=== PATIENT | male | born 1975 | race Caucasian/White ===

== ENCOUNTER 2018-04-17 07:35 | Emergency (ER) | payer BC, SELFPAY ==
[2018-04-17 07:36] VITALS: BP 134/92; PULSE 87; RESP 18; TEMP 36.8; O2SAT 99; BMI 21.6
--- NOTE | 2018-04-17 07:58 | ED.RN ---
DR PURI MADE AWARE OF TONGUE EDEMA, CP AND SOB FOR A COUPLE OF DAYS PER PATIENT. RECEIVING EKG AT THIS TIME
--- NOTE | 2018-04-17 08:15 | EKG12_ITS ---
Test Reason : CHEST PAIN Blood Pressure : / mmHG Vent. Rate : 075 BPM Atrial Rate : 075 BPM P-R Int : 128 ms QRS Dur : 098 ms QT Int : 386 ms P-R-T Axes : 073 -76 054 degrees QTc Int : 431 ms Normal sinus rhythm with sinus arrhythmia Left anterior fascicular block Anterolateral infarct , age undetermined Abnormal ECG Confirmed by CHENTE DOYLE, LATASHA ([id number]), sound editor GURU RAMÍREZ ([id number]) on 04/21/2018 10:18:50 AM Referred By: BEATRIZ Confirmed By:LATASHA ELDRIDGE MD
--- NOTE | 2018-04-17 08:17 | CT_ITS ---
STUDY: CT SOFT TISSUE NECK WITH CONTRAST REASON FOR EXAM: Male, 43 years old. Swelling of the lower lip and mandibular area. No known injury. RADIATION DOSAGE (If Supplied By Facility): CTDIvol = ( 20 ) mGy, DLP = ( 694.44 ) mGycm TECHNIQUE: The patient was scanned in a multi-detector CT scanner. High resolution transaxial imaging was performed following intravenous administration of 100CC ml of Isovue 300 contrast material. Sagittal and coronal images were reconstructed. Individualized dose optimization techniques were used for this CT. COMPARISON: None. FINDINGS: There is diffuse skin thickening and subcutaneous edema involving the soft tissues anterior to the mandible. There is evidence of increased vascularity within the subcutaneous tissues. This may be secondary to either an inflammatory process or congenital vascular malformation. Normal bilateral parotid glands. Normal bilateral nuclear radiation engineer spaces. Normal bilateral parapharyngeal spaces. Normal bilateral carotid spaces. Normal bilateral sublingual and submandibular glands and spaces. Normal visualized nasopharynx. Normal retropharyngeal space. Normal perivertebral space. Normal visualized bilateral faucial tonsils. The visualized tongue, tongue base and oropharynx are normal. The visualized cervical lymph nodes (levels I-) are within normal size limits, and maintain normal morphology. There is no demonstrated solid or cystic mass lesion. There is no abnormal contrast enhancement. Normal epiglottis, bilateral vallecula and hypopharynx. The pre-epiglottic and paraglottic adipose spaces are normal. Normal visualized bilateral piriform sinuses, aryepiglottic folds, vocal cords, and arytenoid-cricoid articulations. Normal subglottic trachea. Normal bilateral lobes of the thyroid gland. Normal visualized pulmonary apices. Mucosal thickening of the left maxillary sinus. Normal visualized cervical spine. CT/Soft Tissue Neck WITH Contrast IMPRESSION: Diffuse skin thickening and soft tissue edema with increased vascularity within the soft tissues anterior to the mandible as described. This may represent either inflammatory process or vascular malformation. Electronically Signed: Adair Giang MD at 9:29 EST Tel [phone], Service support ,
--- NOTE | 2018-04-17 08:18 | ED.VISSUMM ---
- ER Visit Summary Date of Service: 04/17/18 Chief Complaint: Facial swelling History of Present Illness: The patient is a 43 M who presents for facial swelling. Patient states he woke up around 5 AM with swelling to his lips. Yesterday he did not feel well with general malaise and fatigue, and had subjective fever and chills through the night. He woke up with the swelling, and his significant other states the lips have gotten more swollen since he woke up. Patient is also complaining of chest tightness since yesterday. He has a sore throat. He has a chronic cough due to being a smoker but no rhinorrhea, congestion or change in his cough. No recent illness. He is not on any medications. He denies any [id number]-[id number] medication use or any exposure to allergens. Patient denies any history of prior swelling. He denies any shortness of breath, sensation of his throat or tongue swelling. Denies rash. Physical Examination: Vital signs: afebrile, hemodynamically stable, no hypoxia on room air General: well nourished, well developed, sitting in bed in no distress Skin: warm, dry, no rash, no pallor HEENT: normocephalic and atraumatic; PERRL, EOMI, mild symmetric superior periorbital edema, moist mucous membranes, edentulous, swelling to the upper and lower lips, examination of the mental and submental region limited secondary to thick. But patient has tenderness to palpation of the chin and submental region. No sublingual edema or swelling. No posterior oropharyngeal erythema, swelling or exudate, uvula is midline, no tongue swelling. Neck has tender lymphadenopathy in the anterior cervical chains bilaterally. Neck is supple with full active range of motion, no meningismus Cardiovascular: regular rate and rhythm without murmurs, no peripheral edema, 2+ pulses all distal extremities Respiratory: No increased work of breathing, lungs are clear to auscultation bilaterally, no rales, rhonchi or wheezing Abdominal: Abdomen is soft, nontender with normoactive bowel sounds, no guarding or rebound, no masses MSK: Moves all extremities, no deformities, normal strength Neuro: Awake and alert, oriented ?4. No facial droop, sensation and motor function intact and symmetric Test Results: Abnormal Lab Results 12/10/18 12/10/18 12/10/18 08:10 08:10 08:10 WBC 10.6 RBC 4.87 Hgb 16.5 Hct 47.9 MCV 98.4 H MCH 33.9 H MCHC 34.4 RDW 12.9 RDW Differential 46.7 H Plt Count 124 L MPV 14.3 H Immature Gran % (Auto) 0.100 Neut % (Auto) 75.8 H Lymph % (Auto) 16.2 L [place] % (Auto) 7.0 Eos % (Auto) 0.8 Baso % (Auto) 0.1 Absolute Neuts (auto) 8.0 H Absolute Lymphs (auto) 1.71 Total Counted Not Reportable PT 12.9 INR 1.0 APTT 30.9 Sodium 139 Potassium 4.0 Chloride 105 Carbon Dioxide 29.0 Anion Gap 5 BUN 11 Creatinine 0.82 Estim Creat Clear Calc 97.88 Est GFR (MDRD) Af Amer 132 Est GFR (MDRD) Non-Af 109 BUN/Creatinine Ratio 13.3 Glucose 107 H Lactic Acid Calcium 8.8 Total Bilirubin 1.10 H AST 16 ALT 14 L Alkaline Phosphatase 118 H Troponin I < 0.015 Total Protein 7.0 Albumin 3.8 Globulin 3.2 Albumin/Globulin Ratio 1.2 Urine Color Urine Clarity Urine pH Ur Specific [place] Urine Protein Urine Glucose (UA) Urine Ketones Urine Occult Blood Urine Nitrite Urine Bilirubin Urine Urobilinogen Ur Leukocyte Esterase Urine RBC Urine WBC Ur Squamous Epith Cells Urine Bacteria Urine Mucus 04/17/18 04/17/18 08:35 08:35 WBC RBC Hgb Hct MCV MCH MCHC RDW RDW Differential Plt Count MPV Immature Gran % (Auto) Neut % (Auto) Lymph % (Auto) [place] % (Auto) Eos % (Auto) Baso % (Auto) Absolute Neuts (auto) Absolute Lymphs (auto) Total Counted PT INR APTT Sodium Potassium Chloride Carbon Dioxide Anion Gap BUN Creatinine Estim Creat Clear Calc Est GFR (MDRD) Af Amer Est GFR (MDRD) Non-Af BUN/Creatinine Ratio Glucose Lactic Acid 0.7 Calcium Total Bilirubin AST ALT Alkaline Phosphatase Troponin I Total Protein Albumin Globulin Albumin/Globulin Ratio Urine Color Yellow Urine Clarity Sl. Cloudy Urine pH 8.0 Ur Specific [place] 1.015 Urine Protein Negative Urine Glucose (UA) Normal Urine Ketones Negative Urine Occult Blood Negative Urine Nitrite Negative Urine Bilirubin Negative Urine Urobilinogen 4 H Ur Leukocyte Esterase 25 H Urine RBC 0 SEEN Urine WBC 0-5 SEEN Ur Squamous Epith Cells 0-5 SEEN Urine Bacteria 1+ Urine Mucus RARE Clinical Impression(s) from Imaging Studies Soft Tissue Neck CT 04/17/18 08:17 IMPRESSION: Diffuse skin thickening and soft tissue edema with increased vascularity within the soft tissues anterior to the mandible as described. This may represent either inflammatory process or vascular malformation. Electronically Signed: Adair Giang MD at 9:29 EST Tel [phone], Service support , Chest X-Ray 04/17/18 09:11 IMPRESSION: Normal x-ray examination of the chest. Electronically Signed: Adair Giang MD at 9:36 EST Tel [phone], Service support , Medications Given Clindamycin Phosphate 600 mg/ (Dextrose) 54 mls @ 100 mls/hr IV X1 ONE Stop: 04/17/18 10:07 Discontinued Medications Diphenhydramine HCl (Benadryl) 50 mg PO X1 ONE Stop: 04/17/18 08:17 Last Admin: 04/17/18 08:22 Dose: 50 mg Sodium Chloride () 1,000 mls @ 999 mls/hr IV .Q1H1M ONE Stop: 04/17/18 09:17 Last Admin: 04/17/18 08:23 Dose: 999 mls/hr Prednisone () 60 mg PO X1 ONE Stop: 04/17/18 08:18 Last Admin: 04/17/18 08:22 Dose: 60 mg Emergency Department Course and Treatment: Patient presents with concern for facial swelling with associated malaise and subjective fever. Further history provided by the partner is that patient had an ingrown hair in his laureano yesterday that she wanted to pop but he was too tender for her to even touch it. Differential includes cellulitis, deep space infection, idiopathic angioedema, allergic reaction, and with patient's complaint of chest tightness, cardiac workup was included. EKG showed sinus rhythm with no ischemic changes. Troponin negative. CBC showed no leukocytosis. BMP unremarkable. Lactate within normal limits. Chest x-ray showed no acute process. CT soft tissue neck was performed and it showed subcutaneous edema anterior to the mandible but no signs of deep space infection. Patient was given prednisone and Benadryl upon initial presentation for treatment of the edema in case it was allergic in nature. Patient was observed and had no progression of the edema but had no change in how he felt. Because of the concern for possible infectious etiology, he was started on clindamycin, which was chosen due to a severe penicillin allergy. On reevaluation, patient remained hemodynamically stable and the swelling of his lower face modestly improved. Patient stated he subjectively felt like the swelling had improved, and his family also noted that his face looked less swollen. Patient feels well enough to go home, and given the improvement in his edema with no signs of airway compromise, sepsis or anaphylaxis, outpatient management is reasonable. Patient has no findings on his lab work or vital signs that is concerning for infectious etiology, however given the malaise, fatigue, objective fever, and facial tenderness with multiple pustules in the laureano, this is concerning for possible facial cellulitis. However patient also has the concern for possible allergic versus idiopathic angioedema. Thus he was prescribed both clindamycin and prednisone with Benadryl. Strict return precautions given. Patient discharged home with symptoms improving. Treatment Plan: [] Disposition: [] Impression: idiopathic facial edema; facial cellulitis This note was generated with [employer] dictation software. It may contain incorrect words, spelling, and punctuation that were not noted in review of the chart prior to signing ED Disposition - Plan for ED Patient: Chief Complaint: Chest Pain Prescriptions: DiphenhydrAMINE [Benadryl] 50 mg PO TID PRN PRN #30 cap PRN Reason: allergic reaction predniSONE tablet 60 mg PO DAILY #15 tab Clindamycin [Cleocin] 450 mg PO TID 7 Days #63 cap Referrals: Care Physician,No Primary [Primary Care Provider] -
[2018-04-17] MEDS: predniSONE 20 MG Tablet 60 MG PO (08:22)
[2018-04-17] MEDS: DiphenhydrAMINE 25 MG Capsule 50 MG PO (08:22)
--- NOTE | 2018-04-17 08:22 | ED.DCSUM_ITS ---
- ER Visit Summary Date of Service: 04/17/18 Chief Complaint: Facial swelling History of Present Illness: The patient is a 43 M who presents for facial swelling. Patient states he woke up around 5 AM with swelling to his lips. Yesterday he did not feel well with general malaise and fatigue, and had subjec tive fever and chills through the night. He woke up with the swelling, and his significant other states the lips have gotten more swollen since he woke up. Patient is also complaining of chest tightness since yesterday. He has a sore throat. He has a chronic cough due to being a smoker but no rhinorrhea, congestion or change in his cough. No recent illness. He is not on any medications. He denies any ezyf-prx-vatqege medication use or any exposure to allergens. Patient denies any history of prior swelling. He denies any shortness of breath, sensation of his throat or tongue swelling. Denies rash. Physical Examination: Vital signs: afebrile, hemodynamically stable, no hypoxia on room air General: well nourished, well developed, sitting in bed in no distress Skin: warm, dry, no rash, no pallor HEENT: normocephalic and atraumatic; PERRL, EOMI, mild symmetric superior periorbital edema, moist mucous membranes, edentulous, swelling to the upper and lower lips, examination of the mental and submental region limited secondary to thick. But patient has tenderness to palpation of the chin and submental region. No sublingual edema or swelling. No posterior oropharyngeal erythema, swelling or exudate, uvula is midline, no tongue swelling. Neck has tender lymphadenopathy in the anterior cervical chains bilaterally. Neck is supple with full active range of motion, no meningismus Cardiovascular: regular rate and rhythm without murmurs, no peripheral edema, 2+ pulses all distal extremities Respiratory: No increased work of breathing, lungs are clear to auscultation bilaterally, no rales, rhonchi or wheezing Abdominal: Abdomen is soft, nontender with normoactive bowel sounds, no guarding or rebound, no masses MSK: Moves all extremities, no deformities, normal strength Neuro: Awake and alert, oriented ?4. No facial droop, sensation and motor function intact and symmetric Test Results: Abnormal Lab Results 04/17/18 04/17/18 04/17/18 08:10 08:10 08:10 WBC 10.6 RBC 4.87 Hgb 16.5 Hct 47.9 MCV 98.4 H MCH 33.9 H MCHC 34.4 RDW 12.9 RDW Differential 46.7 H Plt Count 124 L MPV 14.3 H Immature Gran % (Auto) 0.100 Neut % (Auto) 75.8 H Lymph % (Auto) 16.2 L [place] % (Auto) 7.0 Eos % (Auto) 0.8 Baso % (Auto) 0.1 Absolute Neuts (auto) 8.0 H Absolute Lymphs (auto) 1.71 Total Counted Not Reportable PT 12.9 INR 1.0 APTT 30.9 Sodium 139 Potassium 4.0 Chloride 105 Carbon Dioxide 29.0 Anion Gap 5 BUN 11 Creatinine 0.82 Estim Creat Clear Calc 97.88 Est GFR (MDRD) Af Amer 132 Est GFR (MDRD) Non-Af 109 BUN/Creatinine Ratio 13.3 Glucose 107 H Lactic Acid Calcium 8.8 Total Bilirubin 1.10 H AST 16 ALT 14 L Alkaline Phosphatase 118 H Troponin I < 0.015 Total Protein 7.0 Albumin 3.8 Globulin 3.2 Albumin/Globulin Ratio 1.2 Urine Color Urine Clarity Urine pH Ur Specific [place] Urine Protein Urine Glucose (UA) Urine Ketones Urine Occult Blood Urine Nitrite Urine Bilirubin Urine Urobilinogen Ur Leukocyte Esterase Urine RBC Urine WBC Ur Squamous Epith Cells Urine Bacteria Urine Mucus 04/17/18 04/17/18 08:35 08:35 WBC RBC Hgb Hct MCV MCH MCHC RDW RDW Differential Plt Count MPV Immature Gran % (Auto) Neut % (Auto) Lymph % (Auto) [place] % (Auto) Eos % (Auto) Baso % (Auto) Absolute Neuts (auto) Absolute Lymphs (auto) Total Counted PT INR APTT Sodium Potassium Chloride Carbon Dioxide Anion Gap BUN Creatinine Estim Creat Clear Calc Est GFR (MDRD) Af Amer Est GFR (MDRD) Non-Af BUN/Creatinine Ratio Glucose Lactic Acid 0.7 Calcium Total Bilirubin AST ALT Alkaline Phosphatase Troponin I Total Protein Albumin Globulin Albumin/Globulin Ratio Urine Color Yellow Urine Clarity Sl. Cloudy Urine pH 8.0 Ur Specific [place] 1.015 Urine Protein Negative Urine Glucose (UA) Normal Urine Ketones Negative Urine Occult Blood Negative Urine Nitrite Negative Urine Bilirubin Negative Urine Urobilinogen 4 H Ur Leukocyte Esterase 25 H Urine RBC 0 SEEN Urine WBC 0-5 SEEN Ur Squamous Epith Cells 0-5 SEEN Urine Bacteria 1+ Urine Mucus RARE Clinical Impression(s) from Imaging Studies Soft Tissue Neck CT 04/17/18 08:17 IMPRESSION: Diffuse skin thickening and soft tissue edema with increased vascularity within the soft tissues anterior to the mandible as described. This may represent either inflammatory process or vascular malformation. Electronically Signed: Adair Giang MD at 9:29 EST Tel [phone], Service support , Chest X-Ray 04/17/18 09:11 IMPRESSION: Normal x-ray examination of the chest. Electronically Signed: Adair Giang MD at 9:36 EST Tel [phone], Service support , Medications Given Clindamycin Phosphate 600 mg/ (Dextrose) 54 mls @ 100 mls/hr IV X1 ONE Stop: 04/17/18 10:07 Discontinued Medications Diphenhydramine HCl (Benadryl) 50 mg PO X1 ONE Stop: 04/17/18 08:17 Last Admin: 04/17/18 08:22 Dose: 50 mg Sodium Chloride () 1,000 mls @ 999 mls/hr IV .Q1H1M ONE Stop: 04/17/18 09:17 Last Admin: 04/17/18 08:23 Dose: 999 mls/hr Prednisone () 60 mg PO X1 ONE Stop: 04/17/18 08:18 Last Admin: 04/17/18 08:22 Dose: 60 mg Emergency Department Course and Treatment: Patient presents with concern for facial swelling with associated malaise and subjective fever. Further history provided by the partner is that patient had an ingrown hair in his laureano yesterday that she wanted to pop but he was too tender for her to even touch it. Differential includes cellulitis, deep space infection, idiopathic angioedema, allergic reaction, and with patient's complaint of chest tightness, cardiac workup was included. EKG showed sinus rhythm with no ischemic changes. Troponin negative. CBC showed no leukocytosis. BMP unremarkable. Lactate within normal limits. Chest x-ray showed no acute process. CT soft tissue neck was performed and it showed subcutaneous edema anterior to the mandible but no signs of deep space infection. Patient was given prednisone and Benadryl upon initial presentation for treatment of the edema in case it was allergic in nature. Patient was observed and had no progression of the edema but had no change in how he felt. Because of the concern for possible infectious etiology, he was started on clindamycin, which was chosen due to a severe penicillin allergy. On reevaluation, patient remained hemodynamically stable and the swelling of his lower face modestly improved. Patient stated he subjectively felt like the swelling had improved, and his family also noted that his face looked less swollen. Patient feels well enough to go home, and given the improvement in his edema with no signs of airway compromise, sepsis or anaphylaxis, outpatient management is reasonable. Patient has no findings on his lab work or vital signs that is concerning for infectious etiology, however given the malaise, fatigue, objective fever, and facial tenderness with multiple pustules in the laureano, this is concerning for possible facial cellulitis. However patient also has the concern for possible allergic versus idiopathic angioedema. Thus he was prescribed both clindamycin and prednisone with Benadryl. Strict return precautions given. Patient discharged home with symptoms improving. Treatment Plan: [] Disposition: [] Impression: idiopathic facial edema; facial cellulitis This note was generated with [employer] dictation software. It may contain incorrect words, spelling, and punctuation that were not noted in review of the chart prior to signing ED Disposition - Plan for ED Patient: Chief Complaint: Chest Pain Prescriptions: DiphenhydrAMINE [Benadryl] 50 mg PO TID PRN PRN #30 cap PRN Reason: allergic reaction predniSONE tablet 60 mg PO DAILY #15 tab Clindamycin [Cleocin] 450 mg PO TID 7 Days #63 cap Referrals: Care Physician,No Primary [Primary Care Provider] -
[2018-04-17] MEDS: 0.9% Normal Saline 1,000 ML 999 ML IV (08:23)
[2018-04-17 08:40] VITALS: BP 153/99; PULSE 66; RESP 17; TEMP 36.8; O2SAT 99
[2018-04-17 08:41] LABS: Absolute Lymphocyte Count 1.71 X10^3/ul (0.83-4.51); Basophil# 0.01 X10^3/uL; Basophil% 0.1 % (0-1); Eosinophil# 0.08 X10^3/uL; Eosinophils% 0.8 % (0-5); Hematocrit 47.9 % (40-54); Hemoglobin 16.5 g/dl (13.0-16.5); Lymphocyte # 1.71 X10^3/ul (4.0); Lymphocyte % 16.2 % (19-41); Mean Corp Hgb Conc 34.4 g/gl (32-36); Mean Corpuscular Hgb 33.9 pg (27.0-32.0); Mean Corpuscular Volume 98.4 fL (80-94); Mean Platelet Vol. 14.3 fl (6.2-12.0); Monocyte# 0.74 X10^3/uL; Neutrophil # 8.01 X10^3/uL (2.7-7.7); Neutrophil % 75.8 % (47-70); Platelet Count 124 K/mm3 (150-450); RBC Distribution Width CV 12.9 % (11.6-14.6); RBC Distribution Width SD 46.7 fl (35.1-43.9); Red Blood Count 4.87 M/mm3 (4.6-6.2); White Blood Count 10.6 K/mm3 (4.4-11.0)
[2018-04-17 08:42] LABS: POSITIVE COUNT NO; POSITIVE DIFFERENTIAL NO; POSITIVE MORPHOLOGY NO
[2018-04-17 08:42] LABS: Red Blood Cells-Urine 0 SEEN /hpf (0-5)
[2018-04-17 08:44] LABS: Prothrombin Time (Protime)PT. 12.9 SECONDS (11.7-14.9)
[2018-04-17 08:45] LABS: Partial Thromboplast Time 30.9 Seconds (24.1-36.2)
[2018-04-17 08:49] LABS: Color, Urine Yellow (Yellow); Glucose, Dipstick Normal (Normal); Ketone-Dipstick Negative (Negative); Leukocyte Esterase-Dipstick 25 /ul (Negative); Nitrite-Dipstick Negative (Negative); Occult Blood-Urine Negative /ul (Negative); Protein-Dipstick Negative (Negative); Specific Gravity, Urine 1.015 (1.002-1.030); Urine Bilirubin Dipstick Negative (Negative); Urine Clarity Sl. Cloudy (Clear); Urine Urobilinogen 4 mg/dl (Normal)
[2018-04-17 08:50] LABS: ALB/GLOB Ratio 1.2 RATIO (0.9-2.4); AST(SGOT) 16 U/L (15-37); Alanine Aminotransfer ALT/SGPT 14 U/L (16-61); Albumin, Serum 3.8 g/dL (3.2-5.0); Alkaline Phosphatase 118 U/L (45-117); Anion Gap 5 (5-15); BUN 11 mg/dL (7-18); BUN/Creat Ratio 13.3 RATIO (10-20); Calcium,Total 8.8 mg/dL (8.5-10.1); Chloride 105 mmol/L (98-107); Creatinine, Serum 0.82 mg/dL (0.70-1.30); EST Glomerular Filtration Rate 109 mL/min (>60); Est Glom Filt Rate - Afr Amer 132 mL/min (>60); Estimated Creatinine Clearance 97.88 ml/min; Globulin 3.2 g/dL (2.2-4.2); Glucose 107 mg/dL (74-106); Sodium Level 139 mmol/L (136-145)
[2018-04-17 08:53] LABS: Bacteria 1+ /hpf (None Seen); Squamous Epithelial Cells - UA 0-5 SEEN /hpf (0-5); White Blood Cells 0-5 SEEN /hpf (0-5)
[2018-04-17 08:54] LABS: Mucous, Urine RARE /hpf (<or=2+)
[2018-04-17 09:11] LABS: Lactic Acid 0.7 mmol/L (0.4-2.0)
--- NOTE | 2018-04-17 09:11 | RAD_ITS ---
STUDY: X-RAY CHEST REASON FOR EXAM: Male, 43 years old. Cough. Allergic reaction. TECHNIQUE: PA and lateral views of the chest. COMPARISON: None. FINDINGS: EKG electrodes are seen. The lungs are clear and expanded. There is no demonstrated pleural abnormality. Normal size heart. Normal mediastinum and nico. Normal visualized pulmonary arteries. Normal visualized aortic arch and descending thoracic aorta. Normal visualized thoracic spine. Normal visualized ribs, clavicles, and shoulders. There is no demonstrated abnormality of the visualized soft tissue structures of the upper abdomen. RAD/Chest PA and Lateral IMPRESSION: Normal x-ray examination of the chest. Electronically Signed: Adair Giang MD at 9:36 EST Tel [phone], Service support ,
[2018-04-17 09:38] VITALS: BP 121/93; PULSE 66; RESP 14; O2SAT 99
[2018-04-17 10:08] VITALS: BP 138/95; PULSE 72; RESP 19; O2SAT 98
--- NOTE | 2018-04-17 10:37 | ED.DEP ---
ED Disposition - Plan for ED Patient: Disposition: Home or Assisted Living Chief Complaint: Chest Pain Instructions: ED Cellulitis Facial, ED Angioedema Prescriptions: DiphenhydrAMINE [Benadryl] 50 mg PO TID PRN PRN #30 cap PRN Reason: allergic reaction predniSONE tablet 60 mg PO DAILY #15 tab Clindamycin [Cleocin] 450 mg PO TID 7 Days #63 cap Referrals: Care Physician,No Primary [Primary Care Provider] - Xavier Juares DO [STAFF PHYSICIAN] - 3-5 Days if not improving Additional Instructions: Take your medications as prescribed, especially the prednisone for 5 days in the antibiotic for 7 days. Do not miss any doses of the antibiotic. If at any point you are swelling worsens, you have difficulty breathing, you feel like your throat is swelling, you have dizziness or lightheadedness, high fever, or any new concerning symptoms, return immediately for another evaluation.
[2018-04-17 11:02] VITALS: BP 128/88; PULSE 72; RESP 13; O2SAT 98
== END 2018-04-17 11:04 | disposition home or self-care (01) ==
PROVIDERS: Emergency Provider Emergency Medicine
DX: L03.211 Cellulitis of face (principal); T78.3XXA Angioneurotic edema, initial encounter; R07.89 Other chest pain; J02.9 Acute pharyngitis, unspecified; R05 Cough; Z88.0 Allergy status to penicillin
CPT/HCPCS: 70491; 71046; 80053; 81001; 83605; 84484; 85025; 85610; 85730; 87040; 87086; 87088; 93005; 96361; 96365; 99285; J7030; Q9967; A4216

== ENCOUNTER 2018-04-17 12:02 | Emergency (ER) | payer BC, SELFPAY ==
[2018-04-17 07:36] VITALS: BMI 21.6
[2018-04-17 12:03] VITALS: BP 151/94; PULSE 84; RESP 18; TEMP 37.1; O2SAT 99; BMI 21.6
--- NOTE | 2018-04-17 12:42 | ED.VISSUMM ---
- ER Visit Summary Date of Service: 04/17/18 Chief Complaint: Facial swelling and lesions History of Present Illness: The patient is a 43 M who presents for a second time today for facial swelling and painful facial lesions. Patient was evaluated earlier this morning after waking up with swelling to the lips and chin. Patient had fatigue and malaise yesterday, subjective fever and chills overnight. There was concern by his girlfriend for an ingrown hair that was too tender to squeeze in his laureano. Patient had no fever, tachycardia or any lab derangements on his prior workup this morning. He has noted improvement in the swelling of his lips, but now has a new painful lesion on the lower mid lip that was not there at his earlier evaluation. Patient denies any shortness of breath, chest pain, sensation of tongue or throat swelling, vision changes, nausea or vomiting, or any other complaints at this time other than the new lip lesion. Physical Examination: Vital signs: afebrile, hemodynamically stable, no hypoxia on room air General: well nourished, well developed, in no distress Skin: warm, dry, pustules noted scattered on the face, thick laureano with occasional pustules, no pallor HEENT: normocephalic and atraumatic; PERRL, EOMI, periorbital edema, moist mucous membranes, edentulous, no oropharyngeal lesions, no tongue swelling, no posterior oropharyngeal swelling, no sublingual edema, diffuse edema to the lower lip with an erythematous tender papule on the vermilion border with a skin lesion in the hair follicles just inferior to this. Thick laureano with diffuse tenderness to palpation. No submandibular thickness or induration. Tenderness to the anterior cervical lymphatic chains, neck supple without meningismus Cardiovascular: regular rate and rhythm without murmurs, no peripheral edema, 2+ pulses all distal extremities Respiratory: No increased work of breathing, lungs are clear to auscultation bilaterally, no rales, rhonchi or wheezing Abdominal: Abdomen is soft, nontender with normoactive bowel sounds, no guarding or rebound, no masses MSK: Moves all extremities, no deformities, normal strength Neuro: Awake and alert, oriented ?4. No facial droop, sensation and motor function intact and symmetric Test Results: [] Emergency Department Course and Treatment: This is patient's second visit within a few hours for the same complaint. Patient swelling has actually improved, with resolution of the periorbital edema and upper lip swelling since exam this morning. He does have the new lesion on the lower lip which may either be extension of an infected hair follicle at the vermilion border versus a hives. Is still unclear if patient is having an allergic angioedema versus facial cellulitis. He did receive prednisone and clindamycin prior to discharge. Upon discussing disposition again of outpatient versus admission for observation, patient and girlfriend are very unsure about patient's condition, and it is very likely he will return if he is discharged. He would benefit from observation for angioedema to make sure his symptoms do not worsen. Treatment Plan: [] Disposition: [] Impression: facial edema; facial cellulitis, failed outpatient management This note was generated with [employer] dictation software. It may contain incorrect words, spelling, and punctuation that were not noted in review of the chart prior to signing ED Disposition - Plan for ED Patient: Chief Complaint: Edema Referrals: Care Physician,No Primary [Primary Care Provider] -
--- NOTE | 2018-04-17 13:36 | PCM.WORK.EX ---
Work/School Excuse Work/School Excuse for:: Patient Please excuse this person from:: Work From: 04/17/18 through: 04/18/18
--- NOTE | 2018-04-17 13:36 | PCM.DC ---
You will use the following diet at home:: No restrictions Your food should be the consistency of: Regular Return to work on:: 04/18/18 Call your doctor if you observe: - - increased facial swelling. shortness of breath. diffuse rash. Allergies/Adverse Reactions: Allergies Penicillins [PCN] Allergy (Verified 04/17/18 12:05) Unknown HAD IT WHEN I WAS A BABY, IT WILL KILL ME. Medications to take at Discharge DiphenhydrAMINE [Benadryl] 50 mg PO TID PRN PRN #30 cap 04/17/18 Epinephrine [Epi Pen] 0.3 mg IM X1 PRN #1 syringe 04/17/18 Famotidine [Pepcid] 20 mg PO BID #10 tablet 04/17/18 predniSONE tablet 60 mg PO DAILY #15 tab 04/17/18 The following prescriptions were given: Epinephrine [Epi Pen] 0.3 mg IM X1 PRN #1 syringe PRN Reason: Angioedema Famotidine [Pepcid] 20 mg PO BID #10 tablet Primary Care Physician: Care Physician,No Primary [Primary Care Provider] - Test Results: Test results from this visit will be discussed in further detail at your follow-up appointment, if applicable. Please Follow Up With: Allergy and Asthma Treatment When: 2-4 weeks. Jazmín: [phone]. Ela: [phone]. Deo:[phone] Proposed Discharge Date: 04/17/18
--- NOTE | 2018-04-17 13:42 | DCINST_ITS ---
You will use the following diet at home:: No restrictions Your food should be the consistency of: Regular Return to work on:: 04/18/18 Call your doctor if you observe: - - increased facial swelling. shortness of breath. diffuse rash. Allergies/Adverse Reactions: Allergies Penicillins [PCN] Allergy (Verified 04/17/18 12:05) Unknown HAD IT WHEN I WAS A BABY, IT WILL KILL ME. Medications to take at Discharge DiphenhydrAMINE [Benadryl] 50 mg PO TID PRN PRN #30 cap 04/17/18 Epinephrine [Epi Pen] 0.3 mg IM X1 PRN #1 syringe 04/17/18 Famotidine [Pepcid] 20 mg PO BID #10 tablet 04/17/18 predniSONE tablet 60 mg PO DAILY #15 tab 04/17/18 The following prescriptions were given: Epinephrine [Epi Pen] 0.3 mg IM X1 PRN #1 syringe PRN Reason: Angioedema Famotidine [Pepcid] 20 mg PO BID #10 tablet Primary Care Physician: Care Physician,No Primary [Primary Care Provider] - Test Results: Test results from this visit will be discussed in further detail at your follow- up appointment, if applicable. Please Follow Up With: Allergy and Asthma Treatment When: 2-4 weeks. Jazmín: [phone]. Ela: [phone]. Deo:[phone] Proposed Discharge Date: 04/17/18
--- NOTE | 2018-04-17 13:43 | PCM.CONS.GEN ---
Problem List (1) Angioedema Status: Acute Qualifiers: Encounter type: initial encounter Qualified Code(s): T78.3XXA - Angioneurotic edema, initial encounter Reason for Consult Date of Consultation: 04/17/18 Reason for Consultation: Facial swelling. History of Present Illness: The patient is a 43 year old M presents this morning with lip swelling. Presented to the emergency room because of lip swelling. Concern was for angioedema and patient received prednisone and Benadryl. Did note improvement and patient was discharged home. While the patient was picking up his prescriptions, noted some whitish lesions on his lower lip and presented back to the emergency room. When he returned back to the emergency room, it was noted that his swelling of his lips had greatly improved. Patient has had no trismus nor any respiratory difficulties during this. Patient denies ever having had angioedema or lip swelling before. Patient does have a history of psoriasis as well as allergic reactions, such as contact dermatitis due to his work goggles, penicillin allergy and was sounds like anaphylaxis. He had not seen an personnel quality assurance auditor in the past but has not followed up with one recently. [] Past Medical History Medical History: Medical History (Last Updated 04/17/18 @ 13:45 by Nabil Moore DO) Psoriasis L40.9 Allergies Penicillins [PCN] Allergy (Verified 04/17/18 12:05) Unknown HAD IT WHEN I WAS A BABY, IT WILL KILL ME. Home Medications: Ambulatory Orders Medication Instructions Recorded DiphenhydrAMINE [Benadryl] 50 mg PO TID PRN PRN #30 cap 04/17/18 Epinephrine [Epi Pen] 0.3 mg IM X1 PRN #1 syringe 04/17/18 Famotidine [Pepcid] 20 mg PO BID #10 tablet 04/17/18 predniSONE tablet 60 mg PO DAILY #15 tab 04/17/18 Psychiatric History: No pertinent psych hx Lives: Spouse/ Significant Other Smoking Status: Heavy Smoker (>10/day) Tobacco Use: Cigarettes Alcohol: None Drugs: None - *Family History Maternal History Items: No pertinent history Review of Systems Constitutional: Denies: Anorexia, Chills, Fever Eyes: Denies: Blurred vision, Double vision HEENT: Denies: Head Aches, Sinus Congestion, Sinus Drainage Cardiovascular: Reports: Chest Pain. Denies: Edema Respiratory: Denies: Cough, Shortness of breath at rest, Sputum production Gastrointestinal: Denies: Abdominal Pain, Nausea, Vomiting Genitourinary: Denies: Dysuria Musculoskeletal: Denies: Joint Pain, Joint Tenderness Skin: Reports: Rash. Denies: Wounds Neurological: Denies: Numbness, Tingling, Focal weakness Psychiatric: Denies: Anxiety, Depression Hematologic/ Lymphatic: Denies: Easy Bruising, Easy Bleeding Comment: A 10 point review of systems were negative except as mentioned in the history of present illness and the other review of systems. Patient Problems: Active and Suspected Problems Angioedema (Acute) - Physical Exam General: Alert, Cooperative, No apparent distress HEENT: Atraumatic, Normocephalic, - - Lower lip swelling. No posterior pharyngeal edema. Oral: Moist Mucosa, No Gingival or Mucosal Lesions/ Ulcerations Neck: No Nodes, Thyroid Normal Size and Texture Lungs: Clear to auscultation, Normal air movement, No rhonchi, No wheeze Cardiovascular: Regular rate, Regular Rhythm, Normal S1, Normal S2, No murmurs Abdomen: Bowel Sounds Present, Soft, Non Tender, Non-Distended, No Hepato-splenomegaly Extremities: No edema, No Calf Tenderness Skin: - - Seborrhea and noted around the bridge of his nose and cheeks. Also along his around lines. Does have some seborrhea within his laureano hair. Psych/Mental Status: Normal Affect, Appropriate Vital Signs Temp Pulse Resp BP Pulse Ox 37.1 C 84 18 151/94 H 99 04/17/18 12:03 04/17/18 12:03 04/17/18 12:03 04/17/18 12:03 04/17/18 12:03 Weight: 58.967 kg Body Mass Index (BMI) 21.6 Assessment/Plan All Active Problems Angioedema (Acute) 1. Angioedema Unclear etiology, patient denies taking any medications. Is concerned that they recently used her senior litigation paralegal recently and patient was putting in some wood floors in her house. Overall, soundly patient does have a chronic allergic disorder is not been completely elucidated at this point time. Immune agreement with [facility] but I would also recommend Pepcid. Also recommend the patient have an EpiPen as needed for severe allergic reaction. I did inform the patient, as he is a stoic individual, if he does ever have to use the EpiPen that he should come to the emergency room irregardless. I have strongly advised patient follow-up with allergy as patient has a chronic allergic disorder and needs further clarification and identification so they can be adequately treated properly. I did give the patient the option to be admitted or go home and continue with the treatment. Patient preferring to go home which I think is reasonable as his angioedema is improved and he has no respiratory issues at this time. Code Visit Office Visits / Consults: [id number] OP Consult L3
--- NOTE | 2018-04-17 13:47 | CON.PCM_ITS ---
Problem List (1) Angioedema Status: Acute Qualifiers: Encounter type: initial encounter Qualified Code(s): T78.3XXA - Angioneurotic edema, initial encounter Reason for Consult Date of Consultation: 04/17/18 Reason for Consultation: Facial swelling. History of Present Illness: The patient is a 43 year old M presents this morning with lip swelling. Presented to the emergency room because of lip swelling. Concern was for angioedema and patient received prednisone and Benadryl. Did note improvement and patient was discharged home. While the patient was picking up his prescriptions, noted some whitish lesions on his lower lip and presented back to the emergency room. When he returned back to the emergency room, it was noted that his swelling of his lips had greatly improved. Patient has had no trismus nor any respiratory difficulties during this. Patient denies ever having had angioedema or lip swelling before. Patient does have a history of psoriasis as well as allergic reactions, such as contact dermatitis due to his work goggles, penicillin allergy and was sounds like anaphylaxis. He had not seen an breaker unit assembler in the past but has not followed up with one recently. [] Past Medical History Medical History: Medical History (Last Updated 04/17/18 @ 13:45 by Nabil Moore DO) Psoriasis L40.9 Allergies Penicillins [PCN] Allergy (Verified 04/17/18 12:05) Unknown HAD IT WHEN I WAS A BABY, IT WILL KILL ME. Home Medications: Ambulatory Orders Medication Instructions Recorded DiphenhydrAMINE [Benadryl] 50 mg PO TID PRN PRN #30 cap 04/17/18 Epinephrine [Epi Pen] 0.3 mg IM X1 PRN #1 syringe 04/17/18 Famotidine [Pepcid] 20 mg PO BID #10 tablet 04/17/18 predniSONE tablet 60 mg PO DAILY #15 tab 04/17/18 Psychiatric History: No pertinent psych hx Lives: Spouse/ Significant Other Smoking Status: Heavy Smoker (>10/day) Tobacco Use: Cigarettes Alcohol: None Drugs: None - *Family History Maternal History Items: No pertinent history Review of Systems Constitutional: Denies: Anorexia, Chills, Fever Eyes: Denies: Blurred vision, Double vision HEENT: Denies: Head Aches, Sinus Congestion, Sinus Drainage Cardiovascular: Reports: Chest Pain. Denies: Edema Respiratory: Denies: Cough, Shortness of breath at rest, Sputum production Gastrointestinal: Denies: Abdominal Pain, Nausea, Vomiting Genitourinary: Denies: Dysuria Musculoskeletal: Denies: Joint Pain, Joint Tenderness Skin: Reports: Rash. Denies: Wounds Neurological: Denies: Numbness, Tingling, Focal weakness Psychiatric: Denies: Anxiety, Depression Hematologic/ Lymphatic: Denies: Easy Bruising, Easy Bleeding Comment: A 10 point review of systems were negative except as mentioned in the history of present illness and the other review of systems. Patient Problems: Active and Suspected Problems Angioedema (Acute) - Physical Exam General: Alert, Cooperative, No apparent distress HEENT: Atraumatic, Normocephalic, - - Lower lip swelling. No posterior pharyngeal edema. Oral: Moist Mucosa, No Gingival or Mucosal Lesions/ Ulcerations Neck: No Nodes, Thyroid Normal Size and Texture Lungs: Clear to auscultation, Normal air movement, No rhonchi, No wheeze Cardiovascular: Regular rate, Regular Rhythm, Normal S1, Normal S2, No murmurs Abdomen: Bowel Sounds Present, Soft, Non Tender, Non-Distended, No Hepato- splenomegaly Extremities: No edema, No Calf Tenderness Skin: - - Seborrhea and noted around the bridge of his nose and cheeks. Also along his around lines. Does have some seborrhea within his laureano hair. Psych/Mental Status: Normal Affect, Appropriate Vital Signs Temp Pulse Resp BP Pulse Ox 37.1 C 84 18 151/94 H 99 04/17/18 12:03 04/17/18 12:03 04/17/18 12:03 04/17/18 12:03 04/17/18 12:03 Weight: 58.967 kg Body Mass Index (BMI) 21.6 Assessment/Plan All Active Problems Angioedema (Acute) 1. Angioedema * Unclear etiology, patient denies taking any medications. Is concerned that they recently used her desizing pad operator recently and patient was putting in some wood floors in her house. * Overall, soundly patient does have a chronic allergic disorder is not been completely elucidated at this point time. Immune agreement with patient being on prednisone as well at [facility] but I would also recommend Pepcid. Also recommend the patient have an EpiPen as needed for severe allergic reaction. I did inform the patient, as he is a stoic individual, if he does ever have to use the EpiPen that he should come to the emergency room irregardless. * I have strongly advised patient follow-up with allergy as patient has a chronic allergic disorder and needs further clarification and identification so they can be adequately treated properly. * I did give the patient the option to be admitted or go home and continue with the treatment. Patient preferring to go home which I think is reasonable as his angioedema is improved and he has no respiratory issues at this time. Code Visit Office Visits / Consults: [id number] OP Consult L3
== END 2018-04-17 14:06 | disposition home or self-care (01) ==
LOC: ED 13:06 → MS3 13:39
PROVIDERS: Emergency Provider Emergency Medicine
DX: L03.211 Cellulitis of face (principal); T78.3XXA Angioneurotic edema, initial encounter; K13.0 Diseases of lips; L40.9 Psoriasis, unspecified; F17.210 Nicotine dependence, cigarettes, uncomplicated; Z88.0 Allergy status to penicillin
CPT/HCPCS: 99282

== ENCOUNTER 2018-04-23 14:15 | Emergency (ER) | payer BC, SELFPAY ==
[2018-04-23 14:16] VITALS: BP 144/91; PULSE 100; RESP 18; TEMP 37; O2SAT 99; BMI 22.1
[2018-04-23] MEDS: predniSONE 20 MG Tablet 60 MG PO (14:50)
--- NOTE | 2018-04-23 14:53 | ED.DCSUM_ITS ---
- ER Visit Summary Date of Service: 04/23/18 Chief Complaint: Lips swelling History of Present Illness: The patient is a 43 M no significant past medical history. For the last week has had intermittent swelling of his lips. Was seen in the ER x2. Patient was started on prednisone, Prilosec and cephalexin. He is also been using Benadryl. And was written for an EpiPen which she is not needed. He has slightly more swelling today. No trouble swallowing. No breathing problems. No fever. No family history of his family history is somewhat limited on his dad's side of family. No prior history of angioedema. He has been on no medications prior to this happening. Physical Examination: Well-appearing middle-age male. Vital signs are stable afebrile. No distress. H EENT exam mild swelling of his upper and lower lips. No trouble breathing or swallowing. No stridor. No drooling. Posterior pharynx normal. Posterior pharynx is not swollen. Floor of his mouth is not swollen nor tender. Neck nontender. No lymphadenopathy. Trachea midline. Lungs clear to auscultation bilaterally. Heart regular rhythm no murmur. Abdomen soft and nontender. Patient is moving all 4 extremities. There is no swelling to his extremities. Skin without rash. Back exam normal. Neurologically he is awake and alert with no focal motor deficits. Test Results: None Emergency Department Course and Treatment: Patient took some of his medications at home. He will be given a dose of prednisone. Ice pack to his lips. He will be observed in the ER. Repeat exam at 1545 patient is doing well. No significant change. Definitely no worse. Treatment Plan: Continue the prednisone 40 mg a day. Also the Benadryl and Prilosec. Return if worse. Follow-up with a primary care physician and allergy testing. Disposition: Discharge Impression: Acute angioedema of the lips of uncertain etiology This note was generated with [employer] dictation software. It may contain incorrect words, spelling, and punctuation that were not noted in review of the chart prior to signing ED Disposition - Plan for ED Patient: Chief Complaint: Allergic Reaction Referrals: Care Physician,No Primary [Primary Care Provider] -
[2018-04-23 15:47] VITALS: BP 116/59; PULSE 87; RESP 16; O2SAT 98
--- NOTE | 2018-04-23 15:50 | ED.DEP ---
ED Disposition - Plan for ED Patient: Disposition: Home or Assisted Living Chief Complaint: Allergic Reaction Instructions: ED Angioedema Prescriptions: predniSONE tablet 40 mg PO DAILY 7 Days tab Referrals: Ender Jovel MD [STAFF PHYSICIAN] - As soon as possible Additional Instructions: Follow-up with a local physician. He may want to follow-up with a local outside installer apprentice for allergy testing and to also be evaluated for possible familial angioedema Prednisone daily until resolved. Ice to his lips. Return to ER if swelling of his lips and tongue is a lot worse.
--- NOTE | 2018-04-23 15:53 | DCINST.ED_ITS ---
ED Disposition - Plan for ED Patient: Disposition: Home or Assisted Living Chief Complaint: Allergic Reaction Instructions: ED Angioedema Prescriptions: predniSONE tablet 40 mg PO DAILY 7 Days tab Referrals: Ender Jovel MD [STAFF PHYSICIAN] - As soon as possible Additional Instructions: Follow-up with a local physician. He may want to follow-up with a local account relationship manager for allergy testing and to also be evaluated for possible familial angioedema Prednisone daily until resolved. Ice to his lips. Return to ER if swelling of his lips and tongue is a lot worse.
--- OUTSIDE RECORDS SUMMARY | 2018-07-26 13:33 | XMS RPT_ITS ---
:1975 Author Organization [facility] Care Team Providers Name Role Phone Primay Care Physicia, No Primary Care Unavailable Humberto Mercado Attending Unavailable Primay Care Physicia, No Primary Care Unavailable Felicia Rubio Attending Unavailable Primay Care Physicia, No Primary Care Unavailable Felicia Rubio Attending Unavailable Jopperi, Nabil Admitting Unavailable Jopperi, Nabil Admitting Unavailable Jopperi, Nabil Attending Unavailable Primay Care Physicia, No Primary Care Unavailable Jopperi, Nabil Consulting Unavailable PROBLEMS PROBLEMS No Problem Records FoundPROCEDURES PROCEDURES No Procedure Records FoundRESULTS RESULTS DISCHARGE INSTRUCTION Observed: 04/23/2018 Status: F Source: [place] 4:03 PM [facility] Medical Records Department [address] [place] [address] Discharge Instruction 04/23/18 1550 MR#: [id number] Acct: [id number] Name: MARIE WAGNER Rep #: [id number] : 1975 43 From: Humberto Mercado MD PCP: Care Physician, No Primary Status: REG ER ED Disposition - Plan for ED Patient: Disposition: Home or Assisted Living Chief Complaint: Allergic Reaction Instructions: ED Angioedema Prescriptions: predniSONE tablet 40 mg PO DAILY 7 Days tab Referrals: Ender Jovel MD [STAFF PHYSICIAN] - As soon as possible Additional Instructions: Follow-up with a local physician. He may want to follow-up with a local haz tech for allergy testing and to also be evaluated for possible familial angioedema Prednisone daily until resolved. Ice to his lips. Return to ER if swelling of his lips and tongue is a lot worse. What to do if you have Problems For any increased pain, shortness of breath, bleeding, nausea or vomiting, chest pain, or any unexpected problems, contact your Primary Care Provider. Call [facility] ([phone]) or report to the closest Emergency Room. Call 911 if necessary. 04/23/18 1603 <Electronically signed by Humberto Mercado MD> Date Humberto Mercado MD Cosigner Signature (If Indicated): Date CC: No Primary Care Physician EMERGENCY DEPARTMENT Observed: 04/23/2018 Status: F Source: DUSTIN SUMMARY 4:03 PM [facility] Medical Records Department [address] [place] [address] Emergency Department Summary 04/23/18 1448 MR#: [id number] Acct: [id number] Name: GIOVANNA WAGNEREvelin TON Rep #: [id number] : 1975 43 From: Humberto Mercado MD PCP: Marlene Physician, No Primary Status: REG ER - ER Visit Summary Date of Service: 04/23/18 Chief Complaint: Lips swelling History of Present Illness: The patient is a 43 M no significant past medical history. For the last week has had intermittent swelling of his lips. Was seen in the ER x2. Patient was started on prednisone, Prilosec and cephalexin. He is also been using Benadryl. And was written for an EpiPen which she is not needed. He has slightly more swelling today. No trouble swallowing. No breathing problems. No fever. No family history of his family history is somewhat limited on his dad's side of family. No prior history of angioedema. He has been on no medications prior to this happening. Physical Examination: Well-appearing middle-age male. Vital signs are stable afebrile. No distress. H EENT exam mild swelling of his upper and lower lips. No trouble breathing or swallowing. No stridor. No drooling. Posterior pharynx normal. Posterior pharynx is not swollen. Floor of his mouth is not swollen nor tender. Neck nontender. No lymphadenopathy. Trachea midline. Lungs clear to auscultation bilaterally. Heart regular rhythm no murmur. Abdomen soft and nontender. Patient is moving all 4 extremities. There is no swelling to his extremities. Skin without rash. Back exam normal. Neurologically he is awake and alert with no focal motor deficits. Test Results: None Emergency Department Course and Treatment: Patient took some of his medications at home. He will be given a dose of prednisone. Ice pack to his lips. He will be observed in the ER. Repeat exam at 1545 patient is doing well. No significant change. Definitely no worse. Treatment Plan: Continue the prednisone 40 mg a day. Also the Benadryl and Prilosec. Return if worse. Follow-up with a primary care physician and allergy testing. Disposition: Discharge Impression: Acute angioedema of the lips of uncertain etiology This note was generated with Bujbu dictation software. It may contain incorrect words, spelling, and punctuation that were not noted in review of the chart prior to signing ED Disposition - Plan for ED Patient: Chief Complaint: Allergic Reaction Referrals: Care Physician,No Primary [Primary Care Provider] - What to do if you have Problems For any increased pain, shortness of breath, bleeding, nausea or vomiting, chest pain, or any unexpected problems, contact your Primary Care Provider. Call [facility] ([phone]) or report to the closest Emergency Room. Call 911 if necessary. 12/16/18 1603 <Electronically signed by Humberto Mercado MD> Date Humberto Mercado MD Cosigner Signature (If Indicated): Date CC: No Primary Care Physician 12 LEAD ELECTROCARDIOGRAM Observed: 04/21/2018 Status: F Source: JAZM[place]N 10:19 AM [facility] Cardiovascular Services [address] [place] [address] 12 Lead EKG 04/17/18 0759 MR#: [id number] Acct: [id number] Name: MARIE WAGNER Rep #: [id number] : 1975 43 From: Benito Eldridge MD Attending Dr: Status: DEP ER Ordering Dr: Felicia Rubio MD Date: 04/17/18 Location: ED Sex: M C Admitted: Test Reason : CHEST PAIN Blood Pressure : / mmHG Vent. Rate : 075 BPM Atrial Rate : 075 BPM P-R Int : 128 ms QRS Dur : 098 ms QT Int : 386 ms P-R-T Axes : 073 -76 054 degrees QTc Int : 431 ms Normal sinus rhythm with sinus arrhythmia Left anterior fascicular block Anterolateral infarct , age undetermined Abnormal ECG Confirmed by BENITO ELDRIDGE MD ([id number]), industrial editor GURU RAMÍREZ ([id number]) on 04/21/2018 10:18:50 AM Referred By: Confirmed By:BENITO ELDRIDGE MD 04/21/18 1018 Date Benito Eldridge MD CC: No Primary Care Physician; Felicia Rubio MD Signed EMERGENCY DEPARTMENT Observed: 04/17/2018 Status: F Source: JAZM[place]N SUMMARY 5:24 PM [facility] Medical Records Department [address] [place] [address] Emergency Department Summary 04/17/18 1242 MR#: [id number] Acct: [id number] Name: MARIE WAGNER Rep #: [id number] : 1975 43 From: Felicia Rubio MD PCP: Care Physician, No Primary Status: REG ER - ER Visit Summary Date of Service: 04/17/18 Chief Complaint: Facial swelling and lesions History of Present Illness: The patient is a 43 M who presents for a second time today for facial swelling and painful facial lesions. Patient was evaluated earlier this morning after waking up with swelling to the lips and chin. Patient had fatigue and malaise yesterday, subjective fever and chills overnight. There was concern by his girlfriend for an ingrown hair that was too tender to squeeze in his laureano. Patient had no fever, tachycardia or any lab derangements on his prior workup this morning. He has noted improvement in the swelling of his lips, but now has a new painful lesion on the lower mid lip that was not there at his earlier evaluation. Patient denies any shortness of breath, chest pain, sensation of tongue or throat swelling, vision changes, nausea or vomiting, or any other complaints at this time other than the new lip lesion. Physical Examination: Vital signs: afebrile, hemodynamically stable, no hypoxia on room air General: well nourished, well developed, in no distress Skin: warm, dry, pustules noted scattered on the face, thick laureano with occasional pustules, no pallor HEENT: normocephalic and atraumatic; PERRL, EOMI, periorbital edema, moist mucous membranes, edentulous, no oropharyngeal lesions, no tongue swelling, no posterior oropharyngeal swelling, no sublingual edema, diffuse edema to the lower lip with an erythematous tender papule on the vermilion border with a skin lesion in the hair follicles just inferior to this. Thick laureano with diffuse tenderness to palpation. No submandibular thickness or induration. Tenderness to the anterior cervical lymphatic chains, neck supple without meningismus Cardiovascular: regular rate and rhythm without murmurs, no peripheral edema, 2+ pulses all distal extremities Respiratory: No increased work of breathing, lungs are clear to auscultation bilaterally, no rales, rhonchi or wheezing Abdominal: Abdomen is soft, nontender with normoactive bowel sounds, no guarding or rebound, no masses MSK: Moves all extremities, no deformities, normal strength Neuro: Awake and alert, oriented 4. No facial droop, sensation and motor function intact and symmetric Test Results: [] Emergency Department Course and Treatment: This is patient's second visit within a few hours for the same complaint. Patient swelling has actually improved, with resolution of the periorbital edema and upper lip swelling since exam this morning. He does have the new lesion on the lower lip which may either be extension of an infected hair follicle at the vermilion border versus a hives. Is still unclear if patient is having an allergic angioedema versus facial cellulitis. He did receive prednisone and clindamycin prior to discharge. Upon discussing disposition again of outpatient versus admission for observation, patient and girlfriend are very unsure about patient's condition, and it is very likely he will return if he is discharged. He would benefit from observation for angioedema to make sure his symptoms do not worsen. Treatment Plan: [] Disposition: [] Impression: facial edema; facial cellulitis, failed outpatient management This note was generated with Bujbu dictation software. It may contain incorrect words, spelling, and punctuation that were not noted in review of the chart prior to signing ED Disposition - Plan for ED Patient: Chief Complaint: Edema Referrals: Care Physician,No Primary [Primary Care Provider] - What to do if you have Problems For any increased pain, shortness of breath, bleeding, nausea or vomiting, chest pain, or any unexpected problems, contact your Primary Care Provider. Call [facility] ([phone]) or report to the closest Emergency Room. Call 911 if necessary. 04/17/18 1724 <Electronically signed by Felicia Rubio MD> Date Felicia Rubio MD Cosigner Signature (If Indicated): Date CC: No Primary Care Physician CONSULTATION Observed: 04/17/2018 Status: F Source: JAZM[place]N 1:50 PM [facility] Medical Records Department [address] [place] [address] Consultation 04/17/18 1343 MR#: [id number] Acct: [id number] Name: MARIE WAGNER Rep #: [id number] : 1975 43 From: Nabil Moore DO PCP: Care Physician, No Primary Status: ADM YUNG Y [facility] (1) Angioedema Status: Acute Qualifiers: Encounter type: initial encounter Qualified Code(s): T78.3XXA - Angioneurotic edema, initial encounter Reason for Consult Date of Consultation: 04/17/18 Reason for Consultation: Facial swelling. History of Present Illness: The patient is a 43 year old M presents this morning with lip swelling. Presented to the emergency room because of lip swelling. Concern was for angioedema and patient received prednisone and Benadryl. Did note improvement and patient was discharged home. While the patient was picking up his prescriptions, noted some whitish lesions on his lower lip and presented back to the emergency room. When he returned back to the emergency room, it was noted that his swelling of his lips had greatly improved. Patient has had no trismus nor any respiratory difficulties during this. Patient denies ever having had angioedema or lip swelling before. Patient does have a history of psoriasis as well as allergic reactions, such as contact dermatitis due to his work goggles, penicillin allergy and was sounds like anaphylaxis. He had not seen an haz tech in the past but has not followed up with one recently. [] Past Medical History Medical History: Medical History (Last Updated 04/17/18 @ 13:45 by Nabil Moore DO) Psoriasis L40.9 Allergies Penicillins [PCN] Allergy (Verified 04/17/18 12:05) Unknown HAD IT WHEN I WAS A BABY, IT WILL KILL ME. Home Medications: Ambulatory Orders Medication Instructions Recorded DiphenhydrAMINE [Benadryl] 50 mg PO TID PRN PRN #30 cap 04/17/18 Psychiatric History: No pertinent psych hx Lives: Spouse/ Significant Other Smoking Status: Heavy Smoker (>10/day) Tobacco Use: Cigarettes Alcohol: None Drugs: None - *Family History Maternal History Items: No pertinent history Review of Systems Constitutional: Denies: Anorexia, Chills, Fever Eyes: Denies: Blurred vision, Double vision HEENT: Denies: Head Aches, Sinus Congestion, Sinus Drainage Cardiovascular: Reports: Chest Pain. Denies: Edema Respiratory: Denies: Cough, Shortness of breath at rest, Sputum production Gastrointestinal: Denies: Abdominal Pain, Nausea, Vomiting Genitourinary: Denies: Dysuria Musculoskeletal: Denies: Joint Pain, Joint Tenderness Skin: Reports: Rash. Denies: Wounds Neurological: Denies: Numbness, Tingling, Focal weakness Psychiatric: Denies: Anxiety, Depression Hematologic/ Lymphatic: Denies: Easy Bruising, Easy Bleeding Comment: A 10 point review of systems were negative except as mentioned in the history of present illness and the other review of systems. Patient Problems: Active and Suspected Problems Angioedema (Acute) - Physical Exam General: Alert, Cooperative, No apparent distress HEENT: Atraumatic, Normocephalic, - - Lower lip swelling. No posterior pharyngeal edema. Oral: Moist Mucosa, No Gingival or Mucosal Lesions/ Ulcerations Neck: No Nodes, Thyroid Normal Size and Texture Lungs: Clear to auscultation, Normal air movement, No rhonchi, No wheeze Cardiovascular: Regular rate, Regular Rhythm, Normal S1, Normal S2, No murmurs Abdomen: Bowel Sounds Present, Soft, Non Tender, Non-Distended, No Hepato-splenomegaly Extremities: No edema, No Calf Tenderness Skin: - - Seborrhea and noted around the bridge of his nose and cheeks. Also along his around lines. Does have some seborrhea within his laureano hair. Psych/Mental Status: Normal Affect, Appropriate Vital Signs Temp Pulse Resp BP Pulse Ox 37.1 C 84 18 151/94 H 99 04/17/18 12:03 04/17/18 12:03 04/17/18 12:03 04/17/18 12:03 04/17/18 12:03 Weight: 58.967 kg Body Mass Index (BMI) 21.6 Assessment/Plan All Active Problems Angioedema (Acute) 1. Angioedema * Unclear etiology, patient denies taking any medications. Is concerned that they recently used her pharmacy tech recently and patient was putting in some wood floors in her house. * Overall, soundly patient does have a chronic allergic disorder is not been completely elucidated at this point time. Immune agreement with patient being on prednisone as well at Benadryl but I would also recommend Pepcid. Also recommend the patient have an EpiPen as needed for severe allergic reaction. I did inform the patient, as he is a stoic individual, if he does ever have to use the EpiPen that he should come to the emergency room irregardless. * I have strongly advised patient follow-up with allergy as patient has a chronic allergic disorder and needs further clarification and identification so they can be adequately treated properly. * I did give the patient the option to be admitted or go home and continue with the treatment. Patient preferring to go home which I think is reasonable as his angioedema is improved and he has no respiratory issues at this time. Code Visit Office Visits / Consults: [id number] OP Consult L3 04/17/18 1350 <Electronically signed by Nabil Moore DO> Date Nabil Moore DO Cosigner Signature (if applicable): Date CC: No Primary Care Physician Signed DISCHARGE INSTRUCTION Observed: 04/17/2018 Status: F Source: [place]UST[place] 1:43 PM [facility] Medical Records Department [address] [place] [address] Instructions for Home/Discharge Instructions 04/17/18 1336 MR#: [id number] Acct: [id number] Name: MARIE WAGNER Rep #: [id number] : 1975 43 From: Nabil Moore DO PCP: Care Physician, No Primary Status: ADM YUNG You will use the following diet at home:: No restrictions Your food should be the consistency of: Regular Return to work on:: 04/18/18 Call your doctor if you observe: - - increased facial swelling. shortness of breath. diffuse rash. Allergies/Adverse Reactions: Allergies Penicillins [PCN] Allergy (Verified 04/17/18 12:05) Unknown HAD IT WHEN I WAS A BABY, IT WILL KILL ME. Medications to take at Discharge DiphenhydrAMINE [Benadryl] 50 mg PO TID PRN PRN #30 cap 04/17/18 Epinephrine [Epi Pen] 0.3 mg IM X1 PRN #1 syringe 04/17/18 Famotidine [Pepcid] 20 mg PO BID #10 tablet 04/17/18 predniSONE tablet 60 mg PO DAILY #15 tab 04/17/18 The following prescriptions were given: Epinephrine [Epi Pen] 0.3 mg IM X1 PRN #1 syringe PRN Reason: Angioedema Famotidine [Pepcid] 20 mg PO BID #10 tablet Primary Care Physician: Care Physician,No Primary [Primary Care Provider] - Test Results: Test results from this visit will be discussed in further detail at your follow-up appointment, if applicable. Please Follow Up With: [facility] When: 2-4 weeks. [place]: [phone]. [place]: [phone]. [place]:[phone] Proposed Discharge Date: 04/17/18 04/17/18 1343 <Electronically signed by Nabil Moore DO> Date Nabil Moore DO CC: No Primary Care Physician DISCHARGE INSTRUCTION Observed: 04/17/2018 Status: F Source: JAZMÍN 11:08 AM [facility] Medical Records Department [address] [place] [address] Discharge Instruction 04/17/18 1037 MR#: [id number] Acct: [id number] Name: MARIE WAGNER Rep #: [id number] : 1975 43 From: Felicia Rubio MD PCP: Care Physician, No Primary Status: DEP ER ED Disposition - Plan for ED Patient: Disposition: Home or Assisted Living Chief Complaint: Chest Pain Instructions: ED Cellulitis Facial, ED Angioedema Prescriptions: DiphenhydrAMINE [Benadryl] 50 mg PO TID PRN PRN #30 cap PRN Reason: allergic reaction predniSONE tablet 60 mg PO DAILY #15 tab Clindamycin [Cleocin] 450 mg PO TID 7 Days #63 cap Referrals: Care Physician,No Primary [Primary Care Provider] - Xavier Juares DO [STAFF PHYSICIAN] - 3-5 Days if not improving Additional Instructions: Take your medications as prescribed, especially the prednisone for 5 days in the antibiotic for 7 days. Do not miss any doses of the antibiotic. If at any point you are swelling worsens, you have difficulty breathing, you feel like your throat is swelling, you have dizziness or lightheadedness, high fever, or any new concerning symptoms, return immediately for another evaluation. What to do if you have Problems For any increased pain, shortness of breath, bleeding, nausea or vomiting, chest pain, or any unexpected problems, contact your Primary Care Provider. Call [facility] ([phone]) or report to the closest Emergency Room. Call 911 if necessary. 04/17/18 1108 <Electronically signed by Felicia Rubio MD> Date Felicia Rubio MD Cosigner Signature (If Indicated): Date CC: No Primary Care Physician EMERGENCY DEPARTMENT Observed: 04/17/2018 Status: F Source: DUSTIN SUMMARY 11:08 AM [facility] Medical Records Department [address] [place] [address] Emergency Department Summary 04/17/1818 MR#: [id number] Acct: [id number] Name: MARIE WAGNER Rep #: [id number] : 1975 43 From: Felicia Rubio MD PCP: Care Physician, No Primary Status: DEP ER - ER Visit Summary Date of Service: 04/17/18 Chief Complaint: Facial swelling History of Present Illness: The patient is a 43 M who presents for facial swelling. Patient states he woke up around 5 AM with swelling to his lips. Yesterday he did not feel well with general malaise and fatigue, and had subjective fever and chills through the night. He woke up with the swelling, and his significant other states the lips have gotten more swollen since he woke up. Patient is also complaining of chest tightness since yesterday. He has a sore throat. He has a chronic cough due to being a smoker but no rhinorrhea, congestion or change in his cough. No recent illness. He is not on any medications. He denies any wvxy-olu-urynjyt medication use or any exposure to allergens. Patient denies any history of prior swelling. He denies any shortness of breath, sensation of his throat or tongue swelling. Denies rash. Physical Examination: Vital signs: afebrile, hemodynamically stable, no hypoxia on room air General: well nourished, well developed, sitting in bed in no distress Skin: warm, dry, no rash, no pallor HEENT: normocephalic and atraumatic; PERRL, EOMI, mild symmetric superior periorbital edema, moist mucous membranes, edentulous, swelling to the upper and lower lips, examination of the mental and submental region limited secondary to thick. But patient has tenderness to palpation of the chin and submental region. No sublingual edema or swelling. No posterior oropharyngeal erythema, swelling or exudate, uvula is midline, no tongue swelling. Neck has tender lymphadenopathy in the anterior cervical chains bilaterally. Neck is supple with full active range of motion, no meningismus Cardiovascular: regular rate and rhythm without murmurs, no peripheral edema, 2+ pulses all distal extremities Respiratory: No increased work of breathing, lungs are clear to auscultation bilaterally, no rales, rhonchi or wheezing Abdominal: Abdomen is soft, nontender with normoactive bowel sounds, no guarding or rebound, no masses MSK: Moves all extremities, no deformities, normal strength Neuro: Awake and alert, oriented 4. No facial droop, sensation and motor function intact and symmetric Test Results: Abnormal Lab Results WBC 10.6 RBC 4.87 Hgb 16.5 Hct 47.9 MCV 98.4 H MCH 33.9 H MCHC 34.4 RDW 12.9 RDW Differential 46.7 H WBC RBC Hgb Hct MCV MCH MCHC RDW RDW Differential Plt Count MPV Immature Gran % (Auto) Neut % (Auto) Lymph % (Auto) Clinical Impression(s) from Imaging Studies Soft Tissue Neck CT 04/17/18 08:17 IMPRESSION: Diffuse skin thickening and soft tissue edema with increased vascularity within the soft tissues anterior to the mandible as described. This may represent either inflammatory process or vascular malformation. Electronically Signed: Adair Giang MD at 9:29 EST Tel [phone], Service support , Chest X-Ray 04/17/18 09:11 IMPRESSION: Normal x-ray examination of the chest. Electronically Signed: Adair Giang MD at 9:36 EST Tel [phone], Service support , Medications Given Clindamycin Phosphate 600 mg/ (Dextrose) 54 mls @ 100 mls/hr IV X1 ONE Stop: 04/17/18 10:07 Discontinued Medications Diphenhydramine HCl (Benadryl) 50 mg PO X1 ONE Stop: 04/17/18 08:17 Last Admin: 04/17/18 08:22 Dose: 50 mg Sodium Chloride () 1,000 mls @ 999 mls/hr IV .Q1H1M ONE Stop: 04/17/18 09:17 Last Admin: 04/17/18 08:23 Dose: 999 mls/hr Prednisone () 60 mg PO X1 ONE Stop: 04/17/18 08:18 Last Admin: 04/17/18 08:22 Dose: 60 mg Emergency Department Course and Treatment: Patient presents with concern for facial swelling with associated malaise and subjective fever. Further history provided by the partner is that patient had an ingrown hair in his laureano yesterday that she wanted to pop but he was too tender for her to even touch it. Differential includes cellulitis, deep space infection, idiopathic angioedema, allergic reaction, and with patient's complaint of chest tightness, cardiac workup was included. EKG showed sinus rhythm with no ischemic changes. Troponin negative. CBC showed no leukocytosis. BMP unremarkable. Lactate within normal limits. Chest x-ray showed no acute process. CT soft tissue neck was performed and it showed subcutaneous edema anterior to the mandible but no signs of deep space infection. Patient was given prednisone and Benadryl upon initial presentation for treatment of the edema in case it was allergic in nature. Patient was observed and had no progression of the edema but had no change in how he felt. Because of the concern for possible infectious etiology, he was started on clindamycin, which was chosen due to a severe penicillin allergy. On reevaluation, patient remained hemodynamically stable and the swelling of his lower face modestly improved. Patient stated he subjectively felt like the swelling had improved, and his family also noted that his face looked less swollen. Patient feels well enough to go home, and given the improvement in his edema with no signs of airway compromise, sepsis or anaphylaxis, outpatient management is reasonable. Patient has no findings on his lab work or vital signs that is concerning for infectious etiology, however given the malaise, fatigue, objective fever, and facial tenderness with multiple pustules in the laureano, this is concerning for possible facial cellulitis. However patient also has the concern for possible allergic versus idiopathic angioedema. Thus he was prescribed both clindamycin and prednisone with Benadryl. Strict return precautions given. Patient discharged home with symptoms improving. Treatment Plan: [] Disposition: [] Impression: idiopathic facial edema; facial cellulitis This note was generated with Bujbu dictation software. It may contain incorrect words, spelling, and punctuation that were not noted in review of the chart prior to signing ED Disposition - Plan for ED Patient: Chief Complaint: Chest Pain Prescriptions: DiphenhydrAMINE [Benadryl] 50 mg PO TID PRN PRN #30 cap PRN Reason: allergic reaction predniSONE tablet 60 mg PO DAILY #15 tab Clindamycin [Cleocin] 450 mg PO TID 7 Days #63 cap Referrals: Care Physician,No Primary [Primary Care Provider] - What to do if you have Problems For any increased pain, shortness of breath, bleeding, nausea or vomiting, chest pain, or any unexpected problems, contact your Primary Care Provider. Call [facility] ([phone]) or report to the closest Emergency Room. Call 911 if necessary. 04/17/18 9059 <Electronically signed by Felicia Rubio MD> Date Felicia Rubio MD Cosigner Signature (If Indicated): Date CC: No Primary Care Physician Observed: 04/17/2018 Status: F Source: JAZMÍN CULTURE, BLOOD (WB) 9:35 AM [facility] REPOSITORY BC No growth in 5 days. Performed By: #### M200.1000 #### [facility] [address] [place], [place], [address] URINALYSIS, COMPLETE Collected: 04/17/2018 Status: F Source: JAZMÍN 8:35 AM [facility] REPOSITORY Order Comment: Order Date: 04/17/18 How was Urine Obtained? 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 Cloudy LAB L400.3200 Normal mg/dl Normal GLUCOSE, UR Normal LAB L400.3300 Negative mg/dL Normal BILIRUBIN URINE Negative LAB L400.3400 Negative mg/dl Normal KETONE UR Negative LAB L400.3465 1.002-1.030 Normal SP.GR. DIPSTX 1.015 LAB L400.3550 5.0 - 8.0 pH UR Normal 8.0 LAB L400.3600 Negative mg/dl PROT Normal DIPSTX Negative LAB L400.3700 Normal mg/dl High 4 UROBILI LAB L400.3750 Negative Normal NITRITE UR Negative LAB L400.3780 Negative /ul Normal OCCULT BLOOD-UR Negative LAB L400.3800 Negative /ul High LEUK 25 ESTERASE LAB L400.4050 0-5 /hpf WBC Normal 0-5 SEEN LAB L400.4100 0-5 /hpf 0 Normal RBC-UA SEEN LAB L400.4150 0-5 /hpf SQUAM Normal EPI 0-5 SEEN LAB L400.4300 None Seen /hpf 1+ Normal BACTERIA LAB L400.4350 <or=2+ /hpf Normal MUCUS, URINE RARE Performed By: #### L400.0001 #### [facility] [address] [place], [place], [address] LACTIC ACID Collected: 04/17/2018 Status: F Source: JAZMÍN 8:35 AM [facility] REPOSITORY Order Comment: Yes/No query for Sepsis Lactate Rule Y TYPE CODE TESTS RESULT OUT OF RANGE REFERENCE UNITS LAB L503.6005 0.4-2.0 mmol/L Normal LACTIC ACID 0.7 Performed By: #### L503.6005 #### [facility] [address] [facility] [place], [address] Observed: 04/17/2018 Status: F Source: JAZMÍN CULTURE, URINE 8:35 AM [facility] REPOSITORY Order Date: 04/17/18 Urine Culture Below infection level. ORGANISM 1: Mixed Gram Positive Organisms Spencer Count <1000 MIX CULTURE Mixed contaminants. Submit a new specimen if indicated. Performed By: #### M100.0650 #### [facility] [address] [facility] [place], [address] Observed: 04/17/2018 Status: F Source: JAZMÍN CULTURE, BLOOD (WB) 8:30 AM [facility] REPOSITORY BC No growth in 5 days. Performed By: #### M200.1000 #### [facility] [address] [facility] [place], [place], [address] SOFT TISSUE NECK WITH Observed: 04/17/2018 Status: F Source: JAZMÍN CONTRAST 8:19 AM [facility] REPOSITORY [facility] Imaging Services [address] [place] [address] Soft Tissue Neck WITH Contrast MR#: [id number] Acct: [id number] Name: GERALD WAGNERIbisJOSE DE JESUSEvelin CAMILO Rep #: [id number] : 1975 M 43 From: Adair Giang MD PCP: Care Physician, No Primary Status: REG ER Study: Soft Tissue Neck WITH Contrast Date of Exam: 04/17/18 Exam# [id number] Ordering Dr: Felicia Rubio MD STUDY: CT SOFT TISSUE NECK WITH CONTRAST REASON FOR EXAM: Male, 43 years old. Swelling of the lower lip and mandibular area. No known injury. RADIATION DOSAGE (If Supplied By Facility): CTDIvol = ( 20 ) mGy, DLP = ( 694.44 ) mGycm TECHNIQUE: The patient was scanned in a multi-detector CT scanner. High resolution transaxial imaging was performed following intravenous administration of 100CC ml of Isovue 300 contrast material. Sagittal and coronal images were reconstructed. Individualized dose optimization techniques were used for this CT. COMPARISON: None. FINDINGS: There is diffuse skin thickening and subcutaneous edema involving the soft tissues anterior to the mandible. There is evidence of increased vascularity within the subcutaneous tissues. This may be secondary to either an inflammatory process or congenital vascular malformation. Normal bilateral parotid glands. Normal bilateral window installation subcontractor spaces. Normal bilateral parapharyngeal spaces. Normal bilateral carotid spaces. Normal bilateral sublingual and submandibular glands and spaces. Normal visualized nasopharynx. Normal retropharyngeal space. Normal perivertebral space. Normal visualized bilateral faucial tonsils. The visualized tongue, tongue base and oropharynx are normal. The visualized cervical lymph nodes (levels I-) are within normal size limits, and maintain normal morphology. There is no demonstrated solid or cystic mass lesion. There is no abnormal contrast enhancement. Normal epiglottis, bilateral vallecula and hypopharynx. The pre-epiglottic and paraglottic adipose spaces are normal. Normal visualized bilateral piriform sinuses, aryepiglottic folds, vocal cords, and arytenoid-cricoid articulations. Normal subglottic trachea. Normal bilateral lobes of the thyroid gland. Normal visualized pulmonary apices. Mucosal thickening of the left maxillary sinus. Normal visualized cervical spine. CT/Soft Tissue Neck WITH Contrast IMPRESSION: Diffuse skin thickening and soft tissue edema with increased vascularity within the soft tissues anterior to the mandible as described. This may represent either inflammatory process or vascular malformation. Electronically Signed: Adair Giang MD at 9:29 EST Tel [phone], Service support , CC: No Primary Care Physician; Felicia Rubio MD Weather Stripper: Signed CHEST PA AND LATERAL Observed: 04/17/2018 Status: F Source: JAZMÍN 8:19 AM [facility] REPOSITORY [facility] Imaging Services [address] [place] [address] Chest PA and Lateral MR#: [id number] Acct: [id number] Name: MARIE WAGNER Rep #: [id number] : 1975 M 43 From: Adair Giang MD PCP: Care Physician, No Primary Status: REG ER Study: Chest PA and Lateral Date of Exam: 04/17/18 Exam# [id number] Ordering Dr: Felicia Rubio MD STUDY: X-RAY CHEST REASON FOR EXAM: Male, 43 years old. Cough. Allergic reaction. TECHNIQUE: PA and lateral views of the chest. COMPARISON: None. FINDINGS: EKG electrodes are seen. The lungs are clear and expanded. There is no demonstrated pleural abnormality. Normal size heart. Normal mediastinum and nico. Normal visualized pulmonary arteries. Normal visualized aortic arch and descending thoracic aorta. Normal visualized thoracic spine. Normal visualized ribs, clavicles, and shoulders. There is no demonstrated abnormality of the visualized soft tissue structures of the upper abdomen. RAD/Chest PA and Lateral IMPRESSION: Normal x-ray examination of the chest. Electronically Signed: Adair Giang MD at 9:36 EST Tel [phone], Service support , CC: No Primary Care Physician; Felicia uRbio MD Weather Stripper: Signed CBC W/DIFF, AUTOMATED Collected: 04/17/2018 Status: F Source: DUSTIN 8:10 AM [facility] REPOSITORY TYPE CODE TESTS RESULT OUT OF RANGE REFERENCE UNITS LAB L100.1000 4.4-11.0 K/mm3 Normal WBC 10.6 LAB L100.1200 4.6-6.2 M/mm3 Normal RBC 4.87 LAB L100.1300 13.0-16.5 g/dl Normal HGB 16.5 LAB L100.1400 40-54 % Normal HCT 47.9 LAB L100.1500 80-94 fL High MCV 98.4 LAB L100.1600 27.0-32.0 pg High MCH 33.9 LAB L100.1700 32-36 g/gl Normal MCHC 34.4 LAB L100.1810 11.6-14.6 % Normal RDW CV 12.9 LAB L100.1820 35.1-43.9 fl High RDW SD 46.7 LAB L100.1900 150-450 K/mm3 Low PLT 124 LAB L100.2000 6.2-12.0 fl High MPV 14.3 LAB L100.2100 47-70 % High NEUT% 75.8 LAB L100.2200 19-41 % Low LY% 16.2 LAB L100.2300 0-10 % Normal MONO% 7.0 LAB L100.2400 0-5 % Normal EO% 0.8 LAB L100.2500 0-1 % Normal BASO% 0.1 LAB L100.2550 0.0-0.9 % Normal IM GRAN % 0.100 Result Comment: IG% - Immature Granulocytes (promyelocytes, myelocytes and metamyelocytes) > 1% indicates that a LEFT SHIFT is Present. LAB L100.2620 2.0-7.7 X10 3/uL High Absolute Neut 8.0 LAB L100.2720 0.83-4.51 X10 3/ul Normal Absolute Lymph 1.71 Performed By: #### L100.0100 #### [facility] [address] [facility] [place], [place], [address] PROTHROMBIN TIME W/INR Collected: 04/17/2018 Status: F Source: DUSTIN 8:10 AM [facility] REPOSITORY TYPE CODE TESTS RESULT OUT OF RANGE REFERENCE UNITS LAB L300.4150 11.7-14.9 SECONDS Normal PROTIME 12.9 LAB L300.4200 Normal INR 1.0 Performed By: #### L300.3900, L300.4310 #### [facility] [address] [place], [address] PARTIAL THROMBOPLAST Collected: 04/17/2018 Status: F Source: DUSTIN TIME 8:10 AM [facility] REPOSITORY TYPE CODE TESTS RESULT OUT OF RANGE REFERENCE UNITS LAB L300.4310 24.1-36.2 Seconds Normal PTT 30.9 Performed By: #### L300.3900, L300.4310 #### [facility] [address] [place], [address] COMPREHENSIVE METABOLIC Collected: 04/17/2018 Status: F Source: DUSTIN PROFIL 8:10 AM [facility] REPOSITORY TYPE CODE TESTS RESULT OUT OF RANGE REFERENCE UNITS LAB L501.0100 74-106 mg/dL High GLU 107 Result Comment: Fasting Glucose result from 100 to 125 mg/dL suggests IMPAIRED HOMEOSTASIS per A.D.A. criteria. Please note revised GLUCOSE reference range effective 2017. LAB L501.1000 7-18 mg/dL Normal BUN 11 LAB L501.1100 0.70-1.30 mg/dL Normal CREAT,SERUM 0.82 Result Comment: The validity of the calculated GFR AND GFRAA in patients over 70 years has not been determined. Clinical correlation is essential. LAB L501.1110 >60 mL/min Normal EST GFR 109 Result Comment: Non- GFR Calc LAB L501.1115 >60 mL/min Normal EST GFR - AA 132 Result Comment: GFR Calc LAB L501.1255 ml/min Normal Estimated CRCL 97.88 LAB L501.1300 10-20 RATIO Normal BUN/CRE 13.3 LAB L501.1500 6.4-8. g/dL Normal 2 T PROT 7.0 LAB L501.1800 3.2-5. g/dL Normal 0 ALB 3.8 LAB L501.1950 2.2-4. g/dL Normal 2 GLOB 3.2 LAB L501.2000 0.9-2. RATIO Normal 4 A/G 1.2 LAB L501.2200 8.5-10 mg/dL Normal .1 CA 8.8 LAB L501.4100 15-37 U/L Normal AST 16 LAB L501.4305 45-117 U/L High ALK P 118 LAB L501.4405 16-61 U/L Low ALT 14 LAB L501.4600 0.20-1 mg/dL High .00 T BILI 1.10 LAB L501.5300 136-14 mmol/L Normal 5 NA 139 LAB L501.5600 3.5-5. mmol/L Normal 1 K 4.0 LAB L501.5900 98-107 mmol/L Normal CL 105 LAB L501.6100 21.0-3 mmol/L Normal 2.0 CO2 29.0 LAB L501.6200 5-15 Normal GAP 5 Performed By: #### L500.4050, L501.4010 #### [facility] [address] [place], [address] TROPONIN-I Collected: 04/17/2018 Status: F Source: DUSTIN 8:10 AM [facility] REPOSITORY TYPE CODE TESTS RESULT OUT OF RANGE REFERENCE UNITS LAB L501.4010 <0.045 ng/mL Normal < 0.015 TROPONIN-I Result Comment: TROPONIN-I EXPECTED VALUES <0.045 Negative 0.045 - 0.590 Consistent with Cardiac Damage > OR = 0.600 Critical Value Not every elevated troponin is indicative of [place]. These values should be used with clinical judgement in examining the patient's clinical picture for diagnosis. To establish a diagnosis of [place] versus myocardial injury, there must be a demonstrated rise and/or fall in the troponin values, in addition to ischemic symptoms, EKG changes, new regional wall motion abnormality, and/or angiographical evidence. PLEASE NOTE: REFERENCE RANGES EDITED 17 Performed By: #### L500.4050, L501.4010 #### [facility] [address] [place], [address] ALLERGIES ALLERGIES DATE TYPE / CODE NAME / CODE REACTION SEVERITY SOURCE 04/23/2018 Drug Penicillins/ Unknown Unknown [facility] Allergy/4160 [id number]([facility] [address](SNOMED XNORM) Repository CT) ENCOUNTERS ENCOUNTERS ADMIT/DISCHARGE ACCOUNT ADMITTING ENCOUNTER LOCATION SOURCE NUMBER CLASS 04/23/2018/ [id number] Emergency [facility] [address] [place] [address] ing:ED Repository 04/17/2018 [id number] N[facility] BMSBuilding:B [place]m[address] 7 MS.WIP [facility] Repository 04/17/2018/ [id number] Nabil Moore Emergency [facility] [address] [place] [address] ing:EDRoom: Repository MS318 04/17/2018/ [id number] Emergency [place] 8 [address] [facility] ing:ED Repository PAYERS PAYERS ENCOUNTER GUARANTOR PAYER SUBSCRIBER SOURCE 04/23/2018 MARIE CAMILO Primary MARIE Noyola [id number] CR Insurance:ANTHEMPolic PIERCEDOB: [address], y Number: [id number] [address]Cgk: [id number] Repository Date:0773-57-34DK [address] () [address] [address]KG: 04/23/2018 Secondary NOT GIVENUNK Jazmín Insurance:SELF PAY [facility] Number: Effective Repository Date:2018-04-23 04/17/2018 NATALIEDELMIS CAMILO Primary MARIE Urbinaoster [id number] CR Insurance:ANTHEMPolic PIERCEDOB: [address], y Number: [id number] [facility] [address]Mvz: [id number] Repository Date:6540-35-26RS [address] () [address], [place] [address]BW: 04/17/2018 Secondary NOT GIVENUNK Jazmín Insurance:SELF PAY [facility] Number: Effective Repository Date:2018-04-17 04/17/2018 MARIE CAMILO Primary MARIE Noyola [id number] CR Insurance:ANTHEMPolic PIERCEDOB: [address], y Number: [id number] [facility] Center [address]Lmd: [id number] Repository Date:6797-06-87WJ [address] () [address], [place] [address]RV: 04/17/2018 Secondary NOT GIVENUNK [place] Insurance:SELF PAY [facility] Number: Effective Repository Date:2018-04-17 04/17/2018 MARIE CAMILO Primary MARIE Urbinaoster [id number] CR Insurance:ANTHEMPolic PIERCEDOB: [facility] [address], y Number: [id number] Ana Health Center [address]Uqk: [id number] Repository Date:6715-28-04AT [address] () [address], [place] [address]PE: 04/17/2018 Secondary NOT GIVENUNK [place] Insurance:SELF PAY [facility] Number: Effective Repository Date:2018-04-17
== END 2018-04-23 16:14 | disposition home or self-care (01) ==
PROVIDERS: Emergency Provider Emergency Medicine
DX: T78.3XXA Angioneurotic edema, initial encounter (principal); Z72.0 Tobacco use
CPT/HCPCS: 99284

== ENCOUNTER 2022-06-26 15:38 | Emergency (ER) | payer BC, SELFPAY ==
[2022-06-26 15:39] VITALS: BP 158/91; PULSE 93; RESP 14; TEMP 36.1; O2SAT 100; BMI 20.5
--- NOTE | 2022-06-26 15:56 | EX.ED.SAOD ---
HPI History of Present Illness Chief Complaint: ETOH Intox Informant: patient and spouse/S.O. Onset/Context/Timing Onset: Today Timing: Continuous Worsened by: Nothing Relieved by: Nothing Associated Symptoms Associated Symptoms: Positive for rash*; Negative for vomiting*, diarrhea*, fever*, seizure, tremor, palpatations, change in mental status, trauma, suicidal ideation or homicidal ideation Narrative Narrative: Patient presents for alcohol detox. Patient states he drinks daily. Patient states he drinks a lot every day. Patient denies any prior history of detox. Patient states his last drink was just prior to arrival. Patient denies any nausea or vomiting. Patient denies any seizures or tremors. Patient denies any palpitations. Patient does admit to some burning in his chest. Patient denies any shortness of breath. Patient denies any fevers or chills. PFSH [facility] Medical History Psoriasis Home Medications diphenhydramine HCl 25 mg capsule 50 mg PO TID PRN PRN allergic reaction #30 caps 04/17/18 [Rx Last Taken 04/23/18] epinephrine 0.3 mg/0.3 mL injection, auto-injector 0.3 mg IM X1 PRN Angioedema ##1 04/17/18 [Rx Last Taken Unknown] famotidine 20 mg tablet 20 mg PO BID ##10 04/17/18 [Rx Last Taken 04/23/18] prednisone 20 mg tablet 60 mg PO DAILY #15 tabs 04/17/18 [Rx Last Taken 04/23/18] Allergy/AdvReac Type Severity Reaction Status Date / Time Penicillins [PCN] Allergy Unknown Verified 06/26/22 15:39 Surgical History Hx of tooth extraction Social History Smoking Status: Current every day smoker tobacco type: cigarettes ROS ROS ED Constitutional Constitutional ED: Denies chills or fever(s) Eyes Eyes: Denies blurry vision or change in vision ENT ENT ED: Denies rhinorrhea or sore throat Cardiovascular Cardiovascular: Reports chest pain; Denies palpitations Respiratory/Chest Respiratory/Chest: Denies cough or dyspnea Gastrointestinal Gastrointestinal: Denies nausea or vomiting Genitourinary Genitourinary ED: Denies dysuria or hematuria Musculoskeletal Musculoskeletal: Reports back pain; Denies neck pain Integumentary Reports rash; Denies abscess Neurologic Neurologic: Denies headache(s) or weakness Allergic/Immunologic Allergic/Immunologic ED: Denies mouth swelling or urticaria EXAM Physical Exam Const Vital Signs: 06/26/22 15:39 06/26/22 16:38 Temperature 97 F L 97.8 F Temperature Source Temporal Temporal Pulse Rate 93 78 Respiratory Rate 14 16 Blood Pressure 158/91 H 134/78 H Blood Pressure Mean 113 96 Pulse Ox 100 99 Oxygen Delivery Method Room Air Room Air Positive well nourished and well developed General Appearance ED: well developed and NAD HEENT Reports moist mucous membranes Neck supple and no JVD Resp normal respiratory effort and clear to auscultation bilaterally Cardio regular rate and regular rhythm GI normal to inspection, nondistended, normoactive bowel sounds and non-tender Palpation: soft Extremity normal to inspection General Extremety ED: Negative for edema or tenderness General Extremity: Negative for edema Neuro oriented x3, CN's II-XII intact bilaterally and no sensory deficits noted Sensorium / Orientation: alert Motor Exam: strength 5/5 throughout Psych mental status grossly normal Skin no rashes or lesions noted MDM MDM MDM Narrative Medical decision making narrative: Differential diagnosis includes alcohol intoxication, alcohol dependence, and alcoholic pancreatitis. CBC will be obtained to assess for anemia and leukocytosis. Comprehensive metabolic profile will be obtained to assess for hepatic function, renal function, and electrolyte abnormalities. Lipase will be obtained to assess for alcoholic pancreatitis. Serum alcohol level will be obtained to assess for alcohol intoxication. Urine tox screen will be obtained to assess for other substance abuse. Lab Data Labs: Laboratory Results - last 24 hr 06/26/22 06/26/22 06/26/22 16:48 16:53 16:53 WBC 6.8 RBC 4.73 Hgb 16.9 H Hct 47.4 MCV 100.2 H MCH 35.7 H MCHC 35.7 RDW Std Deviation 46.6 H RDW Coeff of Bob 12.7 Plt Count 183 MPV 13.2 H Immature Gran % (Auto) 0.300 Neut % (Auto) 37.3 L Lymph % (Auto) 54.6 H Haralson % (Auto) 6.2 Eos % (Auto) 1.2 Baso % (Auto) 0.4 Absolute Neuts (auto) 2.5 Absolute Lymphs (auto) 3.71 Nucleated RBC % 0 Differential Comment SCANNED Sodium 145 Potassium 3.6 Chloride 108 H Carbon Dioxide 32.0 Anion Gap 5 BUN 5 L Creatinine 0.82 Estim Creat Clear Calc 91.71 Est GFR (MDRD) Af Amer 130 Est GFR (MDRD) Non-Af 107 BUN/Creatinine Ratio 6.1 L Glucose 118 H Calcium 9.0 Total Bilirubin 0.60 AST 21 ALT 24 Alkaline Phosphatase 85 Total Protein 7.2 Albumin 4.1 Globulin 3.1 Albumin/Globulin Ratio 1.3 Lipase 82 Urine Opiates Screen NEGATIVE Urine Methadone Screen NEGATIVE Ur Barbiturates Screen NEGATIVE Ur Phencyclidine Scrn NEGATIVE Ur Amphetamines Screen NEGATIVE MDMA (Ecstasy) Screen NEGATIVE U Benzodiazepines Scrn NEGATIVE Urine Cocaine Screen NEGATIVE U Cannabinoids Screen NEGATIVE Ur Drug Screen Comment Ethyl Alcohol 06/26/22 16:53 WBC RBC Hgb Hct MCV MCH MCHC RDW Std Deviation RDW Coeff of Bob Plt Count MPV Immature Gran % (Auto) Neut % (Auto) Lymph % (Auto) Haralson % (Auto) Eos % (Auto) Baso % (Auto) Absolute Neuts (auto) Absolute Lymphs (auto) Nucleated RBC % Differential Comment Sodium Potassium Chloride Carbon Dioxide Anion Gap BUN Creatinine Estim Creat Clear Calc Est GFR (MDRD) Af Amer Est GFR (MDRD) Non-Af BUN/Creatinine Ratio Glucose Calcium Total Bilirubin AST ALT Alkaline Phosphatase Total Protein Albumin Globulin Albumin/Globulin Ratio Lipase Urine Opiates Screen Urine Methadone Screen Ur Barbiturates Screen Ur Phencyclidine Scrn Ur Amphetamines Screen MDMA (Ecstasy) Screen U Benzodiazepines Scrn Urine Cocaine Screen U Cannabinoids Screen Ur Drug Screen Comment Ethyl Alcohol 295.0 Treatment and Re-Evaluation Narrative: IV line was established. Case was discussed with the hospitalist. She will admit the patient to her service for detox. Patient and significant other understand and are agreeable with the plan. All questions were answered. Prior to the patient being admitted to the floor, he changes his mind and no longer wants detox. He will leave AGAINST MEDICAL ADVICE. Patient was advised to return if he decides to want detox again. Patient understands and is agreeable with the plan. All questions were answered. Discharge Plan Triage Chief Complaint: ETOH Intox ED Provider: Nabil Parker Dx/Rx/DC Orders Clinical Impression: Alcohol dependence, Alcohol withdrawal Prescriptions: No Action prednisone 20 MG tablet 60 mg PO DAILY Qty: 15 0RF diphenhydramine HCl 25 MG capsule 50 mg PO TID PRN PRN (Reason: allergic reaction) Qty: 30 0RF famotidine 20 MG tablet 20 mg PO BID Qty: 10 0RF Rx Instructions: Over the counter. twice daily for 5 days epinephrine 0.3 MG syringe 0.3 mg IM X1 PRN (Reason: Angioedema) Qty: 1 1RF Primary Care Provider: Care Physician,No Primary Referrals: Care Physician,No Primary [Primary Care Provider] - Disposition Disposition: Against Medical Advice Discharge Date/Time: 06/26/22 17:41
--- NOTE | 2022-06-26 16:11 | PCM.HP.STD ---
HPI - General HPI Narrative MAREI WAGNER, is a 47 M who presents [facility] Medical History Psoriasis Home Medications diphenhydramine HCl 25 mg capsule 50 mg PO TID PRN PRN allergic reaction #30 caps 04/17/18 [Rx Last Taken 04/23/18] epinephrine 0.3 mg/0.3 mL injection, auto-injector 0.3 mg IM X1 PRN Angioedema ##1 04/17/18 [Rx Last Taken Unknown] famotidine 20 mg tablet 20 mg PO BID ##10 04/17/18 [Rx Last Taken 04/23/18] prednisone 20 mg tablet 60 mg PO DAILY #15 tabs 04/17/18 [Rx Last Taken 04/23/18] Allergy/AdvReac Type Severity Reaction Status Date / Time Penicillins [PCN] Allergy Unknown Verified 06/26/22 15:39 Surgical History Hx of tooth extraction Social History Smoking Status: Current every day smoker tobacco type: cigarettes Vital Signs Vital Signs Vital Signs: 06/26/22 15:39 Temperature 97 F L Temperature Source Temporal Pulse Rate 93 Respiratory Rate 14 Blood Pressure 158/91 H Blood Pressure Mean 113 Pulse Ox 100 Oxygen Delivery Method Room Air Weight Weight: 57.6 kg Body Mass Index (BMI) 20.5
[2022-06-26 16:38] VITALS: BP 134/78; PULSE 78; RESP 16; TEMP 36.6; O2SAT 99
[2022-06-26 17:04] LABS: Absolute Lymphocyte Count 3.71 X10^3/uL (0.83-4.51); Absolute Neutrophil Count 2.5 X10^3/uL (2.0-7.7); Basophil# 0.03 X10^3/uL; Basophil% 0.4 % (0-1); Eosinophil# 0.08 X10^3/uL; Eosinophils% 1.2 % (0-5); Hematocrit 47.4 % (40-54); Hemoglobin 16.9 g/dL (13.0-16.5); Lymphocyte # 3.71 X10^3/ul (0.83-4.51); Lymphocyte % 54.6 % (19-41); Mean Corp Hgb Conc 35.7 g/dL (32-36); Mean Corpuscular Hgb 35.7 pg (27.0-32.0); Mean Corpuscular Volume 100.2 fL (80-94); Mean Platelet Vol. 13.2 fl (6.2-12.0); Monocyte# 0.42 X10^3/uL; Monocyte% 6.2 % (0-10); NRBC Flagged by Analyzer 0 % (0-5); Neutrophil # 2.53 X10^3/uL (2.7-7.7); Neutrophil % 37.3 % (47-70); POSITIVE MORPHOLOGY YES; Platelet Count 183 K/mm3 (150-450); RBC Distribution Width CV 12.7 % (11.6-14.6); RBC Distribution Width SD 46.6 fl (35.1-43.9); Red Blood Count 4.73 M/mm3 (4.6-6.2); White Blood Count 6.8 K/mm3 (4.4-11.0)
[2022-06-26 17:08] LABS: Differential Indicated SCAN CRITERIA MET
[2022-06-26 17:24] LABS: Amphetamine Urine VISTA NEGATIVE (<1000 ng/mL); Barbiturate Urine VISTA NEGATIVE (< 200 ng/mL); Benzodiazepine Urine VISTA NEGATIVE (< 200 ng/mL); Cocaine Urine VISTA NEGATIVE (< 300 ng/mL); Ecstacy Urine VISTA NEGATIVE (< 500 ng/mL); Methadone Urine VISTA NEGATIVE (< 300 ng/mL); PCP Urine VISTA NEGATIVE (< 25 ng/mL); THC Urine VISTA NEGATIVE (< 50 ng/mL); Vista UDS pH Range 7
[2022-06-26 17:24] LABS: ALB/GLOB Ratio 1.3 RATIO (0.9-2.4); AST(SGOT) 21 U/L (15-37); Alanine Aminotransfer ALT/SGPT 24 U/L (16-61); Albumin, Serum 4.1 g/dL (3.2-5.0); Alkaline Phosphatase 85 U/L (45-117); Anion Gap 5 (5-15); BUN 5 mg/dL (7-18); BUN/Creat Ratio 6.1 RATIO (10-20); Chloride 108 mmol/L (98-107); Creatinine, Serum 0.82 mg/dL (0.70-1.30); EST Glomerular Filtration Rate 107 mL/min (>60); Est Glom Filt Rate - Afr Amer 130 mL/min (>60); Estimated Creatinine Clearance 91.71 ml/min; Globulin 3.1 g/dL (2.2-4.2); Glucose 118 mg/dL (74-106); Lipase 82 U/L (73-393); Potassium 3.6 mmol/L (3.5-5.1); Protein, Total 7.2 g/dL (6.4-8.2); Sodium Level 145 mmol/L (136-145)
--- NOTE | 2022-06-26 17:35 | ED.RN ---
pt. walks out in hallway states he is leaving. pt. states i want iv out. and am leaving. pt. leaves with significant other.
[2022-06-26 18:06] LABS: Differential Comment SCANNED
== END 2022-06-26 17:41 | disposition left against medical advice (07) ==
PROVIDERS: Emergency Provider Emergency Medicine; Visit Provider Emergency Medicine
DX: F10.239 Alcohol dependence with withdrawal, unspecified (principal); F17.210 Nicotine dependence, cigarettes, uncomplicated; Z79.899 Other long term (current) drug therapy
CPT/HCPCS: 80053; 80307; 82077; 83690; 85025; 99285

== ENCOUNTER 2022-12-09 14:22 | Inpatient (IN) | payer BC, SELFPAY ==
[2022-12-09 14:23] VITALS: BP 162/111; PULSE 106; RESP 16; TEMP 36.4; O2SAT 99; BMI 21.6
--- NOTE | 2022-12-09 14:35 | EKG12_ITS ---
Test Reason : SUBSTANCE ABUSE Blood Pressure : / mmHG Vent. Rate : 094 BPM Atrial Rate : 094 BPM P-R Int : 122 ms QRS Dur : 084 ms QT Int : 364 ms P-R-T Axes : 065 -81 048 degrees QTc Int : 455 ms Normal sinus rhythm Left anterior fascicular block Cannot rule out Anteroseptal infarct , age undetermined Abnormal ECG Confirmed by LATASHA ELDRIDGE MD ([id number]), newspaper or periodical editor HAILEY HUFFMAN ([id number]) on 12/10/2022 10:00:15 AM Referred By: Confirmed By:LATASHA ELDRIDGE MD
[2022-12-09] MEDS: LORazepam 2 MG/ML Syringe 1 MG IV (14:57)
[2022-12-09 15:21] LABS: Absolute Lymphocyte Count 1.64 X10^3/uL (0.83-4.51); Absolute Neutrophil Count 2.8 X10^3/uL (2.0-7.7); Basophil# 0.03 X10^3/uL; Basophil% 0.6 % (0-1); Eosinophil# 0.01 X10^3/uL; Eosinophils% 0.2 % (0-5); Hematocrit 41.9 % (40-54); Hemoglobin 15.7 g/dL (13.0-16.5); Lymphocyte # 1.64 X10^3/ul (0.83-4.51); Lymphocyte % 34.2 % (19-41); Mean Corp Hgb Conc 37.5 g/dL (32-36); Mean Corpuscular Hgb 36.9 pg (27.0-32.0); Mean Corpuscular Volume 98.6 fL (80-94); Mean Platelet Vol. 14.2 fl (6.2-12.0); Monocyte# 0.29 X10^3/uL; Monocyte% 6.1 % (0-10); NRBC Flagged by Analyzer 0 % (0-5); Neutrophil % 58.5 % (47-70); Platelet Count 134 K/mm3 (150-450); RBC Distribution Width CV 13.1 % (11.6-14.6); RBC Distribution Width SD 47.3 fl (35.1-43.9); Red Blood Count 4.25 M/mm3 (4.6-6.2); White Blood Count 4.8 K/mm3 (4.4-11.0)
--- NOTE | 2022-12-09 15:25 | RAD_ITS ---
STUDY: X-RAY CHEST REASON FOR EXAM: Male, 47 years old. Fatigue TECHNIQUE: Single AP portable view of the chest. COMPARISON: Comparison is made with prior study dated April 17, 2018. FINDINGS: EKG electrodes are seen. The lungs are clear and expanded. Scattered calcified granuloma. There is no demonstrated pleural abnormality. Normal size heart. Normal mediastinum and nico. Normal visualized pulmonary arteries. Normal visualized aortic arch and descending thoracic aorta. Normal visualized thoracic spine. Normal visualized ribs, clavicles, and shoulders. There is no demonstrated abnormality of the visualized soft tissue structures of the upper abdomen. RAD/Chest 1 View (Portable) IMPRESSION: No acute abnormality is seen. Electronically Signed: Adair Giang MD at 15:36 EDT ,
[2022-12-09 15:50] LABS: ALB/GLOB Ratio 1.2 RATIO (0.9-2.4); AST(SGOT) 30 U/L (15-37); Alanine Aminotransfer ALT/SGPT 27 U/L (16-61); Albumin, Serum 3.6 g/dL (3.2-5.0); Alkaline Phosphatase 90 U/L (45-117); Anion Gap 8 (5-15); BUN 10 mg/dL (7-18); BUN/Creat Ratio 12.5 RATIO (10-20); Calcium,Total 8.7 mg/dL (8.5-10.1); Chloride 106 mmol/L (98-107); EST Glomerular Filtration Rate 110 mL/min (>60); Est Glom Filt Rate - Afr Amer 133 mL/min (>60); Estimated Creatinine Clearance 96.23 ml/min; Globulin 2.9 g/dL (2.2-4.2); Glucose 117 mg/dL (74-106); Protein, Total 6.5 g/dL (6.4-8.2); Sodium Level 143 mmol/L (136-145)
--- NOTE | 2022-12-09 16:10 | CM.ED ---
Social Work SW met with patient and patient's friend and introduced self and role as [facility] SW. Patient was agreeable to speak with friend present. SW inquired about patient's current substance use and knowledge of [facility] program. Patient's friend explained the patient was unable to read so they were reviewing the [facility] contract together, however, the patient was feeling tired. Patient reports alcohol use. SW then reviewed [facility] rules including it being a voluntary program, personal belongings being locked up including cell phone, no guests and meeting with detox coordinator for after care/ discharge planning. Patient kept his eyes closed during conversation but said he was agreeable. SW provided emotional support as did patient's friend. Patient reports he wants his friend to be able to have updates from staff, explaining they are like brothers and have been friends since they were teens. Patient's friend's name is Jeremías Winston [phone]. Patient voiced no other questions or needs at this time. Erika Pagan WET COTTON FEEDER, NILO
--- NOTE | 2022-12-09 16:11 | EX.ED.SAOD ---
HPI History of Present Illness Chief Complaint: Substance Abuse Informant: patient Narrative Narrative: Patient is a 47-year-old male with longstanding history of alcohol abuse (drinks whiskey -at least 80 proof daily) presenting for generalized weakness, generalized malaise and for alcohol detox. Patient states he has not been feeling well for the past few days. Friend at the bedside said he seemed a bit more confused. He is also had a tremor. He states his last drink was last night. He states he will go through a bottle of whiskey every few days. He denies any chest pain currently but notes he does get some intermittent chest pain. He has had some swelling of his eyes as well as discharge. He states that when he wakes up and his eyes are matted shut. He notes he does have some seasonal allergies. Denies any difficulty breathing. Denies any weight change. States he does sometimes have some night sweats. No report of any black or blood in his stool. No vomiting or change in his bowel movements. No other complaints or concerns at this time. Patient denies any history of DTs or alcohol withdrawal. He is never been to detox before. [facility] Medical History Psoriasis Home Medications diphenhydramine HCl 25 mg capsule 50 mg (2 x 25 mg) PO TID PRN PRN allergic reaction #30 caps 04/17/18 [Rx Last Taken 04/23/18] epinephrine 0.3 mg/0.3 mL injection, auto-injector 0.3 mg (0.3 mL) IM X1 PRN Angioedema ##1 04/17/18 [Rx Last Taken Unknown] famotidine 20 mg tablet 20 mg PO BID ##10 04/17/18 [Rx Last Taken 04/23/18] prednisone 20 mg tablet 60 mg (3 x 20 mg) PO DAILY #15 tabs 04/17/18 [Rx Last Taken 04/23/18] Allergy/AdvReac Type Severity Reaction Status Date / Time Penicillins [PCN] Allergy Unknown Verified 12/09/22 14:23 Surgical History Hx of tooth extraction Social History Smoking Status: Current every day smoker tobacco type: cigarettes ROS ROS ED Constitutional Constitutional ED: Reports chills and sweats; Denies fever(s) Eyes Eyes: Reports blurry vision Gastrointestinal Gastrointestinal: Denies nausea or vomiting Musculoskeletal Musculoskeletal: Denies arthralgias or myalgias Integumentary Denies rash Neurologic Neurologic: Reports weakness and other Details: tremor Psychiatric Psychiatric: Reports anxiety Hematologic/Lymphatic Hematologic/Lymphatic: Denies easy bleeding or easy bruising EXAM Physical Exam Const Vital Signs: 12/09/22 14:23 Temperature 97.5 F L Temperature Source Temporal Pulse Rate 106 H Respiratory Rate 16 Blood Pressure 162/111 H Blood Pressure Mean 128 Pulse Ox 99 Positive well developed Constitutional Narrative: Chronically ill-appearing General Appearance ED: well developed and NAD; Negative for pallor HEENT Reports dry mucous membranes atraumatic Mouth ED: Yes dry mucous membranes Mouth: dry mucous membranes Eyes PERRL and EOMs intact bilaterally Eyes Narrative: Slight periorbital puffiness/edema present General Eye ED: Negative for scleral icterus Neck supple and no JVD Chest Wall inspection of chest normal and palpation of chest normal Resp normal respiratory effort and clear to auscultation bilaterally Cardio no murmurs Rate: tachycardic GI soft to palpation, non-tender and non-distended Extremity General Extremety ED: Negative for edema General Extremity: Negative for edema Neuro oriented x3 Neuro Narrative: Mildly tremulous, no focal deficits appreciated. Generally weak. Sensorium / Orientation: alert Motor Exam: general weakness Psych mental status grossly normal Mood & Affect: anxious and tearful Skin General Skin Exam: Negative for jaundice or pallor MDM MDM MDM Narrative Medical decision making narrative: Patient is evaluated for generalized weakness, lightheadedness as well as request for inpatient alcohol detox. Patient is hypertensive and tachycardic on arrival and I am concerned that he might be having some withdrawal symptoms at this time. He states he has not had a drink since last night. Is given 1 mg IV Ativan and then oral phenobarbital. He is given IV fluids as he does appear dehydrated. Metabolic work-up is largely normal. No anemia, signs of infection, abnormal chest x-ray or other acute abnormalities. Patient is admitted to medicine service for treatment of alcohol dependency with likely withdrawal symptoms. Lab Data Attestation: I reviewed the patient's lab results. Labs: Laboratory Results - last 24 hr 0812/09/22 12/09/22 04:50 14:50 15:45 WBC 4.8 RBC 4.25 L Hgb 15.7 Hct 41.9 MCV 98.6 H MCH 36.9 H MCHC 37.5 H RDW Std Deviation 47.3 H RDW Coeff of Bob 13.1 Plt Count 134 L MPV 14.2 H Immature Gran % (Auto) 0.400 Neut % (Auto) 58.5 Lymph % (Auto) 34.2 Forrest % (Auto) 6.1 Eos % (Auto) 0.2 Baso % (Auto) 0.6 Absolute Neuts (auto) 2.8 Absolute Lymphs (auto) 1.64 Nucleated RBC % 0 PT 14.4 INR 1.1 Sodium 143 Potassium 3.0 L Chloride 106 Carbon Dioxide 29.0 Anion Gap 8 BUN 10 Creatinine 0.80 Estim Creat Clear Calc 96.23 Est GFR (MDRD) Af Amer 133 Est GFR (MDRD) Non-Af 110 BUN/Creatinine Ratio 12.5 Glucose 117 H Calcium 8.7 Magnesium 2.0 Total Bilirubin 0.70 AST 30 ALT 27 Alkaline Phosphatase 90 Ammonia 20.0 Total Protein 6.5 Albumin 3.6 Globulin 2.9 Albumin/Globulin Ratio 1.2 Ethyl Alcohol 7.0 Radiography Chest X-Ray - ED: 1 View, Read by ED Physician, Read by Radiologist and No Acute Disease Diagnostic Testing: Clinical Impression(s) from Imaging Studies Chest X-Ray 12/09/22 15:25 IMPRESSION: No acute abnormality is seen. Electronically Signed: Adair Giang MD at 15:36 EDT , Management Discussion w/another healthcare provider: Hospitalist Discharge Plan Disposition Disposition: Acute Care Hospital [facility] Discharge Date/Time: 12/09/22 17:32
[2022-12-09] MEDS: Phenobarbital 32.4 MG Tablet 97.2 MG PO (16:41)
--- NOTE | 2022-12-09 16:43 | PCM.HP.STD ---
HPI - General General Date of Admission: 12/09/22 Date of Service: 12/09/22 Chief Complaint: Acute alcohol withdrawal syndrome. HPI Narrative MARIE WAGNER, is a 47 M with history of chronic alcohol use disorder came to ED for acute alcohol withdrawal syndrome. Patient came to ED with his friend. Patient drinks whiskey, exact amount unclear but he states he finish 1 bottle of whiskey in a few days. Patient came to ED for generalized weakness malaise and diffuse tremors as per the patient. He was more confused. His last drink was yesterday night. Patient also admits visual hallucination but denies seizure. Denies any particular complaint including chest pain, shortness of breath, palpitation. He said he had been shocked/seems defibrillated/AEDmore than 10 years as he told his friend few days ago. He said it was in the hospital but right now patient is very drowsy and lethargic cannot give any history. He denies history of chronic opioid use including fentanyl, heroin, Percocet or oxycodone. Denies methamphetamine or crack cocaine. He occasionally uses marijuana. Smokes cigarettes a pack per day. Patient was given IV Ativan and phenobarbital in the ED. The patient was in ED in April 2018 for facial swelling, angioedema. [facility] Medical History Psoriasis Home Medications diphenhydramine HCl 25 mg capsule 50 mg (2 x 25 mg) PO TID PRN PRN allergic reaction #30 caps 04/17/18 [Rx Last Taken 04/23/18] epinephrine 0.3 mg/0.3 mL injection, auto-injector 0.3 mg (0.3 mL) IM X1 PRN Angioedema ##1 04/17/18 [Rx Last Taken Unknown] famotidine 20 mg tablet 20 mg PO BID ##10 04/17/18 [Rx Last Taken 04/23/18] prednisone 20 mg tablet 60 mg (3 x 20 mg) PO DAILY #15 tabs 04/17/18 [Rx Last Taken 04/23/18] Allergy/AdvReac Type Severity Reaction Status Date / Time Penicillins [PCN] Allergy Unknown Verified 12/09/22 14:23 Surgical History Hx of tooth extraction Social History Smoking Status: Current every day smoker tobacco type: cigarettes ROS ROS Narrative 14 system ROS unobtainable as patient is drowsy lethargic, obtunded. Patient had IV Ativan and phenobarbital in ED for acute alcohol withdrawal syndrome Review of Systems ROS Unobtainable: due to encephalopathy Vital Signs Vital Signs Vital Signs: 12/09/22 14:23 Temperature 97.5 F L Temperature Source Temporal Pulse Rate 106 H Respiratory Rate 16 Blood Pressure 162/111 H Blood Pressure Mean 128 Pulse Ox 99 Weight Weight: 130 lb Body Mass Index (BMI) 21.6 Physical Exam Narrative General: Lethargy, wakes up on verbal command. Obtunded. Chronic malnutrition HEENT: Eyes mostly closed. No direct eye contact. Atraumatic, PERRLA, EOMI, Normocephalic Oral: Oral mucosa dry. No Gingival or Mucosal Lesions/ Ulcerations Neck: Supple, No JVD, Negative Carotid Bruits Lungs: Air entry diminished in bilateral lung bases. No crepitation/rhonchi Cardiovascular: Regular rate, Regular Rhythm, Normal S1, Normal S2, No murmurs Abdomen: Bowel Sounds Present, Soft, Non Tender, Non-Distended : No renal angle tenderness. No suprapubic tenderness. Extremities: No edema, Capillary Refill Less than 3 Seconds Skin: Small patchy psoriatic rash on right lower leg. Musculoskeletal: No Tenderness to Palpation of Joints or Extremities, mild-moderate atrophy of muscles of extremities, loss of subcutaneous fat. Neurological: Cranial nerves II-XII grossly intact, DTR 2+/4. No acute focal neurological deficit. Psych/Mental Status: Flat affect lethargy Results Lab / Micro Data 12/09/22 04:50 12/09/22 04:50 Labs: Laboratory Results - last 24 hr 12/09/22 04:50: WBC 4.8, RBC 4.25 L, Hgb 15.7, Hct 41.9, MCV 98.6 H, MCH 36.9 H, MCHC 37.5 H, RDW Std Deviation 47.3 H, RDW Coeff of Bob 13.1, Plt Count 134 L, MPV 14.2 H, Immature Gran % (Auto) 0.400, Neut % (Auto) 58.5, Lymph % (Auto) 34.2, Nuckolls % (Auto) 6.1, Eos % (Auto) 0.2, Baso % (Auto) 0.6, Absolute Neuts (auto) 2.8, Absolute Lymphs (auto) 1.64, Nucleated RBC % 0, Sodium 143, Potassium 3.0 L, Chloride 106, Carbon Dioxide 29.0, Anion Gap 8, BUN 10, Creatinine 0.80, Estim Creat Clear Calc 96.23, Est GFR (MDRD) Af Amer 133, Est GFR (MDRD) Non-Af 110, BUN/Creatinine Ratio 12.5, Glucose 117 H, Calcium 8.7, Total Bilirubin 0.70, AST 30, ALT 27, Alkaline Phosphatase 90, Total Protein 6.5, Albumin 3.6, Globulin 2.9, Albumin/Globulin Ratio 1.2, Ethyl Alcohol 7.0 12/09/22 15:45: Ammonia 20.0 Radiology Impression Chest X-Ray 12/09/22 15:25 IMPRESSION: No acute abnormality is seen. Electronically Signed: Adair Giang MD at 15:36 EDT Reading Location ID and State: [facility] / [place] , Service support , Assessment & Plan Assessment/Plan (1) Alcohol withdrawal syndrome with perceptual disturbance: PLAN: Plan 1. Acute alcohol withdrawal syndrome with history of chronic alcohol use disorder, tolerance and dependence: Patient is being admitted to MedSurg floor. Patient looks dehydrated therefore 1 L Ringer lactate ordered by ER physician and then 125 mill per hour. Patient on phenobarbital based order set along with other adjunctive medications as needed for alcohol withdrawal symptom control. CIWA monitor. senior clinical data manager consulted. Twelve-lead EKG done in ED reviewed. Normal sinus rhythm 94 bpm, LAD, LAFB. Mildly sinus tachycardic in ED probably from dehydration or acute alcohol withdrawal syndrome. 2. Chronic cigarette smoking/nicotine use disorder with dependence: On nicotine patch 3. Acute encephalopathy most likely toxic encephalopathy from acute alcohol withdrawal syndrome and then IV Ativan and phenobarbital: Monitor clinically. Avoid next phenobarbital patient is more awake and responding. 4. Chronic psoriasis: Needs outpatient follow-up with crew director. DVT prophylaxis, low risk. Discontinue if platelet count drops less than 50,000 or hemoglobin less than 8 g% CODE STATUS: Does not have living will/advanced directive. Full code unverified with the patient Charges/Coding Visit Charges Inpatient E&M: 98734 Init Hosp L3
[2022-12-09 16:48] VITALS: BP 139/89; PULSE 90; PULSE 94; RESP 16; RESP 22; TEMP 36.8; O2SAT 100; O2SAT 99
[2022-12-09] MEDS: Lactated Ringers 1,000 ML 999 ML IV (16:58)
--- NOTE | 2022-12-09 17:16 | CM.ED ---
Social Work SW met with patient to provide a list of PCPs in network with patient's insurance, accepting new patients within 20 miles of his home address. Patient was receptive towards list. Plan: RUBEN APPIAH, NILO
[2022-12-09 18:00] VITALS: BP 163/100; PULSE 90; RESP 18; TEMP 37; O2SAT 99; BMI 21.6
[2022-12-09 18:09] LABS: Amphetamine Urine VISTA NEGATIVE (<1000 ng/mL); Barbiturate Urine VISTA NEGATIVE (< 200 ng/mL); Benzodiazepine Urine VISTA NEGATIVE (< 200 ng/mL); Cocaine Urine VISTA NEGATIVE (< 300 ng/mL); Ecstacy Urine VISTA NEGATIVE (< 500 ng/mL); Methadone Urine VISTA NEGATIVE (< 300 ng/mL); PCP Urine VISTA NEGATIVE (< 25 ng/mL); THC Urine VISTA POSITIVE (< 50 ng/mL); Vista UDS pH Range 6
[2022-12-09 18:17] LABS: International Normalized Ratio 1.1; Prothrombin Time (Protime)PT. 14.4 SECONDS (11.7-14.9)
[2022-12-09] MEDS: Lactated Ringers 1,000 ML 125 ML IV (18:46)
[2022-12-09] MEDS: Dicyclomine 10 MG Capsule 20 MG PO (18:47)
[2022-12-09] MEDS: Acetaminophen 500 MG Tablet PO (18:47)
[2022-12-09] MEDS: hydrOXYzine PAM 25 MG Capsule 50 MG PO (18:47)
[2022-12-09] MEDS: Ondansetron 8 MG Tablet PO (18:47)
[2022-12-09] MEDS: Phenobarbital 32.4 MG Tablet 64.8 MG PO ×2 (18:47→22:32)
[2022-12-09 22:31] VITALS: BP 149/98; PULSE 88; RESP 16; TEMP 36.5; O2SAT 97
[2022-12-09] MEDS: traZODone 100 MG Tablet PO (22:32)
[2022-12-10] MEDS: Phenobarbital 32.4 MG Tablet 64.8 MG PO ×6 (02:31→21:47)
[2022-12-10 02:38] VITALS: BP 147/86; PULSE 84; RESP 16; TEMP 36.8; O2SAT 97
[2022-12-10 06:21] VITALS: BP 142/90; PULSE 68; RESP 16; TEMP 36.5; O2SAT 95
[2022-12-10 07:54] VITALS: BP 153/92; PULSE 70; RESP 16; TEMP 36.8; O2SAT 94
[2022-12-10] MEDS: Thiamine Hydrochloride 100 MG Tablet PO (08:00)
[2022-12-10] MEDS: Folic Acid 1 MG Tablet PO (08:01)
--- NOTE | 2022-12-10 11:45 | ADDICTION ---
This advertising copy writer met with PT to conduct ASAM, MSE, AUDIT assessments and to plan for d/c. PT A+Ox4 and participated actively. All assessments completed, and placed in PT's chart. Patient was lethargic and tired and answered questions minimally. Tatyana, addiction therapist, will be in this weekend to talk with him further when he is feeling a little better. PT plans to f/u with individual counselor at [facility] for outpatient treatment services in [employer]. PT did not indicate a need for transportation post d/c from [facility].
--- NOTE | 2022-12-10 14:34 | CHAPLAIN ---
Type of Pastoral Visit __x_ Initial Visit ___ Follow-up Visit ___ On-call Visit ___ General Patient Visit ___ Spiritual Assessment ___ Family Conference ___ Bereavement ___ Rapid Response ___ Code Blue ___ Other (describe below) Pastoral Care Referral From _x__ Patient ___ Family ___ Nurse ___ Physician ___ Sealer Aircraft ___ Garment Sewer Hand ___ Other (describe below) Sacrament/Intervention ___ Active listening ___ Anointing ___ Temple ___ Bereavement ___ Communion ___ Rima exploration ___ ___ Life review ___ Prayer ___ Reconciliation ___ Sacrament of Sick _x__ Supportive presence ___ Wedding ___ Other (describe below) Pastoral Comments patient is sleeping but awakens to his name; introduced self and role to the patient; pt keeps his eyes closed and states that he is pretty tired; offer of support given but pt declines presence at this point in time
[2022-12-10 14:35] VITALS: BP 139/89; PULSE 61; RESP 15; TEMP 36.9; O2SAT 94
--- NOTE | 2022-12-10 16:00 | PN.HOSP_ITS ---
Reason for Visit Reason for Visit: Diagnoses Alcohol use, unspecified with withdrawal with perceptual disturbance (12/09/22) Subjective Subjective Patient resting comfortably in bed, feeling tired Objective Data Objective Data Vital Signs: Vital Signs Temp Pulse Resp BP Pulse Ox O2 Del Method 98.5 F 61 15 139/89 H 94 Room Air 12/10/22 14:35 12/10/22 14:35 12/10/22 14:35 12/10/22 14:35 12/10/22 14:35 12/10/22 14:35 Oxygen Delivery Method Room Air Weight: 58.967 kg Body Mass Index (BMI) 21.6 Intake & Output: Intake and Output for Last 24 Hours 12/08/22 12/09/22 12/10/22 23:59 23:59 23:59 Intake Total 1000 / 1000 1000 / 1000 Balance 1000 / 1000 1000 / 1000 Lab / Micro Data 12/09/22 04:50 12/09/22 04:50 Labs: Laboratory Results - last 24 hr 12/09/22 04:50: Magnesium 2.0 12/09/22 14:50: PT 14.4, INR 1.1 12/09/22 15:45: Ammonia 20.0 12/09/22 17:17: Urine Opiates Screen NEGATIVE, Urine Methadone Screen NEGATIVE, Ur Barbiturates Screen NEGATIVE, Ur Phencyclidine Scrn NEGATIVE, Ur Amphetamines Screen NEGATIVE, MDMA (Ecstasy) Screen NEGATIVE, U Benzodiazepines Scrn NEGATIVE, Urine Cocaine Screen NEGATIVE, U Cannabinoids Screen POSITIVE H, Ur Drug Screen Comment Physical Exam Narrative General: Resting comfortably in bed HEENT: Atraumatic Eyes: extraocular movements grossly intact Neck: Supple Respiratory: normal respiratory effort Cardiovascular: No overt JVD appreciated GI: nondistended Extremities: Moving all extremities Neuro: No overt focal neurological deficits Psych: Attempts to be cooperative Assessment & Plan Assessment/Plan (1) Alcohol withdrawal syndrome with perceptual disturbance: PLAN: Plan 1. Acute alcohol withdrawal syndrome with history of chronic alcohol use disorder, tolerance and dependence: Patient is being admitted to MedSurg floor. Patient looks dehydrated therefore 1 L Ringer lactate ordered by ER physician and then 125 mill per hour. Patient on phenobarbital based order set along with other adjunctive medications as needed for alcohol withdrawal symptom control. CIWA monitor. manager transfusion consulted. Twelve-lead EKG done in ED reviewed. N ormal sinus rhythm 94 bpm, LAD, LAFB. Mildly sinus tachycardic in ED probably from dehydration or acute alcohol withdrawal syndrome. -12/10: Continue phenobarb taper. Patient will follow-up with outpatient treatment 2. Chronic cigarette smoking/nicotine use disorder with dependence: On nicotine patch 3. Acute encephalopathy most likely toxic encephalopathy from acute alcohol withdrawal syndrome and then IV Ativan and phenobarbital: Monitor clinically. Avoid next phenobarbital patient is more awake and responding. -12/10: Patient wakes up, still sleepy, on phenobarb taper 4. Chronic psoriasis: Needs outpatient follow-up with licensed physical therapy assistant. DVT prophylaxis, low risk. Charges/Coding Visit Charges Inpatient E&M: 07980 Subs Hosp L1
[2022-12-10] MEDS: Gabapentin 300 MG Capsule PO (17:40)
[2022-12-10 21:45] VITALS: BP 151/88; PULSE 63; RESP 16; TEMP 37.1; O2SAT 98
[2022-12-10] MEDS: traZODone 100 MG Tablet PO (21:47)
[2022-12-11] MEDS: Phenobarbital 32.4 MG Tablet 64.8 MG PO ×6 (01:56→21:02)
[2022-12-11 02:00] VITALS: BP 130/81; PULSE 61; RESP 16; TEMP 36.6; O2SAT 96
--- NOTE | 2022-12-11 10:08 | PCM.PROGNOTE ---
Subjective Subjective Patient seen and examined. He had no complaints. He was alert but weak. He had no complaints and had an uneventful night. Review of systems is otherwise negative. He is being managed for acute alcohol withdrawal. Objective Data Objective Data Vital Signs: Vital Signs Temp Pulse Resp BP Pulse Ox O2 Del Method 98 F 61 16 130/81 H 96 Room Air 12/11/22 02:00 12/11/22 02:00 12/11/22 02:00 12/11/22 02:00 12/11/22 02:00 12/11/22 02:00 Oxygen Delivery Method Room Air Weight: 130 lb Body Mass Index (BMI) 21.6 Intake & Output: Intake and Output for Last 24 Hours 12/09/22 12/10/22 12/11/22 23:59 23:59 23:59 Intake Total 1000 / 1000 1000 / 1000 Balance 1000 / 1000 1000 / 1000 Lab / Micro Data 12/09/22 04:50 12/09/22 04:50 Physical Exam Const alert and oriented x3 General Appearance: cooperative Orientation / Consciousness: lethargic HEENT normocephalic, moist oral mucous membranes, oropharynx normal and gingiva normal Eyes PERRL and EOMs intact bilaterally Neck supple and no JVD Lymph Lymphatic: no lymphadenopathy noted and no lymphedema noted Resp normal respiratory effort, normal air movement and clear to auscultation bilaterally Cardio regular rate, regular rhythm, S1 normal heart sound, S2 normal heart sound and no murmurs GI normal to inspection, nondistended, normoactive bowel sounds, soft to palpation, non-tender and non-distended Extremity normal capillary refill, no clubbing, cyanosis or edema and no calf tenderness General Extremity: no tenderness to palpation of joints or extremities Skin General Skin Exam: no breakdown Neuro CN's II-XII intact bilaterally, no focal motor deficits, no sensory deficits noted and deep tendon reflexes 2+ bilaterally Psych thought process normal, cooperative and affect normal Mood & Affect: flat affect Assessment & Plan Assessment/Plan (1) Alcohol withdrawal syndrome with perceptual disturbance: PLAN: Plan #Acute alcohol withdrawal on alcohol withdrawal protocol with phenobarbital adjunctive meds for symptomatic relief on thiamine, folic acid and multivite #Encephalopathy likely acute encephalopathy related to chronic alcohol use disorder may also be exacerbated by phenobarbital and prn ativan he is receiving will monitor #Nicotine dependence: on nicotine patch. Counseled to quit #Psoriasis: chronic. TO follow up with dermatology on outpatient basis DVT prophylaxis: low risk, encourage to ambulate. Charges/Coding Visit Charges Inpatient E&M: 80756 Subs Hosp L2
[2022-12-11] MEDS: Folic Acid 1 MG Tablet PO (11:17)
[2022-12-11] MEDS: Thiamine Hydrochloride 100 MG Tablet PO (11:17)
[2022-12-11 11:27] VITALS: BP 144/92; PULSE 83; RESP 18; TEMP 36.8; O2SAT 96
[2022-12-11] MEDS: hydrOXYzine PAM 25 MG Capsule 50 MG PO (15:51)
[2022-12-11] MEDS: Gabapentin 300 MG Capsule PO (15:51)
[2022-12-11 16:00] VITALS: BP 139/89; PULSE 70; RESP 18; TEMP 36.9; O2SAT 99
[2022-12-11 20:47] VITALS: BP 153/97; PULSE 64; RESP 16; TEMP 36.8; O2SAT 100
[2022-12-11 20:52] VITALS: O2SAT 100
[2022-12-12] MEDS: Phenobarbital 32.4 MG Tablet 64.8 MG PO ×2 (03:08→08:21)
[2022-12-12 03:14] VITALS: BP 143/94; PULSE 60; RESP 16; TEMP 36.6; O2SAT 100
[2022-12-12 06:02] LABS: Absolute Lymphocyte Count 1.88 X10^3/uL (0.83-4.51); Absolute Neutrophil Count 2.5 X10^3/uL (2.0-7.7); Basophil# 0.02 X10^3/uL; Basophil% 0.4 % (0-1); Eosinophil# 0.11 X10^3/uL; Eosinophils% 2.3 % (0-5); Hematocrit 36.9 % (40-54); Hemoglobin 12.9 g/dL (13.0-16.5); Lymphocyte # 1.88 X10^3/ul (0.83-4.51); Lymphocyte % 38.6 % (19-41); Mean Corpuscular Hgb 35.8 pg (27.0-32.0); Mean Corpuscular Volume 102.5 fL (80-94); Monocyte# 0.35 X10^3/uL; Monocyte% 7.2 % (0-10); NRBC Flagged by Analyzer 0 % (0-5); Neutrophil % 51.3 % (47-70); POSITIVE COUNT YES; Platelet Count 92 K/mm3 (150-450); RBC Distribution Width CV 12.5 % (11.6-14.6); RBC Distribution Width SD 46.5 fl (35.1-43.9); White Blood Count 4.9 K/mm3 (4.4-11.0)
[2022-12-12 06:03] LABS: Differential Indicated SCAN CRITERIA MET
[2022-12-12 06:19] LABS: Differential Comment SCANNED
[2022-12-12 06:20] LABS: Platelet Estimate SLT DEC (ADEQ)
[2022-12-12 06:34] LABS: Anion Gap 4 (5-15); BUN 9 mg/dL (7-18); BUN/Creat Ratio 14.2 RATIO (10-20); Calcium,Total 8.4 mg/dL (8.5-10.1); Chloride 106 mmol/L (98-107); Creatinine, Serum 0.63 mg/dL (0.70-1.30); EST Glomerular Filtration Rate 145 mL/min (>60); Est Glom Filt Rate - Afr Amer 175 mL/min (>60); Glucose 98 mg/dL (74-106); Potassium 2.8 mmol/L (3.5-5.1); Sodium Level 140 mmol/L (136-145)
[2022-12-12] MEDS: Potassium Chloride Oral Tablet 20 MEQ 40 MEQ PO (08:21)
[2022-12-12] MEDS: Thiamine Hydrochloride 100 MG Tablet PO (08:22)
[2022-12-12] MEDS: Folic Acid 1 MG Tablet PO (08:23)
[2022-12-12 08:30] VITALS: BP 158/96; PULSE 74; RESP 18; TEMP 36.4; O2SAT 99
[2022-12-12] MEDS: Potassium Chloride 10mEq/100mL 10 MEQ/100 ML IV.SOLN. 100 MEQ IV BOLUS ×4 (08:37→12:45)
--- NOTE | 2022-12-12 13:38 | PCM.DC.SUM ---
Providers Date of Admission: 12/09/22 Date of Discharge: 12/12/22 Primary Care Physician: No Primary Care Phys Reason For Visit: ALCOHOL WITHDRAWAL Diagnosis Discharge Diagnosis (1) Alcohol withdrawal syndrome with perceptual disturbance: Status: Acute Code(s): F10.932 - Alcohol use, unspecified with withdrawal with perceptual disturbance Plan #Acute alcohol withdrawal on alcohol withdrawal protocol with phenobarbital adjunctive meds for symptomatic relief on thiamine, folic acid and multivite #Encephalopathy likely acute encephalopathy related to chronic alcohol use disorder may also be exacerbated by phenobarbital and prn ativan he is receiving will monitor #Nicotine dependence: on nicotine patch. Counseled to quit #Psoriasis: chronic. TO follow up with dermatology on outpatient basis DVT prophylaxis: low risk, encourage to ambulate. Medications at Discharge Home Medications diphenhydramine HCl 25 mg capsule 50 mg (2 x 25 mg) PO TID PRN PRN allergic reaction #30 caps 04/17/18 epinephrine 0.3 mg/0.3 mL injection, auto-injector 0.3 mg (0.3 mL) IM X1 PRN Angioedema ##1 04/17/18 famotidine 20 mg tablet 20 mg PO BID ##10 04/17/18 prednisone 20 mg tablet 60 mg (3 x 20 mg) PO DAILY #15 tabs 04/17/18 amlodipine 10 mg tablet 10 mg PO DAILY #30 tabs 12/12/22 potassium chloride 20 mEq tablet,extended release 20 meq PO DAILY #20 tabs 12/12/22 Hospital Course Operations None Summary of Care Provided Minutes Spent on Discharge: 50 Hospital Course: Patient is a 47-year-old male with a past medical history as outlined which includes chronic alcohol use disorder who came into the ED for acute alcohol withdrawal. He drank whiskey and said he had finished a bottle of whiskey over the last few days. He had assisted generalized malaise and weakness. His last drink was the day before admission and he also had some visual hallucination but denies any seizures. Review of systems otherwise negative. He was admitted and managed for acute alcohol withdrawal. He was started on alcohol withdrawal protocol with phenobarbital. He also had hypokalemia and this was replaced. He tolerated the 3-day detox process. On day of discharge potassium was quite low at 2.8 so this was aggressively replaced. His blood pressure was noted to be elevated in the 150s systolic. He said he had been known to have high blood pressure on the outpatient basis but had not followed up with the PCP because he did not have a PCP. He was started on amlodipine 10 mg daily and consult with establish with [facility] where he was referred to establish PCP care. Repeat potassium checked prior to discharge was 3.8. He was given a prescription for p.o. potassium 20 mg daily for 20 days. Patient seen and examined prior to discharge. He had no complaints and had an uneventful night. Review of systems otherwise negative. Labs and vitals reviewed. Home medication reviewed and reconciled. Physical Exam Const alert and oriented x3 General Appearance: cooperative, comfortable and well kempt Orientation / Consciousness: lethargic HEENT normocephalic, head/scalp atraumatic, hearing grossly normal bilaterally, moist oral mucous membranes, oropharynx normal and gingiva normal Mouth: oral and palatal mucosa normal Eyes PERRL, EOMs intact bilaterally and conjunctivae normal Neck supple and no JVD Lymph Lymphatic: no lymphadenopathy noted and no lymphedema noted Resp normal respiratory effort, normal air movement and clear to auscultation bilaterally Cardio regular rate, regular rhythm, S1 normal heart sound, S2 normal heart sound and no murmurs GI normal to inspection, nondistended, normoactive bowel sounds, soft to palpation, non-tender and non-distended Extremity normal to inspection, full ROM, normal capillary refill, no clubbing, cyanosis or edema and no calf tenderness General Extremity: no tenderness to palpation of joints or extremities Skin no rashes or lesions noted and no wounds General Skin Exam: no breakdown Neuro oriented x3, CN's II-XII intact bilaterally, moves all extremities, no focal motor deficits, no sensory deficits noted and deep tendon reflexes 2+ bilaterally Sensorium / Orientation: awake and alert Psych thought process normal, cooperative and affect normal Weight / BMI Weight Weight: 130 lb Body Mass Index (BMI) 21.6 ABG / Lab / Microbiology Data 12/12/22 05:40 12/12/22 14:04 Laboratory: Laboratory Results - last 24 hr 12/12/22 05:40: WBC 4.9, RBC 3.60 L, Hgb 12.9 L, Hct 36.9 L, MCV 102.5 H, MCH 35.8 H, MCHC 35.0 D, RDW Std Deviation 46.5 H, RDW Coeff of Bob 12.5, Plt Count 92 L, MPV TNP, Immature Gran % (Auto) 0.200, Neut % (Auto) 51.3, Lymph % (Auto) 38.6, [place] % (Auto) 7.2, Eos % (Auto) 2.3, Baso % (Auto) 0.4, Absolute Neuts (auto) 2.5, Absolute Lymphs (auto) 1.88, Nucleated RBC % 0, Differential Comment SCANNED, Platelet Estimate SLT DEC, Sodium 140, Potassium 2.8 L, Chloride 106, Carbon Dioxide 30.0, Anion Gap 4 L, BUN 9, Creatinine 0.63 L, Estim Creat Clear Calc 122.20, Est GFR (MDRD) Af Amer 175, Est GFR (MDRD) Non-Af 145, BUN/Creatinine Ratio 14.2, Glucose 98, Calcium 8.4 L, Magnesium 2.0 D/C Instructions Discharge Diet: Low fat / Low cholesterol Discharge Activity: Return to Normal Activity Weight Bearing Status: Weight bearing as tolerated Call your doctor if you observe: Shortness of breath, Dizziness and Swelling in the ankles Meaningful Use Info Meaningful Use Diagnoses (Choose all that apply): None applicable Discharge Plan Admission Admit Date/Time: 12/09/22 16:41 Primary Reason for Your Visit: acute alcohol withdrawal Attending Provider: Marguerite Saucedo Primary Care Provider: Care Physician,No Primary Consulting Providers: Hector Bravo; Yelitza Rodríguez Instructions Forms: Work / School Excuse Patient Instructions: Alcoholism: Getting Help, Alcohol Withdrawal: What to Expect Discharge Orders/Prescriptions Prescriptions: New potassium chloride 20 mEq tablet extended release 20 meq PO DAILY Qty: 20 0RF amlodipine 10 mg tablet 10 mg PO DAILY Qty: 30 1RF Continued prednisone 20 MG tablet 60 mg PO DAILY Qty: 15 0RF diphenhydramine HCl 25 MG capsule 50 mg PO TID PRN PRN (Reason: allergic reaction) Qty: 30 0RF famotidine 20 MG tablet 20 mg PO BID Qty: 10 0RF Rx Instructions: Over the counter. twice daily for 5 days epinephrine 0.3 MG syringe 0.3 mg IM X1 PRN (Reason: Angioedema) Qty: 1 1RF Referrals / Follow Up: Shelby Broussard MD [Med Staff - Active Staff] - Within 2 Weeks (see to establish PCP care) Care Physician,No Primary [Primary Care Provider] - Disposition Disposition (needs filled in before D/C Order can be placed): Home, Self Care Charges/Coding Visit Charges Inpatient E&M: 68972 Disch Hosp >30min
--- NOTE | 2022-12-12 13:43 | DCINST_ITS ---
Discharge Instructions Diet Discharge Diet: Low fat / Low cholesterol Activity Weight Bearing Status: Weight bearing as tolerated Dressing / Incision Call your doctor if you observe: Shortness of breath, Dizziness and Swelling in the ankles Follow Up Care Test Results: Test results from this visit will be discussed in further detail at your follow- up appointment, if applicable. Discharge Plan Admission Admit Date/Time: 12/09/22 16:41 Primary Reason for Your Visit: acute alcohol withdrawal Attending Provider: Marguerite Saucedo Primary Care Provider: Care Physician,No Primary Consulting Providers: Hector Bravo; Yelitza Rodríguez Instructions Patient Instructions: Alcoholism: Getting Help, Alcohol Withdrawal: What to Expect Discharge Orders/Prescriptions Prescriptions: New potassium chloride 20 mEq tablet extended release 20 meq PO DAILY Qty: 20 0RF amlodipine 10 mg tablet 10 mg PO DAILY Qty: 30 1RF Continued prednisone 20 MG tablet 60 mg PO DAILY Qty: 15 0RF diphenhydramine HCl 25 MG capsule 50 mg PO TID PRN PRN (Reason: allergic reaction) Qty: 30 0RF famotidine 20 MG tablet 20 mg PO BID Qty: 10 0RF Rx Instructions: Over the counter. twice daily for 5 days epinephrine 0.3 MG syringe 0.3 mg IM X1 PRN (Reason: Angioedema) Qty: 1 1RF Referrals / Follow Up: Shelby Broussard MD [Med Staff - Active Staff] - Within 2 Weeks (see to establish PCP care) Care Physician,No Primary [Primary Care Provider] - Disposition Disposition (needs filled in before D/C Order can be placed): Home, Self Care
[2022-12-12 14:27] VITALS: BP 151/90; PULSE 68; RESP 17; TEMP 36.8; O2SAT 99
[2022-12-12 14:29] LABS: Potassium 3.8 mmol/L (3.5-5.1)
--- NOTE | 2022-12-12 14:30 | NURSING ---
This RN aware potassium is 3.8. will notify Dr. Saucedo
== END 2022-12-12 15:10 | disposition home or self-care (01) | DRG 896 ==
LOC: ED 15:30 → MS3 17:11
PROVIDERS: Admitting Provider Internal Medicine; Emergency Provider Emergency Medicine; Visit Provider Student in an Organized Health Care Education/Training Program
DX: F10.232 Alcohol dependence with withdrawal with perceptual disturbance (principal); G92.9 Unspecified toxic encephalopathy; E86.0 Dehydration; L40.9 Psoriasis, unspecified; E87.6 Hypokalemia; F17.210 Nicotine dependence, cigarettes, uncomplicated; T51.91XA Toxic effect of unspecified alcohol, accidental (unintentional), initial encounter; Z79.899 Other long term (current) drug therapy
CPT/HCPCS: 36415; 71045; 80048; 80053; 80307; 82077; 82140; 83735; 84132; 85025; 85610; 93005; 99284; 99406; J7030; J7040; J7120; A4216

== ENCOUNTER 2022-12-14 09:15 | Emergency (ER) | payer BC, SELFPAY ==
[2022-12-14 09:15] VITALS: BP 154/98; PULSE 96; RESP 14; TEMP 36; O2SAT 100; BMI 21.7
--- NOTE | 2022-12-14 09:32 | EX.ED.VIS.HA ---
HPI History of Present Illness Chief Complaint: Headache Informant: patient and spouse/S.O. Narrative Narrative: Presents here with significant other nontraumatic frontal headache since yesterday. States has dizziness with lightheaded symptoms. Denies chest pains or shortness of breath. No medications taken. Of note was discharged 2 days for alcohol detox. He was started on blood pressure medicine amlodipine and potassium replacement. He did not start drinking again. Currently not nauseated. No diarrhea. Allergy to penicillin denies history of gastric ulcers or kidney injury. Denies any diagnosis of cirrhosis with his alcohol history. [facility] Medical History (Updated 12/14/22 @ 10:[address] Foreign Low DO) History of alcohol abuse Hypertension Psoriasis Home Medications diphenhydramine HCl 25 mg capsule 50 mg (2 x 25 mg) PO TID PRN PRN allergic reaction #30 caps 04/17/18 [Rx Last Taken 04/23/18] epinephrine 0.3 mg/0.3 mL injection, auto-injector 0.3 mg (0.3 mL) IM X1 PRN Angioedema ##1 04/17/18 [Rx Last Taken Unknown] famotidine 20 mg tablet 20 mg PO BID ##10 04/17/18 [Rx Last Taken 04/23/18] prednisone 20 mg tablet 60 mg (3 x 20 mg) PO DAILY #15 tabs 04/17/18 [Rx Last Taken 04/23/18] amlodipine 10 mg tablet 10 mg PO DAILY #30 tabs 12/12/22 [Rx Last Taken Unknown] potassium chloride 20 mEq tablet,extended release 20 meq PO DAILY #20 tabs 12/12/22 [Rx Last Taken Unknown] Allergy/AdvReac Type Severity Reaction Status Date / Time Penicillins [PCN] Allergy Unknown Verified 12/09/22 14:23 Surgical History Hx of tooth extraction Social History Smoking Status: Current every day smoker tobacco type: cigarettes ROS ROS ED Constitutional Constitutional ED: Denies chills, fever(s) or sweats Eyes Eyes: Denies change in vision ENT ENT ED: Denies dysphagia or sore throat Cardiovascular Cardiovascular: Denies chest pain, leg edema, palpitations or racing heartbeat Respiratory/Chest Respiratory/Chest: Denies cough, dyspnea or dyspnea on exertion Gastrointestinal Gastrointestinal: Reports nausea; Denies abdominal pain, diarrhea or vomiting Genitourinary Genitourinary ED: Denies dysuria, hematuria or urinary frequency Musculoskeletal Musculoskeletal: Denies back pain, extremity pain or neck pain Integumentary Denies rash or wounds Neurologic Neurologic: Reports headache(s); Denies paresthesias or weakness EXAM Physical Exam Const Vital Signs: 12/14/22 09:15 Temperature 96.8 F L Temperature Source Temporal Pulse Rate 96 Respiratory Rate 14 Blood Pressure 154/98 H Blood Pressure Mean 116 Pulse Ox 100 Oxygen Delivery Method Room Air Positive well nourished and well developed General Appearance ED: well developed and NAD HEENT HEENT Narrative: Mild dry mucosal membranes normocephalic and atraumatic Eyes PERRL, EOMs intact bilaterally and conjunctivae normal General Eye ED: Yes normal appearance of both eyes Neck no lymphadenopathy, supple and no meningeal signs General: Negative for tenderness Chest Wall Chest: Negative for tenderness Resp normal respiratory effort and normal air movement Effort and Inspection: symmetric chest movement; Negative for respiratory distress Cardio regular rate, regular rhythm and no murmurs Peripheral Pulses: pulses 2+ throughout GI normal to inspection, nondistended, normoactive bowel sounds and non-tender Palpation: Negative for guarding or rebound tenderness present Back/Spine no CVA tenderness and no thoracic nor lumbar tenderness Extremity normal to inspection General Extremety ED: Negative for edema or tenderness General Extremity: Negative for edema Neuro oriented x3, CN's II-XII intact bilaterally and no sensory deficits noted Sensorium / Orientation: awake and alert Skin no rashes or lesions noted and no wounds MDM MDM MDM Narrative Medical decision making narrative: Interventions / MDM: Differential diagnosis: Nonspecific headache, dehydration Diagnosis considered but do not suspect: No clinical meningitis. Electrolyte abnormalities however labs normal My EKG interpretation: N/A Imaging independently reviewed and interpreted by myself: N/A External documents reviewed: Recent admission and discharge summary 2 days ago. Test considered but not ordered:N/A ED course: Patient no focal deficits no meningismus. Mild frontal headache symptoms. He had mild dry mucosal membranes. IV established fluids were given. Given IV Toradol for his headache symptoms I did check labs due to his recent hypokalemia in the hospital. This was normal at 3.6. Hemoglobin 14.8. Re-evaluation: stable with improving headache symptoms. Discussed with patient family Tylenol or ibuprofen as needed for his headaches. Outpatient follow-up. All questions were answered. Disposition discussed with patient/family/significant other: Patient and family Case discussed with consulting clinician: N/A This note was generated with [email or web address] dictation software. It may contain incorrect words, spelling, and punctuation that were not noted in checking the note before signing. Lab Data Attestation: I reviewed the patient's lab results. Labs: Laboratory Results - last 24 hr 12/14/22 09:27 WBC 6.9 RBC 4.13 L Hgb 14.7 Hct 42.7 MCV 103.4 H MCH 35.6 H MCHC 34.4 RDW Std Deviation 49.7 H RDW Coeff of Bob 12.9 Plt Count 100 L MPV 13.7 H Differential Comment SCANNED Sodium 139 Potassium 3.6 Chloride 105 Carbon Dioxide 32.0 Anion Gap 2 L BUN 5 L Creatinine 0.61 L Estim Creat Clear Calc 126.59 Est GFR (MDRD) Af Amer 183 Est GFR (MDRD) Non-Af 151 BUN/Creatinine Ratio 8.2 L Glucose 114 H Calcium 9.4 Discharge Plan Triage Chief Complaint: Headache ED Provider: Foreign Low Dx/Rx/DC Orders Clinical Impression: Elevated blood pressure reading, Headache Instructions: Understanding Headache Pain Prescriptions: No Action prednisone 20 MG tablet 60 mg PO DAILY Qty: 15 0RF diphenhydramine HCl 25 MG capsule 50 mg PO TID PRN PRN (Reason: allergic reaction) Qty: 30 0RF famotidine 20 MG tablet 20 mg PO BID Qty: 10 0RF Rx Instructions: Over the counter. twice daily for 5 days epinephrine 0.3 MG syringe 0.3 mg IM X1 PRN (Reason: Angioedema) Qty: 1 1RF potassium chloride 20 mEq tablet extended release 20 meq PO DAILY Qty: 20 0RF amlodipine 10 mg tablet 10 mg PO DAILY Qty: 30 1RF Primary Care Provider: Care Physician,No Primary Referrals: Shelby Broussard MD [Med Staff - Active Staff] - 1 Week Care Physician,No Primary [Primary Care Provider] - Activity Restrictions/Additional Instructions: Continue your blood pressure medicines started in the hospital. Continue your potassium replacement. Potassium 3.6 today. Use Tylenol 1 g every 6 hours as needed. Follow-up as an outpatient. Return if worsening symptoms. Disposition Disposition: Home, Self Care
[2022-12-14 09:51] LABS: Anion Gap 2 (5-15); BUN 5 mg/dL (7-18); BUN/Creat Ratio 8.2 RATIO (10-20); Calcium,Total 9.4 mg/dL (8.5-10.1); Chloride 105 mmol/L (98-107); Creatinine, Serum 0.61 mg/dL (0.70-1.30); EST Glomerular Filtration Rate 151 mL/min (>60); Est Glom Filt Rate - Afr Amer 183 mL/min (>60); Estimated Creatinine Clearance 126.59 ml/min; Glucose 114 mg/dL (74-106); Potassium 3.6 mmol/L (3.5-5.1); Sodium Level 139 mmol/L (136-145)
[2022-12-14 09:55] LABS: Hematocrit 42.7 % (40-54); Hemoglobin 14.7 g/dL (13.0-16.5); Mean Corp Hgb Conc 34.4 g/dL (32-36); Mean Corpuscular Hgb 35.6 pg (27.0-32.0); Mean Corpuscular Volume 103.4 fL (80-94); Mean Platelet Vol. 13.7 fl (6.2-12.0); POSITIVE MORPHOLOGY YES; Platelet Count 100 K/mm3 (150-450); RBC Distribution Width CV 12.9 % (11.6-14.6); RBC Distribution Width SD 49.7 fl (35.1-43.9); Red Blood Count 4.13 M/mm3 (4.6-6.2); White Blood Count 6.9 K/mm3 (4.4-11.0)
[2022-12-14] MEDS: Ketorolac 15 MG/ML Vial IV (09:57)
[2022-12-14] MEDS: 0.9% Normal Saline 1,000 ML 999 ML IV (09:57)
[2022-12-14 10:08] LABS: Scan Indicated on CBC? Y/N YES- FLAGS NOTED
[2022-12-14 10:12] LABS: Differential Comment SCANNED
--- NOTE | 2022-12-14 10:58 | ED.RN ---
PATIENT FAMILY AND FRIENDS ASKING MULTIPLE QUESTIONS REGARDING FMLA PAPERWORK AND FINDING A PCP. RN INFORMED FAMILY, ON THE DISCHARGE PAPERWORK, THERE IS A DOCTORS PHONE NUMBER TO ESTABLISH CARE. FAMILY UPSET PT MAY LOSE JOB. RN CONTINUED TO INFORM THEM IT IS BEST TO FOLLOW UP WITH A PCP
== END 2022-12-14 11:00 | disposition home or self-care (01) ==
PROVIDERS: Emergency Provider Emergency Medicine; Visit Provider Emergency Medicine
DX: R03.0 Elevated blood-pressure reading, without diagnosis of hypertension (principal); R51.9 Headache, unspecified; F10.11 Alcohol abuse, in remission; F17.210 Nicotine dependence, cigarettes, uncomplicated; Z79.899 Other long term (current) drug therapy
CPT/HCPCS: 80048; 85027; 96361; 96374; 99283; J7030; A4216

== ENCOUNTER → 2023-01-25 | Outpatient (CLI) | payer BC, SELFPAY ==
[2023-01-25 16:38] LABS: Absolute Lymphocyte Count 2.04 X10^3/uL (0.83-4.51); Basophil# 0.02 X10^3/uL; Basophil% 0.4 % (0-1); Eosinophil# 0.13 X10^3/uL; Eosinophils% 2.3 % (0-5); Hematocrit 40.8 % (40-54); Hemoglobin 14.3 g/dL (13.0-16.5); Lymphocyte # 2.04 X10^3/ul (0.83-4.51); Mean Corpuscular Hgb 35.5 pg (27.0-32.0); Mean Corpuscular Volume 101.2 fL (80-94); Mean Platelet Vol. 14.1 fl (6.2-12.0); Monocyte# 0.51 X10^3/uL; NRBC Flagged by Analyzer 0 % (0-5); Neutrophil # 2.96 X10^3/uL (2.7-7.7); Neutrophil % 52.1 % (47-70); POSITIVE MORPHOLOGY YES; Platelet Count 156 K/mm3 (150-450); RBC Distribution Width CV 13.2 % (11.6-14.6); RBC Distribution Width SD 48.7 fl (35.1-43.9); Red Blood Count 4.03 M/mm3 (4.6-6.2); White Blood Count 5.7 K/mm3 (4.4-11.0)
[2023-01-25 16:41] LABS: Differential Indicated SCAN CRITERIA MET
[2023-01-25 17:08] LABS: ALB/GLOB Ratio 1.1 RATIO (0.9-2.4); AST(SGOT) 17 U/L (15-37); Alanine Aminotransfer ALT/SGPT 26 U/L (16-61); Albumin, Serum 3.3 g/dL (3.2-5.0); Alkaline Phosphatase 98 U/L (45-117); Anion Gap 3 (5-15); BUN 8 mg/dL (7-18); BUN/Creat Ratio 11.3 RATIO (10-20); Chloride 106 mmol/L (98-107); Cholesterol 169 mg/dL (200); Creatinine, Serum 0.71 mg/dL (0.70-1.30); EST Glomerular Filtration Rate 126 mL/min (>60); Est Glom Filt Rate - Afr Amer 153 mL/min (>60); Globulin 3.1 g/dL (2.2-4.2); Glucose 98 mg/dL (74-106); High Density Lipoprotein 61 mg/dL; Potassium 3.6 mmol/L (3.5-5.1); Protein, Total 6.4 g/dL (6.4-8.2); Sodium Level 141 mmol/L (136-145); Triglycerides 168 mg/dL; Very Low Density Lipoprotein 34 mg/dL (5-40)
[2023-01-25 17:09] LABS: Vitamin B12 717 pg/mL (211-911)
[2023-01-25 17:12] LABS: Platelet Estimate ADEQUATE (ADEQ); Red Cell Morphology N CHROM NORMAL (NORM C&C)
[2023-01-25 17:13] LABS: Anisocytosis 1+; Macrocytosis 1+
[2023-02-01 16:10] LABS: Vitamin B1, Thiamine 111.2 nmol/L (66.5-200.0)
== END | disposition home or self-care (01) ==
LOC: BIMLAB 16:14
PROVIDERS: PCP Internal Medicine; Referring Provider Internal Medicine; Visit Provider Internal Medicine
DX: I10 Essential (primary) hypertension (principal); F10.10 Alcohol abuse, uncomplicated; E87.6 Hypokalemia; Z13.6 Encounter for screening for cardiovascular disorders
CPT/HCPCS: 36415; 80053; 80061; 82306; 82607; 84425; 85025

== ENCOUNTER → 2023-02-10 | Outpatient (CLI) | payer BC, SELFPAY ==
[2023-02-10 11:35] LABS: Creatinine, Serum 0.73 mg/dL (0.70-1.30); EST Glomerular Filtration Rate 122 mL/min (>60); Est Glom Filt Rate - Afr Amer 148 mL/min (>60)
== END | disposition home or self-care (01) ==
PROVIDERS: PCP Internal Medicine; Visit Provider Physician Assistant Surgical
DX: R22.31 Localized swelling, mass and lump, right upper limb (principal); N28.9 Disorder of kidney and ureter, unspecified
CPT/HCPCS: 36415; 82565

== ENCOUNTER → 2023-02-18 | Outpatient (CLI) | payer BC, SELFPAY ==
--- NOTE | 2023-02-19 09:49 | PFTCOMP_ITS ---
COMPLETE PULMONARY FUNCTION TEST INTERPRETATION Brief HPI: Patient is a 47-year-old male, currently under the care of Dr. Garza, who presents to [facility] for complete pulmonary function tests secondary to diagnosis of dyspnea. Respiratory therapist reports good effort and reproducible results. Interpretation: Forced expiration spirometry shows a mild large airways obstructive ventilatory defect with an FEV1 of 77% predicted. There is no significant bronchodilator response by strict ATS criteria. Spirograms are of good quality and plateau slowly, indicating slowly emptying areas of the lungs. The respiratory flow volume loop shows decreased expiratory flow rates at all lung volumes consistent with airway obstruction. Lung volumes by body plethysmography show a normal total lung capacity at 5.82 L, 87% predicted. FRC and RV are elevated out of proportion. Lung volume jitendra urements are consistent with air-trapping. Diffusion capacity by carbon monoxide is decreased at 52% predicted. The airway resistance is normal. No previous pulmonary function tests were available for review. Impression: Reversible mild large airways obstructive ventilatory defect, resulting in air trapping, and a disproportionate reduction in diffusion capacity, and a pattern consistent with COPD
== END | disposition home or self-care (01) ==
LOC: PSN 13:00
PROVIDERS: PCP Internal Medicine; Referring Provider Internal Medicine; Visit Provider Internal Medicine
DX: R06.89 Other abnormalities of breathing (principal)
CPT/HCPCS: 94060; 94726; 94729

== ENCOUNTER 2023-02-24 15:00 | Outpatient (RCR) | payer BC, SELFPAY ==
--- NOTE | 2023-02-02 16:06 | HP.PTEVAL ---
Patient's Visit Information Visit Information Visit Information: MARIE WAGNER is a 47 year old M referred to Physical Therapy by Dr. Honey Garza MD with a diagnosis of . Date of Evaluation: 02/02/23 Physical Therapist: Sachin Lopez, PT, ATC Visit Plan Frequency: 2-3x /Week Duration: 4-6 Weeks Plan: B LE strengthening, balance and proprio, core stab ex's, nustep, and HEP Subjective Subjective: Pt reports he has become debilitated over the past couple weeks. Pt notes his weakness had an insidious onset in nature. 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 Pt reports he has been off of work for 8 weeks at this time secondary to high blood pressure. Pt reports he was an avid alcohol drinker and was self admitted to the hospital for detox. Pt reports he was having issues of light headedness and weakness since his detox 2 months ago. Pt denies any recent falls. Pt reports he will lose his balance on occasion secondary to dizziness and fatigue. Pt reports he is having difficulty with getting off of the couch secondary to weakness. Pt reports he has stairs at home that he has to negotiate one step at a time. Pt reports his goal is to return to work when he is approved. Overall body pain is rated at 3/10 while sitting here in the clinic, but increases to 8/10 at worst. Most of his pain is in his legs and neck. Pt has intermittent R LE tingling and numbness. Pt reports sleep difficulty occasionally secondary to pain. Pt. girlfriend reports he is sleeping 10 - 12 + hours a night and has night sweats every single night. Pain legs: Pain Intensity (Out of 10): 3 Pain Intensity Range: 8 Objective Objective: Neuro: B LE sensation is WNL to light touch. B patellar reflex= 2/3 MMT: B LE's are grossly 4-/5 throughout. L knee ext 5/5 Balance/Special Test Scores Functional Gait Assessment Score: 17 % Disability: 43.3400 Lower Extremity Functional Score: 56 Goals Goal 1:: Pt. to show an increase in FGA score of 4 points or more in order to return to prior level of function and return to work. Goal Time Frame: 4-6 Weeks Goal 2:: Pt. to improve B LE MMT one full grade in order to return to prior level of function and return to work. Goal Time Frame: 4-6 Weeks Goal 3:: Pt. to be I in HEP to continue functional exercises in day to day life. Goal Time Frame: 4-6 Weeks Goal 4:: Pt. to ambulate 1000 feet without difficulty to aid with return to work without limitation Goal Time Frame: 4-6 Weeks Rehabilitation Potential Rehabilitation Potential: Good Anticipated Interventions Patient/Client Instruction: Educate patient on: Condition and Plan of Care For the Purpose of:: To improve self management Therapeutic Exercise to Include: Strength training, Endurance training, Postural training, Flexibilty training, Active ROM and Dynamic Lumbar Stabilization For the Purpose of:: To decrease pain, To improve muscle performance and motor function and To improve performance and independence with ADL's Text: Thank you for the opportunity to evaluate your patient. For Medicare and Medicare HMO plans, please review the plan of care and approve it. It will need to be FAXED BACK to us at [phone] for Medicare purposes. For Medicare only, by signing this I certify the plan of care. Please let me know if there are questions or concerns regarding this plan of care. Physician Signature: Date:
--- NOTE | 2023-02-24 15:29 | HP.PTDCSUM ---
Discharge Summary D/C summary: It has been my pleasure to treat MARIE WAGNER referred by Dr. Honey Garza MD, with the diagnosis of Generalized weakness for a total of 8 visit(s). Discharge Date: Please see the following information for a summary of their discharge status. Subjective Subjective: I am ready to be done for now until I have to get work done on my shoulder Pain legs: Pain Intensity (Out of 10): 0 R SH: Pain Intensity (Out of 10): 4 Overall Improvement % Improvement: 65 Objective Objective/Function: Pt. reports a LEFS score of 79/80 - original LEFS score at time of eval. was 56/80. Pt. demonstrates an FGA score of 29/30 which meets his goal of increasing his original score of 17/30 by 4 points or more in order to return to prior level of function and return to work. Pt. demonstrates a MMT of their B LE of grossly 5/5 which meets his goal of increasing his MMT x1 grade from time of initial eval. Pt. is I in his home HEP which meets his goal from time of initial eval. Pt. is able to ambulate 1000 ft. without difficulty which meets his goal at initial eval. Goals Goal 1:: Pt. to show an increase in FGA score of 4 points or more in order to return to prior level of function and return to work. Goal Progress: Goal Met Goal 2:: Pt. to improve B LE MMT one full grade in order to return to prior level of function and return to work. Goal Progress: Goal Met Goal 3:: Pt. to be I in HEP to continue functional exercises in day to day life. Goal Progress: Goal Met Goal 4:: Pt. to ambulate 1000 feet without difficulty to aid with return to work without limitation Goal Progress: Goal Met Plan Plan: D/C pt. to HEP to aid in return to work. D/C Information d/c sentence: If there are questions or concerns regarding this patient's physical therapy, please feel free to call me at [phone]. Thank you for the referral of this patient. Sincerely, Sachin Lopez, PT, ATC Balance/Gait/Functional tests Balance/Special Test Scores Functional Gait Assessment Score: 29 % Disability: 3.3400 Lower Extremity Functional Score: 79 Improvement % Improvement: 65
== END 2023-02-24 19:00 | disposition home or self-care (01) ==
LOC: PT 15:00
PROVIDERS: PCP Internal Medicine; Referring Provider Internal Medicine; Visit Provider Internal Medicine
DX: R53.1 Weakness (principal)
CPT/HCPCS: 97110; 97161; 97164

== ENCOUNTER 2023-03-23 10:36 | Emergency (ER) | payer BC, SELFPAY ==
[2023-03-23 10:37] VITALS: BP 144/91; PULSE 80; RESP 18; TEMP 36.6; O2SAT 100; BMI 18.3
--- NOTE | 2023-03-23 10:58 | EKG12_ITS ---
Test Reason : DIZZINESS Blood Pressure : / mmHG Vent. Rate : 078 BPM Atrial Rate : 078 BPM P-R Int : 126 ms QRS Dur : 096 ms QT Int : 408 ms P-R-T Axes : 070 -85 054 degrees QTc Int : 465 ms Sinus rhythm with Premature atrial complexes with Aberrant conduction Left anterior fascicular block Cannot rule out Anterior infarct , age undetermined Abnormal ECG Confirmed by CHENTE DOYLE, LATASHA ([id number]), writer editor HAILEY HUFFMAN ([id number]) on 03/30/2023 10:50:38 AM Referred By: Confirmed By:LATASHA ELDRIDGE MD
--- NOTE | 2023-03-23 10:59 | EDS_ITS ---
HPI History of Present Illness Chief Complaint: Weakness Narrative Narrative: 48-year-old male who denies significant past medical history presents with his neighbor because of generalized weakness, shakiness, and lightheadedness. They relate history that he supposed to have surgery on his shoulder up in [place]. Yesterday he went to presurgical testing and had an EKG performed. He admits to quitting alcohol few weeks to months ago. He states that he is shaky, and nervous, and feels lightheaded and generally weak. He denies any fevers or chills. Yesterday he vomited once without any blood in his emesis. He denies any diarrhea. No abdominal pain. His neighbor and friend brought him in because she noticed that he was shaky and nervous. [facility] Medical History Angioedema History of alcohol abuse Hypertension Psoriasis Home Medications epinephrine 0.3 mg/0.3 mL injection, auto-injector 0.3 mg (0.3 mL) IM X1 PRN Angioedema #1 syringe 04/17/18 [Rx Last Taken Unknown] amlodipine 10 mg tablet 10 mg PO DAILY #30 tabs 01/25/23 [Rx Last Taken Unknown] compress.stocking,knee,reg,med #2 ea 01/25/23 [Rx Last Taken Unknown] Allergy/AdvReac Type Severity Reaction Status Date / Time Penicillins [PCN] Allergy Unknown Verified 03/09/23 15:30 Family History Aunt Blood loss anemia Aunt Cancer Uncle Cancer Surgical History Hx of tooth extraction Social History adopted: No household members: family current occupational status: employed 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 HEENT: No sore throat. No neck pain. No loss of vision. No rhinorrhea. Cardiovascular: No chest pain. No palpitations. No pedal edema. Respiratory: No cough, no shortness of breath. Abdominal: No abdominal pain. Nausea and vomiting yesterday. None today. No hematemesis. Genitourinary: No dysuria. No hematuria. Musculoskeletal: No myalgias. No arthralgias. Neurologic: No headaches. No dizziness. Of lightheadedness, generalized weakness, and shakiness. Skin: No rash. No change in color. Psychiatric: No depression. Mild anxiety. EXAM Physical Exam Narrative Exam Narrative: Afebrile. Vital signs noted. HEENT: Normocephalic. Atraumatic. PERRL, EOMI. Neck soft and supple. No point tenderness or step off. Cardiovascular: Regular rate and rhythm. No murmurs, rubs, or gallops appreciated. Respiratory: No tachypnea. Lungs clear to auscultation bilaterally. Gastrointestinal: Abdomen soft, nontender, with normoactive bowel sounds. No rebound or guarding. Neurological: Awake. Alert. Nonfocal, nonlateralizing. Skin: No rash. Normal color. No pallor. Musculoskeletal: No pedal edema. Full range of motion extremities. Const Vital Signs: 03/23/23 10:37 03/23/23 12:52 Temperature 97.9 F Temperature Source Temporal Pulse Rate 80 Pulse Rate [Lying] 80 Pulse Rate [Sitting (for 1 minute prior to obtaining)] 87 Pulse Rate [Standing (for 1 minute prior to obtaining)] 104 H Respiratory Rate 18 Blood Pressure 144/91 H Blood Pressure [Lying] 119/75 Blood Pressure [Sitting (for 1 minute prior to obtaining)] 128/89 H Blood Pressure [Standing (for 1 minute prior to obtaining)] 128/89 H Blood Pressure Mean 108 Blood Pressure Mean [Lying] 89 Blood Pressure Mean [Sitting (for 1 minute prior to obtaining)] 102 Blood Pressure Mean [Standing (for 1 minute prior to obtaining)] 102 Pulse Ox 100 Oxygen Delivery Method Room Air MDM MDM MDM Narrative Medical decision making narrative: In the differential diagnosis is dehydration versus anxiety. He denies other symptoms. States he has not been drinking alcohol, but in review of his prior records he was seen 2 weeks ago for alcohol abuse. I will perform generalized work-up on him to check him for dehydration or electrolyte disturbance. EKG will also be obtained. He has no active signs of alcohol withdrawal however. I will obtain a chest x-ray in 1 view to rule out pneumonia and check his urine for drugs of abuse, and for infection with urinalysis. CBC and CMP will also be obtained. He was bolused normal saline 1 L intravenously. He may have intravascular volume depletion as well. EKG was obtained and interpreted by myself independently as normal sinus rhythm at 78 bpm without ectopy or acute ST changes, no STEMI. No significant change from EKG dated December 09, 2022. I reviewed his laboratory work and he has a normal white count of 6.2, hemoglobin normal at 15.8, hematocrit 45.4, platelet count normal at 164. Potassium is slightly low on his CMP at 3.3 which was replaced orally with 40 mill equivalents, glucose appropriately elevated at 128 with normal anion gap of 8, AST low at 13 which I think is nonspecific. Urinalysis negative for infection, I do not feel antibiotics are indicated. His urine for drugs of abuse for was positive for cannabinoids as it had been in the past. He was given Ativan 0.5 mg intravenously but states that he still feels mildly anxious and shaky. His aunt is now at the bedside who states he has been under a lot of stressors such as losing his job, about to lose his house, and recently quit drinking alcohol. I referred him to psychiatry in case he needs to be started on antianxiety meds. I do not feel he requires 72-hour psychiatric admission or evaluation. I feel he can be discharged safely home to follow-up with his primary care provider. Return instructions were reviewed. Disposition is discharged home in stable condition. History & Record Review Discussion w/independent historian: Patient and Friend Lab Data Attestation: I reviewed the patient's lab results. Labs: Laboratory Results - last 24 hr 03/23/23 03/23/23 11:15 12:15 WBC 6.2 RBC 4.92 Hgb 15.8 Hct 45.4 MCV 92.3 MCH 32.1 H MCHC 34.8 RDW Std Deviation 42.1 RDW Coeff of Bob 12.4 Plt Count 164 MPV 14.8 H Immature Gran % (Auto) 0.200 Neut % (Auto) 55.0 Lymph % (Auto) 35.4 Weld % (Auto) 7.1 Eos % (Auto) 1.8 Baso % (Auto) 0.5 Absolute Neuts (auto) 3.4 Absolute Lymphs (auto) 2.19 Nucleated RBC % 0 Differential Comment SCANNED Sodium 140 Potassium 3.3 L Chloride 105 Carbon Dioxide 27.0 Anion Gap 8 BUN 9 Creatinine 0.92 Estim Creat Clear Calc 76.74 Est GFR (MDRD) Af Amer 114 Est GFR (MDRD) Non-Af 94 BUN/Creatinine Ratio 9.8 L Glucose 128 H Calcium 9.0 Total Bilirubin 0.70 AST 13 L ALT 20 Alkaline Phosphatase 87 Total Protein 6.8 Albumin 3.8 Globulin 3.0 Albumin/Globulin Ratio 1.3 Lipase 19 Urine Color Yellow Urine Clarity Sl. Cloudy Urine pH 6.0 Ur Specific Mccausland 1.020 Urine Protein 30 H Urine Glucose (UA) Normal Urine Ketones Negative Urine Occult Blood 10 H Urine Nitrite Negative Urine Bilirubin Negative Urine Urobilinogen 4 H Ur Leukocyte Esterase 100 H Urine RBC 0 SEEN Urine WBC 0-5 SEEN Ur Squamous Epith Cells 0 SEEN Urine Bacteria RARE Urine Mucus 0 SEEN Urine Opiates Screen NEGATIVE Urine Methadone Screen NEGATIVE Ur Barbiturates Screen NEGATIVE Ur Phencyclidine Scrn NEGATIVE Ur Amphetamines Screen NEGATIVE MDMA (Ecstasy) Screen NEGATIVE U Benzodiazepines Scrn NEGATIVE Urine Cocaine Screen NEGATIVE U Cannabinoids Screen POSITIVE H Ur Drug Screen Comment Radiography Diagnostic Testing: Clinical Impression(s) from Imaging Studies Chest X-Ray 03/23/23 11:20 IMPRESSION: Hyperinflation. Electronically Signed: Adair Giang MD at 11:56 EST , Discharge Plan Triage Chief Complaint: Weakness Other Complaint: Dizziness ED Provider: J Luis Marcano Dx/Rx/DC Orders Clinical Impression: Lightheadedness, Anxiety, Shakiness Instructions: ED Anxiety Reaction, ED Dizziness, Uncertain Cause, ED Near- Fainting, Uncertain Cause Prescriptions: No Action amlodipine 10 mg tablet 10 mg PO DAILY Qty: 30 1RF (DME) compress.stocking,knee,reg,med Misc See Rx Instructions .Route Qty: 2 0RF Rx Instructions: As directed epinephrine 0.3 MG syringe 0.3 mg IM X1 PRN (Reason: Angioedema) Qty: 1 1RF Primary Care Provider: Honey Garza Referrals: Honey Garza MD [Primary Care Provider] - 3-5 Days if not improving SeeMark russo DO [Med Staff - Meat Scrubber] - As soon as possible Disposition Disposition: Home, Self Care
--- NOTE | 2023-03-23 11:20 | RAD_ITS ---
STUDY: X-RAY CHEST REASON FOR EXAM: Male, 48 years old. Chest pain and shortness of breath. TECHNIQUE: Single AP portable view of the chest. COMPARISON: Comparison is made with prior study dated December 09, 2022. FINDINGS: Hyperinflation. The lungs are clear. There is no demonstrated pleural abnormality. Normal size heart. Normal mediastinum and nico. Normal visualized pulmonary arteries. Normal visualized aortic arch and descending thoracic aorta. Normal visualized thoracic spine. Normal visualized ribs, clavicles, and shoulders. There is no demonstrated abnormality of the visualized soft tissue structures of the upper abdomen. RAD/Chest 1 View (Portable) IMPRESSION: Hyperinflation. Electronically Signed: Adair Giang MD at 11:56 EST ,
[2023-03-23] MEDS: LORazepam 2 MG/ML Syringe 0.5 MG IV (11:23)
[2023-03-23] MEDS: 0.9% Normal Saline (1000mL) 1,000 ML 999 ML IV (11:23)
[2023-03-23 11:30] LABS: Absolute Lymphocyte Count 2.19 X10^3/uL (0.83-4.51); Absolute Neutrophil Count 3.4 X10^3/uL (2.0-7.7); Basophil# 0.03 X10^3/uL; Basophil% 0.5 % (0-1); Eosinophil# 0.11 X10^3/uL; Eosinophils% 1.8 % (0-5); Hematocrit 45.4 % (40-54); Hemoglobin 15.8 g/dL (13.0-16.5); Lymphocyte # 2.19 X10^3/ul (0.83-4.51); Lymphocyte % 35.4 % (19-41); Mean Corp Hgb Conc 34.8 g/dL (32-36); Mean Corpuscular Hgb 32.1 pg (27.0-32.0); Mean Corpuscular Volume 92.3 fL (80-94); Mean Platelet Vol. 14.8 fl (6.2-12.0); Monocyte# 0.44 X10^3/uL; Monocyte% 7.1 % (0-10); NRBC Flagged by Analyzer 0 % (0-5); POSITIVE MORPHOLOGY YES; Platelet Count 164 K/mm3 (150-450); RBC Distribution Width CV 12.4 % (11.6-14.6); RBC Distribution Width SD 42.1 fl (35.1-43.9); Red Blood Count 4.92 M/mm3 (4.6-6.2); White Blood Count 6.2 K/mm3 (4.4-11.0)
[2023-03-23 11:39] LABS: ALB/GLOB Ratio 1.3 RATIO (0.9-2.4); AST(SGOT) 13 U/L (15-37); Alanine Aminotransfer ALT/SGPT 20 U/L (16-61); Albumin, Serum 3.8 g/dL (3.2-5.0); Alkaline Phosphatase 87 U/L (45-117); Anion Gap 8 (5-15); BUN 9 mg/dL (7-18); BUN/Creat Ratio 9.8 RATIO (10-20); Chloride 105 mmol/L (98-107); Creatinine, Serum 0.92 mg/dL (0.70-1.30); EST Glomerular Filtration Rate 94 mL/min (>60); Est Glom Filt Rate - Afr Amer 114 mL/min (>60); Estimated Creatinine Clearance 76.74 ml/min; Glucose 128 mg/dL (74-106); Lipase 19 U/L (13-75); Potassium 3.3 mmol/L (3.5-5.1); Protein, Total 6.8 g/dL (6.4-8.2); Sodium Level 140 mmol/L (136-145)
[2023-03-23 11:49] LABS: Differential Indicated SCAN CRITERIA MET
[2023-03-23 12:07] LABS: Differential Comment SCANNED
[2023-03-23 12:19] LABS: Mucous, Urine 0 SEEN /hpf (<or=2+); Red Blood Cells-Urine 0 SEEN /hpf (0-5); Squamous Epithelial Cells - UA 0 SEEN /hpf (0-5)
[2023-03-23 12:24] LABS: Color, Urine Yellow (Yellow); Glucose, Dipstick Normal (Normal); Ketone-Dipstick Negative (Negative); Leukocyte Esterase-Dipstick 100 /ul (Negative); Nitrite-Dipstick Negative (Negative); Occult Blood-Urine 10 /ul (Negative); Protein-Dipstick 30 mg/dl (Negative); Urine Bilirubin Dipstick Negative (Negative); Urine Clarity Sl. Cloudy (Clear); Urine Urobilinogen 4 mg/dl (Normal)
[2023-03-23 12:37] LABS: Amphetamine Urine VISTA NEGATIVE (<1000 ng/mL); Barbiturate Urine VISTA NEGATIVE (< 200 ng/mL); Benzodiazepine Urine VISTA NEGATIVE (< 200 ng/mL); Cocaine Urine VISTA NEGATIVE (< 300 ng/mL); Ecstacy Urine VISTA NEGATIVE (< 500 ng/mL); Methadone Urine VISTA NEGATIVE (< 300 ng/mL); PCP Urine VISTA NEGATIVE (< 25 ng/mL); THC Urine VISTA POSITIVE (< 50 ng/mL); Vista UDS pH Range 5
[2023-03-23] MEDS: Potassium Chloride Oral Tablet 20 MEQ 40 MEQ PO (12:48)
[2023-03-23 12:52] VITALS: BP 119/75; BP 128/89; PULSE 104; PULSE 80; PULSE 87
[2023-03-23 13:00] LABS: White Blood Cells 0-5 SEEN /hpf (0-5)
[2023-03-23 13:01] LABS: Bacteria RARE /hpf (None Seen)
== END 2023-03-23 14:04 | disposition home or self-care (01) ==
PROVIDERS: Emergency Provider Emergency Medicine; PCP Internal Medicine; Visit Provider Emergency Medicine
DX: R42 Dizziness and giddiness (principal); F41.9 Anxiety disorder, unspecified; R11.10 Vomiting, unspecified; F17.210 Nicotine dependence, cigarettes, uncomplicated; F10.10 Alcohol abuse, uncomplicated; R53.1 Weakness; I10 Essential (primary) hypertension; Z63.79 Other stressful life events affecting family and household
CPT/HCPCS: 71045; 80053; 80307; 81001; 83690; 85025; 93005; 96361; 96374; 99284; J7030

== ENCOUNTER 2024-03-02 17:58 | Emergency (ER) | payer BC, SELFPAY ==
[2024-03-02 17:59] VITALS: BP 129/89; PULSE 83; RESP 18; TEMP 36.5; O2SAT 99; BMI 19.4
[2024-03-02 18:58] VITALS: PULSE 84; RESP 16; O2SAT 98
[2024-03-02 19:00] VITALS: PULSE 78; RESP 16; O2SAT 95
--- NOTE | 2024-03-02 19:04 | EDS_ITS ---
HPI <Dr. Foreign Low DO - Last Filed: 03/02/24 21:26> HPI - Psych History of Present Illness Chief Complaint: Mental Health Informant: patient and family Narrative Narrative: Patient presents by private vehicle state being dropped off by his aunts due to relapse of alcohol today. He quit drinking this past March nearly a year ago. Today his significant other of 1 year left him. He began to drink. He states she left the house a week ago and today decided to leave. He states he started drinking. He denies any history of alcohol withdrawal symptoms or seizures. He admits to using marijuana since stopping his alcohol this past March. He denies suicidal homicidal ideations on my initial evaluation. Denies any auditory or visual hallucinations. During evaluation, asked to discuss with his aunts, 1 person was Louisa, on the phone initial discussion his relapse and alcohol today from circumstance would not be a reason for requiring detox in the hospital. However she discussed he had thoughts of not wanting to be around. He stated this time that he would not hurt himself however he stated he cannot be sure if he would not hurt others. He would not tell me who this other person would be. He did confirm if he got angry enough, that he would potentially hurt somebody. Patient denies any diagnosed history of depression, bipolar, or schizophrenia. [facility] <Dr. Foreign Low DO - Last Filed: 03/02/24 21:26> [facility] Medical History Hypertension History of alcohol abuse Psoriasis Angioedema Home Medications ?Medication ?Instructions ?Recorded ?Last Taken ?Type epinephrine 0.3 mg/0.3 mL 0.3 mg (0.3 mL) IM X1 PRN 04/17/18 Unknown Rx injection, auto-injector Angioedema #1 syringe amlodipine 10 mg tablet 10 mg PO DAILY #30 tabs 01/25/23 Unknown Rx compress.stocking,knee,reg,med #2 ea 01/25/23 Unknown Rx Allergy/AdvReac Type Severity Reaction Status Date / Time Penicillins (PCN) Allergy Unknown Verified 03/02/24 17:59 Family History Aunt Blood loss anemia Aunt Cancer Uncle Cancer Surgical History Hx of tooth extraction Social History adopted: No household members: family current occupational status: employed 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 Foreign Low DO - Last Filed: 03/02/24 21:26> ROS ED Constitutional Constitutional ED: Denies chills, fever(s) or sweats Eyes Eyes: Denies change in vision ENT ENT ED: Denies dysphagia or sore throat Cardiovascular Cardiovascular: Denies chest pain, leg edema, palpitations or racing heartbeat Respiratory/Chest Respiratory/Chest: Denies cough, dyspnea or dyspnea on exertion Gastrointestinal Gastrointestinal: Denies abdominal pain, diarrhea, nausea or vomiting Genitourinary Genitourinary ED: Denies dysuria, hematuria or urinary frequency Musculoskeletal Musculoskeletal: Denies back pain, extremity pain or neck pain Integumentary Denies rash or wounds Neurologic Neurologic: Denies headache(s), paresthesias or weakness Psychiatric Psychiatric: Reports other Details: Thoughts of hurting others ; Denies suicidal ideation or suicidal thoughts EXAM <Dr. Foreign Low DO - Last Filed: 03/02/24 21:26> Physical Exam Const Vital Signs: 03/02/24 17:59 03/02/24 18:58 03/02/24 19:00 Temperature 97.7 F L Temperature Source Temporal Pulse Rate 83 84 78 Respiratory Rate 18 16 16 Blood Pressure 129/89 H Blood Pressure Mean 102 Pulse Ox 99 98 95 Oxygen Delivery Method Room Air Room Air Room Air 03/02/24 20:00 03/02/24 20:44 Temperature Temperature Source Pulse Rate 70 74 Respiratory Rate 16 16 Blood Pressure 147/85 H Blood Pressure Mean 105 Pulse Ox 97 95 Oxygen Delivery Method Room Air Room Air Positive well nourished and well developed Constitutional Narrative: Clinically not intoxicated, is answering questions, no slurring of speech. General Appearance ED: well developed and NAD HEENT Reports moist mucous membranes normocephalic and atraumatic Eyes EOMs intact bilaterally and conjunctivae normal General Eye ED: Yes normal appearance of both eyes Neck no lymphadenopathy and supple General: Negative for tenderness Chest Wall Chest: Negative for tenderness Resp normal respiratory effort and normal air movement Effort and Inspection: symmetric chest movement; Negative for respiratory distress Cardio regular rate, regular rhythm and no murmurs Peripheral Pulses: pulses 2+ throughout GI normal to inspection, nondistended, normoactive bowel sounds and non-tender Palpation: Negative for guarding or rebound tenderness present Back/Spine no CVA tenderness and no thoracic nor lumbar tenderness Extremity normal to inspection General Extremety ED: Negative for edema or tenderness General Extremity: Negative for edema Neuro oriented x3 and no sensory deficits noted Sensorium / Orientation: awake and alert Psych Psych Narrative: Flat affect denies suicidal ideations however admits to potential hurting others. Skin no rashes or lesions noted and no wounds <Dr. Gary Vieyra, DO - Last Filed: 03/03/24 01:00> Physical Exam Const Vital Signs: 03/02/24 17:59 03/02/24 18:58 03/02/24 19:00 Temperature 97.7 F L Temperature Source Temporal Pulse Rate 83 84 78 Respiratory Rate 18 16 16 Blood Pressure 129/89 H Blood Pressure Mean 102 Pulse Ox 99 98 95 Oxygen Delivery Method Room Air Room Air Room Air 03/02/24 20:00 03/02/24 20:44 Temperature Temperature Source Pulse Rate 70 74 Respiratory Rate 16 16 Blood Pressure 147/85 H Blood Pressure Mean 105 Pulse Ox 97 95 Oxygen Delivery Method Room Air Room Air MDM <Dr. Foreign Low, DO - Last Filed: 03/02/24 21:26> MDM MDM Narrative Medical decision making narrative: Interventions / MDM: Differential diagnosis: Diagnosis considered but do not suspect: N/A My EKG interpretation: N/A Imaging independently reviewed and interpreted by myself: N/A External documents reviewed: N/A Test considered but not ordered:N/A ED course: Patient missed alcohol, further discussion there is concerns for hurting others. Due to safety concerns, medical clearance labs will be obtained. Will plan to have crisis evaluation. 2030: Alcohol 160 toxicology screen positive for THC. Basic labs noted potassium 2.9. Oral replacement was ordered. He is medically cleared. Will wait for crisis evaluation. 2123: Patient with increasing agitation. I spoke with him. [place] slip was filled out for him as he had threats to others. I discussed with him and he understands this. He states he is having increasing inpatients. He is clinically sober. Crisis reported 1 his alcohol level down. I will recheck at this time is been 2 hours. Will discuss with crisis again after redraw. Re-evaluation: stable Disposition discussed with patient/family/significant other: Patient Case discussed with consulting clinician: N/A This note was generated with [employer] dictation software. It may contain incorrect words, spelling, and punctuation that were not noted in checking the note before signing. Lab Data Labs: Laboratory Results - last 24 hr 03/02/24 03/02/24 03/02/24 18:45 19:26 22:30 WBC 9.5 RBC 5.15 Hgb 16.1 Hct 45.1 MCV 87.6 MCH 31.3 MCHC 35.7 RDW Std Deviation 43.4 RDW Coeff of Bob 13.6 Plt Count 150 MPV 13.7 H Immature Gran % (Auto) 0.300 Neut % (Auto) 71.3 H Lymph % (Auto) 23.4 Hickman % (Auto) 3.9 Eos % (Auto) 0.7 Baso % (Auto) 0.4 Absolute Neuts (auto) 6.8 Absolute Lymphs (auto) 2.22 Nucleated RBC % 0 Differential Comment Platelet Estimate ADEQUATE Plt Morphology Comment LARGE RBC Morphology NORM C+C Sodium 142 Potassium 2.9 L Chloride 106 Carbon Dioxide 30.0 Anion Gap 5 BUN 7 Creatinine 0.65 L Estim Creat Clear Calc 115.38 Est GFR (MDRD) Af Amer 168 Est GFR (MDRD) Non-Af 139 BUN/Creatinine Ratio 10.7 Glucose 117 H Calcium 8.6 Urine Opiates Screen NEGATIVE Urine Methadone Screen NEGATIVE Ur Barbiturates Screen NEGATIVE Ur Phencyclidine Scrn NEGATIVE Ur Amphetamines Screen NEGATIVE MDMA (Ecstasy) Screen NEGATIVE U Benzodiazepines Scrn NEGATIVE Urine Cocaine Screen NEGATIVE U Cannabinoids Screen POSITIVE H Ur Drug Screen Comment Ethyl Alcohol 160.0 101.0 <Dr. Gary Vieyra, DO - Last Filed: 03/03/24 01:00> [facility] Lab Data Attestation: I reviewed the patient's lab results. Labs: Laboratory Results - last 24 hr 03/02/24 03/02/24 03/02/24 18:45 19:26 22:30 WBC 9.5 RBC 5.15 Hgb 16.1 Hct 45.1 MCV 87.6 MCH 31.3 MCHC 35.7 RDW Std Deviation 43.4 RDW Coeff of Bob 13.6 Plt Count 150 MPV 13.7 H Immature Gran % (Auto) 0.300 Neut % (Auto) 71.3 H Lymph % (Auto) 23.4 Hickman % (Auto) 3.9 Eos % (Auto) 0.7 Baso % (Auto) 0.4 Absolute Neuts (auto) 6.8 Absolute Lymphs (auto) 2.22 Nucleated RBC % 0 Differential Comment Platelet Estimate ADEQUATE Plt Morphology Comment LARGE RBC Morphology NORM C+C Sodium 142 Potassium 2.9 L Chloride 106 Carbon Dioxide 30.0 Anion Gap 5 BUN 7 Creatinine 0.65 L Estim Creat Clear Calc 115.38 Est GFR (MDRD) Af Amer 168 Est GFR (MDRD) Non-Af 139 BUN/Creatinine Ratio 10.7 Glucose 117 H Calcium 8.6 Urine Opiates Screen NEGATIVE Urine Methadone Screen NEGATIVE Ur Barbiturates Screen NEGATIVE Ur Phencyclidine Scrn NEGATIVE Ur Amphetamines Screen NEGATIVE MDMA (Ecstasy) Screen NEGATIVE U Benzodiazepines Scrn NEGATIVE Urine Cocaine Screen NEGATIVE U Cannabinoids Screen POSITIVE H Ur Drug Screen Comment Ethyl Alcohol 160.0 101.0 Treatment and Re-Evaluation Narrative: The patient was signed out to me while awaiting evaluation by crisis center and for his alcohol level to trend down below 100. Once his value trended below 100 he was evaluated by crisis center. At that time he admitted to being angry based on the recent changes in his life but he is denying homicidal or suicidal ideation. Crisis center feels that he is safe for follow-up as an outpatient as his anger is justified based on his recent life events but as he is adamant he is not homicidal or suicidal there is no need to place him in a inpatient psychiatric unit. Also as he does have a history of alcohol abuse but just went back to drinking today there is low risk for withdrawal and there is no need for medical admission. Therefore the patient be discharged and advised to follow-up with psychiatry as well as rehab as directed Discharge Plan Triage Chief Complaint: Mental Health ED Provider: Foreign Low Dx/Rx/DC Orders Clinical Impression: Alcohol use, Tetrahydrocannabinol (THC) dependence, Threatening to others Instructions: Addiction: Your Treatment Options, ED Depression Prescriptions: No Action amlodipine 10 mg tablet 10 mg PO DAILY Qty: 30 1RF (DME) compress.stocking,knee,reg,med Misc See Rx Instructions .Route Qty: 2 0RF Rx Instructions: As directed epinephrine 0.3 MG syringe 0.3 mg IM X1 PRN (Reason: Angioedema) Qty: 1 1RF Primary Care Provider: Honey Garza Referrals: Honey Garza MD [Primary Care Provider] - Activity Restrictions/Additional Instructions: Please follow-up with psychiatry as well as rehab as directed by crisis center and return to the ER should you have any further concerns Print Language: Hebrew Disposition Disposition: Home, Self Care
[2024-03-02 19:24] LABS: Amphetamine Urine VISTA NEGATIVE (<1000 ng/mL); Barbiturate Urine VISTA NEGATIVE (< 200 ng/mL); Benzodiazepine Urine VISTA NEGATIVE (< 200 ng/mL); Cocaine Urine VISTA NEGATIVE (< 300 ng/mL); Ecstacy Urine VISTA NEGATIVE (< 500 ng/mL); Methadone Urine VISTA NEGATIVE (< 300 ng/mL); PCP Urine VISTA NEGATIVE (< 25 ng/mL); THC Urine VISTA POSITIVE (< 50 ng/mL); Vista UDS pH Range 6
--- OUTSIDE RECORDS SUMMARY | 2024-03-02 19:36 | XMS RPT_ITS | CCD ---
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 Name Role Phone AZIZA FULLER Attending Unavailable AZIZA FULLER Consulting Unavailable AZIZA FULLER Primary Care Unavailable AZIZA FULLER Admitting Unavailable PROVIDER, UNKNOWN Consulting Unavailable [facility], [facility] Physicians Primary Care Provider [facility], [facility] Primary Care Unavailable NIRANJAN KAUFMAN Attending Unavailable [facility], [facility] Primary Care Unavailable NIRANJAN KAUFMAN Attending Unavailable [facility], [facility] Primary Care Unavailable NIRANJAN KAUFMAN Attending Unavailable NIRANJAN KAUFMAN Admitting Unavailable [facility], [facility] Primary Care Unavailable NIRANJAN KAUFMAN Attending Unavailable Allergies Allergy Classification Reported Allergen(s) Allergy Type Date of Onset Reaction(s) Facility (1 source) Penicillin Drug Allergy [facility] Repository (5 sources) Penicillins Propensity to adverse reactions 3 [facility] LemonCrate Medications Current Medications Medication Drug Class(es) Dates Sig (Normalized) Sig (Original) acetaminophen 325 mg / oxyCODONE hydrochloride 5 mg oral tablet (3 sources) Opioid Agonist Start: 04-04-2023 End: 04-11-2023 take 1 tablet by mouth every six hours as needed for pain oxyCODONE-acetami nophen (Percocet) 5-325 MG tablet Indications: Mass of skin of right shoulder Take 1 tablet by mouth every 6 hours as needed for severe pain (7-10) for up to 7 days. 28 tablet 0 04/04/2023 04/11/2023 Active amLODIPine 10 mg oral tablet (5 sources) Dihydropyridine Calcium Channel Yovani amLODIPine (Norvasc) 10 MG tablet Take by mouth daily. 0 Active multivitamin (Theragran) tablet (5 sources) take 1 tablet by mouth once daily multivitamin (Theragran) tablet Take 1 tablet by mouth daily. 0 Active Completed/Discontinued Medications Medication Drug Class(es) Dates Sig (Normalized) Sig (Original) acetaminophen 500 mg oral tablet (2 sources) Start: 04-04-2023 End: 04-04-2023 acetaminophen (Tylenol) tablet 1,000 mg ALPRAZolam 0.25 mg disintegrating oral tablet (2 sources) Benzodiazepine Start: 04-04-2023 End: 04-04-2023 ALPRAZolam (Xanax) disintegrating tablet 0.25 mg calcium chloride 0.0014 meq/ml / potassium chloride 0.004 meq/ml / sodium chloride 0.103 meq/ml / sodium lactate 0.028 meq/ml injectable solution (5 sources) Start: 04-04-2023 End: 04-04-2023 lactated ringers infusion 50 ml clindamycin 12 mg/ml injection (1 source) Lincosamide Antibacterial Start: 04-04-2023 End: 04-04-2023 clindamycin in D5W (Cleocin) IVPB 600 mg 1 ml dexamethasone phosphate 10 mg/ml injection (1 source) Corticosteroid Start: 04-04-2023 End: 04-04-2023 dexAMETHasone (PF) (Decadron) injection dexmedeTOMIDine HCl in NaCl (Precedex) injection (1 source) Start: 04-04-2023 End: 04-04-2023 dexmedeTOMIDine HCl in NaCl (Precedex) injection 1 ml diphenhydrAMINE hydrochloride 50 mg/ml cartridge (2 sources) Histamine-1 Receptor Antagonist Start: 04-04-2023 End: 04-04-2023 diphenhydrAMINE (BENADryl) injection 12.5 mg 10 ml esmolol hydrochloride 10 mg/ml injection (1 source) beta-Adrenergic Yovani Start: 04-04-2023 End: 04-04-2023 esmolol (Brevibloc) injection famotidine 20 mg oral tablet (2 sources) Histamine-2 Receptor Antagonist Start: 04-04-2023 End: 04-04-2023 famotidine (Pepcid) tablet 20 mg 1 ml HYDROmorphone hydrochloride 1 mg/ml cartridge (4 sources) Opioid Agonist Start: 04-04-2023 End: 04-04-2023 HYDROmorphone (Dilaudid) injection 0.5 mg Start: 04-04-2023 End: 04-04-2023 HYDROmorphone (Dilaudid) inj ection 0.25 mg ketamine 10 mg/ml injectable solution (1 source) General Anesthetic Start: 04-04-2023 End: 04-04-2023 ketamine injection labetalol (Normodyne,Trandate) injection 5 mg (2 sources) Start: 04-04-2023 End: 04-04-2023 labetalol (Normodyne,Trandate) injection 5 mg 10 ml lidocaine hydrochloride 20 mg/ml injection (1 source) Antiarrhythmic, Amide Local Anesthetic Start: 04-04-2023 End: 04-04-2023 lidocaine PF (Xylocaine) 2 % injection 1 ml LORazepam 2 mg/ml injection (2 sources) Benzodiazepine Start: 04-04-2023 End: 04-04-2023 LORazepam (Ativan) injection 0.5 mg 1 ml meperidine hydrochloride 25 mg/ml cartridge (2 sources) Opioid Agonist Start: 04-04-2023 End: 04-04-2023 meperidine (Demerol) injection 12.5 mg 2 ml metoclopramide 5 mg/ml prefilled syringe (2 sources) Dopamine-2 Receptor Antagonist Start: 04-04-2023 End: 04-04-2023 metoclopramide (Reglan) injection 5 mg 2 ml midazolam 1 mg/ml injection (1 source) Benzodiazepine Start: 04-04-2023 End: 04-04-2023 midazolam (Versed) injection 2 ml ondansetron 2 mg/ml injection (3 sources) Serotonin-3 Receptor Antagonist Start: 04-04-2023 End: 04-04-2023 ondansetron (Zofran) injection 4 mg Start: 04-04-2023 End: 04-04-2023 ondansetron (Zofran) injecti on oxyCODONE (2 sources) Opioid Agonist Start: 04-04-2023 End: 04-04-2023 oxyCODONE (Roxicodone) immediate release tablet 5 mg Phenylephrine HCl (Pressors) 1 MG/10ML injection (1 source) Start: 04-04-2023 End: 04-04-2023 Phenylephrine HCl (Pressors) 1 MG/10ML injection 20 ml propofol 10 mg/ml injection (1 source) General Anesthetic Start: 04-04-2023 End: 04-04-2023 Propofol (Diprivan) injection rocuronium bromide 10 mg/ml injectable solution (1 source) Nondepolarizing Neuromuscular Yovani Start: 04-04-2023 End: 04-04-2023 rocuronium (ZeMuron) injection 5 ml sodium chloride 9 mg/ml injection (12 sources) Start: 04-04-2023 End: 04-04-2023 sodium chloride 0.9 % infusion Start: 04-04-2023 End: 04-04-2023 sodium chloride 0.9% (NS) fl ush 10 mL 2 ml sugammadex 100 mg/ml injection (1 source) Start: 04-04-2023 End: 04-04-2023 sugammadex (Bridion) injecti on Problems Problem Classification Problem Date Documented Da te Episodic/Chronic Other and unspecified benign neoplasm (1 source) Spindle cell lipoma; 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, unspecified] 04-23-2023 Episodic Other skin disorders (3 sources) Mass of skin of right upper limb; Translations: [Localized swelling, mass and lump, right upper limb] 03-03-2023 Episodic Other skin disorders (3 sources) Disorder of right upper extremity; Translations: [Localized swelling, mass and lump, right upper limb] Onset: 04-04-2023 04-04-2023 Episodic Other skin disorders (1 source) Localized swelling, mass and lump, right upper limb; Translations: [Localized swelling, mass and lump, right upper limb] Onset: 04-04-2023 Episodic Unclassified (2 sources) New Patient; Translations: [New Patient] Onset: 03-01-2023 Results Test Name Value Interpretation Reference Range Facility Office Visiton 04-19-2023 Follow-up visit [id number] Jose Francisco Wagner 1975 M Date Provider Department Center 04/19/2023 [id number] KAUFMAN [facility] OR None Family History Family Status - Relation Status Age at Mother Father Daughter Alive Level of Service:85796 OR POSTOP FOLLOW UP VISIT RELATED TO ORIGINAL PX Reason for Visit and Comments: Post-op [483] - Marginal excision of Right shoulder mass-14 cm and subcutaneous lipomatous lesion Normal [facility] Progress Noteon 04-19-2023 [facility] [address] [place] [address] [address] [place] [address] Dept: [phone] Dept Chief Complaint Patient presents with Post-op Marginal excision of Right shoulder mass-14 cm and subcutaneous lipomatous lesion SUBJECTIVE HPI Dariel returns today for follow up after marginal resection of his right shoulder mass. He has been doing very well since his surgery, denies fevers/chills/drainage from his incision. Denies numbness/tingling in his operative extremity. Would like to know when he is able to return to work. There are no problems to display for this patient. Allergies Allergen Reactions Penicillins No family history on file. Past Medical History: Diagnosis Date Asthma COPD (chronic obstructive pulmonary disease) ([facility]) Depression Hearing loss Hypertension Mass of skin of right shoulder Psoriasis Social History Socioeconomic History Marital status: Single Spouse name: Not on file Number of children: Not on file Years of education: Not on file Highest education level: Not on file Occupational History Not on file Tobacco Use Smoking status: Every Day Packs/day: 1.00 Years: 20.00 Additional pack years: 0.00 Total pack years: 20.00 Types: Cigarettes Smokeless tobacco: Former Types: Snuff Quit date: 2002 Tobacco comments: Snuff since 5th grade Vaping Use Vaping Use: Never used Substance and Sexual Activity Alcohol use: Yes Comment: occasional Drug use: Yes Frequency: 1.0 times per week Types: Marijuana Comment: 03/27/2023 Sexual activity: Not on file Other Topics Concern Not on file Social History Narrative Not on file Social Determinants of Health Financial Resource Strain: Not on file Food Insecurity: Not on file Transportation Needs: Not on file Physical Activity: Not on file Stress: Not on file Social Connections: Not on file Intimate Partner Violence: Not At Risk (04/04/2023) Humiliation, Afraid, Rape, and Kick questionnaire Fear of Current or Ex-Partner: No Emotionally Abused: No Physically Abused: No Sexually Abused: No Housing Stability: Not on file Past Surgical History: Procedure Laterality Date DENTAL SURGERY N/A MASS EXCISION 04/04/2023 RESECTION SHOULDER MASS RIGHT, FROZEN SECTION - Right. Dr Kaufman Current Outpatient Medications Medication Sig Dispense Refill amLODIPine (Norvasc) 10 MG tablet Take by mouth daily. multivitamin (Theragran) tablet Take 1 tablet by mouth daily. No current facility-administered medications for this visit. Review of Systems Musculoskeletal: Right shoulder incision clean and dry sutures removed Full ROM to right shoulder pain controlled All other systems reviewed and are negative. OBJECTIVE Vitals: 04/19/23 1428 BP: (!) 147/91 Pulse: 84 Weight: 129 lb (58.5 kg) Height: 5' 6 (1.676 m) Physical Exam Physical Exam Vitals and nursing note reviewed. Constitutional: Appearance: Normal appearance. Cardiovascular: Rate and Rhythm: Normal rate. Pulmonary: Effort: Pulmonary effort is normal. Skin: General: Skin is warm and dry. Neurological: General: No focal deficit present. Mental Status: He is alert and oriented to person, place, and time. Psychiatric: Mood and Affect: Mood normal. Behavior: Behavior normal. RUE: Well healed incision superior to scapular spine without erythema/drainage SILT median/ulnar/radial n. +motor AIN/PIN/ulnar n. Palp radial pulse Extensive ecchymoses about the shoulder girdle and superior/anterior chest wall No new imaging B. RIGHT SHOULDER MASS, EXCISION - SPINDLE CELL LIPOMA. 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 He is able to return to work on Tuesday at full duty. We discussed that if he feels a new mass or think it is returning, he should call the office to be seen again otherwise he is able to follow up with me on an as needed basis. No follow-ups on file. Voice recognition was used for portions of this note and although it was reviewed prior to signing some incorrect words or phrases could be present. Electronically signedby Niranjan Kaufman MD on 04/23/2023 at 9:35 AM [facility] Airwayon 04-04-2023 KOTA Rocha CRNA 04/04/2023 8:07 AM Airway Date/Time: 04/04/2023 7:56 AM Urgency: scheduled Airway not difficult General Information and Staff Patient location during procedure: Procedural Resident/BATTERY MECHANIC: KOTA Rocha CRNA Performed: BATTERY MECHANIC Performed by: KOTA Rocha CRNA Authorized by: Ijeoma Hurd APRN - BATTERY MECHANIC Indications and Patient Condition Indications for airway management: anesthesia Sedation level: Asleep Patient position: sniffing Mask difficulty assessment: 1 - vent by mask Final Airway Details Final airway type: endotracheal airway Successful airway: ETT Cuffed: yes Successful intubation technique: direct laryngoscopy Facilitating devices/methods: intubating stylet Endotracheal tube insertion site: oral Blade: Octavia Blade size: #3 ETT size (mm): 7.0 Cormack-Lehane Classification: grade IIa - partial view of glottis Placement verified by: chest auscultation and capnometry Measured from: lips ETT to lips (cm): 23 Number of attempts at approach: 1 Number of other approaches attempted: 0 [facility] Nursing Noteon 04-04-2023 Nursing Note Ambulates to restroo m to void large amount. Gait slightly unsteady. Written discharge instructions reviewed with patient and visitors. Questions answered. Provided with ice pack and he refuses to use at this time. Sling in place. Taking po. Denies need for pain medication when offered. Warm blankets provided. Normal [facility] Nursing Note Family brought to bedside. Normal [facility] Nursing Note Pt asking questions and taking sips of coke. Normal [facility] Nursing Note Received pt to sanjeev rebolledo phase 1 moving around in cart with legs bent to chest laying on right side. Arm is in sling. Belongings retrieved from locker. Warm blankets provided. Normal [facility] Op Noteon 04-04-2023 Op Note [facility] OR [address] [facility] [address] Dept: [phone] Loc: [phone] Operative Report Patient Name: Dariel Wagner Date of : 1975 Date of Surgery: 04/04/23 Pre-operative diagnosis: Right shoulder mass Post-operative diagnosis: Same Procedure(s): Marginal excision of Right shoulder mass-14 cm and subcutaneous lipomatous lesion Surgeon: Niranjan Kaufman M.D. Hide Cooking Operator(s): Francis Ledesma, PGY4 Anesthesia: general, local EBL: 10cc IVF: Crystalloid Medications: Clindamycin 900mg was given. Mass: 14cm superficial soft tissue mass-frozen section eventually was returned and felt to be a spindle cell lipoma but will defer to permanent sections Implants: none Clinical History/Indication for Surgery The patient is a 48 y.o. year old male who was presents for removal of right shoulder mass. Typical indications for surgery were reviewed and operative excision and biopsy was recommended. Risks of surgery in general were reviewed including, but not limited to, infection, need for additional procedures, painful or prominent scars, damage to normal structures as well as medical complications such as MA, stroke, PE, DVT, and even . Pt was given opportunity to ask questions and consider his options. He ultimately elected to proceed with surgery. No guarantees were given or implied. Operative Narration The patient was identified in the pre-operative holding area. The surgical site was identified and marked. Informed consent was obtained. The patient was then brought to the operating room and placed supine on the operating table. Anesthesia was administered and care of the head, neck, and airway was maintained by the anesthesia staff throughout the entire procedure. The patient was then placed in the lateral decubitus position. All bony prominences were identified and padded. The operative extremity was then prepped and draped in the usual sterile fashion. A surgical timeout was performed. Antibiotics were confirmed to have been given. A transverse incision was made centered over the mass to subcutaneous tissue along the scapular spine. Sharp dissection was then utilized down thru skin and subcutaneous tissue. Electrocautery used to obtain hemostasis during dissection. The mass was then immediately identified deep to the subcutaneous tissue. We then proceeded with marginal resection of the mass. A combination of sharp and blunt dissection was used to circumferentially free the soft tissue mass. The mass was then shelled out and marginally excised. The mass appeared lipomatous in nature. This was then placed on saline-soaked Telfa gauze. This was then sent for final biopsy and permanent pathology. Once all subcutaneous bleeding vessels were cauterized, hemostasis was achieved and the wound was thenirrigated with normal saline. The wound was then closed in a layered fashion, dressed with Xeroform gauze, sterile gauze and secured with tape. Once the patient was awakened from anesthesia, they were transported to the PACU in stable condition, having tolerated surgery well with no immediate complications. Postoperative Plan -Weight bearing: RUE 10# lifting restriction -Sling to RUE for comfort -Ice and elevate operative extremity -DVT prophylaxis: ambulation -Pain control prescription written -F/u OP w/ Dr. Kaufman in 2-3 weeks, discharge instructions in AVS This operative report was prepared and signed by Francis Ledesma MD at 04/04/23, 7:17 AM Normal [facility] ECG 12-LEADon 03-23-2023 ECG 12-LEAD IMPRESSION: Sinus rhythm Left anterior fascicular block Anterior infarct, old Electronically Signed On 03-23-2023 12:30:07 EST by Andrew Ta Normal [facility] BASIC METABOLIC PANELon 03-09 Anion gap [Moles/Vol] 11 mmol/L Normal 3-13 [facility] Comment on above: Performed By: #### L AB15 #### Golf Coach: CASEY NATARAJAN ([id number]) [facility]) [address] [place] [address] Calcium [Mass/Vol] 9.5 mg/dL Normal 8.4-10.4 [facility] Comment on above: Performed By: #### L AB15 #### Golf Coach: CASEY NATARAJAN ([id number]) [facility]) [address] [place] [address] [place] Chloride [Moles/Vol] 100 mmol/L Normal 98-107 [facility] Comment on above: Performed By: #### L AB15 #### Golf Coach: CASEY NATARAJAN ([id number]) [facility]) [address] [place] [address] [place] CO2 [Moles/Vol] 28 mmol/L Normal 22-30 [facility] Comment on above: Performed By: #### L AB15 #### Golf Coach: CASEY NATARAJAN ([id number]) [facility]) [address] [place] [address] Creatinine [Mass/Vol] 0.78 mg/dL Normal 0.66-1.25 [facility] Comment on above: Performed By: #### L AB15 #### Golf Coach: CASEY NATARAJAN ([id number]) [facility] ([facility]) [address] [place] [address] GLOMERULAR FILTRATION RATE ML/MIN/1.73 SQ M.PREDICTED >90.0 Normal >60.0 [facility] Comment on above: Result Comment: Calc ulation based on the Chronic Kidney Disease Epidemiology Collaboration (CKD-EPI) equation refit without adjustment for race Performed By: #### L AB15 #### Golf Coach: CASEY NATARAJAN ([id number]) [facility] ([facility]) [address] [place] [address] Glucose [Mass/Vol] 92 mg/dL Normal 70-100 [facility] Comment on above: Performed By: #### L AB15 #### Golf Coach: CASEY NATARAJAN ([id number]) [facility] ([facility]) [address] [place] [address] Potassium [Moles/Vol] 3.8 mmol/L Normal 3.5-5.1 [facility] Comment on above: Performed By: #### L AB15 #### Golf Coach: CASEY NATARAJAN ([id number]) [facility] ([facility]) [address] [place] [address] [place] Sodium [Moles/Vol] 139 mmol/L Normal 135-145 [facility] Comment on above: Performed By: #### L AB15 #### Golf Coach: CASEY NATARAJAN ([id number]) [facility]) [address] [place] [address] [place] Urea nitrogen [Mass/Vol] 12 mg/dL Normal 9-20 [facility] Comment on above: Performed By: #### L AB15 #### Golf Coach: CASEY NATARAJAN ([id number]) [facility]) [address] [place] [address] CBC (HEMOGRAM)on 03-22-2023 Erythrocyte distribution width (RBC) [Ratio] 13.3 % Normal 11.5-14.5 [facility] Comment on above: Performed By: #### L AB294 ####Golf Coach: CASEY NATARAJAN ([id number])[facility])[address] [place] [address] ERYTHROCYTE MEAN CORPUSCULAR HEMOGLOBIN CONCENTRATION (G/DL) BY AUTOMATED 33.7 % Normal 32.0-36.0 [facility] Comment on above: Performed By: #### L AB294 ####Golf Coach: CASEY NATARAJAN ([id number])[facility])[address] [place] [address] Hematocrit (Bld) [Volume fraction] 48.4 % Normal 40.0-52.0 [facility] Comment on above: Performed By: #### L AB294 ####Golf Coach: CASEY NATARAJAN ([id number])[facility])[address] [place] [address] Hemoglobin (Bld) [Mass/Vol] 16.3 g/dL Normal 13.0-18.0 [facility] Comment on above: Performed By: #### L AB294 ####Golf Coach: CASEY NATARAJAN ([id number])[facility] ([facility])[address] [place] [address] MCH (RBC) [Entitic mass] 32.5 pg Normal 26.0-34.0 [facility] Comment on above: Performed By: #### L AB294 ####Golf Coach: CASEY NATARAJAN ([id number])[facility])[address] [place] [address] MCV (RBC) [Entitic vol] 96.4 fL Normal 80.0-98.0 [facility] Comment on above: Performed By: #### L AB294 ####Golf Coach: CASEY NATARAJAN ([id number])[facility])[address] [place] [address] Platelet mean volume (Bld) [Entitic vol] 14.2 fL High 7.4-12.4 [facility] Comment on above: Performed By: #### L AB294 ####Golf Coach: CASEY NATARAJAN ([id number])[facility])[address] [place] [address] Platelets (Bld) [#/Vol] 139 10*3/uL Low 140-440 [facility] Comment on above: Performed By: #### L AB294 ####Golf Coach: CASEY GIULIANADARIAN ([id number])[facility])[address] [place] [address] RBC (Bld) [#/Vol] 5.02 10*6/uL Normal 4.40-5.90 [facility] Comment on above: Performed By: #### L AB294 ####Golf Coach: CASEY NATARAJAN ([id number])[facility])[address] [place] [address] WBC (Bld) [#/Vol] 13.2 10*3/uL High 3.6-10.7 [facility] Comment on above: Performed By: #### L AB294 ####Golf Coach: CASEY NATARAJAN ([id number])[address] PREPROCINSon 03-22-2023 PREPROCINS Medication List Accurate as of March 22, 2023 10:02 AM. Always use your most recent med list. amLODIPine 10 MG tablet Commonly known as: Norvasc Medication Adjustments for Surgery: Take morning of surgery multivitamin tablet Notes to patient: Do not take the morning of surgery. Additional Instructions: You may take your prescription pain medication. You may take Tylenol for pain. NO Motrin, ibuprofen or Advil for 24 hours prior to surgery or longer if instructed by your surgeon. NO Aleve or Naprosyn for 5 days prior to surgery or longer if instructed by your surgeon. Follow any instructions given to you by Dr. Kaufman. Shower with an antibacterial soap such as Dial or Safeguard or shower kit provided to you before coming to the hospital. No makeup, lotion, powder, deodorant or body spays. No hair products. Remove all jewelry and leave it at home. Wear loose comfortable clothing to go home in. You may brush your teeth morning of surgery. Do not wear contacts day of surgery. No marijuana (THC), smoking or alcohol for 24 hours prior to surgery. Please arrange for a responsible adult to drive you home after your surgery and that there is a responsible adult with you for 24 hours post discharge. If you have specific questions, please call your surgeon. You will receive a call the day before your surgery to verify your arrival time and date. You will be asked to arrive at least two hours prior to your scheduled surgery time. Please bring your [facility] Surgical folder and medication list with you day of surgery. We encourage you to write down any questions you may have for the surgeon, anesthesiologist, or other members of the surgical team and bring it with you the day of surgery. Please bring photo ID and insurance information. Ela: Enter through Door number 2 Registration department is located here Patient will be escorted to [facility] Ela does not open before 6am [facility] 36on 03-10-2023 36 PAT orders done [facility] 36 PAT: [facility] 03/22/23 @ 9:00 am Case# [id number] Surgery: Kim 04/04/23 @ 7:30 am Procedure: Resection shoulder mass right Dx: Right shoulder mass Anesthesia: General Medical clearance received-scanned into media. Jose Cruz LOPES/BS insurance-checking auth Patient aware of date/time of surgery/PAT [facility] Progress Noteon 03-03-2023 Progress Note CD UPLOADED. IMAGES IN AGFA. Normal [facility] Office Visiton 03-01-2023 Follow-up visit [id number] Jose Francisco Wagner 1975 M Date Provider Department Center 03/01/2023 [id number] KAUFMAN [facility] OR None Family History Family Status - Relation Status Age at Mother Father Daughter Alive Level of Service:75585 OR OFFICE/OUTPATIENT NEW MODERATE MDM 45-59 MINUTES Reason for Visit and Comments: New Patient [542] - Right upper extremity mass/Dr Marybeth Vázquez [facility] Progress Noteon 03-01-2023 Progress Note [facility] [address] [place] [address] [place] [id number] Dept: [phone] Dept Chief Complaint Patient presents with New Patient Right upper extremity mass/Dr Marybeth Vázquez SUBJECTIVE HPI Dariel is a 47-year-old male who presents today at the referral of his physicians community assistant Marybeth Vázquez. His primary concern is a right shoulder mass which she originally noticed approximately 10 years ago. He noted 2 years of growth and since that time the mass has remained stable in size. He endorses occasional pain in the shoulder however this is fairly mild. He denies having any activity restrictions as a result of the mass, night pain, fevers, chills, trauma, or history of cancer. He denies any other areas of concern or additional masses. 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 There are no problems to display for this patient. Allergies Allergen Reactions Penicillins No family history on file. Past Medical History: Diagnosis Date Asthma Depression Hearing loss Hypertension Mass of skin of right shoulder Psoriasis Social History Socioeconomic History Marital status: Single Spouse name: Not on file Number of children: Not on file Years of education: Not on file Highest education level: Not on file Occupational History Not on file Tobacco Use Smoking status: Every Day Packs/day: 1 Types: Cigarettes Smokeless tobacco: Never Substance and Sexual Activity Alcohol use: Yes Comment: occasional Drug use: Yes Types: Marijuana Sexual activity: Not on file Other Topics Concern Not on file Social History Narrative Not on file Social Determinants of Health Financial Resource Strain: Not on file Food Insecurity: Not on file Transportation Needs: Not on file Physical Activity: Not on file Stress: Not on file Social Connections: Not on file Intimate Partner Violence: Not on file Housing Stability: Not on file Past Surgical History: Procedure Laterality Date DENTAL SURGERY N/A Current Outpatient Medications Medication Sig Dispense Refill amLODIPine (Norvasc) 10 MG tablet Take by mouth daily. multivitamin (Theragran) tablet Take 1 tablet by mouth daily. No current facility-administered medications for this visit. Review of Systems Constitutional: Positive for chills and fever. Night sweats Respiratory: Positive for shortness of breath. Musculoskeletal: Mass right shoulder noted approx 10 years ago mass has increased in size Pain off and on to right shoulder full ROM right shoulder OBJECTIVE Vitals: 03/01/23 1401 BP: 110/62 Weight: 58.5 kg (129 lb) Height: 1.676 m (5' 6 ) Physical Exam Physical Exam Vitals and nursing note reviewed. Constitutional: Appearance: Normal appearance. Cardiovascular: Rate and Rhythm: Normal rate. Pulmonary: Effort: Pulmonary effort is normal. Skin: General: Skin is warm and dry. Neurological: General: No focal deficit present. Mental Status: He is alert and oriented to person, place, and time. Psychiatric: Mood and Affect: Mood normal. Behavior: Behavior normal. RUE There is a soft, mobile soft tissue mass located at the posterior superior aspect of the shoulder. There are a couple areas of firmness within the mass itself. It is mobile with respect to the skin. This area is nontender to palpation and motor and sensory is intact as well. 5/5 AIN/PIN/Ulnar Palpable radial pulse XRAY INTERPRETATION Outside radiographic images were individually reviewed and interpreted. X-ray of the right shoulder demonstrates no acute fractures or dislocations. After reviewing the MRI there does appear to be a soft tissue prominence just superior to the acromion and clavicle. 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 The mass is not extend deep to the fascia and is bright on T1 and dark on T2 with a mild amount of heterogeneity. ASSESSMENT 1. Mass of skin of right shoulder 47-year-old male right posterior shoulder soft tissue mass; likely lipomatous in nature PLAN Had a long discussion with Mr. Wagner reviewing his presentation, physical exam, and radiographic findings. He has a fairly sizable soft tissue mass about the right shoulder that appears to be lipomatous in nature. Given the duration of symptoms, areas of firmness on exam, and heterogeneity on MRI I recommended biopsy and wide resection to confirm the diagnosis and also be therapeutic. I discussed with him that radiographically this appears to be a benign lesion however for the reasons given above is my recommendation to have this mass excised. Mr. Wagner understands the plan and is eager to return to work following his surgery. He will call to schedule the surgery at his convenience after obtai (more content not included)... 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 History of present illness: Mr. Wagner comes today with his girlfriend and aunt. He tells me he is not certain why he is here his girlfriend has noted gradual onset over the past 5 months of episodic confusion, lethargy, poor motor function, and hypertension. The patient has apparently been aware of these symptoms for a longer period of time. He has been sent home from work a few times in the past 6 months for inability to perform his job. His girlfriend describes he will have 1-4 days in which he seems normal and then 1-4 days in which all of his symptoms are present. She is not identified factors that will bring on the symptoms. They are improved by sleep. He was seen in the local emergency room department on July 20. He had apparently been drinking heavily and was felt to have alcoholic gastritis. A CT scan of the brain was unremarkable. On follow-up with his primary care physician, coordination was felt to be impaired. An MRI scan of the brain with contrast was ordered. That study is reviewed and I agree it is normal. Laboratory studies have been obtained, but are not available for my review. Mr. Wagner states that his memory, reading, writing, and calculations are normal. He denies childhood seizures. He denies loss of consciousness. Her friend states that she has found him on the kitchen floor in the middle of the night his eyes were open, but he was slow to respond. He expressed the effect that he was a vampire. Denies difficulty with smell, taste, chewing, swallowing, and voice. He denies difficulty with sensory or motor deficits. He denies difficulty with gait. Bowel and bladder control are normal. There has been pain in the elbows and knees. Mr. Wagner states that he will drink a few drinks a few days per week. His family indicate that his alcohol intake is more than that. He denies substance abuse. Family history is significant for an AVM and seizures in his aunt. His maternal grandmother had Alzheimer's disease. ALLERGIES Allergies not on file No current outpatient medications on file. No current facility-administered medications for this visit. No past medical history on file. No past surgical history on file. Social History Socioeconomic History Marital status: Spouse name: Not on file Number of children: Not on file Years of education: Not on file Highest education level: Not on file Social Needs Financial resource strain: Not on file Food insecurity - worry: Not on file Food insecurity - inability: Not on file Transportation needs - medical: Not on file Transportation needs - non-medical: Not on file Occupational History Not on file Tobacco Use Smoking status: Not on file Substance and Sexual Activity Alcohol use: Not on file Drug use: Not on file Sexual activity: Not on file Other Topics Concerns: Not on file Social History Narrative Not on file No family history on file. REVIEW OF SYSTEMS: GENERAL: Normal sleep, appetite and activity. No fevers or irritability. HEENT: Negative for headaches, No problems with hearing or vision, no nose bleeds or other nasal problems NECK: Negative for stiffness, lumps or significant neck swelling RESPIRATORY: Negative for cough, wheezing or respiratory distress CARDIOVASCULAR: Negative for chest pain, syncope, lightheadness or heart racing GI: No nausea, vomiting, or diarrhea : No history of dysuria, frequency or incontinence MUSCULOSKELETAL: As above SKIN: Negative for lesions, rash, and itching NEURO: See HPI PHYSICAL EXAM: BP 144/93 Pulse 84 Resp 18 Ht 165.1 cm (5' 5 ) Wt 59 kg (130 lb) BMI 21.63 kg/m? General Appearance: Well appearing, alert, in no acute distress, well-hydrated, well nourished. Skin: Psoriatic plaques on the extremities and lateral to his nose Head: Normocephalic, no masses, lesions, tenderness or abnormalities Oropharynx: Lips, mucosa, and tongue normal, teeth and gums normal, oropharynx normal Lungs: Lungs clear to auscultation. No wheezing, rhonchi, rales Heart: RRR without murmur, gallop, or rubs. No ectopy Carotid Auscultation: Without bruits Abdomen: No rhinophyma or palmar erythema,. + hepatomegaly. NEUROLOGICAL EXAMINATION: Mental status: Patient is alert, and cooperative. He is not able to add to history. His girlfriend must answer most questions for him. He is mildly slow to answer questions and follow instructions. He is oriented to the day of week month year and place. He does not know the date. Verbal memory is 4/4 immediately and at 5 minutes. He is able to perform calculations. Speech is spontaneous and fluent. Affect is blunted. CN: II: pupil 3 mm react to light, VF intact to confrontation Fundoscopic exam: discs: nl SHAKE CUTTER: present bilat III, IV, : full EOM, normal saccades and pursuit V: normal facial sensation VII: no facial weakness VIII: hearing nl at 512 Hz XI,X: normal elevation of palate, uvula midline XI: normal sternocleidomastoid strength and shoulders shrug Motor: Bulk: normal Tone: nl Pronator drift. - Strength: 5/5 throughout: deltoid, triceps, biceps, wrist flexion - extension, FDI, APB hip flexion, knee flexion - extension, ankle dorsiflexion - plantarflexion, toe flexion - extension Sensory: Pin: normal Vibration: normal Position: normal Coordination: Involuntary movements: fine, rapid tremor of the outstretched hands Finger tap, finger to nose, arm roll:normal Heel to renner: normal Muscle Stretch reflexes Right Left Bicep 3/4 3/4 Tricep 3/4 3/4 BrRad 3/4 3/4 Knee 3/4 3/4 Ankle 3/4 3/4 Bailey: - Pronator catch: - Ankle clonus: - No Babinski's sign Gait: nl Romberg sign: - LABORATORY and IMAGING: [place], [place] 07/17/2018 ED -altered MS - CT brain wo - nl 07/24/2018 outpt - abnl neuro exam - MR brain wwo - paranasal sinus dz - mucosal thickening and cysts ASSESSMENT: Laboratory studies are not available for my review. However, it is my impression that the most likely etiology of the symptoms is alcohol use. His fluctuating course and nonspecific, nonlocalizing symptoms do not suggest a primary neurological disorder. He also has hepatomegaly on examination and had a positive blood alcohol level when he was in the emergency room for symptoms in July. His recent labile hypertension also goes along with alcohol use, as well. That said, there are certain laboratory studies that should be tested: AST/ALT ratio and GGT - to further support the suspicion of alcohol - An ammonia level and a blood alcohol level would be worthwhile should he have acute confusion again TSH and morning serum cortisol levels CRP and CARMELO Plan: 1. I have discussed my impressions and plan with the patient and his girlfriend. 2. I have suggested that he abstain from alcohol intake. 3. Follow up appointment: I would be glad to see Mr. Wagner back at any time if the above studies do not clarify the symptoms To Duggan DO Neurological [facility] To Duggan DO 09/19/2018 10:42 AM Addendum Impression - chemical process involving the brain - could be thyroid or cortisol - could be alcohol Plan - Will send a report to Dr. Fuller with recommendation for which blood tests need to be done - if not done already Suggest no alcohol intake Referring Provider: AZIZA FULLER [[id number]] Allergies As of Date: 09/19/2018 Noted Allergy Reaction PENICILLINS 09/19/2018 10 - Anaphylaxis Date Reviewed: 09/19/2018 Reviewed by: To Duggan - Fully Assessed Reason for Visit: New Patient [172] Primary Visit Diagnosis:Encephalopathy [G93.40] Prescriptions as of 09/19/2018 Sig: FOLIC ACID 1 MG TABLET Take 1 mg by mouth once daily* VITAMIN B-12 ORAL Take by mouth. MULTIVITAMIN CAPSULE Take 1 capsule by mouth once * Problem List As Of Date: 09/19/2018 (None) Other instructions from your clinician: Impression - chemical process involving the brain - could be thyroid or cortisol - could be alcohol Plan - Will send a report to Dr. Fuller with recommendation for which blood tests need to be done - if not done already Suggest no alcohol intake Encounter Status:Closed by TO DUGGAN DO on 09/19/[address] [facility] PROGRESSon 09-17-2018 Protein mass conc HNO ID: [id number] Author: To Duggan Service: ? 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 History of present illness: Mr. Wagner comes today with his girlfriend and aunt. He tells me he is not certain why he is here his girlfriend has noted gradual onset over the past 5 months of episodic confusion, lethargy, poor motor function, and hypertension. The patient has apparently been aware of these symptoms for a longer period of time. He has been sent home from work a few times in the past 6 months for inability to perform his job. His girlfriend describes he will have 1-4 days in which he seems normal and then 1-4 days in which all of his symptoms are present. She is not identified factors that will bring on the symptoms. They are improved by sleep. He was seen in the local emergency room department on July 20. He had apparently been drinking heavily and was felt to have alcoholic gastritis. A CT scan of the brain was unremarkable. On follow-up with his primary care physician, coordination was felt to be impaired. An MRI scan of the brain with contrast was ordered. That study is reviewed and I agree it is normal. Laboratory studies have been obtained, but are not available for my review. Mr. Wagner states that his memory, reading, writing, and calculations are normal. He denies childhood seizures. He denies loss of consciousness. Her friend states that she has found him on the kitchen floor in the middle of the night his eyes were open, but he was slow to respond. He expressed the effect that he was a vampire. Denies difficulty with smell, taste, chewing, swallowing, and voice. He denies difficulty with sensory or motor deficits. He denies difficulty with gait. Bowel and bladder control are normal. There has been pain in the elbows and knees. Mr. Wagner states that he will drink a few drinks a few days per week. His family indicate that his alcohol intake is more than that. He denies substance abuse. Family history is significant for an AVM and seizures in his aunt. His maternal grandmother had Alzheimer's disease. ALLERGIES Allergies not on file No current outpatient medications on file. No current facility-administered medications for this visit. No past medical history on file. No past surgical history on file. Social History Socioeconomic History Marital status: Spouse name: Not on file Number of children: Not on file Years of education: Not on file Highest education level: Not on file Social Needs Financial resource strain: Not on file Food insecurity - worry: Not on file Food insecurity - inability: Not on file Transportation needs - medical: Not on file Transportation needs - non-medical: Not on file Occupational History Not on file Tobacco Use Smoking status: Not on file Substance and Sexual Activity Alcohol use: Not on file Drug use: Not on file Sexual activity: Not on file Other Topics Concerns: Not on file Social History Narrative Not on file No family history on file. REVIEW OF SYSTEMS: GENERAL: Normal sleep, appetite and activity. No fevers or irritability. HEENT: Negative for headaches, No problems with hearing or vision, no nose bleeds or other nasal problems NECK: Negative for stiffness, lumps or significant neck swelling RESPIRATORY: Negative for cough, wheezing or respiratory distress CARDIOVASCULAR: Negative for chest pain, syncope, lightheadness or heart racing GI: No nausea, vomiting, or diarrhea : No history of dysuria, frequency or incontinence MUSCULOSKELETAL: As above SKIN: Negative for lesions, rash, and itching NEURO: See HPI PHYSICAL EXAM: BP 144/93 Pulse 84 Resp 18 Ht 165.1 cm (5' 5 ) Wt 59 kg (130 lb) BMI 21.63 kg/m? General Appearance: Well appearing, alert, in no acute distress, well-hydrated, well nourished. Skin: Psoriatic plaques on the extremities and lateral to his nose Head: Normocephalic, no masses, lesions, tenderness or abnormalities Oropharynx: Lips, mucosa, and tongue normal, teeth and gums normal, oropharynx normal Lungs: Lungs clear to auscultation. No wheezing, rhonchi, rales Heart: RRR without murmur, gallop, or rubs. No ectopy Carotid Auscultation: Without bruits Abdomen: No rhinophyma or palmar erythema,. + hepatomegaly. NEUROLOGICAL EXAMINATION: Mental status: Patient is alert, and cooperative. He is not able to add to history. His girlfriend must answer most questions for him. He is mildly slow to answer questions and follow instructions. He is oriented to the day of week month year and place. He does not know the date. Verbal memory is 4/4 immediately and at 5 minutes. He is able to perform calculations. Speech is spontaneous and fluent. Affect is blunted. CN: II: pupil 3 mm react to light, VF intact to confrontation Fundoscopic exam: discs: nl SHAKE CUTTER: present bilat III, IV, : full EOM, normal saccades and pursuit V: normal facial sensation VII: no facial weakness VIII: hearing nl at 512 Hz XI,X: normal elevation of palate, uvula midline XI: normal sternocleidomastoid strength and shoulders shrug Motor: Bulk: normal Tone: nl Pronator drift. - Strength: 5/5 throughout: deltoid, triceps, biceps, wrist flexion - extension, FDI, APB hip flexion, knee flexion - extension, ankle dorsiflexion - plantarflexion, toe flexion - extension Sensory: Pin: normal Vibration: normal Position: normal Coordination: Involuntary movements: fine, rapid tremor of the outstretched hands Finger tap, finger to nose, arm roll:normal Heel to renner: normal Muscle Stretch reflexes Right Left Bicep 3/4 3/4 Tricep 3/4 3/4 BrRad 3/4 3/4 Knee 3/4 3/4 Ankle 3/4 3/4 Bailey: - Pronator catch: - Ankle clonus: - No Babinski's sign Gait: nl Romberg sign: - LABORATORY and IMAGING: [place], [place] 07/17/2018 ED -altered MS - CT brain wo - nl 07/24/2018 outpt - abnl neuro exam - MR brain wwo - paranasal sinus dz - mucosal thickening and cysts ASSESSMENT: Laboratory studies are not available for my review. However, it is my impression that the most likely etiology of the symptoms is alcohol use. His fluctuating course and nonspecific, nonlocalizing symptoms do not suggest a primary neurological disorder. He also has hepatomegaly on examination and had a positive blood alcohol level when he was in the emergency room for symptoms in July. His recent labile hypertension also goes along with alcohol use, as well. That said, there are certain laboratory studies that should be tested: AST/ALT ratio and GGT - to further support the suspicion of alcohol - An ammonia level and a blood alcohol level would be worthwhile should he have acute confusion again TSH and morning serum cortisol levels CRP and CARMELO Plan: 1. I have discussed my impressions and plan with the patient and his girlfriend. 2. I have suggested that he abstain from alcohol intake. 3. Follow up appointment: I would be glad to see Mr. Wagner back at any time if the above studies do not clarify the symptoms To Duggan, DO Neurological [facility] Normal [facility] Vital Signs Date Time Vital Sign Value Performing Clinician Bakari jones 04-19-2023 14:28-0500 Body height 167.6 cm Niranjan Kaufman MD Work Phone: [facility] [employer] 04-19-2023 14:28-0500 Body mass index (BMI) [Ratio] 20.82 kg/m2 Niranjan Kaufman MD Work Phone: [facility] [employer] 04-19-2023 14:28-0500 Body weight 58.51 kg Niranjan Kaufman MD Work Phone: [facility] [employer] 04-19-2023 14:28-0500 Diastolic blood pressure 91 mm[Hg] Niranjan Kaufman MD Work Phone: [facility] [employer] 04-19-2023 14:28-0500 Heart rate 84 /min Niranjan Kaufman MD Work Phone: [facility] [employer] 04-19-2023 14:28-0500 Systolic blood pressure 147 mm[Hg] Niranjan Kaufman MD Work Phone: [facility] [employer] 04-04-2023 10:00-0500 Diastolic blood pressure 82 mm[Hg] Niranjan Kaufman MD Work Phone: [facility] [employer] 04-04-2023 10:00-0500 Heart rate 60 /min Niranjan Kaufman MD Work Phone: [facility] [employer] 04-04-2023 10:00-0500 Respiratory rate 16 /min Niranjan Kaufman MD Work Phone: [facility] [employer] 04-04-2023 10:00-0500 SaO2% (BldA) [Mass fraction] 96 % Niranjan Kaufman MD Work Phone: [facility] [employer] 04-04-2023 10:00-0500 Systolic blood pressure 116 mm[Hg] Niranjan Kaufman MD Work Phone: [employer] 04-04-2023 09:04-0500 Body temperature 97 [degF] Niranjan Kaufman MD Work Phone: [employer] 04-04-2023 06:27-0500 Body height 167.6 cm Niranjan Kaufman MD Work Phone: [employer] 04-04-2023 06:27-0500 Body mass index (BMI) [Ratio] 20.82 kg/m2 Niranjan Kaufman MD Work Phone: [employer] 04-04-2023 06:27-0500 Body weight 58.51 kg Niranjan Kaufman MD Work Phone: [employer] 03-01-2023 14:01-0400 Body height 167.6 cm Niranjan Kaufman MD Work Phone: [employer] 03-01-2023 14:01-0400 Body mass index (BMI) [Ratio] 20.82 kg/m2 Niranjan Kaufman MD Work Phone: [employer] 03-01-2023 14:01-0400 Body weight 58.51 kg Niranjan Kaufman MD Work Phone: [employer] 03-01-2023 14:01-0400 Diastolic blood pressure 62 mm[Hg] Niranjan Kaufman MD Work Phone: [facility] [facility] 03-01-2023 14:01-0400 Systolic blood pressure 110 mm[Hg] Niranjan Kaufman MD Work Phone: [facility] [facility] Encounters Encounter Date Encounter Type Care Provider Facility Start: 04-19-2023 End: 04-19-2023 ambulatory [facility] Start: 04-19-2023 End: 04-19-2023 Postop follow up visit related to original px Niranjan Kaufman MD Work Phone: [facility] Comment on above: Spindle cell lipoma (Primary Dx) Start: 04-04-2023 End: 04-04-2023 ambulatory [facility] Start: 04-04-2023 End: 04-04-2023 Anesthesia consultation Gino Bermudez MD Work Phone: [facility] Start: 04-04-2023 End: 04-04-2023 Subsequent hospital visit by physician Niranjan Kaufman MD Work Phone: [facility] Comment on above: Mass of skin of righ t shoulder (Primary Dx); Localized swelling, mass and lump, right upper limb Start: 03-22-2023 End: 03-22-[address] [facility] Start: 03-22-2023 End: 03-22-2023 Encounter for other preprocedural examination NIRANJAN KAUFMAN [facility] Start: 03-01-2023 End: 03-01-[address] [facility] Start: 03-01-2023 End: 03-01-2023 Office outpatient new 45 minutes Niranjan Kaufman MD Work Phone: [facility] Comment on above: Mass of skin of righ t shoulder (Primary Dx) Start: 07-24-2018 End: 07-24-2018 ambulatory [facility] Procedures Date Procedure Procedure Detail Performing Clinician Start: 04-04-2023 OR AN ELECTIVE ENDOTRACHEAL AIRWAY Ijeoma Martinez CRNA Work Phone: Plan of Treatment Date Care Activity Detail Author Start: 2036 RSV Immunization age d 60 or older (1 - 1-dose 60+ series) RSV Immunization aged 60 or older (1 - 1-dose 60+ series) [facility] Start: 01-25-2033 DTaP/Tdap/Td Vaccine s (2 - Td or Tdap) DTaP/Tdap/Td Vaccines (2 - Td or Tdap) [facility] Start: 2026 Zoster Vaccines (1 of 2) Zoste r Vaccines (1 of 2) [facility] Start: 04-04-2023 End: 04-04-2023 Exc tumor soft tissue shoulder subfascial 5 cm/> EXCISION TUMOR SOFT TISSUE SHOULDER SUBFASCIAL 5 CM OR GREATER Localized swelling, mass and lump, right upper limb 04/04/2023 7:34 AM EST [facility] Operating Room Start: 01-07-2023 Influenza vaccination Influenza Vacc ine (#1) [facility] Start: 1994 Hepatitis C screening Hepatitis C Sc reening [facility] Start: 1988 Depression Screening Depression Scre ening [facility] Start: 1982 Pneumococcal Vaccine : Pediatrics (0 to 5 Years) and At-Risk Patients (6 to 64 Years) (1 - PCV) Pneumococcal Vaccine: Pediatrics (0 to 5 Years) and At-Risk Patients (6 to 64 Years) (1 - PCV) [facility] Start: 1977 MMR Vaccines (1 of 1 - Standard series) MMR Vaccines (1 of 1 - Standard series) [facility] Start: 1976 COVID-19 Vaccine (#1) COVID-19 Vacci ne (#1) [facility] Start: 1976 Hepatitis B Vaccines (1 of 3 - 3-dose series) Hepatitis B Vaccines (1 of 3 - 3-dose series) [facility] Start: 1976 HIV screening HIV Screening [facility] Start: 1976 Lipid panel Lipid Panel [facility] Start: 1976 Screening for malign ant neoplasm of colon [facility] Tissue exam [facility] Work Phone: Comment on above: Release Upon Andre angel for 1 Occurrences starting 04/04/2023 Payers Date Payer Category Payer [facility] [id number] 2022 Unknown [id number] 1976 Unknown [id number] Social History Date Type Detail Facility Start: 03-01-2023 End: 03-22-2023 Tobacco smoking status NHIS Smokes tobacco daily [facility] History of tobacco use Cigarette Smoker S [facility] Start: 03-01-2023 End: 04-19-2023 Cigarettes smoked current (pack per day) - Reported 1 [facility] Start: 03-01-2023 Tobacco use and exposure Smokeless t obacco non-user [facility] Start: 03-01-2023 End: 04-19-2023 Alcohol intake Current drinker of alcohol (finding) [facility] Start: 03-01-2023 End: 04-19-2023 Tobacco use panel [facility] Start: 02-25-2023 Alcohol Comment occasional [facility] Start: 1975 Sex Assigned At Not on file S [facility] Start: 03-22-2023 Tobacco use and exposure Forme r smokeless tobacco user [facility] End: 05-09-2002 History of tobacco use Snuff User [facility] Within the last year , have you been afraid of your partner or ex-partner? No [facility] Start: 03-22-2023 Tobacco Comment Snuff since 5th grad e [facility] Clinical Notes 03-01-2023 to 04-19-2023 Jane Davenport RN - 04/19/2023 2:15 PM ESTAddendum Note - KOTA Rocha CRNA - 04/04/2023 10:08 AM ESTAddendum Note - KOTA Rocha CRNA - 04/04/2023 10:08 AM ESTProcedure Summary Note Date & Type Note Facility 04-19-2023 History of Presen t illness Narrative [facility] [address] [place] [address] [place] [id number] Dept: [phone] Dept Chief Complaint Patient presents with Post-op Marginal excision of Right shoulder mass-14 cm and subcutaneous lipomatous lesion SUBJECTIVE HPI Dariel returns today for follow up after marginal resection of his right shoulder mass. He has been doing very well since his surgery, denies fevers/chills/drainage from his incision. Denies numbness/tingling in his operative extremity. Would like to know when he is able to return to work. There are no problems to display for this patient. Allergies Allergen Reactions Penicillins No family history on file. Past Medical History: Diagnosis Date Asthma COPD (chronic obstructive pulmonary disease) (HCC) Depression Hearing loss Hypertension Mass of skin of right shoulder Psoriasis Social History Socioeconomic History Marital status: Single Spouse name: Not on file Number of children: Not on file Years of education: Not on file Highest education level: Not on file Occupational History Not on file Tobacco Use Smoking status: Every Day Packs/day: 1.00 Years: 20.00 Additional pack years: 0.00 Total pack years: 20.00 Types: Cigarettes Smokeless tobacco: Former Types: Snuff Quit date: 2002 Tobacco comments: Snuff since 5th grade Vaping Use Vaping Use: Never used Substance and Sexual Activity Alcohol use: Yes Comment: occasional Drug use: Yes Frequency: 1.0 times per week Types: Marijuana Comment: 03/27/2023 Sexual activity: Not on file Other Topics Concern Not on file Social History Narrative Not on file Social Determinants of Health Financial Resource Strain: Not on file Food Insecurity: Not on file Transportation Needs: Not on file Physical Activity: Not on file Stress: Not on file Social Connections: Not on file Intimate Partner Violence: Not At Risk (04/04/2023) Humiliation, Afraid, Rape, and Kick questionnaire Fear of Current or Ex-Partner: No Emotionally Abused: No Physically Abused: No Sexually Abused: No Housing Stability: Not on file Past Surgical History: Procedure Laterality Date DENTAL SURGERY N/A MASS EXCISION 04/04/2023 RESECTION SHOULDER MASS RIGHT, FROZEN SECTION - Right. Dr Kaufman Current Outpatient Medications Medication Sig Dispense Refill amLODIPine (Norvasc) 10 MG tablet Take by mouth daily. multivitamin (Theragran) tablet Take 1 tablet by mouth daily. No current facility-administered medications for this visit. Review of Systems Musculoskeletal: Right shoulder incision clean and dry sutures removed Full ROM to right shoulder pain controlled All other systems reviewed and are negative. OBJECTIVE Vitals: 04/19/23 1428 BP: (!) 147/91 Pulse: 84 Weight: 129 lb (58.5 kg) Height: 5' 6 (1.676 m) Physical Exam Physical Exam Vitals and nursing note reviewed. Constitutional: Appearance: Normal appearance. Cardiovascular: Rate and Rhythm: Normal rate. Pulmonary: Effort: Pulmonary effort is normal. Skin: General: Skin is warm and dry. Neurological: General: No focal deficit present. Mental Status: He is alert and oriented to person, place, and time. Psychiatric: Mood and Affect: Mood normal. Behavior: Behavior normal. RUE: Well healed incision superior to scapular spine without erythema/drainage SILT median/ulnar/radial n. +motor AIN/PIN/ulnar n. Palp radial pulse Extensive ecchymoses about the shoulder girdle and superior/anterior chest wall No new imaging B. RIGHT SHOULDER MASS, EXCISION - SPINDLE CELL LIPOMA. 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 He is able to return to work on Tuesday at full duty. We discussed that if he feels a new mass or think it is returning, he should call the office to be seen again otherwise he is able to follow up with me on an as needed basis. No follow-ups on file. Voice recognition was used for portions of this note and although it was reviewed prior to signing some incorrect words or phrases could be present. Electronically signedby Niranjan Kaufman MD on 04/23/2023 at 9:35 AM documented in this encounter [facility] 04-04-2023 Note Addendum created 1008 by KOTA Rocha CRNA Intraprocedure Meds edited, Orders acknowledged in Narrator [facility] 04-04-2023 Note Patient: Dariel mendez Procedure Summary Date: 04/04/23 Room / Location: [address] Operating Room Anesthesia Start: 733 Anesthesia Stop: 904 Procedure: RESECTION SHOULDER MASS RIGHT, FROZEN SECTION (Right: Shoulder) Diagnosis: Localized swelling, mass and lump, right upper limb (Right shoulder mass) Surgeons: Niranjan Kaufman MD Responsible Provider: Gino Bermudez Jr., MD Anesthesia Type: general ASA Status: 2 Anesthesia Type: general Vitals Value Taken Time BP 128/95 04/04/23929 Temp 36.1 ?C (97 ?F) 04/04/23903 Pulse 64 04/04/23929 Resp 16 04/04/23929 SpO2 99 % 04/04/23929 Anesthesia Post Evaluation Patient location during evaluation: PACU Patient participation: complete - patient participated Level of consciousness: awake and alert Pain management: satisfactory to patient Airway patency: patent Dental Injury: no Cardiovascular status: acceptable, blood pressure returned to baseline and hemodynamically stable Respiratory status: acceptable and spontaneous ventilation Hydration status: euvolemic Nausea/Vomiting: controlled No notable events documented. Patient can be discharged once all PACU criteria has been met. [facility] 04-04-2023 Note Patient: Dariel mendez Procedure Summary Date: 04/04/23 Room / Location: [address] Operating Room Anesthesia Start: 733 Anesthesia Stop: 904 Procedure: RESECTION SHOULDER MASS RIGHT, FROZEN SECTION (Right: Shoulder) Diagnosis: Localized swelling, mass and lump, right upper limb (Right shoulder mass) Surgeons: Niranjan Kaufman MD Responsible Provider: Gino Bermudez Jr., MD Anesthesia Type: general ASA Status: 2 Anesthesia Type: general Vitals Value Taken Time BP 128/95 04/04/23 0930 Temp 36.1 ?C (97 ?F) 04/04/23 0904 Pulse 64 04/04/23 0930 Resp 16 04/04/23 0930 SpO2 99 % 04/04/23929 Anesthesia Post Evaluation Patient location during evaluation: PACU Patient participation: complete - patient participated Level of consciousness: awake and alert Pain score: 0 Pain management: satisfactory to patient Multimodal analgesia pain management approach Airway patency: patent Two or more strategies used to mitigate risk of obstructive sleep apnea Cardiovascular status: acceptable and hemodynamically stable Respiratory status: acceptable Hydration status: acceptable No notable events documented. MIPS #430 PONV Patient received an inhalational anesthetic (4554F) Patient exhibits three or more risk factors for PONV (4556F) Patient received at [facility] 2 prophylactic Rx PONV anti-emtic agents of different classes preop and/or intraop (G9775) MIPS # 424 Perioperative Temperature Management Anesthesia time was 60 minutes or longer (4255F) Anesthesai administered was General (inhalational or TIVA) or Neuraxial block (X0424) At least one body temperature greater than 95.8F/35.5C achieved within the 30 mins immediately prior to or the 15 minutes immediately following anesthesia end time (G9771) MIPS #477 Multimodal Pain Management Not emergent case Patient was administered multimodal pain management (two or more drugs and/or interventions excluding systemic opioids) in the periopeartive period occurring at some time between 6 hours prior to anesthesia start time until discharged from PACU (G2148) MIPS #404 Anesthesiology Smoking Abstinence The patient is not a current smoker (e.g. cigarette, cigar, pipe, e-cigarette/vaping/marijuana) If no stop here (G9644) I completed my handoff to the receiving clinician during which we: 1. Identified the patient 2. Identified the responsible provider 3. Reviewed the pertinent medical history 4. Discussed the surgical course 5. Reviewed intra-op anesthesia management and issues during anesthesia 6. Set expectations for post-procedure period 7. Allowed opportunity for questions and acknowledgement of understanding. [facility] 04-04-2023 Note Formatting of this n ote is different from the original. Addendum created 04/04/231007 by KOTA Rocha CRNA Intraprocedure Meds edited, Orders acknowledged in Narrator [facility] 04-04-2023 Miscellaneous Notes Formattin g of this note is different from the original. Addendum created 04/04/231007 by KOTA Rocha CRNA Intraprocedure Meds edited, Orders acknowledged in Narrator Patient: Dariel Wagner Procedure Summary Date: 04/04/23 Room / Location: [address] Operating Room Anesthesia Start: 733 Anesthesia Stop: 904 Procedure: RESECTION SHOULDER MASS RIGHT, FROZEN SECTION (Right: Shoulder) Diagnosis: Localized swelling, mass and lump, right upper limb (Right shoulder mass) Surgeons: Niranjan Kaufman MD Responsible Provider: Gino Bermudez Jr., MD Anesthesia Type: general ASA Status: 2 Anesthesia Type: general Vitals Value Taken Time BP 128/95 04/04/23929 Temp 36.1 C (97 F) 04/04/23903 Pulse 64 04/04/23929 Resp 16 04/04/23929 SpO2 99 % 04/04/23929 Anesthesia Post Evaluation Patient location during evaluation: PACU Patient participation: complete - patient participated Level of consciousness: awake and alert Pain management: satisfactory to patient Airway patency: patent Dental Injury: no Cardiovascular status: acceptable, blood pressure returned to baseline and hemodynamically stable Respiratory status: acceptable and spontaneous ventilation Hydration status: euvolemic Nausea/Vomiting: controlled No notable events documented. Patient can be discharged once all PACU criteria has been met. documented in this encounter [facility] 04-04-2023 Note Airway Date/Time: 04/04/2023 7:56 AM Urgency: scheduled Airway not difficult General Information and Staff Patient location during procedure: Procedural Resident/BATTERY MECHANIC: KOTA Rocha CRNA Performed: BATTERY MECHANIC Performed by: KOTA Rocha CRNA Authorized by: KOTA Rocha CRNA Indications and Patient Condition Indications for airway management: anesthesia Sedation level: Asleep Patient position: sniffing Mask difficulty assessment: 1 - vent by mask Final Airway Details Final airway type: endotracheal airway Successful airway: ETT Cuffed: yes Successful intubation technique: direct laryngoscopy Facilitating devices/methods: intubating stylet Endotracheal tube insertion site: oral Blade: Octavia Blade size: #3 ETT size (mm): 7.0 Cormack-Lehane Classification: grade IIa - partial view of glottis Placement verified by: chest auscultation and capnometry Measured from: lips ETT to lips (cm): 23 Number of attempts at approach: 1 Number of other approaches attempted: 0 [facility] 04-04-2023 Note Formatting of this n ote is different from the original. Patient: Dariel Wagner Procedure Summary Date: 04/04/23 Room / Location: [address] Operating Room Anesthesia Start: 733 Anesthesia Stop: 904 Procedure: RESECTION SHOULDER MASS RIGHT, FROZEN SECTION (Right: Shoulder) Diagnosis: Localized swelling, mass and lump, right upper limb (Right shoulder mass) Surgeons: Niranjan Kaufman MD Responsible Provider: Gino Bermudez Jr., MD Anesthesia Type: general ASA Status: 2 Anesthesia Type: general Vitals Value Taken Time BP 128/95 04/04/23 0930 Temp 36.1 C (97 F) 04/04/23 0904 Pulse 64 04/04/23 0930 Resp 16 04/04/23 09 SpO2 99 % 04/04/23929 Anesthesia Post Evaluation Patient location during evaluation: PACU Patient participation: complete - patient participated Level of consciousness: awake and alert Pain management: satisfactory to patient Airway patency: patent Dental Injury: no Cardiovascular status: acceptable, blood pressure returned to baseline and hemodynamically stable Respiratory status: acceptable and spontaneous ventilation Hydration status: euvolemic Nausea/Vomiting: controlled No notable events documented. Patient can be discharged once all PACU criteria has been met. [facility] 04-04-2023 Anesthesiology Postoperative evaluation and management note Patient: Dariel Wagner Procedure Summary Date: 04/04/23 Room / Location: [address] Operating Room Anesthesia Start: 733 Anesthesia Stop: 904 Procedure: RESECTION SHOULDER MASS RIGHT, FROZEN SECTION (Right: Shoulder) Diagnosis: Localized swelling, mass and lump, right upper limb (Right shoulder mass) Surgeons: Niranjan Kaufman MD Responsible Provider: Gino Bermudez Jr., MD Anesthesia Type: general ASA Status: 2 Anesthesia Type: general Vitals Value Taken Time BP 128/95 04/04/23 0930 Temp 36.1 C (97 F) 04/04/23 0904 Pulse 64 04/04/23 0930 Resp 16 04/04/23 0930 SpO2 99 % 04/04/23 0930 Anesthesia Post Evaluation Patient location during evaluation: PACU Patient participation: complete - patient participated Level of consciousness: awake and alert Pain score: 0 Pain management: satisfactory to patient Multimodal analgesia pain management approach Airway patency: patent Two or more strategies used to mitigate risk of obstructive sleep apnea Cardiovascular status: acceptable and hemodynamically stable Respiratory status: acceptable Hydration status: acceptable No notable events documented. MIPS #430 PONV Patient received an inhalational anesthetic (4554F) Patient exhibits three or more risk factors for PONV (7056F) Patient received at [facility] 2 prophylactic Rx PONV anti-emtic agents of different classes preop and/or intraop (G9775) MIPS # 424 Perioperative Temperature Management Anesthesia time was 60 minutes or longer (4255F) Anesthesai administered was General (inhalational or TIVA) or Neuraxial block (X0424) At least one body temperature greater than 95.8F/35.5C achieved within the 30 mins immediately prior to or the 15 minutes immediately following anesthesia end time (G9771) MIPS #477 Multimodal Pain Management Not emergent case Patient was administered multimodal pain management (two or more drugs and/or interventions excluding systemic opioids) in the periopeartive period occurring at some time between 6 hours prior to anesthesia start time until discharged from PACU (G2148) MIPS #404 Anesthesiology Smoking Abstinence The patient is not a current smoker (e.g. cigarette, cigar, pipe, e-cigarette/vaping/marijuana) If no stop here (G9644) I completed my handoff to the receiving clinician during which we: 1. Identified the patient 2. Identified the responsible provider 3. Reviewed the pertinent medical history 4. Discussed the surgical course 5. Reviewed intra-op anesthesia management and issues during anesthesia 6. Set expectations for post-procedure period 7. Allowed opportunity for questions and acknowledgement of understanding. [facility] Phone: 04-04-2023 Surgical operatio n note Patient: Dariel Wagner Procedure Summary Date: 04/04/23 Room / Location: [address] Operating Room Anesthesia Start: 733 Anesthesia Stop: 904 Procedure: RESECTION SHOULDER MASS RIGHT, FROZEN SECTION (Right: Shoulder) Diagnosis: Localized swelling, mass and lump, right upper limb (Right shoulder mass) Surgeons: Niranjan Kaufman MD Responsible Provider: Gino Bermudez Jr., MD Anesthesia Type: general ASA Status: 2 Anesthesia Type: general Vitals Value Taken Time BP 128/95 04/04/23 0930 Temp 36.1 C (97 F) 04/04/23 0904 Pulse 64 04/04/23 09 Resp 16 04/04/23 09 SpO2 99 % 04/04/23929 Anesthesia Post Evaluation Patient location during evaluation: PACU Patient participation: complete - patient participated Level of consciousness: awake and alert Pain score: 0 Pain management: satisfactory to patient Multimodal analgesia pain management approach Airway patency: patent Two or more strategies used to mitigate risk of obstructive sleep apnea Cardiovascular status: acceptable and hemodynamically stable Respiratory status: acceptable Hydration status: acceptable No notable events documented. MIPS #430 PONV Patient received an inhalational anesthetic (4554F) Patient exhibits three or more risk factors for PONV (4556F) Patient received at [facility] 2 prophylactic Rx PONV anti-emtic agents of different classes preop and/or intraop (G9775) MIPS # 424 Perioperative Temperature Management Anesthesia time was 60 minutes or longer (4255F) Anesthesai administered was General (inhalational or TIVA) or Neuraxial block (X0424) At least one body temperature greater than 95.8F/35.5C achieved within the 30 mins immediately prior to or the 15 minutes immediately following anesthesia end time (G9771) MIPS #477 Multimodal Pain Management Not emergent case Patient was administered multimodal pain management (two or more drugs and/or interventions excluding systemic opioids) in the periopeartive period occurring at some time between 6 hours prior to anesthesia start time until discharged from PACU (G2148) MIPS #404 Anesthesiology Smoking Abstinence The patient is not a current smoker (e.g. cigarette, cigar, pipe, e-cigarette/vaping/marijuana) If no stop here (G9644) I completed my handoff to the receiving clinician during which we: 1. Identified the patient 2. Identified the responsible provider 3. Reviewed the pertinent medical history 4. Discussed the surgical course 5. Reviewed intra-op anesthesia management and issues during anesthesia 6. Set expectations for post-procedure period 7. Allowed opportunity for questions and acknowledgement of understanding. Associated Order(s): Airway Airway Date/Time: 04/04/2023 7:56 AM Urgency: scheduled Airway not difficult General Information and Staff Patient location during procedure: Procedural Resident/BATTERY MECHANIC: KOTA Rocha CRNA Performed: BATTERY MECHANIC Performed by: KOTA Rocha CRNA Authorized by: KOTA Rocha CRNA Indications and Patient Condition Indications for airway management: anesthesia Sedation level: Asleep Patient position: sniffing Mask difficulty assessment: 1 - vent by mask Final Airway Details Final airway type: endotracheal airway Successful airway: ETT Cuffed: yes Successful intubation technique: direct laryngoscopy Facilitating devices/methods: intubating stylet Endotracheal tube insertion site: oral Blade: Octavia Blade size: #3 ETT size (mm): 7.0 Cormack-Lehane Classification: grade IIa - partial view of glottis Placement verified by: chest auscultation and capnometry Measured from: lips ETT to lips (cm): 23 Number of attempts at approach: 1 Number of other approaches attempted: 0 Patient: Draiel Wagner Procedure Information Date/Time: 04/04/23729 Procedure: RESECTION SHOULDER MASS RIGHT, FROZEN SECTION (Right: Shoulder) - 90 minutes Location: [address] Operating Room Surgeons: Niranjan Kaufman MD Past Medical History: Past Medical History: No date: Asthma No date: COPD (chronic obstructive pulmonary disease) (HCC) No date: Depression No date: Hearing loss No date: Hypertension No date: Mass of skin of right shoulder No date: Psoriasis Past Surgical History: Past Surgical History: No date: DENTAL SURGERY; N/A Social History: TOBACCO: reports that he has been smoking cigarettes. He has a 20.00 pack-year smoking history. He quit smokeless tobacco use about 20 years ago. His smokeless tobacco use included snuff. ETOH: reports current alcohol use. Social History Substance and Sexual Activity Drug Use Yes Frequency: 1.0 times per week Types: Marijuana Family History: No family history on file. Screening: unknown Clinical information reviewed: Tobacco Allergies Meds Med Hx Surg Hx Fam Hx Soc Hx Physical Exam Airway Mallampati: III TM distance: >3 FB Neck ROM: full Mouth Open: normal Cardiovascular Dental (+) edentulous Pulmonary Abdominal Other findings: Denies GERD - on no medications Anesthesia Plan patient is NPO appropriate Any family history or previous problems with anesthesia no ASA 2 general Any family history or previous problems with anesthesia no (Medical clearance in media Dr. Parks 03/10/2023 ) The patient is a current smoker. Patient was previously instructed to abstain from smoking on day of procedure. Patient smoked on day of procedure. Anesthetic plan and risks discussed with patient. ERAS Type Tylenol, Pepcid IFEOMA Screening negative 03/22/2023 EKG Sinus rhythm Left anterior fascicular block Anterior infarct, old Electronically Signed On 03-23-2023 12:30:07 EST by Andrew Ta documented in this encounter [facility] 04-04-2023 Miscellaneous Notes Formattin g of this note might be different from the original. Ambulates to restroom to void large amount. Gait slightly unsteady. Written discharge instructions reviewed with patient and visitors. Questions answered. Provided with ice pack and he refuses to use at this time. Sling in place. Taking po. Denies need for pain medication when offered. Warm blankets provided. Family brought to bedside. Pt asking questions and taking sips of coke. Received pt to recovery phase 1 moving around in cart with legs bent to chest laying on right side. Arm is in sling. Belongings retrieved from locker. Warm blankets provided. documented in this encounter [facility] 04-04-2023 Note Formatting of this n ote might be different from the original. Ambulates to restroom to void large amount. Gait slightly unsteady. Written discharge instructions reviewed with patient and visitors. Questions answered. Provided with ice pack and he refuses to use at this time. Sling in place. Taking po. Denies need for pain medication when offered. Warm blankets provided. [facility] 04-04-2023 Note Formatting of this n ote might be different from the original. Ambulates to restroom to void large amount. Gait slightly unsteady. Written discharge instructions reviewed with patient and visitors. Questions answered. Provided with ice pack and he refuses to use at this time. Sling in place. Taking po. Denies need for pain medication when offered. Warm blankets provided. [facility] 04-04-2023 Note Interval History and Physical I have interviewed and examined the patient and reviewed the recent History and Physical. There have been no changes to the recent H&P documentation. The patient understands the planned operation and its associated risks and benefits and agrees to proceed. The surgical consent form has been signed. BP (!) 137/91 Pulse 90 Temp 36.8 ?C (98.3 ?F) (Temporal) Resp 18 Ht 1.676 m (5' 6 ) Wt 58.5 kg (129 lb) SpO2 99% BMI 20.82 kg/m? Impression: right shoulder mass Plan: Proceed with planned surgical procedure resection, possible biopsy [facility] 04-04-2023 Note Formatting of this n ote might be different from the original. Family brought to bedside. [facility] 04-04-2023 Note Formatting of this n ote might be different from the original. Family brought to bedside. [facility] 04-04-2023 Procedure anesthe mleani Narrative Procedure Name Responsible Anesthesiologist Anesthesia Start Time Anesthesia Stop Time RESECTION SHOULDER MASS RIGHT, FROZEN SECTION (Right: Shoulder) Gino Bermudez Jr., MD 04/04/23 0734 04/04/23 0905 Events Date Time Event Comment 04/04/2023 0712 0734 In Room 0734 An Start 0734 An Start Data 0738 An Induction The patient was reevaluated immediately before moderate or deep sedation use and before anesthesia induction. 0740 An Intubation 0742 Anesthesia Ready 0806 Proc Start 0850 Proc Fin 0857 An Extubation - Spontaneous ventilation - Patient suctioned - Airway removed without difficulty - Spontaneous ventilation maintained 0900 an stop data 0903 Out of Room 0905 An Stop Meds Name Total midazolam (Versed) injection 2 mg/2 mL 2 mg lidocaine PF (Xylocaine-MPF) local injec tion 2 % 100 mg propofol (Diprivan) injection 10 mg/mL 2 00 mg rocuronium (ZeMuron) 50 mg/5 mL injectio n 50 mg dexAMETHasone (Decadron) PF injection 10 mg/mL 8 mg esmolol (Brevibloc) 100 mg dexmedetomidine (Precedex) 40 mcg in sod ium chloride 0.9 % 10 mL injection 8 mcg ondansetron (Zofran) 2 mg/mL injection 4 mg phenylephrine syringe 1 mg/ 10 mL syring e (IV Push for HYPOTENSION) 100 mcg ketamine injection 10 mg/mL (50 mg/5 mL) prefilled syringe 10 mg sugammadex (Bridion) 200 mg/2 mL injecti on 200 mg clindamycin in D5W (Cleocin) IVPB 600 mg 600 mg lactated Ringer's infusion 1,000 mL * Agents Name O2 N2O Sevoflurane * Blood No blood administrations on file. Lines, Drains, and Airways Type Details Placement Removal Wound/Incision 04/04/23; N; Incisio n; Scapula; Right 04/04/23 0000 by Dina Casanova RN Peripheral IV Placement Date: 03/10 11/28; Placement Time: 0631; Catheter Size: 20 G; Orientation: Anterior, Left; Location: Forearm; Site Prep: Alcohol; Local Anesth: None; Technique: Anatomical landmarks; Inserted by: Tatyana DEGROOT; Insertion Attempts: 1; Difficult Venous Access? No; Patient Tolerance: Other (Comment) (very anxious); Removal Date: 04/04/23; Removal Time: 1005; Removal Reason: Patient discharged 04/04/23 0631 by Stacy Cano RN 04/04/23 1005 by Janneth Alexander RN ETT Placement Date: 03/10 11/28; Placement Time: 0756 (created via procedure documentation); Type: ETT - single; Single Lumen Tube Size: 7 mm; Cuffed: Yes; Location: Oral; Placement Verification: Auscultation, Capnometry; Removal Date: 04/04/23; Removal Time: 0857 04/04/23 0756 by Ijeoma Hurd APRN - BATTERY MECHANIC 04/04/23 0857 by Elier Gomez CRNA [id number]* Perioperative Nursing Note - Janneth Alexander RN - 04/04/2023 9:20 AM EST Pt asking questions and taking sips of coke. [address]27-2023 Note* Perioperative Nursing Note - Janneth Alexander RN - 04/04/2023 9:20 AM EST Pt asking questions and taking sips of coke. [address]27-2023 Note* Perioperative Nursing Note - Janneth Alexander RN - 04/04/2023 9:04 AM EST Received pt to recovery phase 1 moving around in cart with legs bent to chest laying on right side.Arm is in sling. Belongings retrieved from locker. Warm blankets provided. [address]27-2023 Note* Perioperative Nursing Note - Janneth Alexander RN - 04/04/2023 9:04 AM EST Received pt to recovery phase 1 moving around in cart with legs bent to chest laying on right side.Arm is in sling. Belongings retrieved from locker. Warm blankets provided. [address]27-2023 Anesthesiology procedure note* Anesthesia Procedure Notes - KOTA Rocha CRNA - 04/04/2023 8:06 AM ESTAssociated Order(s): Airway Airway Date/Time: 04/04/2023 7:56 AM Urgency: scheduled Airway not difficult General Information and Staff Patient location during procedure: Procedural Resident/BATTERY MECHANIC: KOTA Rocha CRNA Performed: BATTERY MECHANIC Performed by: KOTA Rocha CRNA Authorized by: KOTA Rocha CRNA Indications and Patient Condition Indications for airway management: anesthesia Sedation level: Asleep Patient position: sniffing Mask difficulty assessment: 1 - vent by mask Final Airway Details Final airway type: endotracheal airway Successful airway: ETT Cuffed: yes Successful intubation technique: direct laryngoscopy Facilitating devices/methods: intubating stylet Endotracheal tube insertion site: oral Blade: Octavia Blade size: #3 ETT size (mm): 7.0 Cormack-Lehane Classification: grade IIa - partial view of glottis Placement verified by: chest auscultation and capnometry Measured from: lips ETT to lips (cm): 23 Number of attempts at approach: 1 Number of other approaches attempted: 0 [place] Phone: 1(405) 927-140811-27-2023 History and physical note* Niranjan Kaufman MD - 04/04/2023 7:44 AM EST Interval History and Physical I have interviewed and examined the patient and reviewed the recent History and Physical. There have been no changes to the recent H&P documentation. The patient understands the planned operation and its associated risks and benefits and agrees to proceed. The surgical consent form has been signed. BP (!) 137/91 Pulse 90 Temp 36.8 C (98.3 F) (Temporal) Resp 18 Ht 1.676 m (5' 6 ) Wt 58.5kg (129 lb) SpO2 99% BMI 20.82 kg/m Impression: right shoulder mass Plan: Proceed with planned surgical procedure resection, possible biopsy [place] Phone: 1(307) 784-162111-27-2023 History and physical note* Niranjan Kaufman MD - 04/04/2023 7:44 AM EST Interval History and Physical I have interviewed and examined the patient and reviewed the recent History and Physical. There have been no changes to the recent H&P documentation. The patient understands the planned operation and its associated risks and benefits and agrees to proceed. The surgical consent form has been signed. BP (!) 137/91 Pulse 90 Temp 36.8 C (98.3 F) (Temporal) Resp 18 Ht 1.676 m (5' 6 ) Wt 58.5kg (129 lb) SpO2 99% BMI 20.82 kg/m Impression: right shoulder mass Plan: Proceed with planned surgical procedure resection, possible biopsy documented in this [facility]11-27-2023 Hospital Discharge instructions* Discharge Instructions* Francis Ledsema MD - 04/04/2023 7:23 AM EST Images from the original note were not included. General Orthopedic Discharge Instructions The following instructions have been prepared to help you when you leave the hospital. These guidelines are for the post-surgery period. Activity: Ease into normal activity as tolerated. Do not lift anything heavier than a cup of coffee with your right arm Wear your sling for comfort, ok to come out of sling if you are comfortable Ok for range of motion as tolerated of your shoulder after one week, for the first week limit your shoulder range of motion to allow your incision to heal Medications: see medication instructions. Please be sure to read and understand the information provided by your pharmacy. Ask your Pharmacist if any questions. Wound Care and Hygiene: -Wash hands before touching or changing dressings -Do Not touch incision -Leave dressing till post-op day 3 and reapply dressing if wound is leaking. If wound is dry, you may leave dressing off -May shower starting post-op day 3 Call Your Doctor for: -Excessive bleeding/swelling of incision -Fever with temperature above 100 oF Anesthesia Precautions: -Do Not operate any vehicle (automobile, bicycle, motorcycle) or power tools for 24 hours -Do Not drink alcoholic beverages for 24 hours -As precaution to prevent post-operative nausea and vomiting, start your diet with liquids, then progress to light foods. If tolerated, resume normal diet. * Attachments The following attachments cannot be sent through Care Everywhere. * General Anesthesia Discharge Instructions ([place]) documented in this [facility]11-14-2023 NotePatient: Fatemehericka Wagner Procedure Information Date/Time: 04/04/23729 Procedure: RESECTION SHOULDER MASS RIGHT, FROZEN SECTION (Right: Shoulder) - 90 minutes Location: [address] Operating Room Surgeons: Niranjan Kaufman MD Past Medical History: Past Medical History: No date: Asthma No date: COPD (chronic obstructive pulmonary disease) (HCC) No date: Depression No date: Hearing loss No date: Hypertension No date: Mass of skin of right shoulder No date: Psoriasis Past Surgical History: Past Surgical History: No date: DENTAL SURGERY; N/A Social History: TOBACCO: reports that he has been smoking cigarettes. He has a 20.00 pack-year smoking history. He quit smokeless tobacco use about 20 years ago. His smokeless tobacco use included snuff. ETOH: reports current alcohol use. Social History Substance and Sexual Activity Drug Use Yes ? Frequency: 1.0 times per week ? Types: Marijuana Family History: No family history on file. Screening: unknown Clinical information reviewed: Tobacco Allergies Meds Med Hx Surg Hx Fam Hx Soc Hx Physical Exam Airway Mallampati: III TM distance: >3 FB Neck ROM: full Mouth Open: normal Cardiovascular Dental (+) edentulous Pulmonary Abdominal Other findings: Denies GERD - on no medications Anesthesia Plan patient is NPO appropriate Any family history or previous problems with anesthesia no ASA 2 general Any family history or previous problems with anesthesia no (Medical clearance in media Dr. Parks 03/10/2023 ) The patient is a current smoker. Patient was previously instructed to abstain from smoking on day of procedure. Patient smoked on day of procedure. Anesthetic plan and risks discussed with patient. ERAS Type Tylenol, Pepcid IFEOMA Screening negative 03/22/2023 EKG Sinus rhythm Left anterior fascicular block Anterior infarct, old Electronically Signed On 03-23-2023 12:30:07 EST by Andrew Mon [facility]11-14-2023 NoteComprehensive Pre Surgical History and Physical ? Name: Dariel Wagner : 1975 (Age-48 y.o.) Date of Service: Pt seen/examined on 03/22/2023 Procedure Information Date/Time: 04/04/23 0730 Procedure: RESECTION SHOULDER MASS RIGHT, FROZEN SECTION (Right: Shoulder) - 90 minutes Location: [address] Operating Room Surgeons: Niranjan Kaufman MD Chief Complaint: Right shoulder mass ASSESSMENT/PLAN: Patient is considered low/intermediate risk for this intermediate level 1 risk procedure/surgery () with no reducible risk factors. Based on the above evaluation, the benefits of the planned procedure likely exceed the risks. The patient is medically optimized to proceed with the planned procedure without any further cardiopulmonary testing. 1) Right shoulder mass - Managed per surgery 2) HTN Yulivasc Has not taken BP med yet today, instructed pt to take medication as directed 3) COPD/ tobacco abuse Cannot afford prescribed inhalers- instructed pt to call PCP to have different meds ordered or GoodRx usage Smoking 1ppd+ Emblem Drawer In to stop Visit Type: Pre-Admission Testing Visit Labs Ordered: YES - PER PAT PROTOCOL Sleep Referral Ordered: NO - NEGATIVE SCREEN PER SLEEP REFERRAL PROTOCOL Total time spent (which include face to face and non face to face encounters) : 30 minutes Toxic drug monitoring/narrow therapeutic index drug monitoring : # Drug name : multiple # Route administered : oral # Method of monitoring : labs/ ekg PAT Protocol referenced includes: 1. Anesthesia Lab Protocol Orders 2. Perioperative Cardiovascular Risk Assessment 3. Anesthesia Assessment 4. Pain Assessment and Acute Pain Service Consult (if appropriate) 5. Medical Clearance/Consult from Internal Medicine ([facility]) 6. Shower/Wash Order (for designated surgeries) 7. IFEOMA Screen and Sleep Clinic Referral (if appropriate) History Of Present Illness: 48 y.o. male who we are asked to see/evaluate by Dr. Kaufman for pre-operative evaluation prior to above procedure. ? Denies history of MA, CAD, CHF, TIA, CVA Past Medical History: Past Medical History: No date: Asthma No date: COPD (chronic obstructive pulmonary disease) (HCC) No date: Depression No date: Hearing loss No date: Hypertension No date: Mass of skin of right shoulder No date: Psoriasis Past Surgical History: Past Surgical History: No date: DENTAL SURGERY; N/A Medications Prior to Admission: Prior to Admission medications Medication Sig Start Date End Date Taking? Authorizing Provider AndresODIPine (Norvasc) 10 MG tablet Take by mouth daily. Yes Historical Provider, multivitamin (Theragran) tablet Take 1 tablet by mouth daily. Yes Historical Provider, CHRONIC NARCOTIC USE: No Allergies: Penicillins If patient has opioid allergy, is it okay to take Acetaminophen: Yes Social History: TOBACCO: reports that he has been smoking cigarettes. He has a 20.00 pack-year smoking history. He quit smokeless tobacco use about 20 years ago. His smokeless tobacco use included snuff. ETOH: reports current alcohol use. Social History Substance and Sexual Activity Drug Use Yes Frequency: 1.0 times per week Types: Marijuana Family History: No family history on file. REVIEW OF SYSTEMS: Review of Systems Constitutional: Negative for chills and fever. HENT: Negative for congestion and trouble swallowing. Respiratory: Negative for cough and shortness of breath. Cardiovascular: Negative for chest pain and leg swelling. Gastrointestinal: Negative for abdominal pain, nausea and vomiting. Skin: Negative for rash. Neurological: Negative for weakness and headaches. Physical Exam: Physical Exam Constitutional: Appearance: Normal appearance. HENT: Head: Normocephalic and atraumatic. Mouth/Throat: Mouth: Mucous membranes are moist. Pharynx: Oropharynx is clear. Eyes: Pupils: Pupils are equal, round, and reactive to light. Cardiovascular: Rate and Rhythm: Normal rate. Pulmonary: Effort: Pulmonary effort is normal. Breath sounds: Normal breath sounds. Musculoskeletal: General: Normal range of motion. Cervical back: Normal range of motion. Skin: General: Skin is warm and dry. Capillary Refill: Capillary refill takes less than 2 seconds. Neurological: General: No focal deficit present. Mental Status: He is alert and oriented to person, place, and time. Psychiatric: Mood and Affect: Mood normal. Behavior: Behavior normal. Vitals: Vitals Value Taken Time BP 127/101 03/22/23 0938 Temp 37.4 ?C (99.4 ?F) 03/22/23 0938 Pulse 94 03/22/23 0938 Resp 16 03/22/23 0938 SpO2 98 % 03/22/23 09 Labs: Per protocol Ton's Simple Cardiac Risk Index: TON'S SIMPLE CARDIAC RISK SCORE: 0 Interpretation: 0 Points Class I 0.5% 1 Point Class II 1.3% 2 Points Class III (more content not included)...[facility] 03-22-2023 NoteComprehensive Pre Surgical History and Physical ? Name: Dariel Wagner : 1975 (Age-48 y.o.) Date of Service: Pt seen/examined on 03/22/2023 Procedure Information Date/Time: 04/04/23729 Procedure: RESECTION SHOULDER MASS RIGHT, FROZEN SECTION (Right: Shoulder) - 90 minutes Location: [address] Operating Room Surgeons: Niranjan Kaufman MD Chief Complaint: Right shoulder mass ASSESSMENT/PLAN: Patient is considered low/intermediate risk for this intermediate level 1 risk procedure/surgery () with no reducible risk factors. Based on the above evaluation, the benefits of the planned procedure likely exceed the risks. The patient is medically optimized to proceed with the planned procedure without any further cardiopulmonary testing. 1) Right shoulder mass - Managed per surgery 2) HTN Norvasc Has not taken BP med yet today, instructed pt to take medication as directed 3) COPD/ tobacco abuse Cannot afford prescribed inhalers- instructed pt to call PCP to have different meds ordered or GoodRx usage Smoking 1ppd+ Emblem Drawer In to stop Visit Type: Pre-Admission Testing Visit Labs Ordered: YES - PER PAT PROTOCOL Sleep Referral Ordered: NO - NEGATIVE SCREEN PER SLEEP REFERRAL PROTOCOL Total time spent (which include face to face and non face to face encounters) : 30 minutes Toxic drug monitoring/narrow therapeutic index drug monitoring : # Drug name : multiple # Route administered : oral # Method of monitoring : labs/ ekg PAT Protocol referenced includes: 1. Anesthesia Lab Protocol Orders 2. Perioperative Cardiovascular Risk Assessment 3. Anesthesia Assessment 4. Pain Assessment and Acute Pain Service Consult (if appropriate) 5. Medical Clearance/Consult from Internal Medicine ([facility]) 6. Shower/Wash Order (for designated surgeries) 7. IFEOMA Screen and Sleep Clinic Referral (if appropriate) History Of Present Illness: 48 y.o. male who we are asked to see/evaluate by Dr. Kaufman for pre-operative evaluation prior to above procedure. ? Denies history of MA, CAD, CHF, TIA, CVA Past Medical History: Past Medical History: No date: Asthma No date: COPD (chronic obstructive pulmonary disease) (HCC) No date: Depression No date: Hearing loss No date: Hypertension No date: Mass of skin of right shoulder No date: Psoriasis Past Surgical History: Past Surgical History: No date: DENTAL SURGERY; N/A Medications Prior to Admission: Prior to Admission medications Medication Sig Start Date End Date Taking? Authorizing Provider amLODIPine (Norvasc) 10 MG tablet Take by mouth daily. Yes Historical Provider, multivitamin (Theragran) tablet Take 1 tablet by mouth daily. Yes Historical Provider, CHRONIC NARCOTIC USE: No Allergies: Penicillins If patient has opioid allergy, is it okay to take Acetaminophen: Yes Social History: TOBACCO: reports that he has been smoking cigarettes. He has a 20.00 pack-year smoking history. He quit smokeless tobacco use about 20 years ago. His smokeless tobacco use included snuff. ETOH: reports current alcohol use. Social History Substance and Sexual Activity Drug Use Yes Frequency: 1.0 times per week Types: Marijuana Family History: No family history on file. REVIEW OF SYSTEMS: Review of Systems Constitutional: Negative for chills and fever. HENT: Negative for congestion and trouble swallowing. Respiratory: Negative for cough and shortness of breath. Cardiovascular: Negative for chest pain and leg swelling. Gastrointestinal: Negative for abdominal pain, nausea and vomiting. Skin: Negative for rash. Neurological: Negative for weakness and headaches. Physical Exam: Physical Exam Constitutional: Appearance: Normal appearance. HENT: Head: Normocephalic and atraumatic. Mouth/Throat: Mouth: Mucous membranes are moist. Pharynx: Oropharynx is clear. Eyes: Pupils: Pupils are equal, round, and reactive to light. Cardiovascular: Rate and Rhythm: Normal rate. Pulmonary: Effort: Pulmonary effort is normal. Breath sounds: Normal breath sounds. Musculoskeletal: General: Normal range of motion. Cervical back: Normal range of motion. Skin: General: Skin is warm and dry. Capillary Refill: Capillary refill takes less than 2 seconds. Neurological: General: No focal deficit present. Mental Status: He is alert and oriented to person, place, and time. Psychiatric: Mood and Affect: Mood normal. Behavior: Behavior normal. Vitals: Vitals Value Taken Time BP 127/101 03/22/2338 Temp 37.4 ?C (99.4 ?F) 03/22/23937 Pulse 94 03/22/23937 Resp 16 03/22/23937 SpO2 98 % 03/22/23937 Labs: Per protocol Ton's Simple Cardiac Risk Index: TON'S SIMPLE CARDIAC RISK SCORE: 0 Interpretation: 0 Points Class I 0.5% 1 Point Class II 1.3% 2 Points Class III (more content not included)...[facility] 03-22-2023 Anesthesiology Preoperative evaluation and management note* Anesthesia Preprocedure Evaluation - Gino Bermudez Jr., MD - 03/22/2023 10:01 AM EST Patient: Dariel Wagner Procedure Information Date/Time: 04/04/23729 Procedure: RESECTION SHOULDER MASS RIGHT, FROZEN SECTION (Right: Shoulder) - 90 minutes Location: [address] Operating Room Surgeons: Niranjan Kaufman MD Past Medical History: Past Medical History: No date: Asthma No date: COPD (chronic obstructive pulmonary disease) (HCC) No date: Depression No date: Hearing loss No date: Hypertension No date: Mass of skin of right shoulder No date: Psoriasis Past Surgical History: Past Surgical History: No date: DENTAL SURGERY; N/A Social History: TOBACCO: reports that he has been smoking cigarettes. He has a 20.00 pack-year smoking history. He quit smokeless tobacco use about 20 years ago. His smokeless tobacco use included snuff. ETOH: reports current alcohol use. Social History Substance and Sexual Activity Drug Use Yes Frequency: 1.0 times per week Types: Marijuana Family History: No family history on file. Screening: unknown Clinical information reviewed: Tobacco Allergies Meds Med Hx Surg Hx Fam Hx Soc Hx Physical Exam Airway Mallampati: III TM distance: >3 FB Neck ROM: full Mouth Open: normal Cardiovascular Dental (+) edentulous Pulmonary Abdominal Other findings: Denies GERD - on no medications Anesthesia Plan patient is NPO appropriate Any family history or previous problems with anesthesia no ASA 2 general Any family history or previous problems with anesthesia no (Medical clearance in media Dr. Parks 03/10/2023 ) The patient is a current smoker. Patient was previously instructed to abstain from smoking on day of procedure. Patient smoked on day of procedure. Anesthetic plan and risks discussed with patient. ERAS Type Tylenol, Pepcid IFEOMA Screening negative 03/22/2023 EKG Sinus rhythm Left anterior fascicular block Anterior infarct, old Electronically Signed On 03-23-2023 12:30:07 EST by Andrew Ta [facility] [employer] Work Phone: [phone] 367-752510-24-2023 History of Present illness Narrative* Niranjan Kaufman MD - 03/01/2023 1:45 PM EDT [facility] [address] [place] [address] [place] [id number] Dept: [phone] Dept Chief Complaint Patient presents with New Patient Right upper extremity mass/Dr Marybeth Vázquez MARIIA Vieira is a 47-year-old male who presents today at the referral of his physicians community assistant Sha. His primary concern is a right shoulder mass which she originally noticed approximately 10 years ago. He noted 2 years of growth and since that time the mass has remained stable in size. He endorses occasional pain in the shoulder however this is fairly mild. He denies having any activity restrictions as a result of the mass, night pain, fevers, chills, trauma, or history of cancer. He denies any other areas of concern or additional masses. 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 There are no problems to display for this patient. Allergies Allergen Reactions Penicillins No family history on file. Past Medical History: Diagnosis Date Asthma Depression Hearing loss Hypertension Mass of skin of right shoulder Psoriasis Social History Socioeconomic History Marital status: Single Spouse name: Not on file Number of children: Not on file Years of education: Not on file Highest education level: Not on file Occupational History Not on file Tobacco Use Smoking status: Every Day Packs/day: 1 Types: Cigarettes Smokeless tobacco: Never Substance and Sexual Activity Alcohol use: Yes Comment: occasional Drug use: Yes Types: Marijuana Sexual activity: Not on file Other Topics Concern Not on file Social History Narrative Not on file Social Determinants of Health Financial Resource Strain: Not on file Food Insecurity: Not on file Transportation Needs: Not on file Physical Activity: Not on file Stress: Not on file Social Connections: Not on file Intimate Partner Violence: Not on file Housing Stability: Not on file Past Surgical History: Procedure Laterality Date DENTAL SURGERY N/A Current Outpatient Medications Medication Sig Dispense Refill amLODIPine (Norvasc) 10 MG tablet Take by mouth daily. multivitamin (Theragran) tablet Take 1 tablet by mouth daily. No current facility-administered medications for this visit. Review of Systems Constitutional: Positive for chills and fever. Night sweats Respiratory: Positive for shortness of breath. Musculoskeletal: Mass right shoulder noted approx 10 years ago mass has increased in size Pain off and on to right shoulder full ROM right shoulder OBJECTIVE Vitals: 03/01/23 1401 BP: 110/62 Weight: 58.5 kg (129 lb) Height: 1.676 m (5' 6 ) Physical Exam Physical Exam Vitals and nursing note reviewed. Constitutional: Appearance: Normal appearance. Cardiovascular: Rate and Rhythm: Normal rate. Pulmonary: Effort: Pulmonary effort is normal. Skin: General: Skin is warm and dry. Neurological: General: No focal deficit present. Mental Status: He is alert and oriented to person, place, and time. Psychiatric: Mood and Affect: Mood normal. Behavior: Behavior normal. RUE There is a soft, mobile soft tissue mass located at the posterior superior aspect of the shoulder. There are a couple areas of firmness within the mass itself. It is mobile with respect to the skin. This area is nontender to palpation and motor and sensory is intact as well. 5/5 AIN/PIN/Ulnar Palpable radial pulse XRAY INTERPRETATION Outside radiographic images were individually reviewed and interpreted. X-ray of the right shoulderdemonstrates no acute fractures or dislocations. After reviewing the MRI there does appear to be a soft tissue prominence just superior to the acromion and clavicle. 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 The mass is not extend deep to the fascia and is bright on T1 anddark on T2 with a mild amount of heterogeneity. ASSESSMENT 1. Mass of skin of right shoulder 47-year-old male right posterior shoulder soft tissue mass; likely lipomatous in nature PLAN Had a long discussion with Mr. Wagner reviewing his presentation, physical exam, and radiographic findings. He has a fairly sizable soft tissue mass about the right shoulder that appears to be lipomatous in nature. Given the duration of symptoms, areas of firmness on exam, and heterogeneity on MRI I recommended biopsy and wide resection to confirm the diagnosis and also be therapeutic. I discussed with him that radiographically this appears to be a benign lesion however for the reasons given above is my recommendation to have this mass excised. Mr. Wagner understands the plan and is eager to return to work following his surgery. He will call to schedule the surgery at his convenience after obtaining medical clearance. Risks and benefits of the proposed procedure were discussed with the patient at length. Risks included but not limited to infection, DVT/PE, cardiac complications including , risks associated with general anesthesia and damage to normal structures. All of the above were discussed with patient and they ultimately elected to proceed. All questions were answered. I will update his physicians community assistant, Marybeth Vázquez with my recommendations. No follow-ups on file. Voice recognition was used for portions of this note and although it was reviewed prior to signing some incorrect words or phrases could be present. Electronically signedby Niranjan Kaufman MD on 03/04/2023 at 10:02 AM documented [facility]* Diagnosis Mass of skin of right shoulder- Primary documented in this encounter [facility]* Diagnosis Mass of skin of right shoulder- Primary Localized swelling, mass and lump, right upper limb documented in this encounter [facility]* Diagnosis 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Primary documented in this encounter [facility] Summary Purpose Family History No Family History Records FoundNo Family History Records FoundNo Family History Records Found Advance Directives No Advanced Directives Records FoundNo Advanced Directives Records FoundNo Advanced Directives Records Found Additional Source Comments (unrecognized sect ion and content) No Status Records FoundNo Status Records FoundNo Status Records Found INFORMATION SOURCE (unrecogn ized section and content) DATE CREATED AUTHOR 09/30/[address] [facility] DATE CREATED AUTHOR AUTHOR'S ORGANIZ ATION 10/19/2022 Marlo Farley [facility] DATE CREATED AUTHOR AUTHOR'S ORGANIZ ATION 04/25/2023 [facility] Reason for Visit (unrecogniz ed section and content) Reason Comments New Patient Right upper extremit y mass/Dr Marybeth Vázquez Specialty Diagnoses / Procedures Referred By Contac t Referred To Contact Diagnoses Localized swelling, mass and lump, right upper limb Right shoulder mass Procedures OR EXC TUMOR SOFT TISSUE SHOULDER SUBFASCIAL 5 CM/> RESECTION SHOULDER MASS RIGHT, FROZEN SECTION Niranjan Kaufman MD [address] [facility] [address] [place] [address] [facility] [address] [place] [address] Referral ID Status Reason Start Date Expiration Date Visits Re quested Visits Authorized [id number] 1 1 Reason Comments Post-op Marginal excision of Right shoulder mass-14 cm and subcutaneous lipomatous lesion Care Teams (unrecognized sec tion and content) 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 Relationship Specialty Start Date End Date [facility] [address] [place] [address] PCP - General 03/01/23 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 Relationship 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 Start Date End Date [facility] [address] [place] [address] PCP - General 03/01/23 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 Relationship Specialty Start Date End Date [facility] [address] [place] [address] PCP - General 03/01/23 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 Do not administer if patient has taken tylenol <4 hours earlier. Do not give if contraindicated ie. patient has active liver disease or cirrhosis. 0640 (Given - Provid er: Stacy Cano, ZANE) clindamycin in D5W (Cleocin) IVPB 600 mg (COMPLETED) 600 mg, IntraVENous, at 100 mL/hr, Administer over 30 Minutes, Once, On Tue04/04/23 at 0615, For 1 dose, Preprocedure, Administer within 1 hour prior to Incision. premix bag, Suspected Indication (Select all that apply): Surgical Prophylaxis 0738 (Given - Provid er: Ijeoma Hurd APRN - BATTERY MECHANIC)0905 (Anesthesia Volume Adjustment - Provider: Elier Gomez CRNA) famotidine (Pepcid) tablet 20 mg (COMPLETED) 20 mg, Oral, Once, On Tue04/04/23 at 0615, For 1 dose, Preprocedure 0640 (Given - Provid er: Stacy Cano, ZANE) gabapentin (Neurontin) capsule 100 mg 100 mg, Oral, Once, On Tue04/04/23 at 0615, For 1 dose, Preprocedure, For Age >69 or Low GFR. 0615 (Canceled Entry - Provider: Automatic Discharge Provider - Comment: Automatically canceled at discontinue of medication order) sodium chloride 0.9 % bolus 500 mL 500 mL, IntraVENous, at 1,000 mL/hr, Administer over 0.5 Hours, Once, On Tue04/04/23 at 0900, For 1 dose, Recovery (only), Indications: Anti-nausea 0900 (Canceled Entry - Provider: Automatic Discharge Provider - Comment: Automatically canceled at discontinue of medication order) sodium chloride 0.9% (NS) flush 10 mL 10 mL, IntraVENous, Every 12 hours scheduled (2 times per day), First dose on Tue04/04/23 at 0900, Preprocedure 0900 (Canceled Entry - Provider: Automatic Discharge Provider - Comment: Automatically canceled at discontinue of medication order) sodium chloride 0.9% (NS) flush 5-40 mL 5-40 mL, IntraVENous, Every 12 hours, First dose on Tue04/04/23 at 0615, Preprocedure, For Line Patency: Peripheral IV = 5 mL; Midline or Central Line = 10 mL/lumen. If following IV push medication, administer flush at same rate as the IV push. Flush volume is determined by type of infusion therapy being given. For non-viscous solutions use: Peripheral IV = 5 mL Midline or Central Line = 10 mL/lumen For viscous solutions (i.e. blood components, parenteral nutrition, contrast media, or after obtaining blood sample) use: Peripheral IV = 10 mL Midline or Central Line = 20 mL/lumen 0615 (Canceled Entry - Provider: Automatic Discharge Provider - Comment: Automatically canceled at discontinue of medication order) Continuous Medication Order 04/02/2023 04/03/2023 04/04/2023 lactated Ringer's infusion 50 mL/hr, IntraVENous, Continuous, Starting on Tue04/04/23 at 0615, Preprocedure, Upon admission to sameday - please start iv if patient does not have iv access. Use 500ml NS for patients on dialysis. 0639 (New Bag - Prov ider: Stacy Cano RN)0734 (Continued by Anesthesia - Provider: Ijeoma Hurd APRN - KYREE)0740 (Rate/Dose Change - Provider: KOTA Rocha CRNA)0905 (Anesthesia Volume Adjustment - Provider: Elier Gomez CRNA) lactated ringers infusion 125 mL/hr, IntraVENous, Continuous, Starting on Tue04/04/23 at 0900, Recovery (only) 0900 (Canceled Entry - Provider: Automatic Discharge Provider - Comment: Automatically canceled at discontinue of medication order) PRN Medication Order 04/02/2023 04/03/2023 04/04/2023 ALPRAZolam (Xanax) disintegrating tablet 0.25 mg 0.25 mg, Oral, PRN, anxiety, Starting on Tue04/04/23 at 0607, For 1 dose, Preprocedure, Using dry hands, place tablet on top of tongue and allow to disintegrate. Administration with water is not necessary. bupivacaine (Marcaine) 0.5 % injection (CANCELED) As needed, Starting on Tue04/04/23 at 0844, Intraprocedure 0844 (Given - Provid er: Francis Ledesma MD - Comment: opsite) diphenhydrAMINE (BENADryl) injection 12.5 mg 12.5 mg, IntraVENous, Once PRN, itching, Starting on Tue04/04/23 at 0859, For 1 dose, Recovery (only) hydrALAZINE (Apresoline) injection 5 mg(Linked Group 1) 5 mg, IntraVENous, Every 15 min PRN, high blood pressure, for SBP greater than 160 mmHg for 2 consecutive measurements taken from different sites, Starting on Tue04/04/23 at 0859, For 2 doses, Recovery (only), PRN for SBP > 160 for 2 consecutive measurements, and if one of the following conditions is met: 1) If IV labetolol is ineffective. 2) If HR is under 60. 3) If patient has heart block, COPD or asthma. If both labetalol and hydralazine ineffective, notify anesthesia provider. HYDROmorphone (Dilaudid) injection 0.25 mg 0.25 mg, IntraVENous, Every 5 min PRN, moderate pain (4-6), Starting on Tue04/04/23 at 0859, For 4 doses, Recovery (only), Phase I and Phase II- Initial therapy for moderate pain (4-6). Restricted to a 90 minute time frame starting when the patient can verbally state their pain score. If after 2 doses the pain score does not decrease by more than one point, then call the provider. If oral meds are utilized, do not return to initial therapy medications. HYDROmorphone (Dilaudid) injection 0.5 mg 0.5 mg, IntraVENous, Every 5 min PRN, severe pain (7-10), Starting on Tue04/04/23 at 0859, For 4 doses, Recovery (only), Phase I and Phase II- Initial therapy for moderate pain (4-6). Restricted to a 90 minute time frame starting when the patient can verbally state their pain score. If after 2 doses the pain score does not decrease by more than one point, then call the provider. If oral meds are utilized, do not return to initial therapy medications. labetalol (Normodyne,Trandate) injection 5 mg(Linked Group 1) 5 mg, IntraVENous, Every 10 min PRN, high blood pressure, for SBP greater than 160 mmHg for 2 consecutive measurements taken from different sites., Starting on Tue04/04/23 at 0859, For 2 doses, Recovery (only), PRN for SBP >160 for 2 consecutive measurements, if HR is 60 or greater. If beta yovani is contraindicated (HR less than 60, heart block, COPD or asthma) use hydralazine IV order. LORazepam (Ativan) injection 0.5 mg 0.5 mg, IntraVENous, Once PRN, for anxiety or muscle spasm., Starting on Tue04/04/23 at 0859, For 1 dose, Recovery (only), For IV doses dilute dose with 1ml NS. meperidine (Demerol) injection 12.5 mg 12.5 mg, IntraVENous, Every 5 min PRN, shivering, Starting on Tue04/04/23 at 0859, For 4 doses, Recovery (only), May give every 5 minutes to max of 50mg. metoclopramide (Reglan) injection 5 mg 5 mg, IntraVENous, Once PRN, nausea, Starting on Tue04/04/23 at 0859, For 1 dose, Recovery (only), Secondary antiemetic therapy. Notify anesthesia provider before administration. ondansetron (Zofran) injection 4 mg 4 mg, IntraVENous, Once PRN, nausea, Starting on Tue04/04/23 at 0859, For 1 dose, Recovery (only), Initial antiemetic therapy. oxyCODONE (Roxicodone) immediate release tablet 10 mg(Linked Group 2) 10 mg, Oral, PRN, severe pain (7-10), Starting on Tue04/04/23 at 0859, For 1 dose, Recovery (only), PHASE II oxyCODONE (Roxicodone) immediate release tablet 5 mg(Linked Group 2) 5 mg, Oral, PRN, moderate pain (4-6), Starting on Tue04/04/23 at 0859, For 1 dose, Recovery (only), PHASE II sodium chloride 0.9 % infusion 5-250 mL/hr, IntraVENous, PRN, if patient receiving piggyback infusions and maintenance fluids are not ordered OR KVO fluids to protect IV site / prevent frequent line interruptions/ long duration, Starting on Tue04/04/23 at 0607, Preprocedure, For piggyback infusion, administer at same rate as piggyback for a total of 25 mL. Enter 25 mL into dose field and piggyback rate into rate field of order. If piggyback is infusing at a rate less than 100 mL/hr, enter 25 mL into dose field and 100 mL/hr into rate field of order. For KVO fluids, enter rate of 20 mL/hr or less into rate field of order. sodium chloride 0.9 % infusion 5-250 mL/hr, IntraVENous, PRN, if patient receiving piggyback infusions and maintenance fluids are not ordered OR KVO fluids to protect IV site / prevent frequent line interruptions / long duration, Starting on Tue04/04/23 at 0607, Preprocedure, For piggyback infusion, administer at same rate as piggyback for a total of 25 mL. Enter 25 mL into dose field and piggyback rate into rate field of order. If piggyback is infusing at a rate less than 100 mL/hr, enter 25 mL into dose field and 100 mL/hr into rate field of order. For KVO fluids, enter rate of 20 mL/hr or less into rate field of order. sodium chloride 0.9% (NS) flush 10 mL 10 mL, IntraVENous, PRN, line care, Starting on Tue04/04/23 at 0607, Preprocedure, After every IV line use sodium chloride 0.9% (NS) flush 5-40 mL 5-40 mL, IntraVENous, PRN, line care, After every IV line use, Starting on Tue04/04/23 at 0607, Preprocedure, For Line Patency: Peripheral IV = 5 mL; Midline or Central Line = 10 mL/lumen. If following IV push medication, administer flush at same rate as the IV push. Flush volume is determined by type of infusion therapy being given. For non-viscous solutions use: Peripheral IV = 5 mL Midline or Central Line = 10 mL/lumen For viscous solutions (i.e. blood components, parenteral nutrition, contrast media, or after obtaining blood sample) use: Peripheral IV = 10 mL Midline or Central Line = 20 mL/lumen Linked Groups Order Group 1: labetalol (Normodyne,Trandate) injection 5 mgJump to med 5 mg, IntraVENous, Every 10 min PRN, high blood pressure, for SBP greater than 160 mmHg for 2 consecutive measurements taken from different sites., Starting on Tue04/04/23 at 0859, For 2 doses, Recovery (only), PRN for SBP >160 for 2 consecutive measurements, if HR is 60 or greater. If beta yovani is contraindicated (HR less than 60, heart block, COPD or asthma) use hydralazine IV order. Or hydrALAZINE (Apresoline) injection 5 mgJump to med 5 mg, IntraVENous, Every 15 min PRN, high blood pressure, for SBP greater than 160 mmHg for 2 consecutive measurements taken from different sites, Starting on Tue04/04/23 at 0859, For 2 doses, Recovery (only), PRN for SBP > 160 for 2 consecutive measurements, and if one of the following conditions is met: 1) If IV labetolol is ineffective. 2) If HR is under 60. 3) If patient has heart block, COPD or asthma. If both labetalol and hydralazine ineffective, notify anesthesia provider. Group 2: oxyCODONE (Roxicodone) immediate release tablet 5 mgJump to med 5 mg, Oral, PRN, moderate pain (4-6), Starting on Tue04/04/23 at 0859, For 1 dose, Recovery (only), PHASE II Or oxyCODONE (Roxicodone) immediate release tablet 10 mgJump to med 10 mg, Oral, PRN, severe pain (7-10), Starting on Tue04/04/23 at 0859, For 1 dose, Recovery (only), PHASE II FOR RECORDS PERTAINING TO PATIENTS WHO ARE OR HAVE BEEN ENROLLED IN A CHEMICAL DEPENDENCY/SUBSTANCEABUSE PROGRAM, SOME INFORMATION MAY BE OMITTED. This clinical summary was aggregated from multiple sources. Caution should be exercised in using it in the provision of clinical care. This summary normalizes information from multiple sources, and as a consequence, information in this document may materially change the coding, format and clinical context of patient data. In addition, data may be omitted in some cases. CLINICAL DECISIONS SHOULD BE BASED ON THE PRIMARY CLINICAL RECORDS. [email or web address]. provides no warranty or guarantee of the accuracy or completeness of information in this document.
[2024-03-02 19:38] LABS: Absolute Lymphocyte Count 2.22 X10^3/uL (0.83-4.51); Absolute Neutrophil Count 6.8 X10^3/uL (2.0-7.7); Basophil# 0.04 X10^3/uL; Basophil% 0.4 % (0-1); Eosinophil# 0.07 X10^3/uL; Eosinophils% 0.7 % (0-5); Hematocrit 45.1 % (40-54); Hemoglobin 16.1 g/dL (13.0-16.5); Lymphocyte # 2.22 X10^3/ul (0.83-4.51); Lymphocyte % 23.4 % (19-41); Mean Corp Hgb Conc 35.7 g/dL (32-36); Mean Corpuscular Hgb 31.3 pg (27.0-32.0); Mean Corpuscular Volume 87.6 fL (80-94); Mean Platelet Vol. 13.7 fl (6.2-12.0); Monocyte# 0.37 X10^3/uL; Monocyte% 3.9 % (0-10); NRBC Flagged by Analyzer 0 % (0-5); Neutrophil # 6.75 X10^3/uL (2.7-7.7); Neutrophil % 71.3 % (47-70); POSITIVE MORPHOLOGY YES; Platelet Count 150 K/mm3 (150-450); RBC Distribution Width CV 13.6 % (11.6-14.6); RBC Distribution Width SD 43.4 fl (35.1-43.9); Red Blood Count 5.15 M/mm3 (4.6-6.2); White Blood Count 9.5 K/mm3 (4.4-11.0)
[2024-03-02 19:46] LABS: Differential Indicated SCAN CRITERIA MET
[2024-03-02 19:57] LABS: Anion Gap 5 (5-15); BUN 7 mg/dL (7-18); BUN/Creat Ratio 10.7 RATIO (10-20); Calcium,Total 8.6 mg/dL (8.5-10.1); Chloride 106 mmol/L (98-107); Creatinine, Serum 0.65 mg/dL (0.70-1.30); EST Glomerular Filtration Rate 139 mL/min (>60); Est Glom Filt Rate - Afr Amer 168 mL/min (>60); Estimated Creatinine Clearance 115.38 ml/min; Glucose 117 mg/dL (74-106); Potassium 2.9 mmol/L (3.5-5.1); Sodium Level 142 mmol/L (136-145)
[2024-03-02 20:00] VITALS: PULSE 70; RESP 16; O2SAT 97
[2024-03-02 20:23] LABS: Platelet Estimate ADEQUATE (ADEQ); Platelet Morphology LARGE; Red Cell Morphology NORM C+C NORMAL (NORM C&C)
[2024-03-02] MEDS: Potassium Chloride Oral Tablet 20 MEQ 40 MEQ PO (20:39)
[2024-03-02 20:44] VITALS: BP 147/85; PULSE 74; RESP 16; O2SAT 95
== END 2024-03-03 01:08 | disposition home or self-care (01) ==
PROVIDERS: Emergency Provider Emergency Medicine; PCP Internal Medicine; Visit Provider Emergency Medicine
DX: F10.90 Alcohol use, unspecified, uncomplicated (principal); F12.90 Cannabis use, unspecified, uncomplicated; F17.210 Nicotine dependence, cigarettes, uncomplicated
CPT/HCPCS: 80048; 80307; 82077; 85025; 99282

== ENCOUNTER → 2024-03-07 | Outpatient (CLI) | payer BC, SELFPAY ==
[2024-03-07 17:16] LABS: ALB/GLOB Ratio 1.3 RATIO (0.9-2.4); AST(SGOT) 14 U/L (15-37); Alanine Aminotransfer ALT/SGPT 22 U/L (16-61); Albumin, Serum 3.6 g/dL (3.2-5.0); Alkaline Phosphatase 105 U/L (45-117); Anion Gap 4 (5-15); BUN 12 mg/dL (7-18); BUN/Creat Ratio 14.6 RATIO (10-20); Calcium,Total 8.7 mg/dL (8.5-10.1); Chloride 106 mmol/L (98-107); Creatinine, Serum 0.82 mg/dL (0.70-1.30); EST Glomerular Filtration Rate 106 mL/min (>60); Est Glom Filt Rate - Afr Amer 128 mL/min (>60); Globulin 2.8 g/dL (2.2-4.2); Glucose 106 mg/dL (74-106); Potassium 4.1 mmol/L (3.5-5.1); Protein, Total 6.4 g/dL (6.4-8.2); Sodium Level 140 mmol/L (136-145)
[2024-03-07 17:33] LABS: Vitamin D,25 Hydroxy 8.2 ng/mL
--- OUTSIDE RECORDS SUMMARY | 2024-03-07 18:59 | XMS RPT_ITS | CCD ---
Author Organization [facility] InformFormerly [facility] Care Team Providers Care Systems Software Specialist Name Role Phone AZIZA FULLER Attending Unavailable AZIZA FULLER Consulting Unavailable AZIZA FULLER Primary Care Unavailable AZIZA FULLER Admitting Unavailable PROVIDER, UNKNOWN Consulting Unavailable [facility], [facility] Primary Care Provider [employer] [employer] [facility], [facility] Primary Care Unavailable NIRANJAN KAUFMAN Attending Unavailable [facility], [facility] Primary Care Unavailable NIRANJAN KAUFMAN Attending Unavailable [facility], [facility] Primary Care Unavailable NIRANJAN KAUFMAN Attending Unavailable NIRANJAN KAUFMAN Admitting Unavailable [facility], [facility] Primary Care Unavailable NIRANJAN KAUFMAN Attending Unavailable Allergies Allergy Classification Reported Allergen(s) Allergy Type Date of Onset Reaction(s) Facility (1 source) Penicillin Drug Allergy [facility] Repository (5 sources) Penicillins Propensity to adverse reactions 3 [facility] NICE Medications Current Medications Medication Drug Class(es) Dates [...] Range Facility Office Visiton 04-19-2023 Follow-up visit [id number] Jose Francisco Wagner 1975 M Date Provider Department Center 04/19/2023 [id number] KAUFMAN [facility] OR None Family History Family Status - Relation Status Age at Mother Father Daughter Alive Level of Service:11892 NM POSTOP FOLLOW UP VISIT RELATED TO ORIGINAL PX Reason for Visit and Comments: Post-op [483] - Marginal excision of Right shoulder mass-14 cm and subcutaneous lipomatous lesion Normal [facility] Progress Noteon 04-19-2023 [facility] [address] [place] [address] [address] [place] [address] Dept: [phone] Dept Chief Complaint Patient presents with Post-op [...] Date Asthma COPD (chronic obstructive pulmonary disease) ([facility]) Depression Hearing loss Hypertension Mass of [...] Kaufman MD on 04/23/2023 at 9:[address] [facility] Airwayon 04-04-2023 KOTA Rocha CRNA 04/04/2023 8:07 AM Airway Date/Time: 04/04/2023 7:56 AM Urgency: scheduled Airway not difficult General Information and Staff Patient location during procedure: Procedural Resident/PACKING MACHINE PILOT CAN ROUTER: KOTA Rocha CRNA Performed: PACKING MACHINE PILOT CAN ROUTER Performed by: KOTA Rocha CRNA Authorized by: Ijeoma Hurd APRN - PACKING MACHINE PILOT CAN ROUTER Indications and Patient Condition Indications for airway [...] 1 Number of other approaches attempted: 0 [facility] Nursing Noteon 04-04-2023 Nursing Note Ambulates to restroo m to void large amount. Gait slightly unsteady. Written discharge instructions reviewed with patient and visitors. Questions answered. Provided with ice pack and he refuses to use at this time. Sling in place. Taking po. Denies need for pain medication when offered. Warm blankets provided. Normal [facility] Nursing Note Family brought to bedside. Normal [facility] Nursing Note Pt asking questions and taking sips of coke. Normal [facility] Nursing Note Received pt to sanjeev rebolledo phase 1 moving around in cart with legs bent to chest laying on right side. Arm is in sling. Belongings retrieved from locker. Warm blankets provided. Normal [facility] Op Noteon 04-04-2023 Op Note [facility] MAIN OR [address] [facility] [address] Dept: [phone] Loc: [phone] Operative Report Patient Name: Dariel Wagner Date of : 1975 Date of Surgery: 04/04/23 Pre-operative diagnosis: Right shoulder mass Post-operative diagnosis: Same Procedure(s): Marginal excision of Right shoulder mass-14 cm and subcutaneous lipomatous lesion Surgeon: Niranjan Kaufman M.D. Senior Pensions Administrator(s): Francis Ledesma, PGY4 Anesthesia: general, local EBL: [...] as well as medical complications such as GA, stroke, PE, DVT, and even . Pt [...] Ledesma MD at 04/04/23, 7:17 AM Normal [facility] ECG 12-LEADon 03-23-2023 ECG 12-LEAD IMPRESSION: Sinus rhythm Left anterior fascicular block Anterior infarct, old Electronically Signed On 03-23-2023 12:30:07 EST by Andrew Ta Normal [facility] BASIC METABOLIC PANELon 03-09 Anion gap [Moles/Vol] 11 mmol/L Normal 3-13 [facility] Comment on above: Performed By: #### L AB15 #### Java Development Team Lead: CASEY NATARAJAN ([id number]) [facility]) [address] [place] [address] Calcium [Mass/Vol] 9.5 mg/dL Normal 8.4-10.4 [facility] Comment on above: Performed By: #### L AB15 #### Java Development Team Lead: CASEY NATARAJAN ([id number]) [facility]) [address] [place] [address] [place] Chloride [Moles/Vol] 100 mmol/L Normal 98-107 [facility] Comment on above: Performed By: #### L AB15 #### Java Development Team Lead: CASEY NATARAJAN ([id number]) [facility]) [address] [place] [address] [place] CO2 [Moles/Vol] 28 mmol/L Normal 22-30 [facility] Comment on above: Performed By: #### L AB15 #### Java Development Team Lead: CASEY NATARAJAN ([id number]) [facility]) [address] [place] [address] Creatinine [Mass/Vol] 0.78 mg/dL Normal 0.66-1.25 [facility] Comment on above: Performed By: #### L AB15 #### Java Development Team Lead: CASEY NATARAJAN ([id number]) [facility] [address] [place] [address] GLOMERULAR FILTRATION RATE ML/MIN/1.73 SQ M.PREDICTED >90.0 Normal >60.0 [facility] Comment on above: Result Comment: Calc ulation based on the Chronic Kidney Disease Epidemiology Collaboration (CKD-EPI) equation refit without adjustment for race Performed By: #### L AB15 #### Java Development Team Lead: CASEY NATARAJAN ([id number]) [facility] ([facility]) [address] [place] [address] Glucose [Mass/Vol] 92 mg/dL Normal 70-100 [facility] Comment on above: Performed By: #### L AB15 #### Java Development Team Lead: CASEY NATARAJAN ([id number]) [facility] ([facility]) [address] [place] [address] Potassium [Moles/Vol] 3.8 mmol/L Normal 3.5-5.1 [facility] Comment on above: Performed By: #### L AB15 #### Java Development Team Lead: CASEY NATARAJAN ([id number]) [facility] ([facility]) [address] [place] [address] [place] Sodium [Moles/Vol] 139 mmol/L Normal 135-145 [facility] Comment on above: Performed By: #### L AB15 #### Java Development Team Lead: CASEY NATARAJAN ([id number]) [facility]) [address] [place] [address] [place] Urea nitrogen [Mass/Vol] 12 mg/dL Normal 9-20 [facility] Comment on above: Performed By: #### L AB15 #### Java Development Team Lead: CASEY NATARAJAN ([id number]) [facility]) [address] [place] [address] CBC (HEMOGRAM)on 03-22-2023 Erythrocyte distribution width (RBC) [Ratio] 13.3 % Normal 11.5-14.5 [facility] Comment on above: Performed By: #### L AB294 ####Java Development Team Lead: CASEY NATARAJAN ([id number])[facility])[address] [place] [address] ERYTHROCYTE MEAN CORPUSCULAR HEMOGLOBIN CONCENTRATION (G/DL) BY AUTOMATED 33.7 % Normal 32.0-36.0 [facility] Comment on above: Performed By: #### L AB294 ####Java Development Team Lead: CASEY NATARAJAN ([id number])[facility])[address] [place] [address] Hematocrit (Bld) [Volume fraction] 48.4 % Normal 40.0-52.0 [facility] Comment on above: Performed By: #### L AB294 ####Java Development Team Lead: CASEY NATARAJAN ([id number])[facility])[address] [place] [address] Hemoglobin (Bld) [Mass/Vol] 16.3 g/dL Normal 13.0-18.0 [facility] Comment on above: Performed By: #### L AB294 ####Java Development Team Lead: CASEY NATARAJAN ([id number])[facility] ([facility])[address] [place] [address] MCH (RBC) [Entitic mass] 32.5 pg Normal 26.0-34.0 [facility] Comment on above: Performed By: #### L AB294 ####Java Development Team Lead: CASEY NATARAJAN ([id number])[facility])[address] [place] [address] MCV (RBC) [Entitic vol] 96.4 fL Normal 80.0-98.0 [facility] Comment on above: Performed By: #### L AB294 ####Java Development Team Lead: CASEY NATARAJAN ([id number])[facility])[address] [place] [address] Platelet mean volume (Bld) [Entitic vol] 14.2 fL High 7.4-12.4 [facility] Comment on above: Performed By: #### L AB294 ####Java Development Team Lead: CASEY NATARAJAN ([id number])[facility])[address] [place] [address] Platelets (Bld) [#/Vol] 139 10*3/uL Low 140-440 [facility] Comment on above: Performed By: #### L AB294 ####Java Development Team Lead: CASEY GIULIANADARIAN ([id number])[facility])[address] [place] [address] RBC (Bld) [#/Vol] 5.02 10*6/uL Normal 4.40-5.90 [facility] Comment on above: Performed By: #### L AB294 ####Java Development Team Lead: CASEY NATARAJAN ([id number])[facility])[address] [place] [address] WBC (Bld) [#/Vol] 13.2 10*3/uL High 3.6-10.7 [facility] Comment on above: Performed By: #### L AB294 ####Java Development Team Lead: CASEY NATARAJAN ([id number])[address] PREPROCINSon 03-22-2023 PREPROCINS Medication List Accurate [...] your scheduled surgery time. Please bring your [facility] Surgical folder and medication list with you [...] located here Patient will be escorted to [facility] Ela does not open before 6am [facility] 36on 03-10-2023 36 PAT orders done [facility] 36 PAT: [facility] 03/22/23 @ 9:00 am Case# [id number] Surgery: Kim 04/04/23 @ 7:30 am Procedure: Resection shoulder mass right Dx: Right shoulder mass Anesthesia: General Medical clearance received-scanned into media. Jose Cruz LOPES/BS insurance-checking auth Patient aware of date/time of surgery/PAT [facility] Progress Noteon 03-03-2023 Progress Note CD UPLOADED. IMAGES IN AGFA. Normal [facility] Office Visiton 03-01-2023 Follow-up visit [id number] Jose Francisco Wagner 1975 M Date Provider Department Center 03/01/2023 [id number] KAUFMAN [facility] OR None Family History Family Status - Relation Status Age at Mother Father Daughter Alive Level of Service:20738 NM OFFICE/OUTPATIENT NEW MODERATE MDM 45-59 MINUTES Reason for Visit and Comments: New Patient [542] - Right upper extremity mass/Dr Marybeth Vázquez [facility] Progress Noteon 03-01-2023 Progress Note [facility] [address] [place] [address] [place] [address] Dept: [phone] Dept Chief Complaint Patient presents with New Patient Right upper extremity mass/Dr Marybeth Vázquez SUBJECTIVE HPI Dariel is a 47-year-old male who presents today at the referral of his physicians botany laboratory assistant Marybeth Vázquez. His primary concern is [...] masses. 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 There are no problems to display [...] convenience after obtai (more content not included)... 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 History of present illness: [...] intact to confrontation Fundoscopic exam: discs: nl JUMP IRON MACHINE PRESSER: present bilat III, IV, : full EOM, [...] nl Romberg sign: - LABORATORY and IMAGING: [place], [place] 07/17/2018 ED -altered MS - CT [...] clarify the symptoms To Duggan DO Neurological Enloe [facility] To Duggan DO 09/19/2018 10:42 AM Addendum Impression - chemical process involving the brain - could be thyroid or cortisol - could be alcohol Plan - Will send a report to Dr. Fuller with recommendation for which blood tests need to be done - if not done already Suggest no alcohol intake Referring Provider: AZIZA FULLER [[id number]] Allergies As of Date: 09/19/2018 Noted Allergy [...] by TO DUGGAN DO on 09/19/18 Normal [facility] PROGRESSon 09-17-2018 Protein mass conc HNO ID: [id number] Author: To Duggan Service: ? 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 History of present illness: [...] intact to confrontation Fundoscopic exam: discs: nl JUMP IRON MACHINE PRESSER: present bilat III, IV, : full EOM, [...] nl Romberg sign: - LABORATORY and IMAGING: [place], [place] 07/17/2018 ED -altered MS - CT [...] clarify the symptoms To Duggan, DO Neurological Enloe [facility] Normal [facility] Vital Signs Date Time Vital Sign Value Performing Clinician Bakari jones 04-19-2023 14:28-0500 Body height 167.6 cm Niranjan Kaufman MD Work Phone: [facility] 04-19-2023 14:28-0500 Body mass index (BMI) [Ratio] 20.82 kg/m2 Niranjan Kaufman MD Work Phone: [facility] 04-19-2023 14:28-0500 Body weight 58.51 kg Niranjan Kaufman MD Work Phone: [facility] 04-19-2023 14:28-0500 Diastolic blood pressure 91 mm[Hg] Niranjan Kaufman MD Work Phone: [facility] 04-19-2023 14:28-0500 Heart rate 84 /min Niranjan Kaufman MD Work Phone: [facility] 04-19-2023 14:28-0500 Systolic blood pressure 147 mm[Hg] Niranjan Kaufman MD Work Phone: [facility] 04-04-2023 10:00-0500 Diastolic blood pressure 82 mm[Hg] Niranjan Kaufman MD Work Phone: [facility] 04-04-2023 10:00-0500 Heart rate 60 /min Niranjan Kaufman MD Work Phone: [facility] 04-04-2023 10:00-0500 Respiratory rate 16 /min Niranjan Kaufman MD Work Phone: [facility] 04-04-2023 10:00-0500 SaO2% (BldA) [Mass fraction] 96 % Niranjan Kaufman MD Work Phone: [facility] 04-04-2023 10:00-0500 Systolic blood pressure 116 mm[Hg] Niranjan Kaufman MD Work Phone: [facility] 04-04-2023 09:04-0500 Body temperature 97 [degF] Niranjan Kaufman MD Work Phone: [facility] 04-04-2023 06:27-0500 Body height 167.6 cm Niranjan Kaufman MD Work Phone: [facility] 04-04-2023 06:27-0500 Body mass index (BMI) [Ratio] 20.82 kg/m2 Niranjan Kaufman MD Work Phone: [facility] 04-04-2023 06:27-0500 Body weight 58.51 kg Niranjan Kaufman MD Work Phone: [facility] 03-01-2023 14:01-0400 Body height 167.6 cm Niranjan Kaufman MD Work Phone: [facility] 03-01-2023 14:01-0400 Body mass index (BMI) [Ratio] 20.82 kg/m2 Niranjan Kaufman MD Work Phone: [facility] 03-01-2023 14:01-0400 Body weight 58.51 kg Niranjan Kaufman MD Work Phone: [facility] 03-01-2023 14:01-0400 Diastolic blood pressure 62 mm[Hg] Niranjan Kaufman MD Work Phone: [facility] 03-01-2023 14:01-0400 Systolic blood pressure 110 mm[Hg] Niranjan Kaufman MD Work Phone: [facility] Encounters Encounter Date Encounter Type Care Provider Facility Start: 04-19-2023 End: 04-19-2023 ambulatory [facility] Start: 04-19-2023 End: 04-19-2023 Postop follow up visit related to original px Niranjan Kaufman MD Work Phone: [facility] Comment on above: Spindle cell lipoma (Primary Dx) Start: 04-04-2023 End: 04-04-2023 ambulatory [facility] Start: 04-04-2023 End: 04-04-2023 Anesthesia consultation Gino Bermudez MD Work Phone: [facility] MA[facility] OR Start: 04-04-2023 End: 04-04-2023 Subsequent hospital visit by physician Niranjan Kaufman MD Work Phone: [facility] Comment on above: Mass of skin of righ t shoulder (Primary Dx); Localized swelling, mass and lump, right upper limb Start: 03-22-2023 End: 03-22-2023 ambulatory [facility] Start: 03-22-2023 End: 03-22-2023 Encounter for other preprocedural examination NIRANJAN KAUFMAN [facility] Start: 03-01-2023 End: 03-01-2023 ambulatory [facility] Start: 03-01-2023 End: 03-01-2023 Office outpatient new 45 minutes Niranjan Kaufman MD Work Phone: [facility] Comment on above: Mass of skin of righ t shoulder (Primary Dx) Start: 07-24-2018 End: 07-24-2018 ambulatory AZIZA Farley [facility] Procedures Date Procedure Procedure Detail Performing Clinician Start: 04-04-2023 NM AN ELECTIVE ENDOTRACHEAL AIRWAY Ijeoma Martinez CRNA Work Phone: Plan of Treatment Date Care Activity Detail Author Start: 2036 RSV Immunization age d 60 or older (1 - 1-dose 60+ series) RSV Immunization aged 60 or older (1 - 1-dose 60+ series) [facility] Start: 01-25-2033 DTaP/Tdap/Td Vaccine s (2 - Td or Tdap) DTaP/Tdap/Td Vaccines (2 - Td or Tdap) [facility] Start: 2026 Zoster Vaccines (1 of 2) Zoste r Vaccines (1 of 2) [facility] Start: 04-04-2023 End: 04-04-2023 Exc tumor soft tissue shoulder subfascial 5 cm/> EXCISION TUMOR SOFT TISSUE SHOULDER SUBFASCIAL 5 CM OR GREATER Localized swelling, mass and lump, right upper limb 04/04/2023 7:34 AM EST [facility] Operating Room Start: 01-07-2023 Influenza vaccination Influenza Vacc ine (#1) [facility] Start: 1994 Hepatitis C screening Hepatitis C Sc reening [facility] Start: 1988 Depression Screening Depression Scre ening [facility] Start: 1982 Pneumococcal Vaccine : Pediatrics (0 to 5 Years) and At-Risk Patients (6 to 64 Years) (1 - PCV) Pneumococcal Vaccine: Pediatrics (0 to 5 Years) and At-Risk Patients (6 to 64 Years) (1 - PCV) [facility] Start: 1977 MMR Vaccines (1 of 1 - Standard series) MMR Vaccines (1 of 1 - Standard series) [facility] Start: 1976 COVID-19 Vaccine (#1) COVID-19 Vacci ne (#1) [facility] Start: 1976 Hepatitis B Vaccines (1 of 3 - 3-dose series) Hepatitis B Vaccines (1 of 3 - 3-dose series) [facility] Start: 1976 HIV screening HIV Screening [facility] Start: 1976 Lipid panel Lipid Panel [facility] Start: 1975 Screening for malign ant neoplasm of colon [facility] Tissue exam [facility] Sy stem Work Phone: Comment on above: Release Upon Andre angel for 1 Occurrences starting 04/04/2023 Payers Date Payer Category Payer [facility] [id number] 2022 Unknown [id number] 1975 Unknown [id number] Social History Date Type Detail Facility Start: 03-01-2023 End: 03-22-2023 Tobacco smoking status NHIS Smokes tobacco daily [facility] h History of tobacco use Cigarette Smoker [facility] Start: 03-01-2023 End: 04-19-2023 Cigarettes smoked current (pack per day) - Reported [address] [facility] Start: 03-01-2023 Tobacco use and exposure Smokeless t obacco non-user [facility] Start: 03-01-2023 End: 04-19-2023 Alcohol intake Current drinker of alcohol (finding) [facility] Start: 03-01-2023 End: 04-19-2023 Tobacco use panel [facility] Start: 02-25-2023 Alcohol Comment occasional [facility] Start: 1975 Sex Assigned At Not on file [facility] Start: 03-22-2023 Tobacco use and exposure Forme r smokeless tobacco user [facility] End: 05-09-2002 History of tobacco use Snuff User [facility] Within the last year , have you been afraid of your partner or ex-partner? No [facility] Start: 03-22-2023 Tobacco Comment Snuff since 5th grad e [facility] Clinical Notes 03-01-2023 to 04-19-2023 Jane Davenport RN - 04/19/2023 2:15 PM ESTAddendum Note - KOTA Rocha CRNA - 04/04/2023 10:08 AM ESTAddendum Note - KOTA Rocha CRNA - 04/04/2023 10:08 AM ESTProcedure Summary Note Date & Type Note Facility 04-19-2023 History of Presen t illness Narrative [facility] [address] [place] [address] [place] [phone] Dept: [phone] Dept Chief Complaint Patient presents with Post-op [...] at 9:35 AM documented in this encounter [facility] 04-04-2023 Note Addendum created 1008 by KOTA Rocha CRNA Intraprocedure Meds edited, Orders acknowledged in Narrator [facility] 04-04-2023 Note Patient: Dariel mendez Procedure Summary Date: 04/04/23 Room / Location: [address] Operating Room Anesthesia Start: 733 Anesthesia [...] once all PACU criteria has been met. [facility] 04-04-2023 Note Patient: Dariel mendez Procedure Summary Date: 04/04/23 Room / Location: [address] Operating Room Anesthesia Start: 733 Anesthesia [...] opportunity for questions and acknowledgement of understanding. [facility] 04-04-2023 Note Formatting of this n ote is different from the original. Addendum created 04/04/231007 by KOTA Rocha CRNA Intraprocedure Meds edited, Orders acknowledged in Narrator [facility] 04-04-2023 Miscellaneous Notes Formattin g of this note is different from the original. Addendum created 04/04/231007 by KOTA Rocha CRNA Intraprocedure Meds edited, Orders acknowledged in Narrator Patient: Dariel Wagner Procedure Summary Date: 04/04/23 Room / Location: [address] Operating Room Anesthesia Start: 733 Anesthesia [...] has been met. documented in this encounter [facility] 04-04-2023 Note Airway Date/Time: 04/04/2023 7:56 AM Urgency: scheduled Airway not difficult General Information and Staff Patient location during procedure: Procedural Resident/PACKING MACHINE PILOT CAN ROUTER: KOTA Rocha CRNA Performed: PACKING MACHINE PILOT CAN ROUTER Performed by: KOTA Rocha CRNA Authorized by: [...] 1 Number of other approaches attempted: 0 [facility] 04-04-2023 Note Formatting of this n ote is different from the original. Patient: Dariel Wagner Procedure Summary Date: 04/04/23 Room / Location: [address] Operating Room Anesthesia Start: 733 Anesthesia [...] once all PACU criteria has been met. [facility] 04-04-2023 Anesthesiology Postoperative evaluation and management note Patient: Dariel Wagner Procedure Summary Date: 04/04/23 Room / Location: [address] Operating Room Anesthesia Start: 733 Anesthesia [...] three or more risk factors for PONV (7236F) Patient received at [facility] 2 prophylactic Rx [...] opportunity for questions and acknowledgement of understanding. [employer] Phone: 04-04-2023 Surgical operatio n note Patient: Dariel Wagner Procedure Summary Date: 04/04/23 Room / Location: [address] Operating Room Anesthesia Start: 733 Anesthesia [...] factors for PONV (4556F) Patient received at [facility] 2 prophylactic Rx PONV anti-emtic agents [...] and Staff Patient location during procedure: Procedural Resident/PACKING MACHINE PILOT CAN ROUTER: KOTA Rocha CRNA Performed: PACKING MACHINE PILOT CAN ROUTER Performed by: KOTA Rocha CRNA Authorized by: [...] Number of other approaches attempted: 0 Patient: Dariel Wagner Procedure Information Date/Time: 04/04/23729 Procedure: RESECTION SHOULDER MASS RIGHT, FROZEN SECTION (Right: Shoulder) - 90 minutes Location: [address] Operating Room Surgeons: Niranjan Kaufman MD [...] by Andrew Ta documented in this encounter [facility] 04-04-2023 Miscellaneous Notes Formattin g of this [...] Warm blankets provided. documented in this encounter [facility] 04-04-2023 Note Formatting of this n ote might be different from the original. Ambulates to restroom to void large amount. Gait slightly unsteady. Written discharge instructions reviewed with patient and visitors. Questions answered. Provided with ice pack and he refuses to use at this time. Sling in place. Taking po. Denies need for pain medication when offered. Warm blankets provided. [facility] 04-04-2023 Note Formatting of this n ote might be different from the original. Ambulates to restroom to void large amount. Gait slightly unsteady. Written discharge instructions reviewed with patient and visitors. Questions answered. Provided with ice pack and he refuses to use at this time. Sling in place. Taking po. Denies need for pain medication when offered. Warm blankets provided. [facility] 04-04-2023 Note Interval History and Physical I [...] with planned surgical procedure resection, possible biopsy [facility] 04-04-2023 Note Formatting of this n ote might be different from the original. Family brought to bedside. [facility] 04-04-2023 Note Formatting of this n ote might be different from the original. Family brought to bedside. [facility] 04-04-2023 Procedure anesthe melani Narrative Procedure Name Responsible Anesthesiologist Anesthesia Start [...] 04/04/23 0756 by Ijeoma Hurd APRN - PACKING MACHINE PILOT CAN ROUTER 04/04/23 0857 by Elier Gomez CRNA documented [id number] Note* Perioperative Nursing Note - Janneth Alexander RN - 04/04/2023 9:20 AM EST Pt asking questions and taking sips of coke. [address]27-2023 Note* Perioperative Nursing Note - Janneth Alexander RN - 04/04/2023 9:20 AM EST Pt asking questions and taking sips of coke. [address]27-2023 Note* Perioperative Nursing Note - Janneth Alexander RN - 04/04/2023 9:04 AM EST Received pt to recovery phase 1 moving around in cart with legs bent to chest laying on right side.Arm is in sling. Belongings retrieved from locker. Warm blankets provided. [address]27-2023 Note* Perioperative Nursing Note - Janneth Alexander RN - 04/04/2023 9:04 AM EST Received pt to recovery phase 1 moving around in cart with legs bent to chest laying on right side.Arm is in sling. Belongings retrieved from locker. Warm blankets provided. [address]27-2023 Anesthesiology procedure note* Anesthesia Procedure Notes - KOTA Rocha CRNA - 04/04/2023 8:06 AM ESTAssociated Order(s): Airway Airway Date/Time: 04/04/2023 7:56 AM Urgency: scheduled Airway not difficult General Information and Staff Patient location during procedure: Procedural Resident/PACKING MACHINE PILOT CAN ROUTER: KOTA Rocha CRNA Performed: PACKING MACHINE PILOT CAN ROUTER Performed by: KOTA Rocha CRNA Authorized by: [...] 1 Number of other approaches attempted: 0 [employer] Phone: 1(504) 623-563411-27-2023 History and physical note* Niranjan Kaufman MD [...] with planned surgical procedure resection, possible biopsy [employer] Phone: 1(818) 223-221911-27-2023 History and physical note* Niranjan Kaufman MD [...] procedure resection, possible biopsy documented in this [facility]11-27-2023 Hospital Discharge instructions* Discharge Instructions* Francis Ledesma MD - 04/04/2023 7:23 AM EST Images [...] Care Everywhere. * General Anesthesia Discharge Instructions (Zimbabwean) documented in this [facility]11-14-2023 NotePatient: Fatemehericka Wagner Procedure Information Date/Time: 04/04/23729 Procedure: RESECTION SHOULDER MASS RIGHT, FROZEN SECTION (Right: Shoulder) - 90 minutes Location: [address] Operating Room Surgeons: Niranjan Kaufman MD [...] On 03-23-2023 12:30:07 EST by Andrew Mon [facility]11-14-2023 NoteComprehensive Pre Surgical History and Physical ? 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 ? Denies history of GA, CAD, CHF, TIA, CVA Past Medical History: [...] 2 Points Class III (more content not included)...[facility] 03-22-2023 NoteComprehensive Pre Surgical History and Physical ? 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 ? Denies history of GA, CAD, CHF, TIA, CVA Past Medical History: [...] 2 Points Class III (more content not included)...[facility] 03-22-2023 Anesthesiology Preoperative evaluation and management note* Anesthesia Preprocedure Evaluation - Gino Bermudez Jr., MD - 03/22/2023 10:01 AM EST Patient: Dariel Wagner Procedure Information Date/Time: 04/04/23729 Procedure: RESECTION SHOULDER MASS RIGHT, FROZEN SECTION (Right: Shoulder) - 90 minutes Location: [address] Operating Room Surgeons: Niranjan Kaufman MD [...] On 03-23-2023 12:30:07 EST by Andrew Ta [facility] Work Phone: 1(507) 130-761910-24-2023 History of Present illness Narrative* Niranjan Kaufman MD - 03/01/2023 1:45 PM EDT [facility] [address] [place] [address] [place] [id number] Dept: [phone] Dept Chief Complaint Patient presents with New Patient Right upper extremity mass/Dr Marybeth Vázquez MARIIA Vieira is a 47-year-old male who presents today at the referral of his physicians botany laboratory assistant Sha. His primary concern is a [...] masses. 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 There are no problems to display [...] were answered. I will update his physicians botany laboratory assistant, Marybeth Vázuqez with my recommendations. No follow-ups on file. Voice recognition was used for portions of this note and although it was reviewed prior to signing some incorrect words or phrases could be present. Electronically signedby Niranjan Kaufman MD on 03/04/2023 at 10:02 AM [facility]* Diagnosis Mass of skin of right shoulder- Primary documented in this encounter [facility]* Diagnosis Mass of skin of right shoulder- Primary Localized swelling, mass and lump, right upper limb documented in this [facility]* Diagnosis 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Primary documented in this encounter [facility] Summary Purpose Family History No Family History Records FoundNo Family History Records FoundNo Family History Records Found Advance Directives No Advanced Directives Records FoundNo Advanced Directives Records FoundNo Advanced Directives Records Found Additional Source Comments (unrecognized sect ion and content) No Status Records FoundNo Status Records FoundNo Status Records Found INFORMATION SOURCE (unrecogn ized section and content) DATE CREATED AUTHOR 09/30/2018 [facility] DATE CREATED AUTHOR AUTHOR'S ORGANIZ ATION 10/19/2022 [facility] DATE CREATED AUTHOR AUTHOR'S ORGANIZ ATION 04/25/[address] [facility] Reason for Visit (unrecogniz ed section and content) Reason Comments New Patient Right upper extremit y mass/Dr Marybeth Vázquez Specialty Diagnoses / Procedures Referred By Contac t Referred To Contact Diagnoses Localized swelling, mass and lump, right upper limb Right shoulder mass Procedures NM EXC TUMOR SOFT TISSUE SHOULDER SUBFASCIAL 5 CM/> RESECTION SHOULDER MASS RIGHT, FROZEN SECTION Niranjan Kaufman MD [address] [facility] [address] [place] [address] [facility] [address] [place] [address] Referral ID Status Reason Start Date Expiration Date Visits Re quested Visits Authorized [id number] 1 1 Reason Comments Post-op Marginal excision of Right shoulder mass-14 cm and subcutaneous lipomatous lesion Care Teams (unrecognized sec tion and content) Systems Software Specialist Relationship Specialty Start Date End Date [facility] [address] [place] [address] PCP - General 03/01/23 Systems Software Specialist Relationship Specialty Start Date End Date [facility] [address] [place] [address] PCP - General 03/01/23 Systems Software Specialist Relationship Specialty Start Date End Date [facility] [address] [place] [address] PCP - General 03/01/23 Systems Software Specialist Relationship Specialty Start Date End Date [facility] [address] [place] [address] PCP - General 03/01/23 Scheduled Active and [...] - Provid er: Ijeoma Hurd APRN - PACKING MACHINE PILOT CAN ROUTER)0905 (Anesthesia Volume Adjustment - Provider: Elier Gomez [...] - KYREE)0740 (Rate/Dose Change - Provider: KOTA Rohca CRNA)0905 (Anesthesia Volume Adjustment - Provider: Elier [...] BE BASED ON THE PRIMARY CLINICAL RECORDS. [employer] [facility] provides no warranty or guarantee of the accuracy or completeness of information in this document.
== END | disposition home or self-care (01) ==
LOC: BIMLAB 15:17
PROVIDERS: PCP Internal Medicine; Referring Provider Internal Medicine; Visit Provider Internal Medicine
DX: E87.6 Hypokalemia (principal); E55.9 Vitamin D deficiency, unspecified; F32.A Depression, unspecified; F41.9 Anxiety disorder, unspecified
CPT/HCPCS: 36415; 80053; 82306; 84443

== ENCOUNTER → 2024-07-24 | Outpatient (CLI) | payer BC, SELFPAY ==
[2024-07-27 14:08] LABS: Vitamin D 1,25-Dihydroxy 49.6 pg/mL (24.8-81.5)
== END | disposition home or self-care (01) ==
LOC: BIMLAB 11:54
PROVIDERS: PCP Internal Medicine; Referring Provider Internal Medicine; Visit Provider Internal Medicine
DX: E55.9 Vitamin D deficiency, unspecified (principal)
CPT/HCPCS: 36415; 82652

== ENCOUNTER → 2024-12-21 | Outpatient (CLI) | payer BC, SELFPAY ==
--- OUTSIDE RECORDS SUMMARY | 2024-12-21 06:34 | XMS RPT_ITS | CCD ---
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 Eufemia Patiño Emergency Provider Dr. Hector Bravo Attending Provider Dr. Hector Bravo Admit Provider Dr. Hector Bravo Other Provider Dr. Yelitza Wagner Attending Provider Dr. Yelitza Wagner Other Provider Dr. Marguerite Saucedo Attending Provider [phone] Marguerite Saucedo Other Provider Care Physician, No Primary Referring Provider Un available Dr. Honey Garza Attending Provider Dr. Honey Garza Primary Care Provider Dr. Honey Garza Referring Provider Dr. Honey Garza Other Provider Dr. Pierre Garvey Attending Provider [facility] Primary Care Provider Unav ailable Care Physician, No Primary Primary Care Provider Unavailable Dr. Eufemia Patiño Emergency Provider Dr. Hector Bravo Attending Provider Dr. Hector Bravo Admit Provider Dr. Hector Bravo Other Provider Dr. Yelitza Wagner Attending Provider Dr. Yelitza Wagner Other Provider Dr. Marguerite Saucedo Attending Provider Dr. Marguerite Saucedo Other Provider Care Physician, No Primary Referring Provider Un available Dr. Honey Garza Attending Provider [phone] Dr. Honey Garza Primary Care Provider Dr. Honey Garza Referring Provider [phone] Dr. Honey Garza Other Provider [phone] Pierre Garvey Attending Provider [facility] Primary Care Unavailable NIRANJAN KAUFMAN Attending Unavailable [facility] Primary Care Unavailable NIRANJAN KAUFMAN Attending Unavailable [facility] Primary Care Unavailable NIRANJAN KAUFMAN Attending Unavailable NIRANJAN KAUFMAN Admitting Unavailable [facility] Primary Care Unavailable NIRANJAN KAUFMAN Attending Unavailable Greg DOYLE, Dr. Méndez Primary Care Provider [phone] Dr. Honey Garza MD Attending Provider Dr. Honey Garza MD Referring Provider Greg DOYLE, Dr. Méndez Primary Care Provider [phone] Dr. Honey Garza MD Referring Provider Allen Marquis Attending Provider [phone] FRANDY COTA Admitting Unavailable FRANDY COTA Primary Care Unavailable FRANDY COTA Attending Unavailable YUE FULLER Consulting Unavailable YUE FULLER Referring Unavailable PROVIDER, UNKNOWN Consulting Unavailable YUE FULLER Referring Unavailable RICHY FRAUSTO DO Admitting Unavailable DIDRICHY FERRER DO Primary Care Unavailable RICHY FRAUSTO DO Attending Unavailable YUE FULLER Consulting Unavailable PROVIDER, UNKNOWN Consulting Unavailable [place] Attending Unavailable Greg, Honey Referring Unavailable Greg, Honey Primary Care Unavailable [place], Honey Attending Unavailable Greg, Honey Referring Unavailable [place], Honey Primary Care Unavailable Foreign Low Attending Unavailable Greg, Honey Primary Care Unavailable Allen Marquis Attending Unavailable Allen Marquis Referring Unavailable Greg, Honey Primary Care Unavailable Greg, Honey Attending Unavailable Greg, Honey Referring Unavailable Greg, Honey Primary Care Unavailable [place], Honey Attending Unavailable Greg, Honey Referring Unavailable Greg, Honey Primary Care Unavailable Allen Marquis Attending Unavailable [place], Honey Referring Unavailable Greg, Honey Primary Care Unavailable Allergies Allergy Classification Reported Allergen(s) Allergy Type Date of Onset Reaction(s) Facility (10 sources) Penicillins Allergy to substance 3 [facility] Comment on above: HAD IT WHEN I WAS A BABY, IT WILL KILL ME. (5 sources) Penicillins Propensity to adverse reactions 3 [facility] (1 source) Penicillin Drug Allergy [facility] Repository (1 source) Penicillins Drug allergy (disorder) 5 [facility] Repository Medications Current Medications Medication Drug Class(es) Dates Sig (Normalized) Sig (Original) acetaminophen 325 mg / oxyCODONE hydrochloride 5 mg oral tablet (3 sources) Opioid Agonist Start: 04-04-2023 End: 04-11-2023 take 1 tablet by mouth every six hours as needed for pain oxyCODONE-acetamin ophen (Percocet) 5-325 MG tablet Indications: Mass of skin of right shoulder Take 1 tablet by mouth every 6 hours as needed for severe pain (7-10) for up to 7 days. 28 tablet 0 04/04/2023 04/11/2023 Active ARIPiprazole 5 mg oral tablet (3 sources) Atypical Antipsychotic Start: 07-17-2024 End: 09-10-2024 take 1 tablet by mouth at bedtime Aripiprazole (Abilify) 5 mg tablet Active 5 mg PO AT BEDTIME 30 1 September 10, 2024 7:40am aspirin 81 mg oral tablet (1 source) Platelet Aggregation Inhibitor, Nonsteroidal Anti-inflammatory Drug Start: 11-27-2024 take 1 tablet by mouth once daily Aspirin 81 mg tablet Active 81 mg PO daily 100 0 November 27, 2024 12:00am Compress.Stocking,K nee,Reg,Med (4 sources) Start: 01-25-2023 Compress.Stocking, Knee,Reg,Med Active 0 .Route 2 January 24, 2023 11:00pm As directed Start: 01-25-2023 Compress.Stock ing,Knee,Reg,Med Active 0 .Route 2 January 25, 2023 12:00am As directed Compress.Stocking,Knee,Reg,M ed misc (2 sources) Start: 01-25-2023 Compress.Stocking,Knee,Reg,M ed misc Active 0 .Route 2 0 January 25, 2023 12:00am As directed Start: 01-25-2023 Compress.Stock ing,Knee,Reg,Med misc Active 0 .Route 2 January 25, 2023 12:00am As directed [id number] 0.3 ml EPINEPHrine 1 mg/ml auto-injector (10 sources) alpha-Adrenergic Agonist, beta-Adrenergic Agonist, Catecholamine Start: 04-17-2018 inject 0.3 mg by intramuscular injection once as needed Epinephrine 0.3 MG syringe Active 0.3 mg IM ONE TIME as needed for Angioedema 1 April 17, 2018 2:32pm ketoconazole 20 mg/ml topical cream (2 sources) Azole Antifungal Start: 07-17-2024 Ketoconazole 2 % cream Active 1 NMA TOPICAL TWICE A DAY 15 0 July 17, 2024 12:00am lisinopril 10 mg oral tablet (5 sources) Angiotensin Converting Enzyme Inhibitor Start: 07-17-2024 End: 09-19-2024 take 1 tablet by mouth once daily Lisinopril 10 mg tablet Active 10 mg PO daily 30 September 19, 2024 8:33am multivitamin (Theragran) tablet (5 sources) take 1 tablet by mouth once daily multivitamin (Theragran) tablet Take 1 tablet by mouth daily. 0 Active omeprazole 10 mg delayed release oral capsule (1 source) Proton Pump Inhibitor Start: 11-27-2024 take 1 capsule by mouth once daily Omeprazole 10 mg capsule,delayed release(DR/EC) Active 10 mg PO daily November 27, 2024 12:00am pantoprazole 40 mg delayed release oral tablet (1 source) Proton Pump Inhibitor Start: 11-27-2024 take 1 tablet by mouth once daily Pantoprazole 40 mg tablet,delayed release (DR/EC) Active 40 mg PO daily 30 November 27, 2024 12:00am Completed/Discontinued Medications Medication Drug Class(es) Dates Sig (Normalized) Sig (Original) acetaminophen 500 mg oral tablet (2 sources) Start: 04-04-2023 End: 04-04-2023 acetaminophen (Tylenol) tablet 1,000 mg ALPRAZolam 0.25 mg disintegrating oral tablet (2 sources) Benzodiazepine Start: 04-04-2023 End: 04-04-2023 ALPRAZolam (Xanax) disintegrating tablet 0.25 mg amLODIPine 10 mg oral tablet (19 sources) Dihydropyridine Calcium Channel Derek Start: 12-12-2022 End: 03-07-2024 take 1 tablet by mouth once daily Amlodipine 10 mg tablet Discontinued 10 mg PO DAILY 30 January 25, 2023 4:04pm March 07, 2024 2:47pm calcium chloride 0.0014 meq/ml / potassium chloride 0.004 meq/ml / sodium chloride 0.103 meq/ml / sodium lactate 0.028 meq/ml injectable solution (5 sources) Start: 04-04-2023 End: 04-04-2023 lactated ringers infusion cholecalciferol 1.25 mg oral capsule (2 sources) Vitamin D Start: 03-07-2024 End: 07-17-2024 take 1 capsule by mouth every week Cholecalciferol (Vitamin D3) 1,250 mcg (50,000 unit) capsule Discontinued 1250 ug PO EVERY WEEK March 07, 2024 12:00am July 17, 2024 2:58pm 50 ml clindamycin 12 mg/ml injection (11 sources) Lincosamide Antibacterial Start: 04-04-2023 End: 04-04-2023 clindamycin in D5W (Cleocin) IVPB 600 mg Start: 04-17-2018 End: 04-17-2018 take 3 capsules by mouth three times daily Clindamycin Hcl 150 MG capsule Discontinued 450 mg PO THREE TIMES A DAY 63 7 0 April 17, 2018 1:00am April 23, 2018 1:00am April 17, 2018 2:32pm Start: 04-17-2018 End: 04-17-2018 take 450 mg by mouth three times daily Clindamycin Hcl Discontinued 450 MG PO THREE TIMES A DAY 63 7 April 17, 2018 12:00am April 17, 2018 1:32pm 1 ml dexamethasone phosphate 10 mg/ml injection (1 source) Corticosteroid Start: 04-04-2023 End: 04-04-2023 dexAMETHasone (PF) (Decadron) injection dexmedeTOMIDine HCl in NaCl (Precedex) injection (1 source) Start: 04-04-2023 End: 04-04-2023 dexmedeTOMIDine HCl in NaCl (Precedex) injection 1 ml diphenhydrAMINE hydrochloride 50 mg/ml cartridge (12 sources) Histamine-1 Receptor Antagonist Start: 04-04-2023 End: 04-04-2023 diphenhydrAMINE (BENADryl) injection 12.5 mg Start: 04-17-2018 End: 01-25-2023 take 2 capsules by mouth three times daily as needed Diphenhydramine Hcl 25 MG capsule Discontinued 50 mg PO 3 TIMES DAILY NEEDED as needed for allergic reaction April 17, 2018 1:00am January 25, 2023 3:02pm Start: 04-17-2018 End: 01-25-2023 take 50 mg by mouth three times daily as needed Diphenhydramine Hcl Discontinued 50 MG PO 3 TIMES DAILY NEEDED April 17, 2018 12:00am January 25, 2023 2:02pm escitalopram 5 mg oral tablet (2 sources) Serotonin Reuptake Inhibitor Start: 03-07-2024 End: 07-17-2024 take 1 tablet by mouth once daily Escitalopram Oxalate (Lexapro) 5 mg tablet Discontinued 5 mg PO daily 07 06March 07, 2024 12:00am July 17, 2024 3:45pm 10 ml esmolol hydrochloride 10 mg/ml injection (1 source) beta-Adrenergic Derek Start: 04-04-2023 End: 04-04-2023 esmolol (Brevibloc) injection famotidine 20 mg oral tablet (12 sources) Histamine-2 Receptor Antagonist Start: 04-04-2023 End: 04-04-2023 famotidine (Pepcid) tablet 20 mg Start: 04-17-2018 End: 01-25-2023 take 1 tablet by mouth twice daily Famotidine 20 MG tablet Discontinued 20 mg PO TWICE A DAY April 17, 2018 1:00am January 25, 2023 3:02pm Over the counter. twice daily for 5 days Fluticasone Propion-Salmeterol (8 sources) Corticosteroid, beta2-Adrenergic Agonist Start: 03-22-2023 End: 11-15-2023 Fluticasone Propion-Salmeterol (Advair Diskus) 250-50 mcg/dose blister with device Discontinued 1 NMA INHALATION TWICE A DAY 60 1 March 22, 2023 2:13pm March 23, 2023 1:51pm Start: 03-22-2023 End: 03-23-2023 Fluticasone Propion-Salmeter ol (Advair Diskus) 250-50 mcg/dose blister with device Discontinued 1 NMA INHALATION TWICE A DAY 60 March 22, 2023 2:13pm March 23, 2023 1:51pm Start: 03-22-2023 End: 03-23-2023 Fluticasone Propion-Salmeter ol (Advair Diskus) 250-50 mcg/dose blister with device Discontinued 1 INH INHALATION TWICE A DAY 60 March 22, 2023 1:13pm March 23, 2023 12:51pm Start: 02-21-2023 End: 03-22-2023 Fluticasone Propion-Salmeter ol (Advair Diskus) 250-50 mcg/dose blister with device Discontinued 1 NMA INHALATION TWICE A DAY 60 1 February 21, 2023 12:00am March 22, 2023 2:13pm Start: 02-21-2023 End: 03-22-2023 Fluticasone Propion-Salmeter ol (Advair Diskus) 250-50 mcg/dose blister with device Discontinued 1 INH INHALATION TWICE A DAY 60 February 20, 2023 11:00pm March 22, 2023 1:13pm 1 ml HYDROmorphone hydrochloride 1 mg/ml cartridge (4 sources) Opioid Agonist Start: 04-04-2023 End: 04-04-2023 HYDROmorphone (Dilaudid) injection 0.5 mg Start: 04-04-2023 End: 04-04-2023 HYDROmorphone (Dilaudid) inj ection 0.25 mg hydrOXYzine hydrochloride 25 mg oral tablet (2 sources) Antihistamine Start: 03-07-2024 End: 07-17-2024 take 1 tablet by mouth every eight hours as needed for anxiety Hydroxyzine Hcl 25 mg tablet Discontinued 25 mg PO Q8H as needed for anxiety 30 0 March 07, 2024 12:00am July 17, 2024 3:45pm ketamine 10 mg/ml injectable solution (1 source) General Anesthetic Start: 04-04-2023 End: 04-04-2023 ketamine injection labetalol (Normodyne,Trandate) injection 5 mg (2 sources) Start: 04-04-2023 End: 04-04-2023 labetalol (Normodyne,Trandate ) injection 5 mg 10 ml lidocaine hydrochloride [...] 04-04-2023 Phenylephrine HCl (Pressors) 1 MG/10ML injection potassium chloride 20 meq extended release oral tablet (8 sources) Start: 12-12-2022 End: 01-25-2023 take 1 tablet by mouth once daily Potassium Chloride 20 mEq tablet extended release Discontinued 20 meq PO DAILY 20 0 December 12, 2022 12:00am January 25, 2023 3:03pm predniSONE 20 mg oral tablet (20 sources) Start: 04-23-2018 End: 04-30-2018 take 2 tablets by mouth once daily at mealtime Prednisone 20 MG tablet Discontinued 40 mg PO DAILY 7 April 23, 2018 1:00am April 29, 2018 1:00am April 30, 2018 1:13am With Food Start: 04-23-2018 End: 04-30-2018 take 40 mg by mouth once daily at mealtime Prednisone Discontinued 40 MG PO DAILY April 23, 2018 12:00April 30, 2018 12:13am With Food Start: 04-17-2018 End: 01-25-2023 take 3 tablets by mouth once daily Prednisone 20 MG tablet Discontinued 60 mg PO DAILY 15 April 17, 2018 1:00am January 25, 2023 3:03pm Start: 04-17-2018 End: 01-25-2023 take 60 mg by mouth once daily Prednisone Discontinued 60 MG PO DAILY April 17, 2018 12:00am January 25, 2023 2:03pm 20 ml propofol 10 mg/ml injection (1 source) General Anesthetic Start: 04-04-2023 End: 04-04-2023 Propofol (Diprivan) injection rocuronium bromide 10 mg/ml injectable solution (1 source) Nondepolarizing Neuromuscular Derek Start: 04-04-2023 End: 04-04-2023 rocuronium (ZeMuron) injection 5 ml sodium chloride 9 mg/ml injection (12 sources) Start: 04-04-2023 End: 04-04-2023 sodium chloride 0.9 % infusion Start: 04-04-2023 End: 04-04-2023 sodium chloride 0.9% (NS) fl ush 10 mL 2 ml sugammadex 100 mg/ml injection (1 source) Start: 04-04-2023 End: 04-04-2023 sugammadex (Bridion) injecti on Problems Active Problems Problem Classification Problem Date Documented Date Episodic/Chronic Administrative/social admission (5 sources) Persons encountering health services in other specified circumstances; Translations: [Other reasons for seeking consultation] 01-25-2023 Episodic Alcohol-related disorders (20 sources) Alcohol dependence; Translations: [Alcohol dependence, uncomplicated] Onset: 07-17-2024 06-26-2022 Chronic Allergic reactions (1 source) Allergy status to penicillin; Translations: [Allergy status to penicillin] Onset: 11-22-2024 Episodic Anxiety disorders (5 sources) Anxiety; Translations: [Anxiety disorder, unspecified] Onset: 07-17-2024 03-23-2023 Chronic Chronic obstructive pulmonary disease and bronchiectasis (6 sources) Chronic obstructive lung disease; Translations: [Chronic obstructive pulmonary disease, unspecified] 02-24-2023 Chronic Conditions associated with dizziness or vertigo (7 sources) Dizziness and giddiness; Translations: [Dizziness and giddiness] 01-25-2023 Episodic Essential hypertension (9 sources) Essential (primary) hypertension; Translations: [Unspecified essential hypertension] Onset: 11-22-2024 01-25-2023 Chronic Headache; including migraine (7 sources) Headache; Translations: [Headache] 12-14-2022 Episodic Immunizations and screening for infectious disease (4 sources) Encounter for immunization; Translations: [Need for prophylactic vaccination and inoculation against unspecified single disease] 01-25-2023 Episodic Malaise and fatigue (4 sources) Weakness; Translations: [Other malaise and fatigue] 01-25-2023 Episodic Miscellaneous mental health disorders (2 sources) Threatening behavior; Translations: [Other symptoms and signs involving emotional state] 03-11-2024 Episodic Mood disorders (4 sources) Mild depression; Translations: [Depression with somatization] 01-25-2023 Chronic Mood disorders (1 source) Mood disorders Nonspecific chest pain (7 sources) Chest pain; Translations: [Chest pain, unspecified] Onset: 11-22-2024 11-27-2024 Episodic Nutritional deficiencies (2 sources) Vitamin D deficiency; Translations: [Vitamin D deficiency, unspecified] Onset: 08-02-2024 07-17-2024 Chronic Other aftercare (4 sources) Encounter for follow-up examination after completed treatment for conditions other than malignant neoplasm; Translations: [Other follow-up examination] 01-25-2023 Episodic Other and unspecified benign neoplasm (1 source) Spindle cell lipoma; 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, unspecified] 04-23-2023 Episodic Other circulatory disease (7 sources) Elevated blood pressure; Translations: [Elevated blood-pressure reading, without diagnosis of hypertension] 12-14-2022 Episodic Other ear and sense organ disorders (4 sources) Other specified disorders of ear, unspecified ear; Translations: [Other disorders of ear] 01-25-2023 Episodic Other inflammatory condition of skin (4 sources) Psoriasis, unspecified; Translations: [Other psoriasis] 01-25-2023 Chronic Other injuries and conditions due to external causes (10 sources) Angioedema; Translations: [Angioneurotic edema, initial encounter] 04-17-2018 Episodic Other lower respiratory disease (4 sources) Other abnormalities of breathing; Translations: [Abnormal chest sounds] 01-25-2023 Episodic Other nervous system disorders (3 sources) Tremor; Translations: [Tremor, unspecified] 03-23-2023 Episodic Other non-traumatic joint disorders (4 sources) Effusion, unspecified shoulder; Translations: [Effusion of joint, shoulder region] 01-25-2023 Episodic Other non-traumatic joint disorders (1 source) Other specified joint disorders, right shoulder; Translations: [Other symptoms referable to joint, shoulder region] 03-09-2023 Episodic Other screening for suspected conditions (not mental disorders or infectious disease) (8 sources) Encounter for screening for malignant neoplasm of colon; Translations: [Special screening for malignant neoplasms of colon] 01-25-2023 Episodic Other skin disorders (3 sources) Mass [...] lump, right upper limb] Onset: 04-04-2023 Episodic Other skin disorders (1 source) Eruption; Translations: [Rash and other nonspecific skin eruption] 07-17-2024 Episodic Residual codes; unclassified (1 source) Immunization not carried out because of patient refusal; Translations: [Vaccination not carried out because of patient refusal] 03-09-2023 Episodic Residual codes; unclassified (2 sources) Current drinker; Translations: [Other specified health status] 03-11-2024 Episodic Residual codes; unclassified (1 source) Procedure and treatment not carried out because of patient's decision for other reasons; Translations: [Procedure and treatment not carried out because of patient's decision for other reasons] Onset: 11-22-2024 Episodic Substance-related disorders (15 sources) Cigarette smoker ; Translations: [Nicotine dependence, cigarettes, uncomplicated] Onset: 11-22-2024 01-25-2023 Chronic Unclassified (2 sources) New Patient; Translations: [New Patient] Onset: 03-01-2023 Unclassified (1 source) F10.10 - Alcohol abuse, uncomplicated,F41.8 - Other specified anxiety disorders Unclassified (1 source) Alcohol use, unspecified, uncomplicated; Translations: [Alcohol use, unspecified, uncomplicated] Onset: 03-23-2024 Past or Other Problems Problem Classification Problem Date Documented Da te Episodic/Chronic Fluid and electrolyte disorders (5 sources) Hypokalemia; Translations: [Hypopotassemia] Onset: 03-27-2024 01-25-2023 Episodic Results Test Name Value Interpretation Reference Range Facility Internal Medicine Office Vis iton 11-27-2024 Internal Medicine Office Visit [facility] [place] [address] OFFICE VISIT Date of Service: 11/27/24 MR#: [id number] Acct: [id number] Name: MARIE WAGNER Rep #: [id number] : 1975 Provider: DONTAE Smith Age/Sex: 49/M [place] [facility] Status: Signed Intake Vital Signs 07/17/24 14:56 11/27/24 15:11 Height 5 ft 8 in 5 ft 8 in Weight: 133 lb 127 lb 6 oz BMI 20.2 19.3 BP 146/82 H 148/74 H Blood Pressure Location Lt brachial Rt brachial Position Sitting Sitting Respiration 16 16 Pulse 62 62 Pulse Source Monitor Monitor Temp 97.9 F 97.2 F L Temp Source Temporal Temporal Pulse Oximetry (%) 98 93 Oxygen Delivery Method room air room air Intake Visit Reasons: ACUTE-CP/ED FU/STRESS TEST ORDER Chief Complaint: fu Icing Coater Required: No Accompanied by: Self Is patient in pain?: Yes Pain scale (1-10): 4 Allergies Penicillins (PCN) Allergy (Verified 11/27/24 15:07) Unknown Medications ???Medication ???Instructions ???Recorded ???Confirmed ???Type epinephrine 0.3 mg/0.3 mL 0.3 mg (0.3 mL) IM X1 PRN 04/17/18 11/27/24 Rx injection, auto-injector Angioedema #1 syringe compress.stocking,knee,r eg,med #2 ea 01/25/23 11/27/24 Rx ketoconazole 2 % topical cream 1 applic topical BID #15 grams 04/0211/27/24 Rx aripiprazole 5 mg tablet (Abilify) 5 mg PO QHS #30 tabs 09/10/24 Rx lisinopril 10 mg tablet 10 mg PO QDAY #30 tabs 09/19/24 Rx aspirin 81 mg tablet 81 mg PO QDAY #100 tabs 11/27/24 0 11/27/24 Rx omeprazole 10 mg capsule,delayed 10 mg PO QDAY 11/27/24 11/27/24 Hi story release pantoprazole 40 mg tablet,delayed 40 mg PO QDAY #30 tabs 11/27/24 0 11/27/24 Rx release Nurse's Note: pt c/o chest pain and tightness and states the tightness is pretty constant but the pain in chest comes and goes and is about a 4 on average but sometimes worsens and moves towards the left side of breast bone PFSH Medical History Hypertension History of alcohol abuse Psoriasis Angioedema Surgical History H/O shoulder surgery Hx of tooth extraction Family History Aunt Blood loss anemia Aunt Cancer Uncle Cancer Social History adopted: No household members: none current occupational status: employed 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 Patient went has gone to the ER twice for this pain. Pains started Tuesday evening. He states that he noticed this when he got up to go to the bathroom. He states that he had vomited that evening and then the next day he went to work and states that he didn't feel well then having some chest pains then along with feeling some shortness of breath. He ended up going to the ED evening due to the symptoms. In the ED they did EKG as well as labs and told him everything was ok and so he went home. He ended up back in the ED Tuesday afternoon with the same symptoms. They repeated the EKG and labs (including serial troponins) and told him everything was good. They tried to admit the patient to undergo a stress test the next day but patient declined and left AMA. He states that he has not had anymore of the actual pains in the chest but states that it still feels tight. HE denies having any heart burn, reflux, or history of that but then states that he does in fact have some heart burn since all of this started. He is currently a smoking with a 20 pack year history He does have HTN history. HE has been taking OTC prilosec since Tuesday He does drink a lot of caffeine drinking around five 20oz bottles of BonteraAmmon Dominguez. He does not know much about his family history at the same time doesn't think there is really any heart disease. ROS Const Constitutional: No body ache, excessive sweating, fatigue, fever(s), frequent falls, headache(s), snoring, weakness, weight change, sleep problems or change in appetite Eyes Eyes: No blurry vision, change in vision, eye pain or Light sensitivity ENT ENT: No abnormal hearing, ear or mastoid pa (more content not included)... Normal [facility] CBC + DIFFon 11-23-2024 Baso # 0.01 [id number]/UL Normal 0.00 - 0.10 [facility] Comment on above: Performed By: [id number] #### [facility],[address] [place] [id number] Basophils/100 WBC (Bld) 0.1 % Normal 0.0 - 2.0 [facility] Comment on above: Performed By: [id number] #### [facility],[address] [place] [address] CBC + DIFF Normal [facility] Comment on above: Result Comment: CBC- COMPLETE BLOOD COUNT Performed By: #### 2 [id number] #### [facility],[address] [place] [address] EO # 0.19 x10EE3/UL Normal 0.00 - 0.50 [facility] Comment on above: Performed By: #### 2 42359 #### [facility],[address] [place] [address] 44151 Eosinophils/100 WBC (Bld) 2.9 % Normal 0.0 - 7.0 [facility] Comment on above: Performed By: #### 2 54504 #### [facility],[address] [place] [address] Erythrocyte distribution width (RBC) [Ratio] 13.1 % Normal 12.0 - 15.6 [facility] Comment on above: Performed By: #### 2 06271 #### [facility],[address] [place] [address] Hematocrit (Bld) [Volume fraction] 45.5 % Normal 40.0 - 52.0 [facility] Comment on above: Performed By: #### 2 83376 #### [facility],[address] [place] [address] 35182 Hemoglobin (Bld) [Mass/Vol] 16.1 g/dL Normal 13.0 - 17.5 [facility] Comment on above: Performed By: #### 2 94948 #### [facility],[address] [place] [address] 94670 Lymph # 2.19 x10EE3/UL Normal 0.80 - 2.80 [facility] Comment on above: Performed By: #### 2 50988 #### [facility],[address] [place] [address] 28269 Lymphocytes/100 WBC (Bld) 33.2 % Normal 20.0 - 45.0 [facility] Comment on above: Performed By: #### 2 13979 #### [facility],[address] [place] [address] 39080 MANUAL DIFF N/A Normal [facility] Comment on above: Performed By: #### 2 53273 #### [facility],[address] [place] [address] 04672 MCH (RBC) [Entitic mass] 32 pg Normal 27 - 33 [facility] Comment on above: Performed By: #### 2 09246 #### [facility],[address] [place] [address] 78904 MCHC 35 X10 3 Normal 32 - 36 [facility] Comment on above: Performed By: #### 2 69579 #### [facility],[address] [place] [address] 06548 MCV (RBC) [Entitic vol] 91 fL Normal 81 - 98 [facility] Comment on above: Performed By: #### 2 12176 #### [facility],[address] [place] [address] 33551 Seward # 0.46 x10EE3/UL Normal 0.20 - 1.00 [facility] Comment on above: Performed By: #### 2 31348 #### [facility],[address] [place] [address] 23797 MONOS % 7.0 % Normal 0.0 - 10.0 [facility] Comment on above: Performed By: #### 2 86079 #### [facility],[address] [place] [address] 03209 Morphology Abel (Bld) [Interp] N/A Normal [facility] Comment on above: Performed By: #### 2 65904 #### [facility],[address] [place] [address] 59777 Neut # 3.74 x10EE3/UL Normal 1.50 - 7.10 [facility] Comment on above: Performed By: #### 2 95471 #### [facility],[address] [place] [address] 52462 Neutrophils/100 WBC (Bld) 56.7 % Normal 46.0 - 76.0 [facility] Comment on above: Performed By: #### 2 47195 #### [facility],[address] [place] [address] 14408 PLATELET 98 x10EE3/UL Low 150 - 450 [facility] Comment on above: Performed By: #### 2 47741 #### [facility],[address] [place] [address] 76125 Platelet mean volume (Bld) [Entitic vol] 12.1 fL High 6.4 - 10.5 [facility] Comment on above: Result Comment: AUTO MATED DIFFERENTIAL Performed By: #### 2 25175 #### [facility],[address] [place] [address] 13707 RBC 5.00 x 10EE6/UL Normal 4.50 - 6.00 [facility] Comment on above: Performed By: #### 2 98684 #### [facility],[address] [place] [address] 71654 WBC 6.6 x 10EE3/UL Normal 4.5 - 10.8 [facility] Comment on above: Performed By: #### 2 73673 #### [facility],[address] [place] [address] 81853 CMP with eGFRon 11-23-2024 AGE 49 years Normal [facility] Comment on above: Performed By: #### 2 31307 #### [facility],[address] [place] [address] 37985 Albumin [Mass/Vol] 3.7 g/dL Normal 3.4 - 5.0 [facility] Comment on above: Performed By: #### 2 24751 #### [facility],[address] [place] [address] Albumin/Globulin [Mass ratio] 1.2 {ratio} Normal 0.9 - 1.6 [facility] Comment on above: Performed By: #### 2 37634 #### [facility],[address] [place], [place] [id number] ALK PHOS 85 U/L Normal 46 - 116 [facility] Comment on above: Performed By: #### 2 20618 #### [facility],[address] [place], [place] [id number] ALT [Catalytic activity/Vol] 18 U/L Normal 16 - 63 [facility] Comment on above: Performed By: #### 2 59855 #### [facility],[address] [place] [address] 22112 Anion gap [Moles/Vol] 7 mmol/L Low 10 - 20 [facility] Comment on above: Performed By: #### 2 61772 #### [facility],[address] [place] [address] 64703 AST [Catalytic activity/Vol] 13 U/L Low 15 - 37 [facility] Comment on above: Performed By: #### 2 29062 #### [address] [address] B/C RATIO 10 ratio Normal 0 - 30 [facility] Comment on above: Performed By: #### 2 51039 #### [facility],[address] [place] [address] 25806 Bilirubin [Mass/Vol] 1.0 mg/dL Normal 0.2 - 1.0 [facility] Comment on above: Performed By: #### 2 33306 #### [place] [address] Calcium [Mass/Vol] 8.9 mg/dL Normal 8.5 - 10.1 [facility] Comment on above: Performed By: #### 2 97629 #### [facility],[address] [place] [address] Chloride [Moles/Vol] 104 mmol/L Normal 98 - 107 [facility] Comment on above: Performed By: #### 2 71710 #### [facility],[address] [place] [address] CMP with eGFR Normal [facility] Comment on above: Result Comment: COMP REHENSIVE METABOLIC PANEL Performed By: #### 2 95100 #### [place] [address] CO2 [Moles/Vol] 31.2 mmol/L Normal 21.0 - 32.0 [facility] Comment on above: Performed By: #### 2 64715 #### [facility],[address] [place] [address] Creatinine [Mass/Vol] 0.90 mg/dL Normal 0.70 - 1.30 [facility] Comment on above: Performed By: #### 2 57311 #### [facility],[address] [place], [place] [address] GFR/1.73 sq M.predicted among non-blacks MDRD (S/P/Bld) [Vol rate/Area] mL/min/{1.73_m2} Normal 60 - 999 [facility] Comment on above: Performed By: #### 2 69070 #### [facility],[address] [place] [address] Result Comment: ACCO RDING TO THE NATIONAL KIDNEY DISEASE EDUCATION PROGRAM(NKDE), A NORMAL eGFR IS A VALUE GREATER THAN OR EQUAL TO 60 ML/MIN/1.73 SQ METERS. CHRONIC KIDNEY DISEASE: <60mL/MIN/1.73 SQ METERS KIDNEY FAILURE: <15mL/MIN/1.73 SQ METERS THIS TEST SHOULD ONLY BE USED FOR PATIENTS 18 YEARS OF AGE AND OLDER. Globulin (S) [Mass/Vol] 3.1 g/dL Normal 1.5 - 3.8 [facility] Comment on above: Performed By: #### 2 92853 #### [address] [address] Glucose [Mass/Vol] 138 mg/dL High 74 - 106 [facility] Comment on above: Performed By: #### 2 27287 #### [address] [address] Potassium [Moles/Vol] 4.0 mmol/L Normal 3.5 - 5.1 [facility] Comment on above: Performed By: #### 2 62144 #### [address] [address] Protein [Mass/Vol] 6.8 g/dL Normal 6.4 - 8.2 [facility] Comment on above: Performed By: #### 2 18840 #### [address] [address] Sodium [Moles/Vol] 138 mmol/L Normal 136 - 145 [facility] Comment on above: Performed By: #### 2 20421 #### [address] [address] Urea nitrogen [Mass/Vol] 9 mg/dL Normal 7 - 18 [facility] Comment on above: Performed By: #### 2 84076 #### [address] [address] ED MED ADMINISTRATION DETAIL on 11-23-2024 ED MED ADMINISTRATION DETAIL Legal Nurse Consultant Medication Administration Record [address] [address] [id number] 11/23/2024 Patient: MARIE WAGNER Sex: Male : 1975 Age: 49y MEASUREMENTS: Wt: 54.4 kg, Ht/Karl: 68.0 in, BMI: 18.25 ALLERGIES: Penicillins Medication Ordered Medication Administration Date/Time 1 of 1 [facility] ED MED ADMINISTRATION DETAIL Legal Nurse Consultant Medication Administration Record [place] [id number] [place] [address] [id number] 11/22/2024 Patient: MARIE WAGNER Sex: Male : 1975 Age: 49y MEASUREMENTS: Wt: 54.4 kg, Ht/Karl: 67.0 in, BMI: 18.79 ALLERGIES: Penicillins Medication Ordered Medication Administration Date/Time Aspirin PO Chew 20:16 11/22 Aspirin PO Chew 324 mg given. - 20:17 Shanika Given 324 mg (NOW x1) Tomas Eric 20:16 11/22/2024 Shanika Eric R.N. Scanned NitroGLYCERIN 20:17 11/22 NitroGLYCERIN Paste Topical 1 inch given. - 20:18 Given Paste Topical 1 Shanika Eric R.N. 20:17 11/22/2024 inch (NOW x1) Shanika Eric R.N. Scanned 1 of 1 [facility] ED NURSES CLINICAL NOTEon ED NURSES CLINICAL NOTE Nurse Narrative Nurse Clinical Narrative [address] [address] [id number] 11/23/2024 13:39:00 Patient: MARIE WAGNER Sex: Male : 1975 Age: 49y Disposition: Left AMA Left Against Medical Advice Disposition Decision Time: 15:52 11/23/2024 Departure Time: 16:00 11/23/2024 TRIAGE Historian: (patient). Primary physician (jake). Triage time: 13:40 11/23/2024. Acuity: LEVEL 3. Chief Complaint: CHEST PAIN. Alert. No acute distress. Onset. (days). ( seen yesterday for chest pain and signed out AMA. PT advised need stress test presents today stating he needs stress test). SEPSIS SCREEN: NEGATIVE. SIRS criteria negative. SEVERE SEPSIS SCREEN NEGATIVE. No signs of organ dysfunction present. -- 13:44 11/23/24 EDT Courtney Lentz R.N. 13:43 11/23/24. BP: 152/93 MAP: 113. HR: 83. RR: 16. O2 saturation: 99% Temperature: 97.9 F. Pain level now 0/10. -- 13:44 11/23/24 EDT Courtney Lentz R.N. Measurements: 13:44 11/23/24 Wt: 54.4 kg, Ht/Karl: 68.0 in, BMI: 18.25 -- 13:44 11/23/24 EDT Courtney Lentz R.N. Medications: no known home medications -- 13:47 11/23/24 EDT Courtney Lentz R.N. 1 of 3 Nurse Narrative 13:40 11/23/24. [facility] Pharmacy: ([facility]). -- 13:44 11/23/24 EDT Courtney Lentz R.N. Allergies: Penicillins -- 13:41 11/23/24 EDT Courtney Lentz R.N. Problems: Hypertension -- 13:42 11/23/24 AYAHT Courtney Lentz R.N. Surgeries: Shoulder Surgery -- 13:42 11/23/24 YAAHT Courtney Lentz R.N. History 13:40 11/23/24. PAST MEDICAL HX: Immunizations: Tetanus status: up-to-date. Other immunizations: up-to-date. SOCIAL HX: Heavy tobacco smoker- 1 pack per day. Patient is a recovering alcoholic. Drug use: marijuana. The patient has not traveled outside the [place] Infectious disease exposure: No infectious disease exposure. ABUSE ASSESSMENT: Abuse denied. No suspicion of abuse. SELF HARM ASSESSMENT: Self harm assessment was performed. The patient answered no to the question(s) Have you recently felt down, depressed, or hopeless? and Do you have thoughts of harming or killing yourself?. FALL RISK ASSESSMENT: Fall risk assessment completed. No risk factors identified. -- 13:44 11/23/24 HEIDI Lentz R.N. Interventions 13:40 11/23/24. Identification band on patient. To treatment room. Advanced care plan. Patient does not have advanced directive. -- 13:44 11/23/24 EDT Courtney Lentz R.N. 2 of 3 Nurse Narrative PHYSICAL ASSESSMENT 13:51 11/23/24. ( Pt ambulates into department C/O chest pain over the last 2 days. Pt was seen yesterday in ED. Chest is tender with palpation. Mild shortness of breath over the past 2 days.). GENERAL / NEURO / PSYCH: Alert. Oriented X 4. Appears in no acute distress. RESPIRATORY: Respirations not labored. CVS: Normal sinus rhythm noted. Heart sounds within normal limits. Pulses within normal limits. Capillary refill less than 2 seconds. -- 13:51 11/23/24 EDT Jarocho Nguyen R.N. NURSING PROGRESS NOTES 13:41 11/23/24. 12-LEAD EKG: EKG time: (13:41 11/23/2024). 12-Lead EKG was performed by fl and shown to the ED physician. -- 13:44 11/23/24 EDT [facility] 14:10 11/23/24. Site #1 started by provider in the left antecubital space with an 18g angiocath with aseptic technique and good blood return; 1 attempt. Blood drawn: rainbow set tube(s). Saline lock flushed with 5 mL saline. -- 15:19 11/23/24 EDT Jarocho Nguyen R.N. 14:13 11/23/24. Call light placed in reach. Side rails up. Bed placed in lowest position. -- 15:51 11/23/24 EDT Jarocho Nguyen R.N. DISPOSITION / DISCHARGE 15:57 11/23/24. Site #1 removed upon discharge. Bandage applied. -- 16:09 11/23/24 AYAHT Jarocho Nguyen R.N. Departure time: 16:00 11/23/2024. Condition at departure: stable. Learning barriers present. Reviewed warnings. Verbalized understanding. Written instructions provided in Ethiopian. The patient was discharged by the physician. The patient was discharged home and accompanied by spouse. The patient left ambulatory and via private vehicle. Patient driving. -- 16:11 11/23/24 EDT Jarocho Nguyen R.N. (Electronically signed by Jarocho Nguyen R.N. 11/23/24 17:57:32 EDT) Generated by [facility] 3 of 3 Normal [facility] ED NURSES CLINICAL NOTE Nurse Narrative Nurse Clinical Narrative [facility] [address] [place] [address] [id number] 11/22/2024 19:40:00 Patient: MARIE WAGNER Sex: Male : 1975 Age: 49y Disposition: Left AMA Left Against Medical Advice Disposition Decision Time: 23:42 11/22/2024 Departure Time: 23:52 11/22/2024 TRIAGE Arrived by private vehicle. Historian: (patient). Accompanied by family. Primary physician (greg kuhn). Triage time: 19:45 11/22/2024. Acuity: LEVEL 3. Chief Complaint: CHEST PAIN. ( started last sided chest pain that comes and goes). -- 19:51 11/22/24 EDT Lanette Anderson R.N. 19:45 11/22/24. SEPSIS SCREEN: NEGATIVE. SIRS criteria negative. -- 19:52 11/22/24 EDT Sue Singleton R.N. 19:50 11/22/24. BP: 142/94 MAP: 110. HR: 58. RR: 16. O2 saturation: 98% Temperature: 97.7 F. Pain level now 4/10. [place] Coma Scale: 15 - eyes open - spontaneous (4); best verbal response - oriented (5); best motor response - obeys commands (6). -- 19:51 11/22/24 EDT Lanette Anderson R.N. Measurements: 19:48 11/22/24 Wt: 54.4 kg, Ht/Karl: 67.0 in, BMI: 18.79 -- 19:48 11/22/24 EDT aLnette Anderson R.N. Medications: no known home medications -- 19:47 11/22/24 EDT Lanette Anderson R.N. 1 of 3 Nurse Narrative 19:45 11/22/24. Preferred Pharmacy: [email or web address] -- 19:51 11/22/24 EDT Lanette Anderson R.N. Allergies: Penicillins -- 19:46 11/22/24 EDT Lanette Anderson R.N. Problems: Hypertension -- 19:46 11/22/24 EDT Lanette Anderson R.N. Surgeries: Shoulder Surgery -- 19:47 11/22/24 EDT Lanette Anderson R.N. History 19:45 11/22/24. SOCIAL HX: Current every day smoker. No alcohol use or drug use. The patient has not traveled outside the [place] Infectious disease exposure: No infectious disease exposure. ABUSE ASSESSMENT: The patient answered yes to the question(s) Do you feel safe in your home? and no to the question(s) Are you afraid to go home?. Abuse denied. SELF HARM ASSESSMENT: Self harm assessment was performed. The patient answered no to the question(s) Have you recently felt down, depressed, or hopeless? and Do you have thoughts of harming or killing yourself?. FALL RISK ASSESSMENT: Fall risk assessment completed. No risk factors identified. -- 19:51 11/22/24 EDT Lanette Anderson R.N. Interventions 19:45 11/22/24. Advanced care plan discussed with patient. Patient does not have advanced directive. -- 19:51 11/22/24 EDT Lanette Anderson R.N. PHYSICAL ASSESSMENT 2 of 3 Nurse Narrative 20:23 11/22/24. GENERAL / NEURO / PSYCH: Alert. Oriented X 4. Appears in no acute distress. HEENT: Mucous membranes are pink. RESPIRATORY: Respirations not labored. Breath sounds within normal limits. CVS: Normal sinus rhythm noted. Heart sounds within normal limits. Pulses within normal limits. Capillary refill less than 2 seconds. SKIN: Skin is warm and dry. Normal skin turgor. -- 20:23 11/22/24 EDT Lanette Anderson R.N. NURSING PROGRESS NOTES 19:40 11/22/24. 12-LEAD EKG: EKG time: (19:40 11/22/2024). 12-Lead EKG was performed by a nurse and shown to the ED physician. -- 20: 11/22/24 EDT Karma Samayoa 20:16 11/22/24. Aspirin PO Chew 324 mg given. -- 20:17 11/22/24 EDT Shanika Eric R.N. 20:17 11/22/24. NitroGLYCERIN Paste Topical 1 inch given. -- 20:18 11/22/24 EDT Shanika Eric R.N. 21:35 11/22/24. Pain level now 10. -- 21:35 11/22/24 EDT Lanette Anderson R.N. DISPOSITION / DISCHARGE 23:52 11/22/24. Condition at departure: stable. No learning barriers present. Discharge instructions provided and reviewed with the patient. The patient left the Emergency Department against medical advice. The patient appears to be alert and oriented x4. The patient stated is leaving due to personal reasons. Notified the ED physician of patient departure. Prior to leaving, the patient was advised to stay for completion of treatment and return if needed. The patient was informed of the risks of leaving and verbalized understanding of these risks. Patient signed form prior to leaving. The patient left the Emergency Department ambulatory and via private vehicle. -- 23:52 11/22/24 EDT Lanette Anderson R.N. Departure time: 23:52 11/22/2024. -- 23:52 11/22/24 EDT Lanette Anderson R.N. (Electronically signed by Lanette Anderson R.N. 11/23/24 00:05:59 EDT) Generated by [facility] 3 of 3 [facility] ED ORDER SHEET (CPOE ONLY)on 11-23-2024 ED ORDER SHEET (CPOE ONLY) Order Sheet Order Sheet [address] [place] [address] [id number] 11/23/2024 Patient: MARIE WAGNER Sex: Male : 1975 Age: 49y MEASUREMENTS: Wt: 54.4 kg, Ht/Karl: 68.0 in, BMI: 18.25 ALLERGIES: Penicillins MEDICATION/IV/DRIP/FLUID ORDERS Order Description Priority Entered Acknowledged Completed LAB ORDERS Order Description Priority Entered Acknowledged Collected Completed CBC w Diff Stat Stat 13:46 11/23/2024 14:11 11/23/2024 14:11 11/23/2024 Jarocho Locke Cameron Yoder, D.O. R.N. R.N. CMP Stat Stat 13:46 11/23/2024 14:11 11/23/2024 14:11 11/23/2024 Jarocho Locke Cameron Yoder, D.O. R.N. R.N. EKG - ED Stat Stat 13:46 11/23/2024 14:11 11/23/2024 14:11 11/23/2024 Jarocho Locke Cameron Yoder, D.O. R.N. R.N. Troponin-I Protocol Stat 13:46 11/23/2024 14:11 11/23/2024 14:11 11/23/2024 (STAT 1hr) (Sched: q1h Jarocho Locke Cameron Yoder, 1 of 2 Order Sheet X2); Stat 1 of 2 D.Landry. April.N. R.N. Troponin-I Protocol Stat 13:46 11/23/2024 15:12 11/23/2024 (STAT 1hr) (Sched: q1h Jarocho Locke, X2); Stat 2 of 2 D.O. R.N. DIAGNOSTIC STUDY ORDERS Order Description Priority Entered Acknowledged Completed STAFF ORDERS Order Description Priority Entered Acknowledged Collected Completed IV Saline Lock 13:46 11/23/2024 14:11 11/23/2024 14:11 11/23/2024 Jarocho Locke Cameron Yoder, D.O. R.N. R.N. [Electronically signed by Frandy Cota D.O. (11/23/2024 17:34 EDT)] 2 of 2 Normal [facility] ED ORDER SHEET (CPOE ONLY) Order Sheet Order Sheet [address] [place] [address] [id number] 11/22/2024 Patient: MARIE WAGNER Sex: Male : 1975 Age: 49y MEASUREMENTS: Wt: 54.4 kg, Ht/Karl: 67.0 in, BMI: 18.79 ALLERGIES: Penicillins MEDICATION/IV/DRIP/FLUID ORDERS Order Description Priority Entered Acknowledged Completed Aspirin PO [id number] mg (NOW 19:59 11/22/2024 20:14 20:17 x1) Richy Frausto D.O. 11/22/2024 11/22/2024 Jeaneth Bean R.N. R.N. NitroGLYCERIN Paste Topical1 19:59 11/22/2024 20:14 20:18 inch (NOW x1) Richy Frausto D.O. 11/22/2024 11/22/2024 Jeaneth Bean R.N. R.N. LAB ORDERS Order Description Priority Entered Acknowledged Collected Completed CBC w Diff Stat Stat 19:59 11/22/2024 20:09 11/22/2024 20:09 11/22/2024 Eligio Mayes Alisha Whytsell, R.N. R.N. BNP Stat Stat 19:59 11/22/2024 20:09 11/22/2024 20:09 11/22/2024 1 of 3 Order Sheet Eligio Mayes Alisha Whytsell, R.N. R.N. CMP Stat Stat 19:59 11/22/2024 20:09 11/22/2024 20:09 11/22/2024 Eligio Mayes Alisha Whytsell, R.N. R.N. D-Dimer Stat Stat 19:59 11/22/2024 20:09 11/22/2024 20:09 11/22/2024 Eligio Mayes Alisha Whytsell, R.N. R.N. EKG - ED Stat Stat 19:59 11/22/2024 20:08 11/22/2024 Eligio Mayes Troponin-I Protocol Stat 19:59 11/22/2024 20:09 11/22/2024 20:09 11/22/2024 (STAT 1hr) (Sched: q1h Eligio Mayes Alisha Whytsell, X2); Stat 1 of 2 R.N. R.N. Troponin-I Protocol Stat 19:59 11/22/2024 20:59 11/22/2024 22:51 11/22/2024 (STAT 1hr) (Sched: q1h Eligio Mayes, X2); Stat 2 of 2 Deusenberry, R.N. R.N. Lipase Stat Stat 19:59 11/22/2024 20:09 11/22/2024 20:09 11/22/2024 Eligio Mayes Alisha Whytsell, R.N. R.N. CRP Stat Stat 19:59 11/22/2024 20:09 11/22/2024 20:09 11/22/2024 Eligio Mayes Alisha Whytsell R.N. R.N. Patient is a sign out 23:40 11/22/2024 23:41 11/22/2024 23:41 11/22/2024 against medical advice Eligio Mayes Alisha Whytsell R.N. R.NAmmon DIAGNOSTIC STUDY ORDERS Order Description Priority Entered Acknowledged Completed 2 of 3 Order Sheet Chest 1V Stat Stat 19:59 11/22/2024 20:09 20:09 Richy Frausto D.O. 11/22/2024 11/22/2024 Lanette Brady R.N. R.N. Reason for Study: Chest Pain STAFF ORDERS Order Description Priority Entered Acknowledged Collected Completed Obtain Old EKG 19:59 11/22/2024 20:09 11/22/2024 20:10 11/22/2024 Eligio Mayes Alisha Whytsell R.N. R.N. Oxygen titrate to 92% 19:59 11/22/2024 20:09 11/22/2024 20:09 11/22/2024 Eligio Mayes Alisha Whytsell, R.N. RDaiana Erp Engineer 19:59 11/22/2024 20:09 11/22/2024 20:22 11/22/2024 Eligio Mayes Christie R.N. Deusenberry, R.N. Vital signs every 15 19:59 11/22/2024 20:09 11/22/2024 20:10 11/22/2024 minutes Eligio Mayes Alisha Whytsell, R.N. RAmmonNAmmon Repeat EKG in 45 Min 19:59 11/22/2024 20:09 11/22/2024 20:22 11/22/2024 Eligio Mayes Christie R.N. Deusenberry RDaiana [Electronically signed by Richy Frausto D.O. (11/23/2024 03:36 EDT)] 3 of 3 Normal [facility] ED PHYSICIAN CLINICAL REPORT on 11-23-2024 ED PHYSICIAN CLINICAL REPORT Narrative Physician Clinical Narrative [address] [address] [id number] 11/23/2024 13:39:00 Patient: MARIE WAGNER Sex: Male : 1975 Age: 49y Disposition: Left AMA Left Against Medical Advice Disposition Decision Time: 15:52 11/23/2024 Departure Time: 16:00 11/23/2024 Measurements Wt: 54.4 kg, Ht/Karl: 68.0 in, BMI: 18.25 Initial Vital Sign Measured Time BP MAP HR RR O2Sat ETCO2 Temp Pain GCS RTS 13:43 11/23/2024 152/93 113 83 16 99% 97.9 F 0 Time Seen: 13:35 11/23/2024. Arrived- By private vehicle. Historian- patient. HISTORY OF PRESENT ILLNESS Chief Complaint: CHEST PAIN. It is described as pain and it is described as located in the left chest area. This started today patient was eating a chicken. And kind of got caught in his esophagus time was of choking and they had rinsed it down with some mountain dew this was 2 days ago then he was having chest discomfort off and on which lasts for about a minute or 2 he was here yesterday signed out against medical advice and then today he had another episode of chest pain after he drank a mountain Dews lasts for a couple of minutes in his left chest area and resolved he has no pain at this time. His risk factors he does have a history of hypertension which he is not taking medication. He does smoke he denies diabetes or cholesterol his family history is unknown. And he is here with his them been almost a week now. and is now gone. No nausea, vomiting, difficulty breathing or diaphoresis. REVIEW OF SYSTEMS 1 of 9 Narrative GI: No abdominal pain. THROAT: No sore throat. NEUROLOGICAL: No fainting episodes. CONSTITUTIONAL: No fever. PAST HISTORY See nurses notes. Hypertension Surgeries: Shoulder Surgery Medications: no known home medications Allergies: Penicillins SOCIAL HISTORY Current every day smoker. No alcohol use. ADDITIONAL NOTES The nursing notes have been reviewed. PHYSICAL EXAM Appearance: Alert. Oriented X3. Eyes: Pupils equal, round and reactive to light. Eyes normal inspection. ENT: Ears normal. Nose normal. Neck: Normal inspection. CVS: Normal heart rate and rhythm. Heart sounds normal. Respiratory: No respiratory distress. Breath sounds normal. Abdomen: Soft and nontender. Skin: Skin warm. Normal skin color. Normal skin turgor. Extremities: Extremities exhibit normal ROM. Neuro: Oriented X 3. No motor deficit. 2 of 9 Narrative LABS, X-RAYS, AND EKG 12-LEAD EKG: EKG time: 13:41 11/23/2024. No acute process. Normal sinus rhythm. Rate: 76. Normal P waves. Normal BOSSMAN. Q waves in lead aVF, V1 and V2. Left axis deviation. Normal ST and T waves. EKG unchanged when compared with prior EKG. (1 days). The study has been interpreted contemporaneously by me. Interpretation time: 13:43 11/23/2024. Laboratory Tests: CBC + DIFF Final THERESE: 11/23/2024 13:57:00 EDT MsgRcvd: 11/23/2024 14:23 EDT Lab Test Result Reference Status Received Comments 11/23/2024 14:23 CBC-COMPLETE CBC + DIFF Final EDT BLOOD COUNT 11/23/2024 14:23 WBC 6.6 x 10/UL 4.5 - 10.8 Final EDT 11/23/2024 14:23 RBC 5.00 x 10/UL 4.50 - 6.00 Final EDT 11/23/2024 14:23 HEMOGLOBIN 16.1 g/dl 13.0 - 17.5 Final EDT 11/23/2024 14:23 HEMATOCRIT 45.5 % 40.0 - 52.0 Final EDT 11/23/2024 14:23 MCV 91 fl 81 - 98 Final EDT 11/23/2024 14:23 MCH 32 pg 27 - 33 Final EDT 11/23/2024 14:23 MCHC 35 X10 3 32 - 36 Final EDT 3 of 9 Narrative Lab Test Result Reference Status Received Comments 11/23/2024 14:23 RDW/CV 13.1 % 12.0 - 15.6 Final EDT 98 x10/UL 11/23/2024 14:23 PLATELET 150 - 450 Final Below low normal EDT 12.1 fl 11/23/2024 14:23 AUTOMATED MPV 6.4 - 10.5 Final Above high normal EDT DIFFERENTIAL 11/23/2024 14:23 NEUT % 56.7 % 46.0 - 76.0 Final EDT 11/23/2024 14:23 LYMPH % 33.2 % 20.0 - 45.0 Final EDT 11/23/2024 14:23 MONOS % 7.0 % 0.0 - 10.0 Final EDT 11/23/2024 14:23 EO % 2.9 % 0.0 - 7.0 Final EDT 11/23/2024 14:23 BASO % 0.1 % 0.0 - 2.0 Final EDT 11/23/2024 14:23 Lymph # 2.19 x10/UL 0.80 - 2.80 Final EDT 11/23/2024 14:23 Neut # 3.74 x10/UL 1.50 - 7.10 Final EDT 11/23/2024 14:23 Seward # 0.46 x10/UL 0.20 - 1.00 Final EDT 11/23/2024 14:23 EO # 0.19 x10/UL 0.00 - 0.50 Final EDT 11/23/2024 14:23 Baso # 0.01 x10/UL 0.00 - 0.10 Final EDT 4 of 9 Narrative Lab Test Result Reference Status Received Comments 11/23/2024 14:23 MANUAL DIFF N/A New Order EDT 11/23/2024 14:23 MORPHOLOGY N/A New Order EDT CMP with eGFR Final THERESE: 11/23/2024 13:57:00 EDT MsgRcvd: 11/23/2024 14:43 EDT Lab Test Result Reference Status Received Comments COMPREHENSIVE 11/23/2024 CMP with eGFR Final METABOLIC (more content not included)... Normal [facility] ED PHYSICIAN CLINICAL REPORT Narrative Physician Clinical Narrative [facility] [address] [place] [address] [id number] 11/22/2024 19:40:00 Patient: MARIE WAGNER Sex: Male : 1975 Age: 49y Disposition: Left AMA Left Against Medical Advice Disposition Decision Time: 23:42 11/22/2024 Departure Time: 23:52 11/22/2024 Measurements Wt: 54.4 kg, Ht/Karl: 67.0 in, BMI: 18.79 Initial Vital Sign Measured Time BP MAP HR RR O2Sat ETCO2 Temp Pain GCS RTS 19:50 11/22/2024 142/94 110 58 16 98% 97.7 F 4 15 Time Seen: 19:44 11/22/2024. Arrived- By private vehicle. Historian- patient. Independent historian- family. HISTORY OF PRESENT ILLNESS Chief Complaint: CHEST PAIN. It is described as tightness and it is described as located in the left chest area and radiating to the neck. This started yesterday and is still present (intermittent). The patient has had difficulty breathing, nausea and vomiting. No diaphoresis. Similar symptoms previously. None. REVIEW OF SYSTEMS ENDO/HEME/LYMPH: No enlarged lymph nodes. SKIN: No skin rash. : No difficulty with urination. EYES: No blurred vision. THROAT: No sore throat. NEUROLOGICAL: No fainting episodes or headache. CVS: No pedal edema or calf pain. RESPIRATORY: The patient has had a cough. CONSTITUTIONAL: No fever or chills. MUSCULOSKELETAL: No joint pain. GI: No abdominal pain or black stools. 1 of 10 Narrative PAST HISTORY Hypertension Surgeries: Shoulder Surgery Medications: no known home medications Allergies: Penicillins SOCIAL HISTORY Heavy tobacco smoker- 1 pack per day. No alcohol use or drug use. ADDITIONAL NOTES The nursing notes have been reviewed. PHYSICAL EXAM Appearance: Alert. Oriented X3. No acute distress. Eyes: Pupils equal, round and reactive to light. ENT: Nose normal. Pharynx normal. Neck: Normal inspection. Neck supple. CVS: Normal heart rate and rhythm. Heart sounds normal. Pulses normal. Respiratory: No respiratory distress. Breath sounds normal. Chest nontender. Abdomen: Soft and nontender. Bowel sounds normal. No mass. Skin: Skin warm and dry. No rash. Extremities: Extremities exhibit normal ROM. No lower extremity edema. Neuro: Oriented X 3. No motor deficit. No sensory deficit. LABS, X-RAYS, AND EKG 2 of 10 Narrative 12-LEAD EKG: EKG time: 19:46 11/22/2024. Bradycardia (ventricular rate 56). Sinus bradycardia. Q waves in lead V1, V2, V3 and V4. LVH. Normal ST and T waves. The study has been interpreted contemporaneously by me. The EKG appears to be a good tracing. Interpretation time: 19:47 11/22/2024. Chest X-ray: No acute disease. Views: PA. Technique: good. The X-rays were independently viewed by me. Interpretation time: 22:42 11/22/2024. Laboratory Tests: C-REACTIVE PROTEIN Final THERESE: 11/22/2024 19:58:00 EDT MsgRcvd: 11/22/2024 20:29 EDT Lab Test Result Reference Status Received Comments 11/22/2024 20:29 CRP 0.09 mg/dl 0.00 - 0.90 Final EDT CBC + DIFF Final THERESE: 11/22/2024 19:58:00 EDT MsgRcvd: 11/22/2024 20:06 EDT Lab Test Result Reference Status Received Comments 11/22/2024 20:06 CBC-COMPLETE CBC + DIFF Final EDT BLOOD COUNT 11/22/2024 20:06 WBC 6.3 x 10/UL 4.5 - 10.8 Final EDT 11/22/2024 20:06 RBC 4.88 x 10/UL 4.50 - 6.00 Final EDT 11/22/2024 20:06 HEMOGLOBIN 15.5 g/dl 13.0 - 17.5 Final EDT 11/22/2024 20:06 HEMATOCRIT 44.4 % 40.0 - 52.0 Final EDT 11/22/2024 20:06 MCV 91 fl 81 - 98 Final EDT 3 of 10 Narrative Lab Test Result Reference Status Received Comments 11/22/2024 20:06 MCH 32 pg 27 - 33 Final EDT 11/22/2024 20:06 MCHC 35 X10 3 32 - 36 Final EDT 11/22/2024 20:06 RDW/CV 13.6 % 12.0 - 15.6 Final EDT 102 x10/UL 11/22/2024 20:06 PLATELET 150 - 450 Final Below low normal EDT 11.3 fl 11/22/2024 20:06 AUTOMATED MPV 6.4 - 10.5 Final Above high normal EDT DIFFERENTIAL 41.3 % 11/22/2024 20:06 NEUT % 46.0 - 76.0 Final Below low normal EDT 11/22/2024 20:06 LYMPH % 44.9 % 20.0 - 45.0 Final EDT 11/22/2024 20:06 MONOS % 7.2 % 0.0 - 10.0 Final EDT 11/22/2024 20:06 EO % 6.4 % 0.0 - 7.0 Final EDT 11/22/2024 20:06 BASO % 0.2 % 0.0 - 2.0 Final EDT 2.82 x10/UL 11/22/2024 20:06 Lymph # 0.80 - 2.80 Final Above high normal EDT 11/22/2024 20:06 Neut # 2.60 x10/UL 1.50 - 7.10 Final EDT 11/22/2024 20:06 Seward # 0.45 x10/UL 0.20 - 1.00 Final EDT 4 of 10 Narrative Lab Test Result Reference Status Received Comments 11/22/2024 20:06 EO # 0.40 x10/UL 0.00 - 0.50 Final EDT 11/22/2024 20:06 Baso # 0.01 x10/UL 0.00 - 0.10 Final EDT 11/22/2024 20:06 MANUAL DIFF N/A New Order EDT 11/22/2024 20:06 MORPHOLOGY N/A New Order EDT CMP with eGFR Final THERESE: 11/22/2024 19:58:00 EDT MsgRcvd: (more content not included)... [facility] ED SUPER BILLon 11-23-2024 ED [facility] BILL [address] [address] [phone] 11/23/2024 Patient: MARIE WAGNER Sex: Male : 1975 Age: 49y Item Professional Category Description Facility Code Code Quantity Fee Total Nurse/E/M EMERGENCY 617362 1 $0.00 $0.00 DEPARTMENT VISIT MODERATE SEVERITY (00347-36) Grand Total $0.00 Providers Frandy Cota D.O. Chief Complaint CHEST PAIN. Principal Diagnosis Chest pain. ICD-10 Codes 1 of 2 Superbill R07.9: Chest pain, unspecified 2 of 2 [facility] ED [address] [address] [phone] 11/22/2024 Patient: MARIE WAGNER Sex: Male : 1975 Age: 49y Item Professional Category Description Facility Code Code Quantity Fee Total Nurse/E/M EMERGENCY 123178 1 $0.00 $0.00 DEPARTMENT VISIT MODERATE SEVERITY (00235-13) Grand Total $0.00 Providers Richy Frausto D.O. Chief Complaint CHEST PAIN. Principal Diagnosis Chest pain characterized as discomfort. ICD-10 Codes 1 of 2 Superbill R07.89: Other chest pain 2 of 2 [facility] ED VISIT SUMMARYon ED VISIT SUMMARY Visit Overview Visit Overview [address] [address] [phone] 11/23/2024 Patient: MARIE WAGNER Sex: Male : 1975 Age: 49y 11/23/2024 05:57 PM EDT ED Arrival:13:39 11/23/2024 EDT Status: Recent Travel:no Language:eng Adv Directive:No Isolation Status: Ethnicity:N Fall Risk:no risk Infectious Disease Exposure:no Measurements:5'8 / 172.7 Self-Harm Status:no risk Sepsis Screen:negative cm 120.0 lb / 54.4 kg Chief Complaint:CHEST PAIN, (days), (joseph), and (seen yesterday for chest pain and signed out AMA. PT advised need stress test presents today stating he needs stress test) ALLERGIES Penicillins HOME MEDICATIONS None 1 of 3 Visit Overview PAST MEDICAL HISTORY / PROBLEMS Hypertension Immunizations: Tetanus status: up-to-date Immunizations: Tetanus status: up-to-date Other immunizations: up-to-date See nurses notes PAST SURGICAL HISTORY Shoulder Surgery SOCIAL HISTORY Smoking status: Yes Alcohol use: No Drug use: Yes ED COURSE MEDICATIONS GIVEN IN EMERGENCY DEPARTMENT IV SITE INFORMATION INTAKE OUTPUT REASSESMENT (most recent) 13:51 11/23/24. ( Pt ambulates into department C/O chest pain over the last 2 days. Pt was seen yesterday in ED. Chest is tender with palpation. Mild shortness of breath over the past 2 days.). GENERAL / NEURO / PSYCH: Alert. Oriented X 4. Appears in no acute distress. RESPIRATORY: Respirations not labored. CVS: Normal sinus rhythm noted. Heart sounds within normal limits. Pulses within normal limits. Capillary refill less than 2 seconds. VITAL SIGNS First Vitals Last Vitals Temp 13:43 11/23/24 97.9 F Temp 15:52 11/23/24 BP 13:11/23/24 152/93 BP 15:52 11/23/24 2 of 3 Visit Overview First Vitals Last Vitals HR 13:43 11/23/24 83 HR 15:52 11/23/24 61 RR 13:11/23/24 16 RR 15:52 11/23/24 O2 Sat 13:11/23/24 99% O2 Sat 15:52 11/23/24 98% Pain 13:43 11/23/24 0 Pain 15:52 11/23/24 ETCO2 13:11/23/24 ETCO2 15:52 11/23/24 GCS 13:43 11/23/24 GCS 15:52 11/23/24 RTS 13:43 11/23/24 RTS 15:52 11/23/24 PROCEDURES NURSING INTERVENTIONS LABS / STUDIES LABS / STUDIES ORDERED CBC w Diff CMP EKG - ED Troponin-I Protocol (STAT 1hr) Troponin-I Protocol (STAT 1hr) CLINICAL IMPRESSION CHEST PAIN 3 of 3 Normal [facility] ED VISIT SUMMARY Visit Overview Visit Overview [facility] [address] [place] [address] [id number] 11/22/2024 Patient: MARIE WAGNER Sex: Male : 1975 Age: 49y 11/23/2024 03:36 AM EDT ED Arrival:19:40 11/22/2024 EDT Status: Recent Travel:no Language:eng Adv Directive:No Isolation Status: Ethnicity:N Fall Risk:no risk Infectious Disease Exposure:no Measurements:5'7 / 170.2 Self-Harm Status:risk Sepsis Screen:negative cm 120.0 lb / 54.4 kg Chief Complaint:CHEST PAIN, (greg hattie), and (started last sided chest pain that comes and goes) ALLERGIES Penicillins HOME MEDICATIONS None PAST MEDICAL HISTORY / PROBLEMS Hypertension 1 of 3 Visit Overview PAST SURGICAL HISTORY Shoulder Surgery SOCIAL HISTORY Smoking status: Yes Alcohol use: No Drug use: No ED COURSE MEDICATIONS GIVEN IN EMERGENCY DEPARTMENT 20:16 11/22/24 Aspirin PO Chew 324 mg 20:17 11/22/24 NitroGLYCERIN Paste Topical 1 inch IV SITE INFORMATION INTAKE OUTPUT REASSESMENT (most recent) 20:23 11/22/24. GENERAL / NEURO / PSYCH: Alert. Oriented X 4. Appears in no acute distress. HEENT: Mucous membranes are pink. RESPIRATORY: Respirations not labored. Breath sounds within normal limits. CVS: Normal sinus rhythm noted. Heart sounds within normal limits. Pulses within normal limits. Capillary refill less than 2 seconds. SKIN: Skin is warm and dry. Normal skin turgor. VITAL SIGNS First Vitals Last Vitals Temp 19:50 11/22/24 97.7 F Temp 23:42 11/22/24 BP 19:50 11/22/24 142/94 BP 23:42 11/22/24 126/83 HR 19:50 11/22/24 58 HR 23:42 11/22/24 46 RR 19:50 11/22/24 16 RR 23:42 11/22/24 O2 Sat 19:50 11/22/24 98% O2 Sat 23:42 11/22/24 Pain 19:50 11/22/24 4 Pain 23:42 11/22/24 ETCO2 19:50 11/22/24 ETCO2 23:42 11/22/24 GCS 19:50 11/22/24 15 GCS 23:42 11/22/24 2 of 3 Visit Overview First Vitals Last Vitals RTS 19:50 11/22/24 RTS 23:42 11/22/24 PROCEDURES NURSING INTERVENTIONS LABS / STUDIES LABS / STUDIES ORDERED BNP CBC w Diff Chest 1V CMP CRP D-Dimer EKG - ED Lipase Patient is a sign out against medical advice Troponin-I Protocol (STAT 1hr) Troponin-I Protocol (STAT 1hr) CLINICAL IMPRESSION CHEST PAIN CHARACTERIZED DISCOMFORT 3 of 3 Normal [facility] ED VITALS FLOW SHEETon 11-23 ED VITALS FLOW SHEET Vitals Vital Sign Flow Sheet [address] [address] [id number] 11/23/2024 Patient: MARIE WAGNER Sex: Male : 1975 Age: 49y Measurements Wt: 54.4 kg, Ht/Karl: 68.0 in, BMI: 18.25 Measured Time BP MAP HR RR O2Sat ETCO2 Temp Pain GCS RTS 15:52 11/23/2024 61 98% 15:48 11/23/2024 158/87 110 68 15:47 11/23/2024 66 99% 15:42 11/23/2024 59 98% 15:37 11/23/2024 64 98% 15:33 11/23/2024 152/127 132 63 15:32 11/23/2024 70 98% 15:27 11/23/2024 61 98% 15:22 11/23/2024 67 97% 15:18 11/23/2024 141/82 96 65 15:17 11/23/2024 68 97% 15:12 11/23/2024 77 97% 15:07 11/23/2024 60 98% 15:03 11/23/2024 129/80 96 59 15:02 11/23/2024 58 97% 1 of 2 Vitals Measured Time BP MAP HR RR O2Sat ETCO2 Temp Pain GCS RTS 14:57 11/23/2024 59 97% 14:52 11/23/2024 58 97% 14:48 11/23/2024 142/87 110 60 14:47 11/23/2024 62 97% 14:37 11/23/2024 64 98% 14:32 11/23/2024 62 98% 14:28 11/23/2024 139/82 106 62 14:27 11/23/2024 62 98% 14:22 11/23/2024 60 98% 14:17 11/23/2024 62 98% 14:13 11/23/2024 147/89 114 62 14:12 11/23/2024 63 99% 14:07 11/23/2024 64 99% 14:02 11/23/2024 69 98% 13:58 11/23/2024 144/87 110 72 13:57 11/23/2024 69 98% 13:52 11/23/2024 85 99% 13:47 11/23/2024 88 97% 13:43 11/23/2024 152/93 113 83 16 99% 97.9 F 0 2 of 2 Normal [facility] ED VITALS FLOW SHEET Vitals Vital Sign Flow Sheet [address] [address] [id number] 11/22/2024 Patient: MARIE WAGNER Sex: Male : 1975 Age: 49y Measurements Wt: 54.4 kg, Ht/Karl: 67.0 in, BMI: 18.79 Measured Time BP MAP HR RR O2Sat ETCO2 Temp Pain GCS RTS 23:42 11/22/2024 126/83 98 46 23:32 11/22/2024 51 99% 23:27 11/22/2024 49 99% 23:27 11/22/2024 124/77 98 50 23:22 11/22/2024 48 98% 23:17 11/22/2024 47 99% 23:12 11/22/2024 125/76 91 47 23:12 11/22/2024 47 98% 23:07 11/22/2024 48 98% 23:02 11/22/2024 51 99% 22:57 11/22/2024 116/76 86 48 22:57 11/22/2024 50 98% 22:52 11/22/2024 50 98% 22:47 11/22/2024 48 99% 22:42 11/22/2024 55 99% 1 of 3 Vitals Measured Time BP MAP HR RR O2Sat ETCO2 Temp Pain GCS RTS 22:37 11/22/2024 48 98% 22:32 11/22/2024 50 99% 22:27 11/22/2024 51 99% 22:27 11/22/2024 127/76 86 52 22:22 11/22/2024 49 98% 22:17 11/22/2024 51 98% 22:12 11/22/2024 50 98% 22:12 11/22/2024 113/71 85 50 22:07 11/22/2024 48 99% 22:02 11/22/2024 45 98% 21:57 11/22/2024 50 98% 21:57 11/22/2024 130/86 96 43 21:52 11/22/2024 44 99% 21:47 11/22/2024 47 98% 21:43 11/22/2024 121/79 90 49 21:42 11/22/2024 61 98% 21:37 11/22/2024 47 98% 21:35 11/22/2024 3 21:32 11/22/2024 46 98% 21:27 11/22/2024 47 98% 21:27 11/22/2024 131/90 100 45 21:22 11/22/2024 45 98% 21:17 11/22/2024 47 98% 21:12 11/22/2024 46 98% 21:12 11/22/2024 137/86 104 44 2 of 3 Vitals Measured Time BP MAP HR RR O2Sat ETCO2 Temp Pain GCS RTS 21:07 11/22/2024 46 98% 21:02 11/22/2024 51 97% 20:57 11/22/2024 55 98% 20:57 11/22/2024 133/89 99 51 20:52 11/22/2024 50 100% 20:47 11/22/2024 48 99% 20:42 11/22/2024 51 98% 20:42 11/22/2024 137/88 99 48 20:37 11/22/2024 54 98% 20:32 11/22/2024 50 98% 20:28 11/22/2024 137/87 104 55 20:27 11/22/2024 57 98% 19:50 11/22/2024 142/94 110 58 16 98% 97.7 F 4 15 3 of 3 Normal [facility] TROPONINon 11-23-2024 HS TROPONIN <4.0 Normal 0.0 - 76.2 [facility] Comment on above: Performed By: #### 2 [id number] #### [facility],[address] [place] [address] HS TROPONIN <4.0 Normal 0.0 - 76.2 [facility] Comment on above: Performed By: #### 2 12531 #### [facility],[address] [place] [address] C-REACTIVE PROTEINon 025 CRP 0.09 mg/dl Normal 0.00 - 0.90 [facility] Comment on above: Performed By: #### 2 [id number] #### [facility],[address] [place] [address] CBC + DIFFon 11-22-2024 Baso # 0.01 x10EE3/UL Normal 0.00 - 0.10 [facility] Comment on above: Performed By: #### 2 82961 #### [facility],[address] [place] [address] Basophils/100 WBC (Bld) 0.2 % Normal 0.0 - 2.0 [facility] Comment on above: Performed By: #### 2 [id number] #### [facility],[address] [place] [address] CBC + DIFF Normal [facility] Comment on above: Result Comment: CBC- COMPLETE BLOOD COUNT Performed By: #### 2 [id number] #### [facility],[address] [place] [address] EO # 0.40 x10EE3/UL Normal 0.00 - 0.50 [facility] Comment on above: Performed By: #### 2 62418 #### [facility],[address] [place], [place] [id number] Eosinophils/100 WBC (Bld) 6.4 % Normal 0.0 - 7.0 [facility] Comment on above: Performed By: #### 2 44930 #### [facility],[address] [place] [address] Erythrocyte distribution width (RBC) [Ratio] 13.6 % Normal 12.0 - 15.6 [facility] Comment on above: Performed By: #### 2 31101 #### [facility],[address] [place], [place] [id number] Hematocrit (Bld) [Volume fraction] 44.4 % Normal 40.0 - 52.0 [facility] Comment on above: Performed By: #### 2 55621 #### [facility],[address] [place] [address] Hemoglobin (Bld) [Mass/Vol] 15.5 g/dL Normal 13.0 - 17.5 [facility] Comment on above: Performed By: #### 2 34851 #### [facility],[address] [place] [address] Lymph # 2.82 x10EE3/UL High 0.80 - 2.80 [facility] Comment on above: Performed By: #### 2 38095 #### [facility],[address] [place] [address] Lymphocytes/100 WBC (Bld) 44.9 % Normal 20.0 - 45.0 [facility] Comment on above: Performed By: #### 2 82283 #### [facility],[address] [place] [address] MANUAL DIFF N/A Normal [facility] Comment on above: Performed By: #### 2 71975 #### [facility],[address] [place] [address] MCH (RBC) [Entitic mass] 32 pg Normal 27 - 33 [facility] Comment on above: Performed By: #### 2 40417 #### [facility],[address] [place] [address] MCHC 35 X10 3 Normal 32 - 36 [facility] Comment on above: Performed By: #### 2 77171 #### [facility],[address] [place] [address] MCV (RBC) [Entitic vol] 91 fL Normal 81 - 98 [facility] Comment on above: Performed By: #### 2 20436 #### [facility],[address] [place] [address] Seward # 0.45 x10EE3/UL Normal 0.20 - 1.00 [facility] Comment on above: Performed By: #### 2 74401 #### [facility],[address] [place] [address] MONOS % 7.2 % Normal 0.0 - 10.0 [facility] Comment on above: Performed By: #### 2 93143 #### [facility],[address] [place] [address] Morphology Abel (Bld) [Interp] N/A Normal [facility] Comment on above: Performed By: #### 2 76424 #### [facility],[address] [place] [address] Neut # 2.60 x10EE3/UL Normal 1.50 - 7.10 [facility] Comment on above: Performed By: #### 2 47118 #### [facility],[address] [place] [address] Neutrophils/100 WBC (Bld) 41.3 % Low 46.0 - 76.0 [facility] Comment on above: Performed By: #### 2 11534 #### [facility],[address] [place] [address] PLATELET 102 x10EE3/UL Low 150 - 450 [facility] Comment on above: Performed By: #### 2 81444 #### [facility],[address] [place] [address] Platelet mean volume (Bld) [Entitic vol] 11.3 fL High 6.4 - 10.5 [facility] Comment on above: Result Comment: AUTO MATED DIFFERENTIAL Performed By: #### 2 10728 #### [facility],[address] [place] [address] RBC 4.88 x 10EE6/UL Normal 4.50 - 6.00 [facility] Comment on above: Performed By: #### 2 03762 #### [facility],[address] [place] [address] WBC 6.3 x 10EE3/UL Normal 4.5 - 10.8 [facility] Comment on above: Performed By: #### 2 87108 #### [facility],[address] [place] [address] CHEST 1 VIEWon 11-22-2024 CHEST 1 VIEW [place] [address] Patient: GIOVANNA WAGNER Phone#: : 1975 Age: 49 Gender: M Pt. Type: ER Account: [id number] Location: [facility] Ordering: RICHY FRAUSTO Exam Date: 11/22/2024/20:05 Family Phys: YUE FULLER Charge Code: [id number] Physician: [place] Order #: [id number] Dose#: PROCEDURE: X-RAY CHEST 1 VIEW COMPARISON: [facility], XR, CHEST 2 VIEWS, 07/17/2018, 10:37. INDICATIONS: Chest pain. FINDINGS: LUNGS: Normal. No significant pulmonary parenchymal abnormalities. VASCULATURE: Normal. Unremarkable pulmonary vasculature. CARDIAC: Normal. No cardiac silhouette abnormality or cardiomegaly. MEDIASTINUM: Normal. No visible mass or adenopathy. PLEURA: Normal. No effusion or pleural thickening. BONES: Normal. No fracture or visible bony lesion. OTHER: Negative. CONCLUSION: No acute disease. No significant change has occurred. Dictated by: Vanessa Head MD on 11/23/2024 at 10:30 Approved by: Vanessa Head MD on 11/23/2024 at 10:31 Normal [facility] CMP with eGFRon 11-22-2024 AGE 49 years Normal [facility] Comment on above: Performed By: #### 2 18759 #### [facility],[address] [place] [address] 63681 Albumin [Mass/Vol] 3.5 g/dL Normal 3.4 - 5.0 [facility] Comment on above: Performed By: #### 2 84227 #### [facility],[address] [place] [address] 69210 Albumin/Globulin [Mass ratio] 1.3 {ratio} Normal 0.9 - 1.6 [facility] Comment on above: Performed By: #### 2 31863 #### [facility],[address] [place] [address] 95199 ALK PHOS 84 U/L Normal 46 - 116 [facility] Comment on above: Performed By: #### 2 50450 #### [facility],[address] [place] [address] 92013 ALT [Catalytic activity/Vol] 16 U/L Normal 16 - 63 [facility] Comment on above: Performed By: #### 2 31924 #### [facility],[address] [place] [address] 79112 Anion gap [Moles/Vol] 10 mmol/L Normal 10 - 20 [facility] Comment on above: Performed By: #### 2 60713 #### [facility],[address] [place] [address] 57221 AST [Catalytic activity/Vol] 12 U/L Low 15 - 37 [facility] Comment on above: Performed By: #### 2 56722 #### [facility],[address] [place] [address] 70605 B/C RATIO 11 ratio Normal 0 - 30 [facility] Comment on above: Performed By: #### 2 50179 #### [facility],[address] [place] [address] 36727 Bilirubin [Mass/Vol] 0.7 mg/dL Normal 0.2 - 1.0 [facility] Comment on above: Performed By: #### 2 24955 #### [facility],[address] [place] [address] 14643 Calcium [Mass/Vol] 8.7 mg/dL Normal 8.5 - 10.1 [facility] Comment on above: Performed By: #### 2 09088 #### [facility],[address] [place] [address] 07666 Chloride [Moles/Vol] 105 mmol/L Normal 98 - 107 [facility] Comment on above: Performed By: #### 2 01232 #### [facility],[address] [place] [address] 87290 CMP with eGFR Normal [facility] Comment on above: Result Comment: COMP REHENSIVE METABOLIC PANEL Performed By: #### 2 50715 #### [facility],[address] [place] [address] 06365 CO2 [Moles/Vol] 27.2 mmol/L Normal 21.0 - 32.0 [facility] Comment on above: Performed By: #### 2 15056 #### [facility],[address] [place] [address] 34205 Creatinine [Mass/Vol] 0.82 mg/dL Normal 0.70 - 1.30 [facility] Comment on above: Performed By: #### 2 31466 #### [facility],[address] [place] [address] 80486 GFR/1.73 sq M.predicted among non-blacks MDRD (S/P/Bld) [Vol rate/Area] mL/min/{1.73_m2} Normal 60 - 999 [facility] Comment on above: Performed By: #### 2 49970 #### [facility],[address] [place] [address] 62021 Result Comment: ACCO RDING TO THE NATIONAL KIDNEY DISEASE EDUCATION PROGRAM(NKDE), A NORMAL eGFR IS A VALUE GREATER THAN OR EQUAL TO 60 ML/MIN/1.73 SQ METERS. CHRONIC KIDNEY DISEASE: <60mL/MIN/1.73 SQ METERS KIDNEY FAILURE: <15mL/MIN/1.73 SQ METERS THIS TEST SHOULD ONLY BE USED FOR PATIENTS 18 YEARS OF AGE AND OLDER. Globulin (S) [Mass/Vol] 2.8 g/dL Normal 1.5 - 3.8 [facility] Comment on above: Performed By: #### 2 64363 #### [facility],[address] [place] [address] 92963 Glucose [Mass/Vol] 103 mg/dL Normal 74 - 106 [facility] Comment on above: Performed By: #### 2 76533 #### [facility],[address] [place] [address] 00333 Potassium [Moles/Vol] 3.8 mmol/L Normal 3.5 - 5.1 [facility] Comment on above: Performed By: #### 2 52617 #### [facility],[address] [place] [address] 39422 Protein [Mass/Vol] 6.3 g/dL Low 6.4 - 8.2 [facility] Comment on above: Performed By: #### 2 45302 #### [facility],[address] [place] [address] 96243 Sodium [Moles/Vol] 138 mmol/L Normal 136 - 145 [facility] Comment on above: Performed By: #### 2 69063 #### [address] [address] Urea nitrogen [Mass/Vol] 9 mg/dL Normal 7 - 18 [facility] Comment on above: Performed By: #### 2 33808 #### [facility],[address] [place], [place] [id number] D-DIMER, QUANTITATIVEon - D-DIMER QUANT <200 Normal 0 - 230 [facility] Comment on above: Performed By: #### 2 77865 #### [place] [id number] D-DIMER, QUANTITATIVE Normal [facility] Comment on above: Result Comment: BUFFY T D-DIMER Performed By: #### 2 16843 #### [place] [id number] LIPASEon 11-22-2024 Lipase [Catalytic activity/Vol] 23.0 U/L Normal 15.0 - 78.0 [facility] Comment on above: Result Comment: *PLE ASE NOTE THAT RANGES FOR LIPASE HAVE CHANGED OF 05/06/23 DUE TO AN ASSAY UPDATE BY THE RESOURCE CONSERVATION SPECIALIST.THE NEW ASSAY RANGE IS 6-250 U/L, WITH A REFERENCE RANGE OF 16-77 U/L. Performed By: #### 2 36046 #### [place] [id number] NT-proBNPon 11-22-2024 Natriuretic peptide B (Bld) [Mass/Vol] 60 pg/mL Normal 0 - 125 [facility] Comment on above: Performed By: #### 2 57299 #### [address] [address] TROPONINon 11-22-2024 HS TROPONIN <4.0 Normal 0.0 - 76.2 [facility] Comment on above: Performed By: #### 2 86380 #### [facility],[address] [place] [address] 85820 HS TROPONIN <4.0 Normal 0.0 - 76.2 [facility] Comment on above: Performed By: #### 2 73734 #### [facility],[address] [place] [address] 91180 Vitamin D 1,25-Dihydroxyon 0 07-27-2024 VIT D 1,25 DIHY 49.6 pg/mL Normal 24.8-81.5 [facility] Comment on above: Result Comment: Perf ormed at: BN - [facility] [address] [id number] Assistive Technology Trainer: Ruth Gonsales MD, Phone: [phone] Performed By: #### L 5321.0960 ####[facility] [address] [place], [address] 1,25-dihydroxyvitamin D3 [Ma ss/Vol]Ordered By: Honey Garza on 07-24-2024 Vitamin D 1,25-Dihydroxy 49.6 pg/mL 24.8-81.5 [facility] Comment on above: Performed at: [facility] - [facility] [address] [id number] Director: Ruth Gonsales MD, Phone: [phone] [email or web address] Internal [facility] Office Visit [facility] [address] [place] [address] [address] [place], [place] [address] OFFICE VISIT Date of Service: 07/17/24 MR#: [id number] Acct: [id number] Name: MARIE WAGNER Garrick Rep #: [id number] : 1975 Provider: Dr. Honey morin MD Age/Sex: 49/M Location[facility] Status: Signed Intake Vital Signs 03/07/24 14:21 07/17/24 14:56 Height 5 ft 8 in 5 ft 8 in Weight: 133 lb BMI 20.2 BP 146/82 H Blood Pressure Location Lt brachial Position Sitting Respiration 16 Pulse 62 Pulse Source Monitor Temp 97.9 F Temp Source Temporal Pulse Oximetry (%) 98 Oxygen Delivery Method room air Intake Visit Reasons: chk up/med discussion Chief Complaint: check up and meds Icing Coater Required: No Accompanied by: Self Is patient in pain?: No Allergies Penicillins (PCN) Allergy (Verified 07/17/24 14:54) Unknown Medications ???Medication ???Instructions ???Recorded ???Confirmed ???Type epinephrine 0.3 mg/0.3 mL 0.3 mg (0.3 mL) IM X1 PRN 04/17/18 07/17/24 Rx injection, auto-injector Angioedema #1 syringe compress.stocking,knee,r eg,med #2 ea 01/25/23 07/17/24 Rx aripiprazole 5 mg tablet (Abilify) 5 mg PO QHS #30 tabs 07/17/24 Rx ketoconazole 2 % topical cream 1 applic topical BID #15 grams 04/0207/17/24 Rx lisinopril 10 mg tablet 10 mg PO QDAY #30 tabs 07/17/24 Rx Have you fallen in the past year?: No PFSH Medical History Hypertension History of alcohol abuse Psoriasis Angioedema Surgical History H/O shoulder surgery Hx of tooth extraction Family History Aunt Blood loss anemia Aunt Cancer Uncle Cancer Social History adopted: No household members: none current occupational status: employed 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 [employer] current occupational exposures/hazards: No Smoking Status: Current every day smoker tobacco type: cigarettes Tobacco: How many years used: 20 Electronic Cigarette Use: not used quit status: not considering quitting alcohol intake: current Previous attempts at quittin details: has been sober for 2 weeks as of 01/25, 1/4-1/2 gallon of whiskey substance use type: marijuana caffeine: Yes (1-2) Type: carbonated beverages seatbelt use: always do you feel safe at home: Yes HPI HPI Chief Complaint: check up and meds Details: MARIE WAGNER, is a 49 M who presents to the office today for a follow up. He is due for some routine blood work. He previously declined colon cancer screening. He previously declined a flu shot. He does smoke and doesn't want to quit at this time. He does need refills. He reports he is not really eating healthy. He is still not very active stating he doesn't have much energy. He hasn't checked his blood pressure at home recently. He has missed the last two doses. He has otherwise been taking it as prescribed. He does not really monitor his salt intake, however, his significant other states he doesn't eat a lot of salty foods. The patient completed a PFT in 2022 which showed COPD. An inhaler was ordered for him, but he never got it. He reports that insurance didn't cover it for him. He reports his breathing waxes and wanes in severity depending on his activity, but states overall, it hasn't been too bad. He hasn't had any major flare ups recently. At his last office visit, he had concerns about his mental health and a relapse in alcohol use. At the time, he was in the process of establishing with both a counselor and psychiatry. He was started on lexapro and PRN atarax in the meantime. He states he did see the counselor at [facility]. He states he was told he doesn't need to be seen again after March. He reports that he entered a treatment program for his alcoholism last month up in [place], [place]. He reports they wanted him to go to [place] for further treatment, but he left [place]. He left last Tuesday. Since being home, he has been feeling weak and still has some shakes intermittently. He reports he hasn't had anything to drink, however, his significant other reports she will occasionally give him a capful of LTD liquor to help with his shaking. He last had that on Tuesday of this past week. He is no longer taking the lexapro and states he has just maintained himself on the abilify that they started in the treatment program. He thinks his mental health is doing better. He denies any thoughts of harming himself. He denies any problems with the medication. The patient has concerns about a rash. He reports he has a few different spots on his arm, leg and trunk. He reports it has been there for at least a month. He reports it is itching. He repor (more content not included)... Normal [facility] Comprehensive Metabolic Prof saige 03-07-2024 Albumin [Mass/Vol] 3.6 g/dL Normal 3.2-5.0 [facility] Comment on above: Performed By: #### L 506.1000, L501.9520, L500.4050 #### [facility] [address] [place], [address] Albumin/Globulin [Mass ratio] 1.3 {ratio} Normal 0.9-2.4 [facility] Comment on above: Performed By: #### L 506.1000, L501.9520, L500.4050 #### [facility] [address] [place], [address] ALK P 105 U/L Normal 45-117 [facility] Comment on above: Performed By: #### L 506.1000, L501.9520, L500.4050 #### [facility] [address] [place], [address] ALT [Catalytic activity/Vol] 22 U/L Normal 16-61 [facility] Comment on above: Performed By: #### L 506.1000, L501.9520, L500.4050 #### [facility] [address] [place], [address] AST [Catalytic activity/Vol] 14 U/L Low 15-37 [facility] Comment on above: Performed By: #### L 506.1000, L501.9520, L500.4050 #### [facility] [address] [place], [address] Bilirubin [Mass/Vol] 0.90 mg/dL Normal 0.20-1.00 [facility] Comment on above: Result Comment: For patients on eltrombopag therapy, use of Dimension [place] TBIL is not recommended. Performed By: #### L 506.1000, L501.9520, L500.4050 #### [facility] [address] [place], [address] BUN/CRE 14.6 RATIO Normal 10-20 [facility] Comment on above: Performed By: #### L 506.1000, L501.9520, L500.4050 #### [facility] [address] [place], [address] CA,Total 8.7 mg/dL Normal 8.5-10.1 [facility] Comment on above: Performed By: #### L 506.1000, L501.9520, L500.4050 #### [facility] [address] [place], [address] Chloride [Moles/Vol] 106 mmol/L Normal 98-107 [facility] Comment on above: Performed By: #### L 506.1000, L501.9520, L500.4050 #### [facility] [address] [place], [address] CO2 [Moles/Vol] 30.0 mmol/L Normal 21.0-32.0 [facility] Comment on above: Performed By: #### L 506.1000, L501.9520, L500.4050 #### [facility] [address] [place], [address] Creatinine [Mass/Vol] 0.82 mg/dL Normal 0.70-1.30 [facility] Comment on above: Result Comment: The validity of the calculated GFR GFRAA in patients over 70 years has not been determined. Clinical correlation is essential. Performed By: #### L 506.1000, L501.9520, L500.4050 #### [facility] [address] [place], [address] EST GFR - AA 128 mL/min Normal >60 [facility] Comment on above: Result Comment: Afri can Andorran GFR Calc Performed By: #### L 506.1000, L501.9520, L500.4050 #### [facility] [address] [place], [address] GAP 4 Low 5-15 [facility] Comment on above: Performed By: #### L 506.1000, L501.9520, L500.4050 #### [facility] [address] [place], [address] GFR/1.73 sq M.predicted among non-blacks MDRD (S/P/Bld) [Vol rate/Area] 106 mL/min/{1.73_m2} Normal >60 [facility] Comment on above: Result Comment: Non- GFR Calc Performed By: #### L 506.1000, L501.9520, L500.4050 #### [facility] [address] [place], [address] Globulin (S) [Mass/Vol] 2.8 g/dL Normal 2.2-4.2 [facility] Comment on above: Performed By: #### L 506.1000, L501.9520, L500.4050 #### [facility] [address] [place], [address] Glucose [Mass/Vol] 106 mg/dL Normal 74-106 [facility] Comment on above: Result Comment: Fast ing Glucose result from 100 to 125 mg/dL suggests IMPAIRED HOMEOSTASIS per A.D.A. criteria. Performed By: #### L 506.1000, L501.9520, L500.4050 #### [facility] [address] [place], [address] Potassium [Moles/Vol] 4.1 mmol/L Normal 3.5-5.1 [facility] Comment on above: Performed By: #### L 506.1000, L501.9520, L500.4050 #### [facility] [address] [place], [address] Sodium [Moles/Vol] 140 mmol/L Normal 136-145 [facility] Comment on above: Performed By: #### L 506.1000, L501.9520, L500.4050 #### [facility] [address] [place], [address] T PROT 6.4 g/dL Normal 6.4-8.2 [facility] Comment on above: Performed By: #### L 506.1000, L501.9520, L500.4050 #### [facility] [address] [place], [address] Urea nitrogen [Mass/Vol] 12 mg/dL Normal 7-18 [facility] Comment on above: Performed By: #### L 506.1000, L501.9520, L500.4050 #### [facility] [address] [place], [address] Thyroid Stim Hormone (TSH)on 03-07-2024 TSH 1.240 uIU/mL Normal 0.358-3.740 [facility] Comment on above: Performed By: #### L 506.1000, L501.9520, L500.4050 #### [facility] [address] [place], [address] Vitamin D,25 Hydroxyon 03-07 Vitamin D 25-OH 8.2 ng/mL Normal [facility] Comment on above: Result Comment: Holly min D 25(OH) Status Range Deficiency <20 ng/mL (50nmol/L) Insufficiency 20 - 30 ng/mL (50 - 75 nmol/L) Sufficiency 30 - 100 ng/mL (75 - 250 nmol/L) Toxicity >100 ng/mL (>250 nmol/L) Performed By: #### L 506.1000, L501.9520, L500.4050 ####[facility] [address] [place], [address] Internal Medicine Office Vis iton 03-06-2024 Internal Medicine Office Visit [facility] [address] [place], [place] [address] OFFICE VISIT Date of Service: 03/07/24 MR#: [id number] Acct: [id number] Name: MARIE WAGNER Rep #: [id number] : 1975 Provider: Dr. Honey morin MD Age/Sex: 48/M Location[place] [facility] Status: Signed Intake Vital Signs 03/02/24 17:59 03/05/24 08:59 03/07/24 14:21 Height 5 ft 8 in 5 ft 8 in 5 ft 8 in Weight: 125 lb BMI 19.0 BP 124/84 H Blood Pressure Location Lt brachial Position Sitting Respiration 16 Pulse 70 Pulse Source Monitor Temp 99.1 F Temp Source Temporal Pulse Oximetry (%) 98 Oxygen Delivery Method room air Intake Visit Reasons: [facility] FOLLOW UP / DEPRESSION Icing Coater Required: No Is patient in pain?: No Allergies Penicillins (PCN) Allergy (Verified 03/07/24 14:04) Unknown Medications ???Medication ???Instructions ???Recorded ???Confirmed ???Type epinephrine 0.3 mg/0.3 mL 0.3 mg (0.3 mL) IM X1 PRN 04/17/18 03/07/24 Rx injection, auto-injector Angioedema #1 syringe compress.stocking,knee,r eg,med #2 ea 01/25/23 03/07/24 Rx cholecalciferol (vitamin D3) 1,250 1,250 mcg PO QWEEK #8 caps 03/07/24 Rx mcg (50,000 unit) capsule escitalopram oxalate 5 mg tablet 5 mg PO QDAY #30 tabs 03/07/24 03/07/24 Rx (Lexapro) hydroxyzine HCl 25 mg tablet 25 mg PO Q8H PRN anxiety #30 tabs 03/07/24 03/07/24 Rx Nurse's Note: Is here for a hospital f/u. States he has not had a relapse since being in the hospital. States that his mood is all over sometimes breaks down and cries, and wonders what he did to deserve this. States he is seeing Lynne on 03/15/24 for counseling. States that he no longer feels like himself. Feels like his daughters birthday holds a huge deal of stress for him. States he has no thoughts of hurting himself or others when this happens or today. He wants to be left alone but feels like he is scared to be alone as his whole world crashed down on him. States she left on Tuesday and took all of the money so he is very overwhelmed. Is having some issues paying bills and supporting himself as she always did it. States the kids are mad and feel like it's his fault that the mom left. Needs a refill on amlodipine. Is open and wants to discuss medications to help w/ mood. He feels lost. States he is having difficulty falling asleep and staying asleep. States that his appetite waxes and wanes. Is requesting FMLA. States he only has a week left of PTO and doesn't feel he can work w/ the way his mood is. Is uncertain of first day he did not go to work. [facility] Medical History Hypertension History of alcohol abuse Psoriasis Angioedema Surgical History (Updated 03/07/24 @ 14:[address] Honey Garza MD) H/O shoulder surgery Hx of tooth extraction Family History Aunt Blood loss anemia Aunt Cancer Uncle Cancer Social History (Updated 03/07/24 @ 14:[address] 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 He hasn't been seen in over a year. He is due for some routine blood work. He never did his colon cancer screening as previously ordered and wants to hold off for now. He doesn't want his flu shot. He does smoke and doesn't want to quit at this time. He doesn't take any prescription medications at this time. He reports he is not really eating healthy. He reports his activity level is intermittent. He reports he last checked his blood pressure at home a couple of weeks ago. He believes it was well controlled. He has not been on any medications since he was seen last year. He does try to monitor his salt intake. The patient completed a PFT last year which showed COPD. An inhaler was ordered for him, but he never got it. He reports that insurance didn't cover it for him. He reports his breathing waxes and wanes in severity depending on his activity. He does have a rescue inhaler, but only uses it sparingly. He has only needed it a couple of times. He hasn't had any major flare ups recently. Since he was last seen, he underwent surgery for his right shoulder. He report (more content not included)... Normal [facility] Alcohol, Blood (Medical)-Ser umon 03-02-2024 SERUM ETOH 101.0 mg/dL Normal [facility] Comment on above: Result Comment: The serum:whole blood ethanol ratio is approximately 1.14 and varies slightly with hematocrit. Medical Alcohol reference interval and critical value in non-tolerant individuals; 50 - 100 Impairment 100 Intoxication 100 - 250 Severe Poisoning 250 - 400 Deep/possible fatal coma Performed By: #### L 501.9100 ####[facility] [address] [place], [address] SERUM ETOH 160.0 mg/dL Normal [facility] Comment on above: Result Comment: The serum:whole blood ethanol ratio is approximately 1.14 and varies slightly with hematocrit. Medical Alcohol reference interval and critical value in non-tolerant individuals; 50 - 100 Impairment 100 Intoxication 100 - 250 Severe Poisoning 250 - 400 Deep/possible fatal coma Performed By: #### L 505.5000, L501.9100, L100.0100, L500.2500 #### [facility] [address] [place], [address] Basic Metabolic Profile (BMP )on 03-02-2024 BUN/CRE 10.7 RATIO Normal 10-20 [facility] Comment on above: Performed By: #### L 505.5000, L501.9100, L100.0100, L500.2500 #### [facility] [address] [place], [address] CA,Total 8.6 mg/dL Normal 8.5-10.1 [facility] Comment on above: Performed By: #### L 505.5000, L501.9100, L100.0100, L500.2500 #### [facility] [address] [place], [address] Chloride [Moles/Vol] 106 mmol/L Normal 98-107 [facility] Comment on above: Performed By: #### L 505.5000, L501.9100, L100.0100, L500.2500 #### [facility] [address] [place], [address] CO2 [Moles/Vol] 30.0 mmol/L Normal 21.0-32.0 [facility] Comment on above: Performed By: #### L 505.5000, L501.9100, L100.0100, L500.2500 #### [facility] [address] [place], [address] Creatinine [Mass/Vol] 0.65 mg/dL Low 0.70-1.30 [facility] Comment on above: Result Comment: The validity of the calculated GFR GFRAA in patients over 70 years has not been determined. Clinical correlation is essential. Performed By: #### L 505.5000, L501.9100, L100.0100, L500.2500 #### [facility] [address] [place], [address] ECRCL 115.38 ml/min Normal [facility] Comment on above: Performed By: #### L 505.5000, L501.9100, L100.0100, L500.2500 #### [facility] [address] [place], [address] EST GFR - AA 168 mL/min Normal >60 [facility] Comment on above: Result Comment: Afri can Andorran GFR Calc Performed By: #### L 505.5000, L501.9100, L100.0100, L500.2500 #### [facility] [address] [place], [address] GAP 5 Normal 5-15 [facility] Comment on above: Performed By: #### L 505.5000, L501.9100, L100.0100, L500.2500 #### [facility] [address] [place], [address] GFR/1.73 sq M.predicted among non-blacks MDRD (S/P/Bld) [Vol rate/Area] 139 mL/min/{1.73_m2} Normal >60 [facility] Comment on above: Result Comment: Non- GFR Calc Performed By: #### L 505.5000, L501.9100, L100.0100, L500.2500 #### [facility] [address] [place], [address] Glucose [Mass/Vol] 117 mg/dL High 74-106 [facility] Comment on above: Result Comment: Fast ing Glucose result from 100 to 125 mg/dL suggests IMPAIRED HOMEOSTASIS per A.D.A. criteria. Performed By: #### L 505.5000, L501.9100, L100.0100, L500.2500 #### [facility] [address] [place], [address] Potassium [Moles/Vol] 2.9 mmol/L Low 3.5-5.1 [facility] Comment on above: Performed By: #### L 505.5000, L501.9100, L100.0100, L500.2500 #### [facility] [address] [place], [address] Sodium [Moles/Vol] 142 mmol/L Normal 136-145 [facility] Comment on above: Performed By: #### L 505.5000, L501.9100, L100.0100, L500.2500 #### [facility] [address] [place], [address] Urea nitrogen [Mass/Vol] 7 mg/dL Normal 7-18 [facility] Comment on above: Performed By: #### L 505.5000, L501.9100, L100.0100, L500.2500 #### [facility] [address] [place], [address] CBC W/Diff, Automatedon 10-2 SMEAR COMMENT Normal [facility] Comment on above: Result Comment: NO I G SEEN Performed By: #### L 505.5000, L501.9100, L100.0100, L500.2500 #### [facility] [address] [place], [address] PLT EST ADEQUATE Normal ADEQ [facility] Comment on above: Performed By: #### L 505.5000, L501.9100, L100.0100, L500.2500 #### [facility] [address] [place], [address] PLT MORPH LARGE Normal [facility] Comment on above: Performed By: #### L 505.5000, L501.9100, L100.0100, L500.2500 #### [facility] [address] [place], [address] RED CELL MORPH NORM C+C Normal NORM C C [facility] Comment on above: Performed By: #### L 505.5000, L501.9100, L100.0100, L500.2500 #### [facility] [address] [place], [address] Emergency Department Summary on 03-02-2024 Emergency Department Summary [facility] Medical Records Department [address] [place] [address] Emergency Department Summary 03/02/24 MR#: [id number] Acct: [id number] Name: MARIE WAGNER Rep #: [id number] : 1975 48 From: [place] PCP: Dr. Honey Garza MD Status:DEP ER Location: ED HPI HPI - Psych History of Present Illness Chief Complaint: Mental Health Informant: patient and family Narrative Narrative: Patient presents by private vehicle state being dropped off by his aunts due to relapse of alcohol today. He quit drinking this past March nearly a year ago. Today his significant other of 1 year left him. He began to drink. He states she left the house a week ago and today decided to leave. He states he started drinking. He denies any history of alcohol withdrawal symptoms or seizures. He admits to using marijuana since stopping his alcohol this past March. He denies suicidal homicidal ideations on my initial evaluation. Denies any auditory or visual hallucinations. During evaluation, asked to discuss with his aunts, 1 person was Louisa, on the phone initial discussion his relapse and alcohol today from circumstance would not be a reason for requiring detox in the hospital. However she discussed he had thoughts of not wanting to be around. He stated this time that he would not hurt himself however he stated he cannot be sure if he would not hurt others. He would not tell me who this other person would be. He did confirm if he got angry enough, that he would potentially hurt somebody. Patient denies any diagnosed history of depression, bipolar, or schizophrenia. [facility] Medical History Hypertension History of alcohol abuse Psoriasis Angioedema Home Medications ???Medication ???Instructions ???Recorded ???Last Taken ???Type epinephrine 0.3 mg/0.3 mL 0.3 mg (0.3 mL) IM X1 PRN 04/17/18 Unknown Rx injection, auto-injector Angioedema #1 syringe amlodipine 10 mg tablet 10 mg PO DAILY #30 tabs 01/25/23 Unknown Rx compress.stocking,knee,r eg,med #2 ea 01/25/23 Unknown Rx Allergy/AdvReac Type Severity Reaction Status Date / Time Penicillins (PCN) Allergy Unknown Verified 03/02/24 17:59 Family History Aunt Blood loss anemia Aunt Cancer Uncle Cancer Surgical History Hx of tooth extraction Social History adopted: No household members: family current occupational status: employed 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 [employer] current occupational exposures/hazards: No Smoking Status: Current every day smoker tobacco type: cigarettes Tobacco: How many years used: 20 Electronic Cigarette Use: not used quit status: not considering quitting alcohol intake: former Previous attempts at quittin details: has been sober for 2 weeks as of 01/25, 05/12-1 gallon of whiskey substance use type: marijuana caffeine: Yes (1-2) Type: carbonated beverages seatbelt use: always do you feel safe at home: Yes ROS ROS ED Constitutional Constitutional ED: Denies chills, fever(s) or sweats Eyes Eyes: Denies change in vision ENT ENT ED: Denies dysphagia or sore throat Cardiovascular Cardiovascular: Denies chest pain, leg edema, palpitations or racing heartbeat Respiratory/Chest Respiratory/Chest: Denies cough, dyspnea or dyspnea on exertion Gastrointestinal Gastrointestinal: Denies abdominal pain, diarrhea, nausea or vomiting Genitourinary Genitourinary ED: Denies dysuria, hematuria or urinary frequency Musculoskeletal Musculoskeletal: Denies back pain, extremity pain or neck pain Integumentary Denies rash or wounds Neurologic Neurologic: Denies headache(s), paresthesias or weakness Psychiatric Psychiatric: Reports other Details: Thoughts of hurting others ; Denies suicidal ideation or suicidal thoughts EXAM Physical Exam Const Vital Signs: 03/02/24 17:59 03/02/24 18:58 03/02/24 19:00 Temperature 97.7 F L Temperature Source Temporal Pulse Rate 83 84 78 Respiratory Rate 18 16 16 Blood Pressure 129/89 H Blood Pressure Mean 102 Pulse Ox 99 98 95 Oxygen Delivery Method Room Air Room Air Room Air 03/02/24 20:00 03/02/24 20:44 Temperature Temperature Source Pulse Rate 70 74 Respiratory Rate 16 16 Blood Pressure 147/85 H Blood Pressure Mean 105 Pulse Ox 97 95 Oxygen Delivery Method Room Air Room Air Positive well nourished and well developed Constitutional Narrative: Clinically not intoxicated, is answering questions, no slurring of speech. General Appearance ED: well developed and NAD HEENT Reports moist mucous membranes normocephalic and atraumatic (more content not included)... Normal [facility] Urine Drug Screen (VISTA)on 03-02-2024 AMPHETAMINES Negative Normal <1000 ng/mL [facility] Comment on above: Performed By: #### L 505.5000, L501.9100, L100.0100, L500.2500 #### [facility] [address] [place] [address] BARBITIURATES Negative Normal < 200 ng/mL [facility] Comment on above: Performed By: #### L 505.5000, L501.9100, L100.0100, L500.2500 #### [facility] [address] [place] [address] BENZODIAZIPINE Negative Normal < 200 ng/mL [facility] Comment on above: Performed By: #### L 505.5000, L501.9100, L100.0100, L500.2500 #### [facility] [address] [place], [place], [facility] COCAINE Negative Normal < 300 ng/mL [facility] Comment on above: Performed By: #### L 505.5000, L501.9100, L100.0100, L500.2500 #### [facility] [address] [place], [address] ECSTACY Negative Normal < 500 ng/mL [facility] Comment on above: Performed By: #### L 505.5000, L501.9100, L100.0100, L500.2500 #### [facility] [address] [place], [address] METHADONE Negative Normal < 300 ng/mL [facility] Comment on above: Performed By: #### L 505.5000, L501.9100, L100.0100, L500.2500 #### [facility] [address] [place], [address] OPIATES Negative Normal < 300 ng/mL [facility] Comment on above: Performed By: #### L 505.5000, L501.9100, L100.0100, L500.2500 #### [facility] [address] [place], [address] PCP Negative Normal < 25 ng/mL [facility] Comment on above: Performed By: #### L 505.5000, L501.9100, L100.0100, L500.2500 #### [facility] [address] [place], [address] THC Positive Abnormal < 50 ng/mL [facility] Comment on above: Performed By: #### L 505.5000, L501.9100, L100.0100, L500.2500 #### [facility] [address] [place], [address] VISTA UDS PH 6 Normal [facility] Comment on above: Performed By: #### L 505.5000, L501.9100, L100.0100, L500.2500 #### [facility] [address] [place], [address] Office Visiton 04-19-2023 Follow-up visit [id number] Jose Francisco Wagner 1975 M Date Provider Department Center 04/19/2023 [id number] OR None Family History Family Status - Relation Status Age at Mother Father Daughter Alive Level of Service:87122 CO POSTOP FOLLOW UP VISIT RELATED TO ORIGINAL PX Reason for Visit and Comments: Post-op [483] - Marginal excision of Right shoulder mass-14 cm and subcutaneous lipomatous lesion Normal [facility] Progress Noteon 04-19-2023 [facility] [address] [place] [address] [place] [id number] Dept: [phone] Dept Chief Complaint Patient presents with Post-op Marginal excision of Right shoulder mass-14 cm and subcutaneous lipomatous lesion SUBJECTIVE HPI Marie returns today for follow up after marginal [...] Date Asthma COPD (chronic obstructive pulmonary disease) ([facility]) Depression Hearing loss Hypertension Mass of skin [...] of right shoulder PLAN I discussed with Marie that his tumor was benign and at [...] Kaufman MD on 04/23/2023 at 9:35 AM [facility] Airwayon 04-04-2023 Ijeoma Hurd APRN - DIRECTOR INDEX 04/04/2023 8:07 AM Airway Date/Time: 04/04/2023 7:56 AM Urgency: scheduled Airway not difficult General Information and Staff Patient location during procedure: Procedural Resident/DIRECTOR INDEX: KOTA Rocha CRNA Performed: DIRECTOR INDEX Performed by: KOTA Rocha CRNA Authorized by: [...] 1 Number of other approaches attempted: 0 [facility] Nursing Noteon 04-04-2023 Nursing Note Ambulates to restroo m to void large amount. Gait slightly unsteady. Written discharge instructions reviewed with patient and visitors. Questions answered. Provided with ice pack and he refuses to use at this time. Sling in place. Taking po. Denies need for pain medication when offered. Warm blankets provided. Normal [facility] Nursing Note Family brought to bedside. Normal [facility] Nursing Note Pt asking questions and taking sips of coke. Normal [facility] Nursing Note Received pt to recov kesha phase 1 moving around in cart with legs bent to chest laying on right side. Arm is in sling. Belongings retrieved from locker. Warm blankets provided. Normal [facility] Op Noteon 04-04-2023 Op Note [facility] [address] [facility] [address] Dept: [phone] Loc: [phone] Operative Report Patient Name: Marie Wagner Date of : 1975 Date of Surgery: 04/04/23 Pre-operative diagnosis: Right shoulder mass Post-operative diagnosis: Same Procedure(s): Marginal excision of Right shoulder mass-14 cm and subcutaneous lipomatous lesion Surgeon: Niranjan Kaufman M.D. [employer]er [employer] Gluer(s): Francis Ledesma, PGY4 Anesthesia: general, local EBL: [...] as well as medical complications such as MD, stroke, PE, DVT, and even . Pt [...] Francis Ledesma MD at 04/04/23, 7:17 AM [facility] Absolute lymphocyte countOrd ered By: J Luis Marcano on 03-23-2023 Lymphocytes Auto (Unsp spec) [#/Vol] 2.19 10*3/uL 0.83-4.51 [facility] Basophil percentageOrdered B y: J Luis Marcano on 03-23-2023 Basophil percentage 0-5 SEEN /hpf 0-5 [facility] Basophils/100 WBC (Bld) 0.5 % 0-1 [facility] Bilirubin [Mass/Vol] 0.70 mg/dL 0.20-1.00 [facility] Comment on above: For patients on eltr ombopag therapy, use of Dimension [place] TBIL is not recommended. Chloride [Moles/Vol] 105 mmol/L 98-107 [facility] Eosinophils/100 WBC (Bld) 1.8 % 0-5 [facility] Glucose [Mass/Vol] 128 mg/dL 74-106 [facility] Comment on above: Fasting Glucose resu lt greater than or equal to 126 mg/dL suggests DIABETES MELLITUS per A.D.A. criteria. Neutrophils (Bld) [#/Vol] 3.4 10*3/uL 2.0-7.7 [facility] Neutrophils/100 WBC (Bld) 55.0 % 47-70 [facility] Potassium [Moles/Vol] 3.3 mmol/L 3.5-5.1 [facility] Protein [Mass/Vol] 6.8 g/dL 6.4-8.2 [facility] Sodium [Moles/Vol] 140 mmol/L 136-145 [facility] WBC (Bld) [#/Vol] 6.2 10*3/uL 4.4-11.0 [facility] Bilirubin Test strip Ql (U)O rdered By: J Luis Marcano on 03-23-2023 Bilirubin Ql (U) Negative Negative [facility] Blood erythrocytes count (nu mber/volume)Ordered By: J Luis Marcano on 03-23-2023 RBC (Bld) [#/Vol] 4.92 10*6/uL 4.6-6.2 [facility] Blood hemoglobin measurement (mass/volume)Ordered By: J Luis Marcano on 03-23-2023 Hemoglobin (Bld) [Mass/Vol] 15.8 g/dL 13.0-16.5 [facility] Blood lymphocytes/100 leukoc ytesOrdered By: J Luis Marcano on 03-23-2023 Lymphocytes/100 WBC (Bld) 35.4 % 19-41 [facility] Blood manual differential co mment interpretation (narrative result)Ordered By: J Luis Marcano on 03-23-2023 Manual differential comment Abel (Bld) [Interp] SCANNED [facility] Blood monocytes/100 leukocyt esOrdered By: J Luis Marcano on 03-23-2023 Monocytes/100 WBC (Bld) 7.1 % 0-10 [facility] Blood platelet mean volumeOr dered By: J Luis Marcano on 03-23-2023 Platelet mean volume (Bld) [Entitic vol] 14.8 fL 6.2-12.0 [facility] Determination of erythrocyte mean corpuscular volume (MCV)Ordered By: J Luis Marcano on 03-23-2023 MCV (RBC) [Entitic vol] 92.3 fL 80-94 [facility] ECG 12-LEADon 03-23-2023 ECG 12-LEAD IMPRESSION: Sinus rhythm Left anterior fascicular block Anterior infarct, old Electronically Signed On 03-23-2023 12:30:07 EST by Andrew Ta [facility] Hematocrit Auto (Bld) [Volum e fraction]Ordered By: J Luis Marcano on 03-23-2023 Hematocrit (Bld) [Volume fraction] 45.4 % 40-54 [facility] Ketones Test strip Ql (U)Ord ered By: J Luis Marcano on 03-23-2023 Ketones Ql (U) Negative Negative [facility] - Chemistry and C hemistry - challengeOrdered By: J Luis Marcano on 03-23-2023 ALP [Catalytic activity/Vol] 87 U/L 45-117 [facility] ALT [Catalytic activity/Vol] 20 U/L 16-61 [facility] CO2 [Moles/Vol] 27.0 mmol/L 21.0-32.0 [facility] Globulin (S) [Mass/Vol] 3.0 g/dL 2.2-4.2 [facility] Lipase [Catalytic activity/Vol] 19 U/L 13-75 [facility] Comment on above: Please note:LIPASE r evised reference range effective 22. New Lipase methodology. Expected to produce lower values than the previous assay method. NEW Reference Range: 13 - 75 U/L Urea nitrogen/Creatinine [Mass ratio] 9.8 mg/mg 10-20 [facility] - Drug toxicology Ordered By: J Luis Marcano on 03-23-2023 Amphetamines Ql (U) Negative <1000 ng/mL [facility] Benzodiazepines Ql (U) Negative < 200 ng/mL [facility] Cannabinoids Screen Ql (U) Positive < 50 ng/mL [facility] Cocaine Ql (U) Negative < 300 ng/mL [facility] Opiates Ql (U) Negative < 300 ng/mL [facility] - Hematology and Cell countsOrdered By: J Luis Marcano on 03-23-2023 Erythrocyte distribution width (RBC) [Entitic vol] 42.1 fL 35.1-43.9 [facility] Erythrocyte distribution width (RBC) [Ratio] 12.4 % 11.6-14.6 [facility] Immature granulocytes/100 WBC (Bld) 0.200 % 0.0-0.9 [facility] Comment on above: IG% - Immature Granu locytes (promyelocytes, myelocytes and metamyelocytes) > 1% indicates that a LEFT SHIFT is Present. MCH (RBC) [Entitic mass] 32.1 pg 27.0-32.0 [facility] Nucleated RBC/100 WBC (Bld) [Ratio] 0 % 0-5 [facility] MCHC Auto (RBC) [Mass/Vol]Or dered By: J Luis Marcano on 03-23-2023 MCHC (RBC) [Mass/Vol] 34.8 g/dL 32-36 [facility] Mucus LM Ql (Urine sed)Order ed By: J Luis Marcano on 03-23-2023 Mucus Ql (Urine sed) 0 SEEN /hpf [facility] Nitrite Test strip Ql (U)Ord ered By: J Luis Marcano on 03-23-2023 Nitrite Ql (U) Negative Negative [facility] No Panel InformationOrdered By: J Luis Marcano on 03-23-2023 MDMA (Ecstasy) Screen Negative < 500 ng/mL [facility] Urine Barbiturates Screen Negative < 200 ng/mL [facility] Urine Drug Screen Comment [facility] Comment on above: CONFIRMATORY TESTING FOR ALL POSITIVE URINE DRUG SCREENRESULTS WILL ONLY BE SENT OUT UPON PHYSICIAN ORDER. VISTA Urine Drug Screen methods provide only preliminaryanalytical test results. A more specific alternate chemicalmethod must be used in order to obtain a confirmedanalytical result. Gas chromatography/mass spectrometery(GC/MS) is the preferred confirmatory method. Clinicalconsideration and professional judgement should be appliedto any drug of abuse test result, particularly whenpreliminary positive results are used. URINE TCA TESTING MUST BE ORDERED SEPARATELY. USE TESTMNEMONIC: [facility] Urine Methadone Screen Negative < 300 ng/mL [facility] Estimated Creatinine Clearance Calc 76.74 ml/min [facility] Estimated GFR (MDRD) Amer 114 mL/min >60 [facility] Comment on above: GFR Calc Estimated GFR (MDRD) Non-Af Amer 94 mL/min >60 [facility] Comment on above: Non- GFR Calc Platelets bldOrdered By: Jennifer Marcano on 03-23-2023 Platelets (Bld) [#/Vol] 164 10*3/uL 150-450 [facility] Protein Test strip Ql (U)Ord ered By: J Luis Marcano on 03-23-2023 Protein Ql (U) 30 mg/dl Negative [facility] Serum or plasma albumin jitendra urement (mass/volume)Ordered By: J Luis Marcano on 03-23-2023 Albumin [Mass/Vol] 3.8 g/dL 3.2-5.0 [facility] Serum or plasma albumin/glob ulin mass ratioOrdered By: J Luis Marcano on 03-23-2023 Albumin/Globulin [Mass ratio] 1.3 {ratio} 0.9-2.4 [facility] Serum or plasma calcium jitendra urement (mass/volume)Ordered By: J Luis Marcano on 03-23-2023 Calcium [Mass/Vol] 9.0 mg/dL 8.5-10.1 [facility] Serum or plasma creatinine m easurement (mass/volume)Ordered By: J Luis Marcano on 03-23-2023 Creatinine [Mass/Vol] 0.92 mg/dL 0.70-1.30 [facility] Comment on above: The validity of the calculated GFR & GFRAA in patients over 70 years has not been determined. Clinical correlation is essential. Serum or plasma urea nitroge n measurement (mass/volume)Ordered By: J Luis Marcano on 03-23-2023 Urea nitrogen [Mass/Vol] 9 mg/dL 7-18 [facility] Squamous epithelial cells de tection in urine sediment by light microscopyOrdered By: J Luis Marcano on 03-23-2023 Epithelial cells.squamous LM Ql (Urine sed) 0 SEEN /hpf 0-5 [facility] Thin prep Papanicolaou smear with manual screeningOrdered By: J Luis Marcano on 03-23-2023 Thin prep Papanicolaou smear with manual screening 13 U/L 15-37 [facility] Thin prep Papanicolaou smear with manual screening 8 5-15 [facility] Urine blood detectionOrdered By: J Luis Marcano on 03-23-2023 RBC Ql (U) 10 /ul Negative [facility] RBC Ql (U) 0 SEEN /hpf 0-5 [facility] Urine clarityOrdered By: Jennifer Marcano on 03-23-2023 Clarity (U) Sl. Cloudy Clear [facility] Urine color determinationOrd ered By: J Luis Marcano on 03-23-2023 Color (U) Yellow Yellow [facility] Urine glucose detectionOrder ed By: J Luis Marcano on 03-23-2023 Glucose Ql (U) Normal mg/dl Normal [facility] Urine leukocyte esterase det ection by dipstickOrdered By: J Luis Marcano on 03-23-2023 Leukocyte esterase Test strip Ql (U) 100 /ul Negative [facility] Urine pHOrdered By: J Luis foley on 03-23-2023 pH (U) 6.0 [pH] 5.0 - 8.0 [facility] Urine phencyclidine (PCP) de tectionOrdered By: J Luis Marcano on 03-23-2023 Phencyclidine Ql (U) Negative < 25 ng/mL [facility] Urine sediment bacteria coun t by microscopy (number/high power field)Ordered By: J Luis Marcano on 03-23-2023 Bacteria LM.HPF (Urine sed) [#/Area] RARE /hpf None Seen [facility] Urine specific gravity measu rementOrdered By: J Luis Marcano on 03-23-2023 Specific gravity (U) [Rel density] 1.020 1.002-1.030 [facility] Urobilinogen Auto test strip Ql (U)Ordered By: J Luis Marcano on 03-23-2023 Urobilinogen Ql (U) 4 mg/dl Normal [facility] BASIC METABOLIC PANELon 03-09 Anion gap [Moles/Vol] 11 mmol/L Normal 3-13 [facility] Comment on above: Performed By: #### L AB15 #### Stoper: CASEY NATARAJAN ([id number]) [facility]) [address] [place] [address] Calcium [Mass/Vol] 9.5 mg/dL Normal 8.4-10.4 [facility] Comment on above: Performed By: #### L AB15 #### Stoper: CASEY NATARAJAN ([id number]) [facility] [address] [place] [address] [place] Chloride [Moles/Vol] 100 mmol/L Normal 98-107 [facility] Comment on above: Performed By: #### L AB15 #### Stoper: CASEY NATARAJAN ([id number]) [facility]) [address] [place] [address] [place] CO2 [Moles/Vol] 28 mmol/L Normal 22-30 [facility] Comment on above: Performed By: #### L AB15 #### Stoper: CASEY NATARAJAN ([id number]) [facility] ([facility]) [address] [place] [address] [place] Creatinine [Mass/Vol] 0.78 mg/dL Normal 0.66-1.25 [facility] Comment on above: Performed By: #### L AB15 #### Stoper: CASEY NATARAJAN ([id number]) [facility] ([facility]) [address] [place] [address] [place] GLOMERULAR FILTRATION RATE ML/MIN/1.73 SQ M.PREDICTED >90.0 Normal >60.0 [facility] Comment on above: Result Comment: Calc ulation based on the Chronic Kidney Disease Epidemiology Collaboration (CKD-EPI) equation refit without adjustment for race Performed By: #### L AB15 #### Stoper: CASEY NATARAJAN ([id number]) [facility] ([facility]) [address] [place] [address] Glucose [Mass/Vol] 92 mg/dL Normal 70-100 [facility] Comment on above: Performed By: #### L AB15 #### Stoper: CASEY NATARAJAN ([id number]) [facility] ([facility]) [address] [place] [address] [place] Potassium [Moles/Vol] 3.8 mmol/L Normal 3.5-5.1 [facility] Comment on above: Performed By: #### L AB15 #### Stoper: CASEY NATARAJAN ([id number]) [facility] ([facility]) [address] [place] [address] [place] Sodium [Moles/Vol] 139 mmol/L Normal 135-145 [facility] Comment on above: Performed By: #### L AB15 #### Stoper: CASEY NATARAJAN ([id number]) [facility] ([facility]) [address] [place] [address] [place] Urea nitrogen [Mass/Vol] 12 mg/dL Normal 9-20 [facility] Comment on above: Performed By: #### L AB15 #### Stoper: CASEY NATARAJAN ([id number]) [facility] ([address] CBC (HEMOGRAM)on 03-22-2023 Erythrocyte distribution width (RBC) [Ratio] 13.3 % Normal 11.5-14.5 [facility] Comment on above: Performed By: #### L [id number] ####Stoper: CASEY NATARAJAN ([id number])[facility])[address] [place] [address] ERYTHROCYTE MEAN CORPUSCULAR HEMOGLOBIN CONCENTRATION (G/DL) BY AUTOMATED 33.7 % Normal 32.0-36.0 [facility] Comment on above: Performed By: #### L [id number] ####Stoper: CASEY NATARAJAN ([id number])[address] Hematocrit (Bld) [Volume fraction] 48.4 % Normal 40.0-52.0 [facility] Comment on above: Performed By: #### L [id number] ####Stoper: CASEY NATARAJAN ([id number])[facility])[address] [place] [address] Hemoglobin (Bld) [Mass/Vol] 16.3 g/dL Normal 13.0-18.0 [facility] Comment on above: Performed By: #### L [id number] ####Stoper: CASEY NATARAJAN ([id number])[address] MCH (RBC) [Entitic mass] 32.5 pg Normal 26.0-34.0 [facility] Comment on above: Performed By: #### L AB294 ####Stoper: CASEY NATARAJAN ([id number])[facility])[address] [place] [address] MCV (RBC) [Entitic vol] 96.4 fL Normal 80.0-98.0 [facility] Comment on above: Performed By: #### L [id number] ####Stoper: CASEY NATARAJAN ([id number])[facility])[address] [place] [address] Platelet mean volume (Bld) [Entitic vol] 14.2 fL High 7.4-12.4 [facility] Comment on above: Performed By: #### L [id number] ####Stoper: CASEY NATARAJAN ([id number])[facility])[address] [place] [address] Platelets (Bld) [#/Vol] 139 10*3/uL Low 140-440 [facility] Comment on above: Performed By: #### L [id number] ####Stoper: CASEY NATARAJAN ([id number])[facility])[address] [place] [address] RBC (Bld) [#/Vol] 5.02 10*6/uL Normal 4.40-5.90 [facility] Comment on above: Performed By: #### L [id number] ####Stoper: CASEY NATARAJAN ([id number])[facility])[address] [place] [address] WBC (Bld) [#/Vol] 13.2 10*3/uL High 3.6-10.7 [facility] Comment on above: Performed By: #### L [id number] ####Stoper: CASEY NATARAJAN ([id number])[facility])[address] [place] [address] PREPROCINSon 03-22-2023 PREPROCINS Medication List Accurate as [...] your scheduled surgery time. Please bring your [facility] Surgical folder and medication list with [...] located here Patient will be escorted to [facility] Ela does not open before 6am [facility] 36on 03-10-2023 36 PAT orders done [facility] 36 PAT: DAPHNEY 03/22/23 @ 9:00 am Case# [id number] Surgery: Kim 04/04/23 @ 7:30 am Procedure: Resection shoulder mass right Dx: Right shoulder mass Anesthesia: General Medical clearance received-scanned into media. Jose Cruz LOPES/BS insurance-checking auth Patient aware of date/time of surgery/PAT Normal [facility] Progress Noteon 03-03-2023 Progress Note CD UPLOADED. IMAGES IN AGFA. Normal [facility] Office Visiton 03-01-2023 Follow-up visit [id number] Jose Francisco Wagner 1975 M Date Provider Department Center 03/01/2023 [id number]-KYYWPTNIRANJAN [facility] OR None Family History Family Status - Relation Status Age at Mother Father Daughter Alive Level of Service:98014 CO OFFICE/OUTPATIENT NEW MODERATE MDM 45-59 MINUTES Reason for Visit and Comments: New Patient [542] - Right upper extremity mass/Dr Marybeth Vázquez [facility] Progress Noteon 03-01-2023 Progress Note [facility] [address] [place] [address] [address] [facility] [address] Dept: [phone] Dept Chief Complaint Patient presents with New Patient Right upper extremity mass/Dr Marybeth Vázquez SUBJECTIVE CHRIS Vieira is a 47-year-old male who presents today at the referral of his physicians retail sales assistant Marybeth Vázquez. His primary concern is [...] masses. 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 There are no problems to display [...] kg (129 lb) Height: 1.676 m (5' 6) Physical Exam Physical Exam Vitals and nursing [...] motor and sensory is intact as well. 09/10 AIN/PIN/Ulnar Palpable radial pulse XRAY INTERPRETATION Outside [...] convenience after obtai (more content not included)... [facility] No Panel InformationOrdered By: Marybeth Vázquez on 02-10-2023 Estimated GFR (MDRD) Amer 148 mL/min >60 [facility] Comment on above: GFR Calc Estimated GFR (MDRD) Non-Af Amer 122 mL/min >60 [facility] Comment on above: Non- GFR Calc Serum or plasma creatinine m easurement (mass/volume)Ordered By: Marybeth Vázquez on 02-10-2023 Creatinine [Mass/Vol] 0.73 mg/dL 0.70-1.30 [facility] Comment on above: The validity of the calculated GFR & GFRAA in patients over 70 years has not been determined. Clinical correlation is essential. Absolute lymphocyte countOrd ered By: Honey Garza on 01-25-2023 Lymphocytes Auto (Unsp spec) [#/Vol] 2.04 10*3/uL 0.83-4.51 [facility] Basophil percentageOrdered B y: Honey Garza on 01-25-2023 Basophils/100 WBC (Bld) 0.4 % 0-1 [facility] Bilirubin [Mass/Vol] 0.30 mg/dL 0.20-1.00 [facility] Comment on above: For patients on eltr ombopag therapy, use of Dimension [place] TBIL is not recommended. Chloride [Moles/Vol] 106 mmol/L 98-107 [facility] Cholesterol [Mass/Vol] 169 mg/dL <200 [facility] Comment on above: <200 mg/dL Desirable 200-240 mg/dL Borderline >240 mg/dL High Risk Eosinophils/100 WBC (Bld) 2.3 % 0-5 [facility] Glucose [Mass/Vol] 98 mg/dL 74-106 [facility] Neutrophils (Bld) [#/Vol] 3.0 10*3/uL 2.0-7.7 [facility] Neutrophils/100 WBC (Bld) 52.1 % 47-70 [facility] Potassium [Moles/Vol] 3.6 mmol/L 3.5-5.1 [facility] Protein [Mass/Vol] 6.4 g/dL 6.4-8.2 [facility] Sodium [Moles/Vol] 141 mmol/L 136-145 [facility] Triglyceride [Mass/Vol] 168 mg/dL <199 [facility] Comment on above: The drugs N-Acetylcy steine and Metamizole may falsely depress this assay.Serum Triglycerides Reference Interval Normal <150 mg/dL Borderline high 150 - 199 mg/dL High 200 - 499 mg/dL Very High > or = 500 mg/dL WBC (Bld) [#/Vol] 5.7 10*3/uL 4.4-11.0 [facility] Blood erythrocytes count (nu mber/volume)Ordered By: Honey Garza on 01-25-2023 RBC (Bld) [#/Vol] 4.03 10*6/uL 4.6-6.2 [facility] Blood hemoglobin measurement (mass/volume)Ordered By: Honey Garza on 01-25-2023 Hemoglobin (Bld) [Mass/Vol] 14.3 g/dL 13.0-16.5 [facility] Blood lymphocytes/100 leukoc ytesOrdered By: Honey Garza on 01-25-2023 Lymphocytes/100 WBC (Bld) 36.0 % 19-41 [facility] Blood monocytes/100 leukocyt esOrdered By: Honey Garza on 01-25-2023 Monocytes/100 WBC (Bld) 9.0 % 0-10 [facility] Blood platelet adequacy dete ction by light microscopyOrdered By: Honey Garza on 01-25-2023 Platelets LM Ql (Bld) ADEQUATE ADEQ [facility] Blood platelet mean volumeOr dered By: Honey Garza on 01-25-2023 Platelet mean volume (Bld) [Entitic vol] 14.1 fL 6.2-12.0 [facility] Determination of erythrocyte mean corpuscular volume (MCV)Ordered By: Honey Garza on 01-25-2023 MCV (RBC) [Entitic vol] 101.2 fL 80-94 [facility] Hematocrit Auto (Bld) [Volum e fraction]Ordered By: Honey Garza on 01-25-2023 Hematocrit (Bld) [Volume fraction] 40.8 % 40-54 [facility] Laboratory - Chemistry and C hemistry - challengeOrdered By: Honey Garza on 01-25-2023 ALP [Catalytic activity/Vol] 98 U/L 45-117 [facility] ALT [Catalytic activity/Vol] 26 U/L 16-61 [facility] CO2 [Moles/Vol] 32.0 mmol/L 21.0-32.0 [facility] Cobalamin (Vitamin B12) [Mass/Vol] 717 pg/mL 211-911 [facility] Globulin (S) [Mass/Vol] 3.1 g/dL 2.2-4.2 [facility] Urea nitrogen/Creatinine [Mass ratio] 11.3 mg/mg 10-20 [facility] Laboratory - Hematology and Cell countsOrdered By: Honey Garza on 01-25-2023 Anisocytosis Ql (Bld) 1+ [facility] Erythrocyte distribution width (RBC) [Entitic vol] 48.7 fL 35.1-43.9 [facility] Erythrocyte distribution width (RBC) [Ratio] 13.2 % 11.6-14.6 [facility] Immature granulocytes/100 WBC (Bld) 0.200 % 0.0-0.9 [facility] Comment on above: IG% - Immature Granu locytes (promyelocytes, myelocytes and metamyelocytes) > 1% indicates that a LEFT SHIFT is Present. MCH (RBC) [Entitic mass] 35.5 pg 27.0-32.0 [facility] Nucleated RBC/100 WBC (Bld) [Ratio] 0 % 0-5 [facility] MCHC Auto (RBC) [Mass/Vol]Or dered By: Honey Garza on 01-25-2023 MCHC (RBC) [Mass/Vol] 35.0 g/dL 32-36 [facility] Macrocytes detectionOrdered By: Honey Garza on 01-25-2023 Macrocytes Ql (Bld) 1+ [facility] No Panel InformationOrdered By: Honey Garza on 01-25-2023 Estimated GFR (MDRD) Amer 153 mL/min >60 [facility] Comment on above: GFR Calc Estimated GFR (MDRD) Non-Af Amer 126 mL/min >60 [facility] Comment on above: Non- GFR Calc Vitamin D 25-Hydroxy 33.0 ng/mL [facility] Comment on above: Vitamin D 25(OH) Sta tus Range Deficiency <20 ng/mL (50nmol/L) Insufficiency 20 - 30 ng/mL (50 - 75 nmol/L) Sufficiency 30 - 100 ng/mL (75 - 250 nmol/L) Toxicity >100 ng/mL (>250 nmol/L) Whole Blood Vitamin B1 Level 111.2 nmol/L 66.5-200.0 [facility] Comment on above: Performed at: [address] [id number] Director: Ruth Gonsales MD, Phone: [phone] Platelets bldOrdered By: Sudheer Garza on 01-25-2023 Platelets (Bld) [#/Vol] 156 10*3/uL 150-450 [facility] RBC morphologyOrdered By: Justino Garza on 01-25-2023 RBC morphology finding Nom (Bld) N CHROM NORMAL NORM C&C [facility] Serum or plasma albumin jitendra urement (mass/volume)Ordered By: Honey Garza on 01-25-2023 Albumin [Mass/Vol] 3.3 g/dL 3.2-5.0 [facility] Serum or plasma albumin/glob ulin mass ratioOrdered By: Honey Garza on 01-25-2023 Albumin/Globulin [Mass ratio] 1.1 {ratio} 0.9-2.4 [facility] Serum or plasma calcium jitendra urement (mass/volume)Ordered By: Honey Garza on 01-25-2023 Calcium [Mass/Vol] 9.0 mg/dL 8.5-10.1 [facility] Serum or plasma cholesterol in HDL measurement (mass/volume)Ordered By: Honey Garza on 01-25-2023 Cholesterol in HDL [Mass/Vol] 61 mg/dL >40 [facility] Comment on above: The drugs N-Acetylcy steine and Metamizole may falsely depress this assay. Reference Range HDL <40 mg/dL Low HDL Cholesterol HDL >or= 60 mg/dL High HDL Cholesterol Serum or plasma cholesterol in VLDL measurement (mass/volume)Ordered By: Honey Garza on 01-25-2023 Cholesterol in VLDL [Mass/Vol] 34 mg/dL 5-40 [facility] Serum or plasma creatinine m easurement (mass/volume)Ordered By: Honey Garza on 01-25-2023 Creatinine [Mass/Vol] 0.71 mg/dL 0.70-1.30 [facility] Comment on above: The validity of the calculated GFR & GFRAA in patients over 70 years has not been determined. Clinical correlation is essential. Serum or plasma low density lipoprotein (LDL) cholesterol measurement (mass/volume)Ordered By: Honey Garza on 01-25-2023 Cholesterol in LDL [Mass/Vol] 74 mg/dL 0-130 [facility] Serum or plasma urea nitroge n measurement (mass/volume)Ordered By: Honey Garza on 01-25-2023 Urea nitrogen [Mass/Vol] 8 mg/dL 7-18 [facility] Thin prep Papanicolaou smear with manual screeningOrdered By: Honey Garza on 01-25-2023 Thin prep Papanicolaou smear with manual screening 17 U/L 15-37 [facility] Thin prep Papanicolaou smear with manual screening 3 5-15 [facility] Basophil percentageOrdered B y: Foreign Low on 12-14-2022 Chloride [Moles/Vol] 105 mmol/L 98-107 [facility] Glucose [Mass/Vol] 114 mg/dL 74-106 [facility] Comment on above: Fasting Glucose resu lt from 100 to 125 mg/dL suggests IMPAIRED HOMEOSTASIS per A.D.A. criteria. Potassium [Moles/Vol] 3.6 mmol/L 3.5-5.1 [facility] Sodium [Moles/Vol] 139 mmol/L 136-145 [facility] WBC (Bld) [#/Vol] 6.9 10*3/uL 4.4-11.0 [facility] Blood erythrocytes count (nu mber/volume)Ordered By: Foreign Low on 12-14-2022 RBC (Bld) [#/Vol] 4.13 10*6/uL 4.6-6.2 [facility] Blood hemoglobin measurement (mass/volume)Ordered By: Foreign Low on 12-14-2022 Hemoglobin (Bld) [Mass/Vol] 14.7 g/dL 13.0-16.5 [facility] Blood manual differential co mment interpretation (narrative result)Ordered By: Foreign Low on 12-14-2022 Manual differential comment Abel (Bld) [Interp] SCANNED [facility] Blood platelet mean volumeOr dered By: Foreign Low on 12-14-2022 Platelet mean volume (Bld) [Entitic vol] 13.7 fL 6.2-12.0 [facility] Determination of erythrocyte mean corpuscular volume (MCV)Ordered By: Foreign Low on 12-14-2022 MCV (RBC) [Entitic vol] 103.4 fL 80-94 [facility] Hematocrit Auto (Bld) [Volum e fraction]Ordered By: Foreign Low on 12-14-2022 Hematocrit (Bld) [Volume fraction] 42.7 % 40-54 [facility] Laboratory - Chemistry and C hemistry - challengeOrdered By: Foreign Low on 12-14-2022 CO2 [Moles/Vol] 32.0 mmol/L 21.0-32.0 [facility] Urea nitrogen/Creatinine [Mass ratio] 8.2 mg/mg 10-20 [facility] - Hematology and Cell countsOrdered By: Foreign Low on 12-14-2022 Erythrocyte distribution width (RBC) [Entitic vol] 49.7 fL 35.1-43.9 [facility] Erythrocyte distribution width (RBC) [Ratio] 12.9 % 11.6-14.6 [facility] MCH (RBC) [Entitic mass] 35.6 pg 27.0-32.0 [facility] MCHC Auto (RBC) [Mass/Vol]Or dered By: Foreign Low on 12-14-2022 MCHC (RBC) [Mass/Vol] 34.4 g/dL 32-36 [facility] No Panel InformationOrdered By: Foreign Low on 12-14-2022 Estimated Creatinine Clearance Calc 126.59 ml/min [facility] Estimated GFR (MDRD) Amer 183 mL/min >60 [facility] Comment on above: GFR Calc Estimated GFR (MDRD) Non-Af Amer 151 mL/min >60 [facility] Comment on above: Non- GFR Calc Platelets bldOrdered By: Amaury Low on 12-14-2022 Platelets (Bld) [#/Vol] 100 10*3/uL 150-450 [facility] Serum or plasma calcium jitendra urement (mass/volume)Ordered By: Foreign Low on 12-14-2022 Calcium [Mass/Vol] 9.4 mg/dL 8.5-10.1 [facility] Serum or plasma creatinine m easurement (mass/volume)Ordered By: Foreign Low on 12-14-2022 Creatinine [Mass/Vol] 0.61 mg/dL 0.70-1.30 [facility] Comment on above: The validity of the calculated GFR & GFRAA in patients over 70 years has not been determined. Clinical correlation is essential. Serum or plasma urea nitroge n measurement (mass/volume)Ordered By: Foreign Low on 12-14-2022 Urea nitrogen [Mass/Vol] 5 mg/dL 7-18 [facility] Thin prep Papanicolaou smear with manual screeningOrdered By: Foreign Low on 12-14-2022 Thin prep Papanicolaou smear with manual screening 2 5-15 [facility] Absolute lymphocyte countOrd ered By: Marguerite Saucedo on 12-12-2022 Lymphocytes Auto (Unsp spec) [#/Vol] 1.88 10*3/uL 0.83-4.51 [facility] Basophil percentageOrdered B y: Marguerite Saucedo on 12-12-2022 Potassium [Moles/Vol] 3.8 mmol/L 3.5-5.1 [facility] Basophils/100 WBC (Bld) 0.4 % 0-1 [facility] Chloride [Moles/Vol] 106 mmol/L 98-107 [facility] Eosinophils/100 WBC (Bld) 2.3 % 0-5 [facility] Glucose [Mass/Vol] 98 mg/dL 74-106 [facility] Neutrophils (Bld) [#/Vol] 2.5 10*3/uL 2.0-7.7 [facility] Neutrophils/100 WBC (Bld) 51.3 % 47-70 [facility] Sodium [Moles/Vol] 140 mmol/L 136-145 [facility] WBC (Bld) [#/Vol] 4.9 10*3/uL 4.4-11.0 [facility] Blood erythrocytes count (nu mber/volume)Ordered By: Marguerite Saucedo on 12-12-2022 RBC (Bld) [#/Vol] 3.60 10*6/uL 4.6-6.[address] [facility] Blood hemoglobin measurement (mass/volume)Ordered By: Marguerite Saucedo on 12-12-2022 Hemoglobin (Bld) [Mass/Vol] 12.9 g/dL 13.0-16.5 [facility] Blood lymphocytes/100 leukoc ytesOrdered By: Marguerite Saucedo on 12-12-2022 Lymphocytes/100 WBC (Bld) 38.6 % 19-41 [facility] Blood manual differential co mment interpretation (narrative result)Ordered By: Marguerite Saucedo on 12-12-2022 Manual differential comment Abel (Bld) [Interp] SCANNED [facility] Blood monocytes/100 leukocyt esOrdered By: Marguerite Saucedo on 12-12-2022 Monocytes/100 WBC (Bld) 7.2 % 0-10 [facility] Blood platelet adequacy dete ction by light microscopyOrdered By: Marguerite Saucedo on 12-12-2022 Platelets LM Ql (Bld) SLT DEC ADEQ [facility] Blood platelet mean volumeOr dered By: Marguerite Saucedo on 12-12-2022 Platelet mean volume (Bld) [Entitic vol] TNP [facility] Comment on above: Test not performed Determination of erythrocyte mean corpuscular volume (MCV)Ordered By: Marguerite Saucedo on 12-12-2022 MCV (RBC) [Entitic vol] 102.5 fL 80-94 [facility] Hematocrit Auto (Bld) [Volum e fraction]Ordered By: Marguerite Saucedo on 12-12-2022 Hematocrit (Bld) [Volume fraction] 36.9 % 40-54 [facility] Laboratory - Chemistry and C hemistry - challengeOrdered By: Marguerite Saucedo on 12-12-2022 CO2 [Moles/Vol] 30.0 mmol/L 21.0-32.0 [facility] Magnesium [Mass/Vol] 2.0 mg/dL 1.6-2.[address] [facility] Urea nitrogen/Creatinine [Mass ratio] 14.2 mg/mg 10-20 [facility] Laboratory - Hematology and Cell countsOrdered By: Marguerite Saucedo on 12-12-2022 Erythrocyte distribution width (RBC) [Entitic vol] 46.5 fL 35.1-43.9 [facility] Erythrocyte distribution width (RBC) [Ratio] 12.5 % 11.6-14.6 [facility] Immature granulocytes/100 WBC (Bld) 0.200 % 0.0-0.9 [facility] Comment on above: IG% - Immature Granu locytes (promyelocytes, myelocytes and metamyelocytes) > 1% indicates that a LEFT SHIFT is Present. MCH (RBC) [Entitic mass] 35.8 pg 27.0-32.0 [facility] Nucleated RBC/100 WBC (Bld) [Ratio] 0 % 0-5 [facility] MCHC Auto (RBC) [Mass/Vol]Or dered By: Marguerite Saucedo on 12-12-2022 MCHC (RBC) [Mass/Vol] 35.0 g/dL 32-36 [facility] Comment on above: Delta: 37.5 on 12/090 No Panel InformationOrdered By: Marguerite Saucedo on 12-12-2022 Estimated Creatinine Clearance Calc 122.20 ml/min [facility] Estimated GFR (MDRD) Amer 175 mL/min >60 [facility] Comment on above: GFR Calc Estimated GFR (MDRD) Non-Af Amer 145 mL/min >60 [facility] Comment on above: Non- GFR Calc Platelets bldOrdered By: Rebecca Saucedo on 12-12-2022 Platelets (Bld) [#/Vol] 92 10*3/uL 150-450 [facility] Serum or plasma calcium jitendra urement (mass/volume)Ordered By: Marguerite Saucedo on 12-12-2022 Calcium [Mass/Vol] 8.4 mg/dL 8.5-10.1 [facility] Serum or plasma creatinine m easurement (mass/volume)Ordered By: Marguerite Saucedo on 12-12-2022 Creatinine [Mass/Vol] 0.63 mg/dL 0.70-1.30 [facility] Comment on above: The validity of the calculated GFR & GFRAA in patients over 70 years has not been determined. Clinical correlation is essential. Serum or plasma urea nitroge n measurement (mass/volume)Ordered By: Marguerite Saucedo on 12-12-2022 Urea nitrogen [Mass/Vol] 9 mg/dL 7-18 [facility] Thin prep Papanicolaou smear with manual screeningOrdered By: Marguerite Saucedo on 12-12-2022 Thin prep Papanicolaou smear with manual screening 4 5-15 [facility] Absolute lymphocyte countOrd ered By: Eufemia Patiño on 12-09-2022 Lymphocytes Auto (Unsp spec) [#/Vol] 1.64 10*3/uL 0.83-4.51 [facility] Basophil percentageOrdered B y: Eufemia Patiño on 12-09-2022 Ammonia (P) [Moles/Vol] 20.0 umol/L 11-32 [facility] Basophils/100 WBC (Bld) 0.6 % 0-1 [facility] Bilirubin [Mass/Vol] 0.70 mg/dL 0.20-1.00 [facility] Comment on above: For patients on eltr ombopag therapy, use of Dimension [place] TBIL is not recommended. Chloride [Moles/Vol] 106 mmol/L 98-107 [facility] Eosinophils/100 WBC (Bld) 0.2 % 0-5 [facility] Glucose [Mass/Vol] 117 mg/dL 74-106 [facility] Comment on above: Fasting Glucose resu lt from 100 to 125 mg/dL suggests IMPAIRED HOMEOSTASIS per A.D.A. criteria. Neutrophils (Bld) [#/Vol] 2.8 10*3/uL 2.0-7.7 [facility] Neutrophils/100 WBC (Bld) 58.5 % 47-70 [facility] Potassium [Moles/Vol] 3.0 mmol/L 3.5-5.1 [facility] Protein [Mass/Vol] 6.5 g/dL 6.4-8.2 [facility] Sodium [Moles/Vol] 143 mmol/L 136-145 [facility] WBC (Bld) [#/Vol] 4.8 10*3/uL 4.4-11.0 [facility] Blood erythrocytes count (nu mber/volume)Ordered By: Eufemia Patiño on 12-09-2022 RBC (Bld) [#/Vol] 4.25 10*6/uL 4.6-6.2 [facility] Blood hemoglobin measurement (mass/volume)Ordered By: Eufemia Patiño on 12-09-2022 Hemoglobin (Bld) [Mass/Vol] 15.7 g/dL 13.0-16.5 [facility] Blood lymphocytes/100 leukoc ytesOrdered By: Eufemia Patiño on 12-09-2022 Lymphocytes/100 WBC (Bld) 34.2 % 19-41 [facility] Blood monocytes/100 leukocyt esOrdered By: Eufemia Patiño on 12-09-2022 Monocytes/100 WBC (Bld) 6.1 % 0-10 [facility] Blood platelet mean volumeOr dered By: Eufemia Patiño on 12-09-2022 Platelet mean volume (Bld) [Entitic vol] 14.2 fL 6.2-12.0 [facility] Determination of erythrocyte mean corpuscular volume (MCV)Ordered By: Eufemia Patiño on 12-09-2022 MCV (RBC) [Entitic vol] 98.6 fL 80-94 [facility] Hematocrit Auto (Bld) [Volum e fraction]Ordered By: Eufemia Patiño on 12-09-2022 Hematocrit (Bld) [Volume fraction] 41.9 % 40-54 [facility] INR in Blood by Coagulation assayOrdered By: Hector Bravo on 12-09-2022 INR Coag (Bld) [Relative time] 1.1 {INR} [facility] Laboratory - Chemistry and C hemistry - challengeOrdered By: Eufemia Patiño on 12-09-2022 ALP [Catalytic activity/Vol] 90 U/L 45-117 [facility] ALT [Catalytic activity/Vol] 27 U/L 16-61 [facility] CO2 [Moles/Vol] 29.0 mmol/L 21.0-32.0 [facility] Globulin (S) [Mass/Vol] 2.9 g/dL 2.2-4.2 [facility] Magnesium [Mass/Vol] 2.0 mg/dL 1.6-2.6 [facility] Urea nitrogen/Creatinine [Mass ratio] 12.5 mg/mg 10-20 [facility] Laboratory - CoagulationOrde red By: Hector Bravo on 12-09-2022 PT Coag (PPP) [Time] 14.4 s 11.7-14.9 [facility] Laboratory - Drug toxicology Ordered By: Eufemia Patiño on 12-09-2022 Amphetamines Ql (U) Negative <1000 ng/mL [facility] Benzodiazepines Ql (U) Negative < 200 ng/mL [facility] Cannabinoids Screen Ql (U) Positive < 50 ng/mL [facility] Cocaine Ql (U) Negative < 300 ng/mL [facility] Opiates Ql (U) Negative < 300 ng/mL [facility] Laboratory - Hematology and Cell countsOrdered By: Eufemia Patiño on 12-09-2022 Erythrocyte distribution width (RBC) [Entitic vol] 47.3 fL 35.1-43.9 [facility] Erythrocyte distribution width (RBC) [Ratio] 13.1 % 11.6-14.6 [facility] Immature granulocytes/100 WBC (Bld) 0.400 % 0.0-0.9 [facility] Comment on above: IG% - Immature Granu locytes (promyelocytes, myelocytes and metamyelocytes) > 1% indicates that a LEFT SHIFT is Present. MCH (RBC) [Entitic mass] 36.9 pg 27.0-32.0 [facility] Nucleated RBC/100 WBC (Bld) [Ratio] 0 % 0-5 [facility] MCHC Auto (RBC) [Mass/Vol]Or dered By: Eufemia Patiño on 12-09-2022 MCHC (RBC) [Mass/Vol] 37.5 g/dL 32-36 [facility] No Panel InformationOrdered By: Eufemia Patiño on 12-09-2022 MDMA (Ecstasy) Screen Negative < 500 ng/mL [facility] Urine Barbiturates Screen Negative < 200 ng/mL [facility] Urine Drug Screen Comment [facility] Comment on above: CONFIRMATORY TESTING FOR ALL POSITIVE URINE DRUG SCREENRESULTS WILL ONLY BE SENT OUT UPON PHYSICIAN ORDER. VISTA Urine Drug Screen methods provide only preliminaryanalytical test results. A more specific alternate chemicalmethod must be used in order to obtain a confirmedanalytical result. Gas chromatography/mass spectrometery(GC/MS) is the preferred confirmatory method. Clinicalconsideration and professional judgement should be appliedto any drug of abuse test result, particularly whenpreliminary positive results are used. URINE TCA TESTING MUST BE ORDERED SEPARATELY. USE TESTMNEMONIC: [facility] Urine Methadone Screen Negative < 300 ng/mL [facility] Estimated Creatinine Clearance Calc 96.23 ml/min [facility] Estimated GFR (MDRD) Amer 133 mL/min >60 [facility] Comment on above: GFR Calc Estimated GFR (MDRD) Non-Af Amer 110 mL/min >60 [facility] Comment on above: Non- GFR Calc Ethyl Alcohol Level 7.0 mg/dL [facility] Comment on above: The serum:whole bloo d ethanol ratio is approximately 1.14and varies slightly with hematocrit. Medical Alcohol reference interval and critical value innon-tolerant individuals; 50 - 100 Impairment 100 Intoxication 100 - 250 Severe Poisoning 250 - 400 Deep/possible fatal coma Platelets bldOrdered By: Stacey Patiño on 12-09-2022 Platelets (Bld) [#/Vol] 134 10*3/uL 150-450 [facility] Serum or plasma albumin jitendra urement (mass/volume)Ordered By: Eufemia Patiño on 12-09-2022 Albumin [Mass/Vol] 3.6 g/dL 3.2-5.0 [facility] Serum or plasma albumin/glob ulin mass ratioOrdered By: Eufemia Patiño on 12-09-2022 Albumin/Globulin [Mass ratio] 1.2 {ratio} 0.9-2.4 [facility] Serum or plasma calcium jitendra urement (mass/volume)Ordered By: Eufemia Patiño on 12-09-2022 Calcium [Mass/Vol] 8.7 mg/dL 8.5-10.1 [facility] Serum or plasma creatinine m easurement (mass/volume)Ordered By: Eufemia Patiño on 12-09-2022 Creatinine [Mass/Vol] 0.80 mg/dL 0.70-1.30 [facility] Comment on above: The validity of the calculated GFR & GFRAA in patients over 70 years has not been determined. Clinical correlation is essential. Serum or plasma urea nitroge n measurement (mass/volume)Ordered By: Eufemia Patiño on 12-09-2022 Urea nitrogen [Mass/Vol] 10 mg/dL 7-18 [facility] Thin prep Papanicolaou smear with manual screeningOrdered By: Eufemia Patiño on 12-09-2022 Thin prep Papanicolaou smear with manual screening 30 U/L 15-37 [facility] Thin prep Papanicolaou smear with manual screening 8 5-15 [facility] Urine phencyclidine (PCP) de tectionOrdered By: Eufemia Patiño on 12-09-2022 Phencyclidine Ql (U) Negative < 25 ng/mL [facility] Absolute lymphocyte countOrd ered By: Dr. Parker on 06-26-2022 Lymphocytes Auto (Unsp spec) [#/Vol] 3.71 10*3/uL 0.83-4.51 [facility] Basophil percentageOrdered B y: Dr. Parker on 06-26-2022 Basophils/100 WBC (Bld) 0.4 % 0-1 [facility] Bilirubin [Mass/Vol] 0.60 mg/dL 0.20-1.00 [facility] Comment on above: For patients on eltr ombopag therapy, use of Dimension [place] TBIL is not recommended. Chloride [Moles/Vol] 108 mmol/L 98-107 [facility] Eosinophils/100 WBC (Bld) 1.2 % 0-5 [facility] Glucose [Mass/Vol] 118 mg/dL 74-106 [facility] Comment on above: Fasting Glucose resu lt from 100 to 125 mg/dL suggests IMPAIRED HOMEOSTASIS per A.D.A. criteria. Neutrophils (Bld) [#/Vol] 2.5 10*3/uL 2.0-7.7 [facility] Neutrophils/100 WBC (Bld) 37.3 % 47-70 [facility] Potassium [Moles/Vol] 3.6 mmol/L 3.5-5.1 [facility] Protein [Mass/Vol] 7.2 g/dL 6.4-8.2 [facility] Sodium [Moles/Vol] 145 mmol/L 136-145 [facility] WBC (Bld) [#/Vol] 6.8 10*3/uL 4.4-11.0 [facility] Blood erythrocytes count (nu mber/volume)Ordered By: Dr. Parker on 06-26-2022 RBC (Bld) [#/Vol] 4.73 10*6/uL 4.6-6.2 [facility] Blood hemoglobin measurement (mass/volume)Ordered By: Dr. Parker on 06-26-2022 Hemoglobin (Bld) [Mass/Vol] 16.9 g/dL 13.0-16.5 [facility] Blood lymphocytes/100 leukoc ytesOrdered By: Dr. Parker on 06-26-2022 Lymphocytes/100 WBC (Bld) 54.6 % 19-41 [facility] Blood monocytes/100 leukocyt esOrdered By: Dr. Parker on 06-26-2022 Monocytes/100 WBC (Bld) 6.2 % 0-10 [facility] Blood platelet mean volumeOr dered By: Dr. Parker on 06-26-2022 Platelet mean volume (Bld) [Entitic vol] 13.2 fL 6.2-12.0 [facility] Determination of erythrocyte mean corpuscular volume (MCV)Ordered By: Dr. Parker on 06-26-2022 MCV (RBC) [Entitic vol] 100.2 fL 80-94 [facility] Hematocrit Auto (Bld) [Volum e fraction]Ordered By: Dr. Parker on 06-26-2022 Hematocrit (Bld) [Volume fraction] 47.4 % 40-54 [facility] Laboratory - Chemistry and C hemistry - challengeOrdered By: Dr. Parker on 06-26-2022 ALP [Catalytic activity/Vol] 85 U/L 45-117 [facility] ALT [Catalytic activity/Vol] 24 U/L 16-61 [facility] CO2 [Moles/Vol] 32.0 mmol/L 21.0-32.0 [facility] Globulin (S) [Mass/Vol] 3.1 g/dL 2.2-4.2 [facility] Lipase [Catalytic activity/Vol] 82 U/L 73-393 [facility] Urea nitrogen/Creatinine [Mass ratio] 6.1 mg/mg 10-20 [facility] Laboratory - Drug toxicology Ordered By: Dr. Parker on 06-26-2022 Amphetamines Ql (U) Negative <1000 ng/mL [facility] Benzodiazepines Ql (U) Negative < 200 ng/mL [facility] Cannabinoids Screen Ql (U) Negative < 50 ng/mL [facility] Cocaine Ql (U) Negative < 300 ng/mL [facility] Opiates Ql (U) Negative < 300 ng/mL [facility] Laboratory - Hematology and Cell countsOrdered By: Dr. Parker on 06-26-2022 Erythrocyte distribution width (RBC) [Entitic vol] 46.6 fL 35.1-43.9 [facility] Erythrocyte distribution width (RBC) [Ratio] 12.7 % 11.6-14.6 [facility] Immature granulocytes/100 WBC (Bld) 0.300 % 0.0-0.9 [facility] Comment on above: IG% - Immature Granu locytes (promyelocytes, myelocytes and metamyelocytes) > 1% indicates that a LEFT SHIFT is Present. MCH (RBC) [Entitic mass] 35.7 pg 27.0-32.0 [facility] Nucleated RBC/100 WBC (Bld) [Ratio] 0 % 0-5 [facility] MCHC Auto (RBC) [Mass/Vol]Or dered By: Dr. Parker on 06-26-2022 MCHC (RBC) [Mass/Vol] 35.7 g/dL 32-36 [facility] No Panel InformationOrdered By: Dr. Parker on 06-26-2022 Estimated Creatinine Clearance Calc 91.71 ml/min [facility] Estimated GFR (MDRD) Amer 130 mL/min >60 [facility] Comment on above: GFR Calc Estimated GFR (MDRD) Non-Af Amer 107 mL/min >60 [facility] Comment on above: Non- GFR Calc Ethyl Alcohol Level 295.0 mg/dL [facility] Comment on above: The serum:whole bloo d ethanol ratio is approximately 1.14and varies slightly with hematocrit. Medical Alcohol reference interval and critical value innon-tolerant individuals; 50 - 100 Impairment 100 Intoxication 100 - 250 Severe Poisoning 250 - 400 Deep/possible fatal coma MDMA (Ecstasy) Screen Negative < 500 ng/mL [facility] Urine Barbiturates Screen Negative < 200 ng/mL [facility] Urine Drug Screen Comment [facility] Comment on above: CONFIRMATORY TESTING FOR ALL POSITIVE URINE DRUG SCREENRESULTS WILL ONLY BE SENT OUT UPON PHYSICIAN ORDER. VISTA Urine Drug Screen methods provide only preliminaryanalytical test results. A more specific alternate chemicalmethod must be used in order to obtain a confirmedanalytical result. Gas chromatography/mass spectrometery(GC/MS) is the preferred confirmatory method. Clinicalconsideration and professional judgement should be appliedto any drug of abuse test result, particularly whenpreliminary positive results are used. URINE TCA TESTING MUST BE ORDERED SEPARATELY. USE TESTMNEMONIC: [facility] Urine Methadone Screen Negative < 300 ng/mL [facility] Platelets bldOrdered By: Dr. Parker on 06-26-2022 Platelets (Bld) [#/Vol] 183 10*3/uL 150-450 [facility] Serum or plasma albumin jitendra urement (mass/volume)Ordered By: Dr. Parker on 06-26-2022 Albumin [Mass/Vol] 4.1 g/dL 3.2-5.0 [facility] Serum or plasma albumin/glob ulin mass ratioOrdered By: Dr. Parker on 06-26-2022 Albumin/Globulin [Mass ratio] 1.3 {ratio} 0.9-2.4 [facility] Serum or plasma calcium jitendra urement (mass/volume)Ordered By: Dr. Parker on 06-26-2022 Calcium [Mass/Vol] 9.0 mg/dL 8.5-10.1 [facility] Serum or plasma creatinine m easurement (mass/volume)Ordered By: Dr. Parker on 06-26-2022 Creatinine [Mass/Vol] 0.82 mg/dL 0.70-1.30 [facility] Comment on above: The validity of the calculated GFR & GFRAA in patients over 70 years has not been determined. Clinical correlation is essential. Serum or plasma urea nitroge n measurement (mass/volume)Ordered By: Dr. Parker on 06-26-2022 Urea nitrogen [Mass/Vol] 5 mg/dL 11-23 [facility] Thin prep Papanicolaou smear with manual screeningOrdered By: Dr. Parker on 06-26-2022 Thin prep Papanicolaou smear with manual screening 21 U/L 15-37 [facility] Thin prep Papanicolaou smear with manual screening 5 - [facility] Urine phencyclidine (PCP) de tectionOrdered By: Dr. 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 Fuller with recommendation for which blood tests need to be done - if not done already Suggest no alcohol intake Referring Provider: YUE FULLER [[id number]] Allergies As of Date: 09/19/2018 Noted Allergy Reaction PENICILLINS 09/19/2018 10 - Anaphylaxis Date Reviewed: 09/19/2018 Reviewed by: To Long - Fully Assessed Reason for Visit: New [...] no alcohol intake Encounter Status:Closed by TO LONG DO on 09/19/18 Normal [facility] PROGRESSon 09-17-2018 Protein mass conc HNO ID: [id number] Author: To Long Service: ? 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 History of present illness: [...] 84 Resp 18 Ht 165.1 cm (5' 5) Wt 59 kg (130 lb) BMI 21.63 [...] intact to confrontation Fundoscopic exam: discs: nl BIOMEDICAL TECHNICIAN: present bilat III, IV, : full EOM, [...] nl Romberg sign: - LABORATORY and IMAGING: [place], [place] 07/17/2018 ED -altered MS - CT [...] studies do not clarify the symptoms To Long, DO Neurological [facility] Normal [facility] Vital Signs Date Time Vital Sign Value Performing Clinician Bakari jones 11-27-2024 [id number] Body height 172.[address] Honey Garza MD Work Phone: [facility] 11-27-2024 [id number] Body mass index (BMI) [Ratio] 19.3 kg/m2 Dr. Honey Garza MD Work Phone: [facility] 11-27-2024 15:11-0400 Body temperature 97.2 [degF] Dr. Honey Garza MD Work Phone: [facility] 11-27-2024 [id number] Body weight 57.[address] Honey Garza MD Work Phone: [facility] 11-27-2024 15:11-0400 Diastolic blood pressure 74 mm[Hg] Dr. Honey Garza MD Work Phone: [facility] 11-27-2024 15:11-0400 Heart rate 62 /min Dr. Honey Garza MD Work Phone: [facility] 11-27-2024 15:11-0400 Respiratory rate 16 /min Dr. Honey Garza MD Work Phone: [facility] 11-27-2024 15:11-0400 SaO2% (BldA) [Mass fraction] 93 % Dr. Honey Garza MD Work Phone: [facility] 11-27-2024 15:11-0400 Systolic blood pressure 148 mm[Hg] Dr. Honey Garza MD Work Phone: [facility] 07-17-2024 14:56-0400 Body height 172.[address] Honey Garza MD Work Phone: [facility] 07-17-2024 14:56-0400 Body mass index (BMI) [Ratio] 20.2 kg/m2 Dr. Honey Garza MD Work Phone: [facility] 07-17-2024 14:56-0400 Body temperature 97.9 [degF] Dr. Honey Garza MD Work Phone: [facility] 07-17-2024 14:56-0400 Body weight 60.[address] Honey Garza MD Work Phone: [facility] 07-17-2024 14:56-0400 Diastolic blood pressure 82 mm[Hg] Dr. Honey Garza MD Work Phone: [facility] 07-17-2024 14:56-0400 Heart rate 62 /min Dr. Honey Garza MD Work Phone: [facility] 07-17-2024 14:56-0400 Respiratory rate 16 /min Dr. Honey Gazra MD Work Phone: [facility] 07-17-2024 14:56-0400 SaO2% (BldA) [Mass fraction] 98 % Dr. Honey Garza MD Work Phone: [facility] 07-17-2024 14:56-0400 Systolic blood pressure 146 mm[Hg] Dr. Honey Garza MD Work Phone: [facility] 04-19-2023 14:28-0500 Body height 167.6 cm Niranjan Kaufman MD Work Phone: [facility] 04-19-2023 14:28-0500 Body mass index (BMI) [Ratio] 20.82 kg/m2 Niranjan Kaufman MD Work Phone: [facility] 04-19-2023 14:28-0500 Body weight 58.51 kg Niranjan Kaufman MD Work Phone: [facility] 04-19-2023 14:28-0500 Diastolic blood pressure 91 mm[Hg] Niranjan Kaufman MD Work Phone: [facility] 04-19-2023 14:28-0500 Heart rate 84 /min Niranjan Kaufman MD Work Phone: [facility] 04-19-2023 14:28-0500 Systolic blood pressure 147 mm[Hg] Niranjan Kaufman MD Work Phone: [facility] 04-04-2023 10:00-0500 Diastolic blood pressure 82 mm[Hg] Niranjan Kaufman MD Work Phone: [facility] 04-04-2023 10:00-0500 Heart rate 60 /min Niranjan Kaufman MD Work Phone: [facility] 04-04-2023 10:00-0500 Respiratory rate 16 /min Niranjan Kaufman MD Work Phone: [facility] 04-04-2023 10:00-0500 SaO2% (BldA) [Mass fraction] 96 % Niranjan Kaufman MD Work Phone: [facility] 04-04-2023 10:00-0500 Systolic blood pressure 116 mm[Hg] Niranjan Kaufman MD Work Phone: [facility] 04-04-2023 09:04-0500 Body temperature 97 [degF] Niranjan Kaufman MD Work Phone: [facility] 04-04-2023 06:27-0500 Body height 167.6 cm Niranjan Kaufman MD Work Phone: [facility] 04-04-2023 06:27-0500 Body mass index (BMI) [Ratio] 20.82 kg/m2 Niranjan Kaufman MD Work Phone: [facility] 04-04-2023 06:27-0500 Body weight 58.51 kg Niranjan Kaufman MD Work Phone: [facility] 03-23-2023 12:52-0500 Diastolic blood pressure 89 mm[Hg] No Primary Care Physician [facility] 03-23-2023 12:52-0500 Heart rate 104 /min No Primary Care Physician [facility] 03-23-2023 12:52-0500 Systolic blood pressure 128 mm[Hg] No Primary Care Physician [facility] 03-23-2023 10:37-0500 Body height 172.72 cm No Primary Care Physician [facility] 03-23-2023 10:37-0500 Body mass index (BMI) [Ratio] 18.3 kg/m2 No Primary Care Physician [facility] 03-23-2023 10:37-0500 Body temperature 97.9 [degF] No Primary Care Physician [facility] 03-23-2023 10:37-0500 Body weight 54.65 kg No Primary Care Physician [facility] 03-23-2023 10:37-0500 Respiratory rate 18 /min No Primary Care Physician [facility] 03-23-2023 10:37-0500 SaO2% (BldA) [Mass fraction] 100 % No Primary Care Physician [facility] 03-09-2023 15:29-0400 Body mass index (BMI) [Ratio] 18.8 kg/m2 No Primary Care Physician [facility] 03-09-2023 15:29-0400 Body temperature 97.5 [degF] No Primary Care Physician [facility] 03-09-2023 15:29-0400 Body weight 57.15 kg No Primary Care Physician [facility] 03-09-2023 15:29-0400 Diastolic blood pressure 72 mm[Hg] No Primary Care Physician [facility] 03-09-2023 15:29-0400 Heart rate 65 /min No Primary Care Physician [facility] 03-09-2023 15:29-0400 Systolic blood pressure 128 mm[Hg] No Primary Care Physician [facility] 03-01-2023 14:01-0400 Body height 167.6 cm Niranjan Kaufman MD Work Phone: [facility] 03-01-2023 14:01-0400 Body mass index (BMI) [Ratio] 20.82 kg/m2 Niranjan Kaufman MD Work Phone: [facility] 03-01-2023 14:01-0400 Body weight 58.51 kg Niranjan Kaufman MD Work Phone: [facility] 03-01-2023 14:01-0400 Diastolic blood pressure 62 mm[Hg] Niranjan Kaufman MD Work Phone: [facility] 03-01-2023 14:01-0400 Systolic blood pressure 110 mm[Hg] Niranjan Kaufman MD Work Phone: [facility] 01-25-2023 21:04-0400 Diastolic blood pressure 68 mm[Hg] No Primary Care Physician [facility] 01-25-2023 21:04-0400 Heart rate 102 /min No Primary Care Physician [facility] 01-25-2023 21:04-0400 SaO2% (BldA) [Mass fraction] 98 % No Primary Care Physician [facility] 01-25-2023 21:04-0400 Systolic blood pressure 104 mm[Hg] No Primary Care Physician [facility] 01-25-2023 15:07-0400 Body height 173.99 cm No Primary Care Physician [facility] 01-25-2023 15:07-0400 Body mass index (BMI) [Ratio] 19 kg/m2 No Primary Care Physician [facility] 01-25-2023 15:07-0400 Body temperature 97.8 [degF] No Primary Care Physician [facility] 01-25-2023 15:07-0400 Body weight 57.66 kg No Primary Care Physician [facility] 01-25-2023 15:07-0400 Respiratory rate 16 /min No Primary Care Physician [facility] 12-14-2022 09:15-0400 Body height 165.1 cm No Primary Care Physician [facility] 12-14-2022 09:15-0400 Body mass index (BMI) [Ratio] 21.7 kg/m2 No Primary Care Physician [facility] 12-14-2022 09:15-0400 Body temperature 96.8 [degF] No Primary Care Physician [facility] 12-14-2022 09:15-0400 Body weight 59.14 kg No Primary Care Physician [facility] 12-14-2022 09:15-0400 Diastolic blood pressure 98 mm[Hg] No Primary Care Physician [facility] 12-14-2022 09:15-0400 Heart rate 96 /min No Primary Care Physician [facility] 12-14-2022 09:15-0400 Respiratory rate 14 /min No Primary Care Physician [facility] 12-14-2022 09:15-0400 SaO2% (BldA) [Mass fraction] 100 % No Primary Care Physician [facility] 12-14-2022 09:15-0400 Systolic blood pressure 154 mm[Hg] No Primary Care Physician [facility] 12-12-2022 14:27-0400 Body temperature 98.3 [degF] No Primary Care Physician [facility] 12-12-2022 14:27-0400 Diastolic blood pressure 90 mm[Hg] No Primary Care Physician [facility] 12-12-2022 14:27-0400 Heart rate 68 /min No Primary Care Physician [facility] 12-12-2022 14:27-0400 Respiratory rate 17 /min No Primary Care Physician [facility] 12-12-2022 14:27-0400 SaO2% (BldA) [Mass fraction] 99 % No Primary Care Physician [facility] 12-12-2022 14:27-0400 Systolic blood pressure 151 mm[Hg] No Primary Care Physician [facility] 12-09-2022 16:48-0400 Body temperature 98.2 [degF] No Primary Care Physician [facility] 12-09-2022 16:48-0400 Diastolic blood pressure 89 mm[Hg] No Primary Care Physician [facility] 12-09-2022 16:48-0400 Heart rate 90 /min No Primary Care Physician [facility] 12-09-2022 16:48-0400 Respiratory rate 16 /min No Primary Care Physician [facility] 12-09-2022 16:48-0400 SaO2% (BldA) [Mass fraction] 99 % No Primary Care Physician [facility] 12-09-2022 16:48-0400 Systolic blood pressure 139 mm[Hg] No Primary Care Physician [facility] 12-09-2022 14:23-0400 Body height 165.1 cm No Primary Care Physician [facility] 12-09-2022 14:23-0400 Body mass index (BMI) [Ratio] 21.6 kg/m2 No Primary Care Physician [facility] 12-09-2022 14:23-0400 Body weight 58.96 kg No Primary Care Physician [facility] 06-26-2022 16:38-0500 Body temperature 97.8 [degF] [facility] 06-26-2022 16:38-0500 Diastolic blood pressure 78 mm[Hg] [facility] 06-26-2022 16:38-0500 Heart rate 78 /min [facility] 06-26-2022 16:38-0500 Respiratory rate 16 /min [facility] 06-26-2022 16:38-0500 SaO2% (BldA) [Mass fraction] 99 % [facility] [facility] 06-26-2022 16:38-0500 Systolic blood pressure 134 mm[Hg] [facility] 06-26-2022 15:39-0500 Body height 167.64 cm [facility] 06-26-2022 15:39-0500 Body mass index (BMI) [Ratio] 20.5 kg/m2 [facility] 06-26-2022 15:39-0500 Body weight 57.6 kg [facility] Encounters Encounter Date Encounter Type Care Provider Facility Start: 12-21-2024 ambulatory Allen Stewart y:[facility] Start: 11-27-2024 End: 11-27-2024 Patient encounter procedure Allen DIGGS -[facility] Work Phone: Start: 11-27-2024 End: 11-27-[address] Honey Garza MD Work Phone: -[facility] Start: 11-23-2024 End: 11-23-2024 Emergency department patient visit FRANDY COTA [facility] Start: 11-22-2024 End: 11-22-2024 Emergency department patient visit YUE FULLER [facility] Start: 07-24-2024 End: 07-24-[address] Honey Garza MD Work Phone: [facility] Work Phone: Start: 07-24-2024 End: 07-24-[address] Honey Garza MD -Laboratory, [place] Start: 07-24-2024 End: 07-24-2024 ambulatory Honey Garza Facility:[facility] Start: 07-17-2024 End: 07-17-[address] Honey Garza MD -[facility] Work Phone: Start: 07-17-2024 End: 07-17-2024 ambulatory Honey Gar[place] [facility] Start: 03-07-2024 End: 03-07-2024 ambulatory Honey Garza [facility] Start: 03-07-2024 End: 03-07-2024 ambulatory Honey Yulay Facility:[facility] Start: 03-02-2024 End: 03-03-2024 Emergency department patient visit Foreign Low Facility:[facility] Start: 04-19-2023 End: 04-19-2023 ambulatory [facility] Start: 04-19-2023 End: 04-19-2023 Postop follow up visit related to original px Niranjan Kaufman MD Work Phone: [facility] Comment on above: Spindle cell lipoma (Primary Dx) Start: 04-04-2023 End: 04-04-2023 ambulatory [facility] Start: 04-04-2023 End: 04-04-2023 Anesthesia consultation Gino Bermudez MD Work Phone: [facility] Start: 04-04-2023 End: 04-04-2023 Subsequent hospital visit by physician Niranjan Kaufman MD Work Phone: [facility] Comment on above: Mass of skin of righ t shoulder (Primary Dx); Localized swelling, mass and lump, right upper limb Start: 03-23-2023 End: 03-23-2023 Emergency department patient visit No Primary Care Physician [facility] Work Phone: Start: 03-22-2023 End: 03-22-2023 ambulatory [facility] Start: 03-22-2023 End: 03-22-2023 Encounter for other preprocedural examination NIRANJAN [facility] Start: 03-09-2023 End: 03-09-2023 Encounter for other preprocedural examination No Primary Care Physician [facility] Start: 03-09-2023 End: 03-09-2023 Patient encounter procedure No Primary Care Physician [facility] Work Phone: Start: 03-01-2023 End: 03-01-2023 ambulatory [facility] Start: 03-01-2023 End: 03-01-2023 Office outpatient new 45 minutes Niranjan Kaufman MD Work Phone: [facility] Comment on above: Mass of skin of righ t shoulder (Primary Dx) Start: 02-24-2023 End: 02-24-2023 ambulatory No Primary Care Physician [facility] Work Phone: Start: 02-24-2023 End: 02-24-2023 Discharged Recurring No Primary Care Physician [facility] Work Phone: Start: 02-22-2023 Registered Recurring No Primar y Care Physician [facility] Work Phone: Start: 02-19-2023 Non-patient / Non-visit No Bossman Rosario Physician [facility] Start: 02-18-2023 End: 02-18-2023 ambulatory No Primary Care Physician [facility] Work Phone: Start: 02-18-2023 End: 02-18-2023 Patient encounter procedure No Primary Care Physician [facility]Ne[facility] Work Phone: Start: 02-10-2023 End: 02-10-2023 Patient encounter procedure No Primary Care Physician [facility] Work Phone: Start: 01-25-2023 End: 01-25-2023 ambulatory No Primary Care Physician [facility] Work Phone: Start: 01-25-2023 End: 01-25-2023 Patient encounter procedure No Primary Care Physician [facility] Start: 01-25-2023 End: 01-25-2023 Patient encounter procedure No Primary Care Physician [facility] Work Phone: Start: 12-14-2022 End: 12-14-2022 Emergency department patient visit No Primary Care Physician [facility] Work Phone: Start: 12-12-2022 Non-patient / Non-visit No Bossman Rosario Physician [facility] Work Phone: Start: 12-11-2022 Non-patient / Non-visit No Bossman Rosario Physician [facility] Work Phone: Start: 12-10-2022 Non-patient / Non-visit No Bossman Rosario Physician [facility] Work Phone: Start: 12-09-2022 Non-patient / Non-visit No Bossmna Rosario Physician [facility] Work Phone: Start: 12-09-2022 End: 12-12-2022 Evaluation and management of inpatient No Primary Care Physician [facility] 3 Work Phone: Start: 06-26-2022 End: 06-26-2022 Emergency department patient visit [facility] Procedures Date Procedure Procedure Detail Performing Clinician Start: 04-04-2023 CO AN ELECTIVE ENDOTRACHEAL AIRWAY Ijeoma Martinez CRNA Work Phone: Start: 03-23-2023 Plain chest X-ray No Pr imary Care Physician Start: 12-09-2022 Plain chest X-ray No Pr imary Care Physician Plan of Treatment Date Care Activity Detail Author Start: 2036 RSV Immunization age d 60 or older (1 - 1-dose 60+ series) RSV Immunization aged 60 or older (1 - 1-dose 60+ series) [facility] Start: 01-25-2033 DTaP/Tdap/Td Vaccine s (2 - Td or Tdap) DTaP/Tdap/Td Vaccines (2 - Td or Tdap) [facility] Start: 2026 Zoster Vaccines (1 of 2) Zoste r Vaccines (1 of 2) [facility] Start: 07-17-2024 Patient referral [facility] Work Phone: Start: 04-04-2023 End: 04-04-2023 Exc tumor soft tissue shoulder subfascial 5 cm/> EXCISION TUMOR SOFT TISSUE SHOULDER SUBFASCIAL 5 CM OR GREATER Localized swelling, mass and lump, right upper limb 04/04/2023 7:34 AM EST [facility] Operating Room Start: 03-23-2023 [facility] Start: 01-25-2023 Thiamine measurement [facility] Start: 01-25-2023 Patient referral [facility] Work Phone: Start: 01-07-2023 Influenza vaccination Influenz a Vaccine (#1) [facility] Start: 12-19-2022 Blood chemistry [facility] Start: 12-18-2022 Blood chemistry [facility] Start: 12-17-2022 Blood chemistry [facility] Start: 12-16-2022 Blood chemistry [facility] Start: 12-15-2022 Blood chemistry [facility] Start: 12-14-2022 Blood chemistry [facility] Start: 12-13-2022 Blood chemistry [facility] Start: 12-12-[address] [facility] Start: 12-09-2022 Following clinical p athway protocol [facility] Start: 12-09-2022 Assessment of risk o f venous thromboembolism [facility] Start: 12-09-2022 Notification of physician [facility] Start: 12-09-2022 Provision of activit y privileges [facility] Start: 12-09-2022 Vital signs measurements [facility] Start: 12-09-2022 [facility] Start: 12-09-2022 Verification routine [facility] Start: 12-09-2022 Admission procedure [facility] Start: 12-09-2022 Prothrombin time [facility] Start: 06-26-2022 Admission procedure [facility] Start: 06-26-2022 [facility] Start: 1994 Hepatitis C screening Hepatitis C Sc reening [facility] Start: 1988 Depression Screening Depression Scre ening [facility] Start: 1982 Pneumococcal Vaccine : Pediatrics (0 to 5 Years) and At-Risk Patients (6 to 64 Years) (1 - PCV) Pneumococcal Vaccine: Pediatrics (0 to 5 Years) and At-Risk Patients (6 to 64 Years) (1 - PCV) [facility] Start: 1977 MMR Vaccines (1 of 1 - Standard series) MMR Vaccines (1 of 1 - Standard series) [facility] Start: 1976 COVID-19 Vaccine (#1) COVID-19 Vacci ne (#1) [facility] Start: 1976 Hepatitis B Vaccines (1 of 3 - 3-dose series) Hepatitis B Vaccines (1 of 3 - 3-dose series) [facility] Start: 1976 HIV screening HIV Screening [facility] Start: 1976 Lipid panel Lipid Panel [facility] Start: 1976 Screening for malign ant neoplasm of colon [facility] Amphetamine [Mass/vo lume] in Urine [facility] Benzodiazepine measu rement, urine [facility] Cocaine measurement, urine [facility] Comprehensive metabo lic 2000 panel - Serum or Plasma [facility] Electrocardiographic procedure [facility] INR in Blood by Coag ulation assay [facility] Lipid 1996 panel - S grabiel or Plasma [facility] Measurement of 3,4-methylenedioxymethampheta mine in urine [facility] Measurement of respi ratory function [facility] Methadone measurement, urine [facility] Patient Education [facility] Work Phone: Patient referral [facility] Work Phone: pH of Urine [facility] Phencyclidine [Prese nce] in Urine [facility] Radionuclide imaging of perfusion of myocardium under exercise stress [facility] Tissue exam [facility] Work Phone: Comment on above: Release Upon Josein g for 1 Occurrences starting 04/04/2023 Tobacco use cessatio n education [facility] Tobacco use cessatio n education [facility] Tobacco use cessatio n education [facility] Urine barbiturate measurement [facility] Urine cannabinoid measurement [facility] Urine opiate measurement [facility] Immunizations Immunization Date Immunization Notes Care Provider Fa cility 01-25-2023 tetanus toxoid, redu britney diphtheria toxoid, and acellular pertussis vaccine, adsorbed No Primary Care Physician [facility] Payers Date Payer Category Payer Self-pay [id number] 2022 Unknown [id number] 2022 Unknown [id number] 1976 Unknown [id number] 2.16.8 [id number] 1976 Unknown [id number] 2.16.8 [id number] Unknown [employer] OUT OF STATE [id number] Unknown [id number] 2.16.8 [id number] Unknown [id number] 2.16.8 [id number] Unknown [id number] 2.16.8 [id number] Unknown [id number] 2.16.8 [id number] Unknown [id number] 2.16.8 [id number] Unknown [id number] 2.16.8 [id number] Unknown [id number] 2.16.8 [id number] Social History Date Type Detail Facility Start: 06-26-2022 End: 03-23-2023 Tobacco smoking status OKIS Unknown if ever smoked [facility] Start: 04-17-2018 None [facility] Start: 04-17-2018 Spouse/ Signif icant Other [facility] Start: 04-17-2018 Cigarettes [facility] Start: 1975 Sex Assigned At Male [facility] Start: 03-01-2023 End: 03-07-2024 Tobacco smoking status OKIS Smokes tobacco daily [facility] History of tobacco use Cigarette Smoker [facility] Start: 03-01-2023 End: 04-19-2023 Cigarettes smoked current (pack per day) - Reported 1 [facility] Start: 03-01-2023 Tobacco use and exposure Smokeless tobacco non-user [facility] Start: 03-01-2023 End: 04-19-2023 Alcohol intake Current drinker of alcohol (finding) [facility] Start: 03-01-2023 End: 04-19-2023 Tobacco use panel [facility] Start: 02-25-2023 Alcohol Comment occasional [facility] Start: 1975 Sex Assigned At Not on file S [facility] Start: 03-22-2023 Tobacco use and exposure Former smokeless tobacco user [facility] End: 05-09-2002 History of tobacco use Snuff User [facility] Within the last year , have you been afraid of your partner or ex-partner? No [facility] Start: 03-22-2023 Tobacco Comment Snuff since 5th grad e [facility] Start: 08-02-2024 Sex Male (finding) [facility] Goals Date Patient Goal Desired Activity /State Functional Status Date Assessment Result Facility 12-12-2022 Functional status Ambulates;Up ad sudhir [facility] Work Phone: Mental Status Date Assessment Result Facility 03-23-2023 Cognitive function Level Of Cons ciousness Awake;Alert;Appropriate;Follow s Commands [facility] Work Phone: 12-14-2022 Cognitive function Level Of Cons ciousness Awake;Alert;Appropriate [facility] Work Phone: 12-12-2022 Cognitive function Awake;Alert;A ppropriate;Follow s Commands [facility] Work Phone: 12-12-2022 Cognitive function Voice/Name [facility] Work Phone: 12-09-2022 Cognitive function Level Of Cons ciousness Awake;Alert;Appropriate [facility] Work Phone: Clinical Notes 12-09-2022 to 07-17-2024 Note Date & Type Note Facility 07-17-2024 Evaluation note Diagnosis Onset Date Resolution Smokes cigarettes acute July 072024 2:50pm COPD (chronic obstructive pulmonary disease) chronic July 17, 2024 2:50pm Depression with anxiety noneactive [facility] 2024 2:50pm Alcohol abuse noneactive July 17, 2024 2:50pm Rash and nonspecific skin eruption noneactive July 17, 2024 2:50pm Essential hypertension noneactive [facility] 2024 2:50pm Vitamin d deficiency noneactive [facility] 2024 2:50pm [facility] Work Phone: 1(632) 919-789712-12-2023 History of Present illness Narrative* Jane Davenport RN - 04/19/2023 2:15 PM EST [facility] ORTHOPEDICS AND SPORTS MEDICINE [address] [place] [address] [place] [id number] Dept: [phone] Dept Chief Complaint Patient presents with Post-op Marginal excision of Right shoulder mass-14 cm and subcutaneous lipomatous lesion SUBJECTIVE HPI Marie returns today for follow up after marginal [...] Date Asthma COPD (chronic obstructive pulmonary disease) ([facility]) Depression Hearing loss Hypertension Mass of skin [...] of right shoulder PLAN I discussed with Marie that his tumor was benign and at [...] 04/23/2023 at 9:35 AM documented in this [facility]11-27-2023 NoteAddendum created 04/04/23 1008 by KOTA Rocha CRNA Intraprocedure Meds edited, Orders acknowledged in [facility]11-27-2023 NotePatient: Marie Wagner Procedure Summary Date: 04/04/23 Room / Location: [address] Operating Room Anesthesia Start: 733 Anesthesia [...] discharged once all PACU criteria has been met.[facility]11-27-2023 NotePatient: Marie Wagner Procedure Summary Date: 04/04/23 Room / Location: [address] Operating Room Anesthesia Start: 733 Anesthesia [...] Resp 16 04/04/23 0930 SpO2 99 % 04/04/2330 Anesthesia Post Evaluation Patient location during evaluation: [...] factors for PONV (4556F) Patient received at aset 2 prophylactic Rx PONV anti-emtic agents of [...] Allowed opportunity for questions and acknowledgement of understanding.[facility]11-27-2023 Note* Addendum Note - KOTA Rocha CRNA - 04/04/2023 10:08 AM EST Addendum created 04/04/231007 by KOTA Rocha CRNA Intraprocedure Meds edited, Orders acknowledged in Narrator [id number] Miscellaneous Notes* Addendum Note - KOTA Rocha CRNA - 04/04/2023 10:08 AM EST Addendum created 04/04/231007 by KOTA Rocha CRNA Intraprocedure Meds edited, Orders acknowledged in Narrator * Anesthesia Discharge Note - Elier Gomez CRNA - 04/04/2023 10:05 AM EST Patient: Marie Wagner Procedure Summary Date: 04/04/23 Room / Location: [address] Operating Room Anesthesia Start: 733 Anesthesia [...] criteria has been met. documented in this [facility]11-27-2023 NoteAirway Date/Time: 04/04/2023 7:56 AM Urgency: scheduled Airway not difficult General Information and Staff Patient location during procedure: Procedural Resident/DIRECTOR INDEX: KOTA Rocha CRNA Performed: DIRECTOR INDEX Performed by: KOTA Rocha CRNA Authorized by: [...] approach: 1 Number of other approaches attempted: [address] [place], [place] [address]105011-27-2023 Note* Anesthesia Discharge Note - Elier Gomez CRNA - 04/04/2023 10:05 AM EST Patient: Marie Wagner Procedure Summary Date: 04/04/23 Room / Location: [address] Operating Room Anesthesia Start: 733 Anesthesia Stop: 904 Procedure: RESECTION SHOULDER MASS RIGHT, FROZEN SECTION (Right: Shoulder) Diagnosis: Localized swelling, mass and lump, right upper limb (Right shoulder mass) Surgeons: Niranjan Kaufman MD Responsible Provider: Gino Bermudez Jr., MD Anesthesia Type: general ASA Status: 2 Anesthesia Type: general Vitals Value Taken Time BP 128/95 04/04/23 0930 Temp 36.1 C (97 F) 04/04/23903 Pulse [...] once all PACU criteria has been met. [id number] Anesthesiology Postoperative evaluation and management note* Anesthesia Postprocedure Evaluation - Elier Gomez CRNA - 04/04/2023 10:04 AM EST Patient: Marie Wagner Procedure Summary Date: 04/04/23 Room / Location: [address] Operating Room Anesthesia Start: 733 Anesthesia Stop: 904 Procedure: RESECTION SHOULDER MASS RIGHT, FROZEN SECTION (Right: Shoulder) Diagnosis: Localized swelling, mass and lump, right upper limb (Right shoulder mass) Surgeons: Niranjan Kaufman MD Responsible Provider: iGno Bermudez Jr., MD Anesthesia Type: general ASA [...] a current smoker (e.g. cigarette, cigar, pipe, e- cigarette/vaping/marijuana) If no stop here (G9644) I completed my handoff to the receiving clinician during which we: 1. Identified the patient 2. Identified the responsible provider 3. Reviewed the pertinent medical history 4. Discussed the surgical course 5. Reviewed intra-op anesthesia management and issues during anesthesia 6. Set expectations for post-procedure period 7. Allowed opportunity for questions and acknowledgement of understanding. [facility] Phone: 1(726) 166-731411-27-2023 Surgical operation note* Anesthesia Postprocedure Evaluation - Elier DeeKYREE martinez - 04/04/2023 10:04 AM EST Patient: Marie Wagner Procedure Summary Date: 04/04/23 Room / Location: [address] Operating Room Anesthesia Start: 733 Anesthesia [...] a current smoker (e.g. cigarette, cigar, pipe, e- cigarette/vaping/marijuana) If no stop here (G9644) I completed my handoff to the receiving clinician during which we: 1. Identified the patient 2. Identified the responsible provider 3. Reviewed the pertinent medical history 4. Discussed the surgical course 5. Reviewed intra-op anesthesia management and issues during anesthesia 6. Set expectations for post-procedure period 7. Allowed opportunity for questions and acknowledgement of understanding. * Anesthesia Procedure Notes - KOTA Rocha CRNA - 04/04/2023 8:06 AM ESTAssociated Order(s): Airway Airway Date/Time: 04/04/2023 7:56 AM Urgency: scheduled Airway not difficult General Information and Staff Patient location during procedure: Procedural Resident/DIRECTOR INDEX: KOTA Rocha CRNA Performed: DIRECTOR INDEX Performed by: KOTA Rocha CRNA Authorized by: [...] 1 Number of other approaches attempted: 0 * Anesthesia Preprocedure Evaluation - Gino Bermudez Jr., MD - 03/22/2023 10:01 AM EST Patient: Marie Wagner Procedure Information Date/Time: 04/04/2330 Procedure: RESECTION SHOULDER MASS RIGHT, FROZEN SECTION (Right: Shoulder) - 90 minutes Location: [address] Operating Room Surgeons: Niranjan Kaufman MD [...] EST by Andrew Ta documented in this [facility]11-27-2023 Miscellaneous Notes* Perioperative Nursing Note - Janneth Alexander RN - 04/04/2023 9:45 AM EST Ambulates to restroom to void large amount. Gait slightly unsteady. Written discharge instructions reviewed with patient and visitors. Questions answered. Provided with ice pack and he refuses to useat this time. Sling in place. Taking po. Denies need for pain medication when offered. Warm blankets provided. * Perioperative Nursing Note - Janneth Alexander RN - 04/04/2023 9:40 AM EST Family brought to bedside. * Perioperative Nursing Note - Janneth Alexander RN - 04/04/2023 9:20 AM EST Pt asking questions and taking sips of coke. * Perioperative Nursing Note - Janneth Alexander RN - 04/04/2023 9:04 AM EST Received pt to recovery phase 1 moving around in cart with legs bent to chest laying on right side.Arm is in sling. Belongings retrieved from locker. Warm blankets provided. documented in this [facility]11-27-2023 Note* Perioperative Nursing Note - Janneth Alexander RN - 04/04/2023 9:45 AM EST Ambulates to restroom to void large amount. Gait slightly unsteady. Written discharge instructions reviewed with patient and visitors. Questions answered. Provided with ice pack and he refuses to useat this time. Sling in place. Taking po. Denies need for pain medication when offered. Warm blankets provided. [id number]* Perioperative Nursing Note - Janneth Alexander RN - 04/04/2023 9:45 AM EST Ambulates to restroom to void large amount. Gait slightly unsteady. Written discharge instructions reviewed with patient and visitors. Questions answered. Provided with ice pack and he refuses to useat this time. Sling in place. Taking po. Denies need for pain medication when offered. Warm blankets provided. [address]27-2023 NoteInterval History and Physical I have interviewed and [...] (Temporal) Resp 18 Ht 1.676 m (5' 6) Wt 58.5 kg (129 lb) SpO2 99% BMI 20.82 kg/m? Impression: right shoulder mass Plan: Proceed with planned surgical procedure resection, possible biopsy [facility]11-27-2023 Note* Perioperative Nursing Note - Janneth Alexander RN - 04/04/2023 9:40 AM EST Family brought to bedside. [place] [address]-27-2023 Note* Perioperative Nursing Note - Janneth Alexander RN - 04/04/2023 9:40 AM EST Family brought to bedside. [address]27-2023 Procedure anesthesia Narrative* Procedure Summary Procedure Name Responsible Anesthesiologist Anesthesia Start Time [...] 04/04/23 0756 by Ijeoma Hurd APRN - DIRECTOR INDEX 04/04/23 0857 by Elier Gomez CRNA documented in this encounter [id number] Note* Perioperative Nursing Note - Janneth Alexander RN - 04/04/2023 9:20 AM EST Pt asking questions and taking sips of coke. [address]27-2023 Note* Perioperative Nursing Note - Janneth Alexander RN - 04/04/2023 9:20 AM EST Pt asking questions and taking sips of coke. [address]27-2023 Note* Perioperative Nursing Note - Janneth Alexander RN - 04/04/2023 9:04 AM EST Received pt to recovery phase 1 moving around in cart with legs bent to chest laying on right side.Arm is in sling. Belongings retrieved from locker. Warm blankets provided. [address]27-2023 Note* Perioperative Nursing Note - Janneth Alexander RN - 04/04/2023 9:04 AM EST Received pt to recovery phase 1 moving around in cart with legs bent to chest laying on right side.Arm is in sling. Belongings retrieved from locker. Warm blankets provided. [address]27-2023 Anesthesiology procedure note* Anesthesia Procedure Notes - KOTA Rocha CRNA - 04/04/2023 8:06 AM ESTAssociated Order(s): Airway Airway Date/Time: 04/04/2023 7:56 AM Urgency: scheduled Airway not difficult General Information and Staff Patient location during procedure: Procedural Resident/DIRECTOR INDEX: KOTA Rocha CRNA Performed: DIRECTOR INDEX Performed by: KOTA Rocha CRNA Authorized by: [...] 1 Number of other approaches attempted: 0 [facility] Phone: 1(483) 701-949811-27-2023 History and physical note* Niranjan Kaufman MD [...] (Temporal) Resp 18 Ht 1.676 m (5' 6) Wt 58.5kg (129 lb) SpO2 99% BMI 20.82 kg/m Impression: right shoulder mass Plan: Proceed with planned surgical procedure resection, possible biopsy [facility] Phone: 1(256) 395-390111-27-2023 History and physical note* Niranjan Kaufman MD [...] (Temporal) Resp 18 Ht 1.676 m (5' 6) Wt 58.5kg (129 lb) SpO2 99% BMI 20.82 kg/m Impression: right shoulder mass Plan: Proceed with planned surgical procedure resection, possible biopsy documented in this [facility]11-27-2023 Hospital Discharge instructions* Discharge Instructions* Francis Ledesma [...] Care Everywhere. * General Anesthesia Discharge Instructions (Ethiopian) documented in this [facility]11-15-2023 Discharge summary Author J Luis Marcano [facility] March 23, 2023 1:58pm Note Date/Time March 23, 2023 11:03am [facility] Medical Records Department [address] [place] [address] Emergency Department Summary 03/23/23 MR#: [id number] Acct: [id number] Name: MARIE WAGNER Rep #:[id number] : 1975 48 From: J Luis Marcano MD PCP: Dr. Honey Garza MD Status:REG ER Location: ED HPI History of Present Illness Chief Complaint: Weakness Narrative Narrative: 48-year-old male who denies significant past medical history presents with his neighbor because of generalized weakness, shakiness, and lightheadedness. They relate history that he supposed to have surgery on his shoulder up in [place]. Yesterday he went to presurgical testing and had an EKG performed. He admits toquitting alcohol few weeks to months ago. He states that he is shaky, and nervous, and feels lightheaded and generally weak. He denies any fevers or chills. Yesterday he vomited once without any blood in his emesis. He denies any diarrhea. No abdominal pain. His neighbor and friend brought him in because she noticed that he was shaky and nervous. [facility] Medical History Angioedema History of alcohol abuse Hypertension Psoriasis Home Medications epinephrine 0.3 mg/0.3 mL injection, auto-injector 0.3 mg (0.3 mL) IM X1 PRN Angioedema #1 syringe 04/17/18 [Rx Last Taken Unknown] amlodipine 10 mg tablet 10 mg PO DAILY #30 tabs 01/25/23 [Rx Last Taken Unknown] compress.stocking,knee,reg,med #2 ea 01/25/23 [Rx Last Taken Unknown] Allergy/AdvReac Type Severity Reaction Status Date / Time Penicillins [PCN] Allergy Unknown Verified 03/09/23 15:30 Family History Aunt Blood loss anemia Aunt Cancer Uncle Cancer Surgical History Hx of tooth extraction Social History adopted: No household members: family current occupational status: employed 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 HEENT: No sore throat. No neck pain. No loss of vision. No rhinorrhea. Cardiovascular: No chest pain. No palpitations. No pedal edema. Respiratory: No cough, no shortness of breath. Abdominal: No abdominal pain. Nausea and vomiting yesterday. None today. No hematemesis. Genitourinary: No dysuria. No hematuria. Musculoskeletal: No myalgias. No arthralgias. Neurologic: No headaches. No dizziness. Of lightheadedness, generalized weakness, and shakiness. Skin: No rash. No change in color. Psychiatric: No depression. Mild anxiety. EXAM Physical Exam Narrative Exam Narrative: Afebrile. Vital signs noted. HEENT: Normocephalic. Atraumatic. PERRL, EOMI. Neck soft and supple. No point tenderness or step off. Cardiovascular: Regular rate and rhythm. No murmurs, rubs, or gallops appreciated. Respiratory: No tachypnea. Lungs clear to auscultation bilaterally. Gastrointestinal: Abdomen soft, nontender, with normoactive bowel sounds. No rebound or guarding. Neurological: Awake. Alert. Nonfocal, nonlateralizing. Skin: No rash. Normal color. No pallor. Musculoskeletal: No pedal edema. Full range of motion extremities. Const Vital Signs: 03/23/23 10:37 03/23/23 12:52 Temperature 97.9 F Temperature Source Temporal Pulse Rate 80 Pulse Rate [Lying] 80 Pulse Rate [Sitting (for 1 minute prior to obtaining)] 87 Pulse Rate [Standing (for 1 minute prior to obtaining)] 104 H Respiratory Rate 18 Blood Pressure 144/91 H Blood Pressure [Lying] 119/75 Blood Pressure [Sitting (for 1 minute prior to obtaining)] 128/89 H Blood Pressure [Standing (for 1 minute prior to obtaining)] 128/89 H Blood Pressure Mean 108 Blood Pressure Mean [Lying] 89 Blood Pressure Mean [Sitting (for 1 minute prior to obtaining)] 102 Blood Pressure Mean [Standing (for 1 minute prior to obtaining)] 102 Pulse Ox 100 Oxygen Delivery Method Room Air MDM MDM MDM Narrative Medical decision making narrative: In the differential diagnosis is dehydration versus anxiety. He denies other symptoms. States he has not been drinking alcohol, but in review of his prior records he was seen 2 weeks ago for alcohol abuse. I will perform generalized work-up on him to check him for dehydration or electrolyte disturbance. EKG will also be obtained. He has no active signs of alcohol withdrawal however. Iwill obtain a chest x-ray in 1 view to rule out pneumonia and check his urine for drugs of abuse, and for infection with urinalysis. CBC and CMP will also beobtained. He was bolused normal saline 1 L intravenously. He may have intravascular volume depletion as well. EKG was obtained and interpreted by myself independently as normal sinus rhythm at 78 bpm without ectopy or acute ST changes, no STEMI. No significant change from EKG dated December 09, 2022. I reviewed his laboratory work and he has a normal white count of 6.2, hemoglobin normal at 15.8, hematocrit 45.4, platelet count normal at 164. Potassium is slightly low on his CMP at 3.3 which was replaced orally with 40 mill equivalents, glucose appropriately elevated at 128 with normal anion gap of 8, AST low at 13 which I think is nonspecific. Urinalysis negative for infection, I do not feel antibiotics are indicated. Hisurine for drugs of abuse for was positive for cannabinoids as it had been in thepast. He was given Ativan 0.5 mg intravenously but states that he still feels mildly anxious and shaky. His aunt is now at the bedside who states he has beenunder a lot of stressors such as losing his job, about to lose his house, and recently quit drinking alcohol. I referred him to psychiatry in case he needs to be started on antianxiety meds. I do not feel he requires 72-hour psychiatric admission or evaluation. I feel he can be discharged safely home to follow-up with his primary care provider. Return instructions were reviewed. Disposition is discharged home in stable condition. History & Record Review Discussion w/independent historian: Patient and Friend Lab Data Attestation: I reviewed the patient's lab results. Labs: Laboratory Results - last 24 hr 03/23/23 03/23/23 11:15 12:15 WBC 6.2 RBC 4.92 Hgb 15.8 Hct 45.4 MCV 92.3 MCH 32.1 H MCHC 34.8 RDW Std Deviation 42.1 RDW Coeff of Bob 12.4 Plt Count 164 MPV 14.8 H Immature Gran % (Auto) 0.200 Neut % (Auto) 55.0 Lymph % (Auto) 35.4 [place]ard % (Auto) 7.1 Eos % (Auto) 1.8 Baso % (Auto) 0.5 Absolute Neuts (auto) 3.4 Absolute Lymphs (auto) 2.19 Nucleated RBC % 0 Differential Comment SCANNED Sodium 140 Potassium 3.3 L Chloride 105 Carbon Dioxide 27.0 Anion Gap 8 BUN 9 Creatinine 0.92 Estim Creat Clear Calc 76.74 Est GFR (MDRD) Af Amer 114 Est GFR (MDRD) Non-Af 94 BUN/Creatinine Ratio 9.8 L Glucose 128 H Calcium 9.0 Total Bilirubin 0.70 AST 13 L ALT 20 Alkaline Phosphatase 87 Total Protein 6.8 Albumin 3.8 Globulin 3.0 Albumin/Globulin Ratio 1.3 Lipase 19 Urine Color Yellow Urine Clarity Sl. Cloudy Urine pH 6.0 Ur Specific Butterfield 1.020 Urine Protein 30 H Urine Glucose (UA) Normal Urine Ketones Negative Urine Occult Blood 10 H Urine Nitrite Negative Urine Bilirubin Negative Urine Urobilinogen 4 H Ur Leukocyte Esterase 100 H Urine RBC 0 SEEN Urine WBC 0-5 SEEN Ur Squamous Epith Cells 0 SEEN Urine Bacteria RARE Urine Mucus 0 SEEN Urine Opiates Screen NEGATIVE Urine Methadone Screen NEGATIVE Ur Barbiturates Screen NEGATIVE Ur Phencyclidine Scrn NEGATIVE Ur Amphetamines Screen NEGATIVE MDMA (Ecstasy) Screen NEGATIVE U Benzodiazepines Scrn NEGATIVE Urine Cocaine Screen NEGATIVE U Cannabinoids Screen POSITIVE H Ur Drug Screen Comment Radiography Diagnostic Testing: Clinical Impression(s) from Imaging Studies Chest X-Ray 03/23/23 11:20 IMPRESSION: Hyperinflation. Electronically Signed: Adair Giang MD at 11:56 EST , Discharge Plan Triage Chief Complaint: Weakness Other Complaint: Dizziness ED Provider: J Luis Marcano Dx/Rx/DC Orders Clinical Impression: Lightheadedness, Anxiety, Shakiness Instructions: ED Anxiety Reaction, ED Dizziness, Uncertain Cause, ED Near- Fainting, Uncertain Cause Prescriptions: No Action amlodipine 10 mg tablet 10 mg PO DAILY Qty: 30 1RF (DME) compress.stocking,knee,reg,med Misc See Rx Instructions .Route Qty: 2 0RF Rx Instructions: As directed epinephrine 0.3 MG syringe 0.3 mg IM X1 PRN (Reason: Angioedema) Qty: 1 1RF Primary Care Provider: Honey Garza Referrals: Honey Garza MD [Primary Care Provider] - 3-5 Days if not improving Mark Kennedy DO [Med Staff - [place]] - As soon as possible Disposition Disposition: Home, Self Care What to do if you have Problems For any increased pain, shortness of breath, bleeding, nausea or vomiting, chestpain, or any unexpected problems, contact your Primary Care Provider. Call [facility] ([phone]) or report to the closest Emergency Room. Call 911 if necessary. 03/23/23 1358 <Electronically signed by J Luis Marcano MD> Cosigner Signature (if applicable): CC: Dr. Honey Garza MD ~ Signed [facility] Work Phone: 1(449) 884-637311-14-2023 NotePatient: Marie Wagner Procedure Information Date/Time: 04/04/23 0730 Procedure: RESECTION SHOULDER MASS RIGHT, FROZEN SECTION (Right: Shoulder) - 90 minutes Location: [address] Operating Room Surgeons: Niranjan Kaufman MD [...] Signed On 03-23-2023 12:30:07 EST by Andrew A. [facility]11-14-2023 NoteComprehensive Pre Surgical History and Physical ? Name: Marie Wagner : 1975 (Age-48 y.o.) Date of Service: Pt seen/examined on 03/22/2023 Procedure Information Date/Time: 04/04/23 6686 Procedure: RESECTION SHOULDER MASS RIGHT, FROZEN SECTION (Right: Shoulder) - 90 minutes Location: [address] Operating Room Surgeons: Niranjan Kaufman MD [...] mass - Managed per surgery 2) HTN Linda Has not taken BP med yet today, instructed pt to take medication as directed 3) COPD/ tobacco abuse Cannot afford prescribed inhalers- instructed pt to call PCP to have different meds ordered or GoodRx usage Smoking 1ppd+ Cma to stop Visit Type: Pre-Admission Testing Visit [...] to above procedure. ? Denies history of MD, CAD, CHF, TIA, CVA Past Medical History: [...] 16 03/22/23 0938 SpO2 98 % 03/22/23 0938 Labs: Per protocol Gordon's Simple Cardiac Risk Index: GORDON'S SIMPLE CARDIAC RISK SCORE: 0 Interpretation: 0 Points Class I 0.5% 1 Point Class II 1.3% 2 Points Class III (more content not included)...[facility] 03-22-2023 NoteComprehensive Pre Surgical History and Physical ? Name: Marie Wagner : 1975 (Age-48 y.o.) Date of Service: Pt seen/examined on 03/22/2023 Procedure Information Date/Time: 04/04/23729 Procedure: RESECTION SHOULDER MASS RIGHT, FROZEN SECTION (Right: Shoulder) - 90 minutes Location: [address] Operating Room Surgeons: Niranjan Kaufman MD [...] meds ordered or GoodRx usage Smoking 1ppd+ Cma to stop Visit Type: Pre-Admission Testing Visit [...] to above procedure. ? Denies history of MD, CAD, CHF, TIA, CVA Past Medical History: Past Medical History: No date: Asthma No date: COPD (chronic obstructive pulmonary disease) ([facility]) No date: Depression No date: Hearing loss [...] 03/22/23 0938 Temp 37.4 ?C (99.4 ?F) 03/22/2338 Pulse 94 03/22/23 0938 Resp 16 03/22/2338 SpO2 98 % 03/22/23937 Labs: Per protocol Gordon's Simple Cardiac Risk Index: GORDON'S SIMPLE CARDIAC RISK SCORE: 0 Interpretation: 0 Points Class I 0.5% 1 Point Class II 1.3% 2 Points Class III (more content not included)...[facility] 03-22-2023 Anesthesiology Preoperative evaluation and management note* Anesthesia Preprocedure Evaluation - Gino Bermudez Jr., MD - 03/22/2023 10:01 AM EST Patient: Marie Wagner Procedure Information Date/Time: 04/04/23729 Procedure: RESECTION SHOULDER MASS RIGHT, FROZEN SECTION (Right: Shoulder) - 90 minutes Location: [address] Operating Room Surgeons: Niranjan Kaufman MD [...] On 03-23-2023 12:30:07 EST by Andrew Ta [facility] [employer] Work Phone: 1(521) 579-632010-24-2023 History of Present illness Narrative* Niranjan Kaufman MD - 03/01/2023 1:45 PM EDT [facility] [address] [place] [address] [address] [facility] [address] Dept: [phone] Dept Chief Complaint Patient presents with New Patient Right upper extremity mass/Dr Marybeth Vázquez MARIIA Vieira is a 47-year-old male who presents today at the referral of his physicians retail sales assistant Sha. His primary concern is a [...] masses. 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 There are no problems to display [...] kg (129 lb) Height: 1.676 m (5' 6) Physical Exam Physical Exam Vitals and nursing [...] were answered. I will update his physicians retail sales assistant, Marybeth Vázquez with my recommendations. No follow-ups on file. Voice recognition was used for portions of this note and although it was reviewed prior to signing some incorrect words or phrases could be present. Electronically signedby Niranjan Kaufman MD on 03/04/2023 at 10:02 AM documented in this [facility]10-19-2023 Discharge summary Author Sachin Lopez [facility] February 24, 2023 3:29pm Note Date/Time February 24, 2023 3 :29pm [facility] Physical Therapy [facility] [address] [place] [address]. [address] [place] [address] / REHABILITATION SERVICES DISCHARGE SUMMARY MR#: [id number] Acct: [id number] Name: MARIE WAGNER Rep #: [id number] : 1975 47 From: Sachin Lopez PT, ATC Referring Dr.: Dr. Honey Garza MD Status: REG RCR Insurance: [employer] Discharge Summary D/C summary: It has been my pleasure to treat MARIE WAGNER referred by Dr. Honey Garza MD, with the diagnosis of Generalized weakness for a total of 8 visit(s). Discharge Date: Please see the following information for a summary of their discharge status. Subjective Subjective: I am ready to be done for now until I have to get work done on my shoulder Pain legs: Pain Intensity (Out of 10): 0 R SH: Pain Intensity (Out of 10): 4 Overall Improvement % Improvement: 65 Objective Objective/Function: Pt. reports a LEFS score of 79/80 - original LEFS score at time of eval. was 56/80. Pt. demonstrates an FGA score of 29/30 which meets his goal of increasing his original score of 17/30 by 4 points or more in order to return to prior level offunction and return to work. Pt. demonstrates a MMT of their B LE of grossly 5/5 which meets his goal of increasing his MMT x1 grade from time of initial eval. Pt. is I in his home HEP which meets his goal from time of initial eval. Pt. is able to ambulate 1000 ft. without difficulty which meets his goal at initial eval. Goals Goal 1:: Pt. to show an increase in FGA score of 4 points or more in order to return to prior level of function and return to work. Goal Progress: Goal Met Goal 2:: Pt. to improve B LE MMT one full grade in order to return to prior level of function and return to work. Goal Progress: Goal Met Goal 3:: Pt. to be I in HEP to continue functional exercises in day to day life. Goal Progress: Goal Met Goal 4:: Pt. to ambulate 1000 feet without difficulty to aid with return to workwithout limitation Goal Progress: Goal Met Plan Plan: D/C pt. to HEP to aid in return to work. D/C Information d/c sentence: If there are questions or concerns regarding this patient's physical therapy, please feel free to call me at [phone]. Thank you for the referral of thispatient. Sincerely, Sachin Lopez, PT, ATC Balance/Gait/Functional tests Balance/Special Test Scores Functional Gait Assessment Score: 29 % Disability: 3.3400 Lower Extremity Functional Score: 79 Improvement % Improvement: 65 <Electronically signed by Sachin Lopez PT, ATC> 02/24/23 1529 CC: Dr. Honey Garza MD ~ [facility] Signed [facility] Work Phone: 1(124) 690-697110-14-2023 Procedure [facility] 12-14-2022 Hospital Discharge instructions Additional Instructions Continue your blood pressure medicines started in the hospital. Continue your potassium replacement. Potassium 3.6 today. Use Tylenol 1 g every 6 hours as needed. Follow-up as an outpatient. Return if worsening symptoms.[facility] Work Phone: 1(233) 384-885808-05-2023 Progress note Author Marguerite Saucedo [facility] December 11, 2022 1:45pm Note Date/Time December 11, 2022 10: 10am [facility] Medical Records Department [address] [place] [address] Progress Note 12/11/22 1008 MR#: [id number] Acct: [id number] Name: MARIE WAGNER Rep #:[id number] : 1975 47 From: Marguerite Saucedo MD PCP: Care Physician,No Primary Status :ADM IN Location: [place] [address] Subjective Subjective Patient seen and examined. He had no complaints. He was alert but weak. He had no complaints and had an uneventful night. Review of systems is otherwise negative. He is being managed for acute alcohol withdrawal. Objective Data Objective Data Vital Signs: Vital Signs Temp Pulse Resp BP Pulse Ox O2 Del Method 98 F 61 16 130/81 H 96 Room Air 12/11/22 02:00 12/11/22 02:00 12/11/22 02:00 12/11/22 02:00 12/11/22 02:00 12/11/22 02:00 Oxygen Delivery Method Room Air Weight: 130 lb Body Mass Index (BMI) 21.6 Intake & Output: Intake and Output for Last 24 Hours 12/09/22 12/10/22 12/11/22 23:59 23:59 23:59 Intake Total 1000 / 1000 1000 / 1000 Balance 1000 / 1000 1000 / 1000 Lab / Micro Data 12/09/22 04:50 12/09/22 04:50 Physical Exam Const alert and oriented x3 General Appearance: cooperative Orientation / Consciousness: lethargic HEENT normocephalic, moist oral mucous membranes, oropharynx normal and gingiva normal Eyes PERRL and EOMs intact bilaterally Neck supple and no JVD Lymph Lymphatic: no lymphadenopathy noted and no lymphedema noted Resp normal respiratory effort, normal air movement and clear to auscultation bilaterally Cardio regular rate, regular rhythm, S1 normal heart sound, S2 normal heart sound and no murmurs GI normal to inspection, nondistended, normoactive bowel sounds, soft to palpation,non-tender and non-distended Extremity normal capillary refill, no clubbing, cyanosis or edema and no calf tenderness General Extremity: no tenderness to palpation of joints or extremities Skin General Skin Exam: no breakdown Neuro CN's II-XII intact bilaterally, no focal motor deficits, no sensory deficits noted and deep tendon reflexes 2+ bilaterally Psych thought process normal, cooperative and affect normal Mood & Affect: flat affect Assessment & Plan Assessment/Plan (1) Alcohol withdrawal syndrome with perceptual disturbance: PLAN: Plan #Acute alcohol withdrawal * on alcohol withdrawal protocol with phenobarbital * adjunctive meds for symptomatic relief * on thiamine, folic acid and multivite * #Encephalopathy * likely acute encephalopathy related to chronic alcohol use disorder * may also be exacerbated by phenobarbital and prn ativan he is receiving * will monitor * #Nicotine dependence: on nicotine patch. Counseled to quit #Psoriasis: chronic. TO follow up with dermatology on outpatient basis DVT prophylaxis: low risk, encourage to ambulate. Charges/Coding Visit Charges Inpatient E&M: 42340 Subs Hosp L2 12/11/22 1345 <Electronically signed by Marguerite Saucedo MD> Marguerite Saucedo MD Cosigner Signature (if applicable): CC: ~ Signed [facility] Work Phone: 1(724) 477-937508-04-2023 Progress note Author Yelitza Wagner [facility] December 10, 2022 4:07pm Note Date/Time December 10, 2022 4:0 7pm [facility] Medical Records Department [address] [place] [address] Progress Note - Hospitalist 12/10/22 1600 MR#: [id number] Acct: [id number] Name: BERNARDGERALDIbisJOSE DE JESUSMichael Mccauley Rep #:[id number] : 1975 47 From: Yelitza Wagner MD PCP: Care Physician,No Primary Status :ADM IN Location: [place] [address] Reason for Visit Reason for Visit: Diagnoses Alcohol use, unspecified with withdrawal with perceptual disturbance (12/09/22) Subjective Subjective Patient resting comfortably in bed, feeling tired Objective Data Objective Data Vital Signs: Vital Signs Temp Pulse Resp BP Pulse Ox O2 Del Method 98.5 F 61 15 139/89 H 94 Room Air 12/10/22 14:35 12/10/22 14:35 12/10/22 14:35 12/10/22 14:35 12/10/22 14:35 12/10/22 14:35 Oxygen Delivery Method Room Air Weight: 58.967 kg Body Mass Index (BMI) 21.6 Intake & Output: Intake and Output for Last 24 Hours 12/08/22 12/09/22 12/10/22 23:59 23:59 23:59 Intake Total 1000 / 1000 1000 / 1000 Balance 1000 / 1000 1000 / 1000 Lab / Micro Data 12/09/22 04:50 12/09/22 04:50 Labs: Laboratory Results - last 24 hr 12/09/22 04:50: Magnesium 2.0 12/09/22 14:50: PT 14.4, INR 1.1 12/09/22 15:45: Ammonia 20.0 12/09/22 17:17: Urine Opiates Screen NEGATIVE, Urine Methadone Screen NEGATIVE, Ur Barbiturates Screen NEGATIVE, Ur Phencyclidine Scrn NEGATIVE, Ur AmphetaminesScreen NEGATIVE, MDMA (Ecstasy) Screen NEGATIVE, U Benzodiazepines Scrn NEGATIVE, Urine Cocaine Screen NEGATIVE, U Cannabinoids Screen POSITIVE H, Ur Drug Screen Comment Physical Exam Narrative General: Resting comfortably in bed HEENT: Atraumatic Eyes: extraocular movements grossly intact Neck: Supple Respiratory: normal respiratory effort Cardiovascular: No overt JVD appreciated GI: nondistended Extremities: Moving all extremities Neuro: No overt focal neurological deficits Psych: Attempts to be cooperative Assessment & Plan Assessment/Plan (1) Alcohol withdrawal syndrome with perceptual disturbance: PLAN: Plan 1. Acute alcohol withdrawal syndrome with history of chronic alcohol use disorder, tolerance and dependence: Patient is being admitted to MedSurg floor. Patient looks dehydrated therefore 1 L Ringer lactate ordered by ER physician and then 125 mill per hour. Patient on phenobarbital based order set along withother adjunctive medications as needed for alcohol withdrawal symptom control. CIWA monitor. digital strategist senior manager consulted. Twelve-lead EKG done in ED reviewed. Normal sinus rhythm 94 bpm, LAD, LAFB. Mildly sinus tachycardic in ED probably from dehydration or acute alcohol withdrawal syndrome. -12/10: Continue phenobarb taper. Patient will follow-up with outpatient treatment 2. Chronic cigarette smoking/nicotine use disorder with dependence: On nicotinepatch 3. Acute encephalopathy most likely toxic encephalopathy from acute alcohol withdrawal syndrome and then IV Ativan and phenobarbital: Monitor clinically. Avoid next phenobarbital patient is more awake and responding. -12/10: Patient wakes up, still sleepy, on phenobarb taper 4. Chronic psoriasis: Needs outpatient follow-up with employee relation manager. DVT prophylaxis, low risk. Charges/Coding Visit Charges Inpatient E&M: 01978 Subs Hosp L1 12/10/22 1607 <Electronically signed by Yelitza Wagner MD> Cosigner Signature (if applicable): CC: ~ Signed [facility] Work Phone: [phone]) 938-946508-04-2023 Discharge summary Author Eufemia Patiño [facility] December 09, 2022 10:09pm Note Date/Time December 09, 2022 4:1 5pm [facility] Medical Records Department [address] [place] [id number] Emergency Department Summary 12/09/22 MR#: [id number] Acct: [id number] Name: WAGNERMARIE Rep #:[id number] : 1975 47 From: Eufemia Alatorre PCP: Care Physician,No Primary Status :ADM IN Location: [place] [address] HPI History of Present Illness Chief Complaint: Substance Abuse Informant: patient Narrative Narrative: Patient is a 47-year-old male with longstanding history of alcohol abuse (drinkswhiskey -at least 80 proof daily) presenting for generalized weakness, generalized malaise and for alcohol detox. Patient states he has not been feeling well for the past few days. Friend at the bedside said he seemed a bit more confused. He is also had a tremor. He states his last drink was last night. He states he will go through a bottle of whiskey every few days. He denies any chest pain currently but notes he does get some intermittent chest pain. He hashad some swelling of his eyes as well as discharge. He states that when he wakes up and his eyes are matted shut. He notes he does have some seasonal allergies. Denies any difficulty breathing. Denies any weight change. States he does sometimes have some night sweats. No report of any black or blood in his stool. No vomiting or change in his bowel movements. No other complaints or concerns at this time. Patient denies any history of DTs or alcohol withdrawal. He is never been to detox before. [facility] Medical History Psoriasis Home Medications diphenhydramine HCl 25 mg capsule 50 mg (2 x 25 mg) PO TID PRN PRN allergic reaction #30 caps 04/17/18 [Rx Last Taken 04/23/18] epinephrine 0.3 mg/0.3 mL injection, auto-injector 0.3 mg (0.3 mL) IM X1 PRN Angioedema ##1 04/17/18 [Rx Last Taken Unknown] famotidine 20 mg tablet 20 mg PO BID ##10 04/17/18 [Rx Last Taken 04/23/18] prednisone 20 mg tablet 60 mg (3 x 20 mg) PO DAILY #15 tabs 04/17/18 [Rx Last Taken 04/23/18] Allergy/AdvReac Type Severity Reaction Status Date / Time Penicillins [PCN] Allergy Unknown Verified 12/09/22 14:23 Surgical History Hx of tooth extraction Social History Smoking Status: Current every day smoker tobacco type: cigarettes ROS ROS ED Constitutional Constitutional ED: Reports chills and sweats; Denies fever(s) Eyes Eyes: Reports blurry vision Gastrointestinal Gastrointestinal: Denies nausea or vomiting Musculoskeletal Musculoskeletal: Denies arthralgias or myalgias Integumentary Denies rash Neurologic Neurologic: Reports weakness and other Details: tremor Psychiatric Psychiatric: Reports anxiety Hematologic/Lymphatic Hematologic/Lymphatic: Denies easy bleeding or easy bruising EXAM Physical Exam Const Vital Signs: 12/09/22 14:23 Temperature 97.5 F L Temperature Source Temporal Pulse Rate 106 H Respiratory Rate 16 Blood Pressure 162/111 H Blood Pressure Mean 128 Pulse Ox 99 Positive well developed Constitutional Narrative: Chronically ill-appearing General Appearance ED: well developed and NAD; Negative for pallor HEENT Reports dry mucous membranes atraumatic Mouth ED: Yes dry mucous membranes Mouth: dry mucous membranes Eyes PERRL and EOMs intact bilaterally Eyes Narrative: Slight periorbital puffiness/edema present General Eye ED: Negative for scleral icterus Neck supple and no JVD Chest Wall inspection of chest normal and palpation of chest normal Resp normal respiratory effort and clear to auscultation bilaterally Cardio no murmurs Rate: tachycardic GI soft to palpation, non-tender and non-distended Extremity General Extremety ED: Negative for edema General Extremity: Negative for edema Neuro oriented x3 Neuro Narrative: Mildly tremulous, no focal deficits appreciated. Generally weak. Sensorium / Orientation: alert Motor Exam: general weakness Psych mental status grossly normal Mood & Affect: anxious and tearful Skin General Skin Exam: Negative for jaundice or pallor MDM MDM MDM Narrative Medical decision making narrative: Patient is evaluated for generalized weakness, lightheadedness as well as request for inpatient alcohol detox. Patient is hypertensive and tachycardic on arrival and I am concerned that he might be having some withdrawal symptoms at this time. He states he has not had a drink since last night. Is given 1 mg IV Ativan and then oral phenobarbital. He is given IV fluids as he does appear dehydrated. Metabolic work-up is largely normal. No anemia, signs of infection, abnormal chest x-ray or other acute abnormalities. Patient is admitted to medicine service for treatment of alcohol dependency with likely withdrawal symptoms. Lab Data Attestation: I reviewed the patient's lab results. Labs: Laboratory Results - last 24 hr 12/09/22 12/09/22 12/09/22 04:50 14:50 15:45 WBC 4.8 RBC 4.25 L Hgb 15.7 Hct 41.9 MCV 98.6 H MCH 36.9 H MCHC 37.5 H RDW Std Deviation 47.3 H RDW Coeff of Bob 13.1 Plt Count 134 L MPV 14.2 H Immature Gran % (Auto) 0.400 Neut % (Auto) 58.5 Lymph % (Auto) 34.2 Seward % (Auto) 6.1 Eos % (Auto) 0.2 Baso % (Auto) 0.6 Absolute Neuts (auto) 2.8 Absolute Lymphs (auto) 1.64 Nucleated RBC % 0 PT 14.4 INR 1.1 Sodium 143 Potassium 3.0 L Chloride 106 Carbon Dioxide 29.0 Anion Gap 8 BUN 10 Creatinine 0.80 Estim Creat Clear Calc 96.23 Est GFR (MDRD) Af Amer 133 Est GFR (MDRD) Non-Af 110 BUN/Creatinine Ratio 12.5 Glucose 117 H Calcium 8.7 Magnesium 2.0 Total Bilirubin 0.70 AST 30 ALT 27 Alkaline Phosphatase 90 Ammonia 20.0 Total Protein 6.5 Albumin 3.6 Globulin 2.9 Albumin/Globulin Ratio 1.2 Ethyl Alcohol 7.0 Radiography Chest X-Ray - ED: 1 View, Read by ED Physician, Read by Radiologist and No Acute Disease Diagnostic Testing: Clinical Impression(s) from Imaging Studies Chest X-Ray 12/09/22 15:25 IMPRESSION: No acute abnormality is seen. Electronically Signed: Adair Giang MD at 15:36 EDT , Management Discussion w/another healthcare provider: Hospitalist Discharge Plan Disposition Disposition: Acute Care Hospital [facility] Discharge Date/Time: 12/09/22 17:32 What to do if you have Problems For any increased pain, shortness of breath, bleeding, nausea or vomiting, chest pain, or any unexpected problems, contact your Primary Care Provider. Call [facility] ([phone]) or report to the closest Emergency Room. Call 911 if necessary. 12/09/222208 <Electronically signed by Eufemia Patiño DO> Cosigner Signature (if applicable): CC: No Primary Care Physician ~ Signed [facility] Work Phone: 1(714) 342-216108-03-2023 History and physical note Author Hector Bravo [facility] December 09, 2022 4:57pm Note Date/Time December 09, 2022 4:5 7pm [facility] Medical Records Department [address] [place] [address] H&P Exam - Hospitalist 12/09/22 1643 MR#: [id number] Acct: [id number] Name: MARIE WAGNER Rep #:[id number] : 1975 47 From: Hector Baumann PCP: Care Physician,No Primary Status :REG ER Location: ED HPI - General General Date of Admission: 12/09/22 Date of Service: 12/09/22 Chief Complaint: Acute alcohol withdrawal syndrome. HPI Narrative MARIE WAGNER, is a 47 M with history of chronic alcohol use disorder came to ED for acute alcohol withdrawal syndrome. Patient came to ED with his friend. Patient drinks whiskey, exact amount unclear but he states he finish 1 bottle ofwhiskey in a few days. Patient came to ED for generalized weakness malaise and diffuse tremors as per the patient. He was more confused. His last drink was yesterday night. Patient also admits visual hallucination but denies seizure. Denies any particular complaint including chest pain, shortness of breath, palpitation. He said he had been shocked/seems defibrillated/AEDmore than 10 years as he told his friend few days ago. He said it was in the hospital but right now patient is very drowsy and lethargic cannot give any history. He denies history of chronic opioid use including fentanyl, heroin, Percocet or oxycodone. Denies methamphetamine or crack cocaine. He occasionally uses marijuana. Smokes cigarettes a pack per day. Patient was given IV Ativan and phenobarbital in the ED. The patient was in ED in April 2018 for facial swelling, angioedema. [facility] Medical History Psoriasis Home Medications diphenhydramine HCl 25 mg capsule 50 mg (2 x 25 mg) PO TID PRN PRN allergic reaction #30 caps 04/17/18 [Rx Last Taken 04/23/18] epinephrine 0.3 mg/0.3 mL injection, auto-injector 0.3 mg (0.3 mL) IM X1 PRN Angioedema ##1 04/17/18 [Rx Last Taken Unknown] famotidine 20 mg tablet 20 mg PO BID ##10 04/17/18 [Rx Last Taken 04/23/18] prednisone 20 mg tablet 60 mg (3 x 20 mg) PO DAILY #15 tabs 04/17/18 [Rx Last Taken 04/23/18] Allergy/AdvReac Type Severity Reaction Status Date / Time Penicillins [PCN] Allergy Unknown Verified 12/09/22 14:23 Surgical History Hx of tooth extraction Social History Smoking Status: Current every day smoker tobacco type: cigarettes ROS ROS Narrative 14 system ROS unobtainable as patient is drowsy lethargic, obtunded. Patient had IV Ativan and phenobarbital in ED for acute alcohol withdrawal syndrome Review of Systems ROS Unobtainable: due to encephalopathy Vital Signs Vital Signs Vital Signs: 12/09/22 14:23 Temperature 97.5 F L Temperature Source Temporal Pulse Rate 106 H Respiratory Rate 16 Blood Pressure 162/111 H Blood Pressure Mean 128 Pulse Ox 99 Weight Weight: 130 lb Body Mass Index (BMI) 21.6 Physical Exam Narrative General: Lethargy, wakes up on verbal command. Obtunded. Chronic malnutrition HEENT: Eyes mostly closed. No direct eye contact. Atraumatic, PERRLA, EOMI, Normocephalic Oral: Oral mucosa dry. No Gingival or Mucosal Lesions/ Ulcerations Neck: Supple, No JVD, Negative Carotid Bruits Lungs: Air entry diminished in bilateral lung bases. No crepitation/rhonchi Cardiovascular: Regular rate, Regular Rhythm, Normal S1, Normal S2, No murmurs Abdomen: Bowel Sounds Present, Soft, Non Tender, Non-Distended : No renal angle tenderness. No suprapubic tenderness. Extremities: No edema, Capillary Refill Less than 3 Seconds Skin: Small patchy psoriatic rash on right lower leg. Musculoskeletal: No Tenderness to Palpation of Joints or Extremities, mild- moderate atrophy of muscles of extremities, loss of subcutaneous fat. Neurological: Cranial nerves II-XII grossly intact, DTR 2+/4. No acute focal neurological deficit. Psych/Mental Status: Flat affect lethargy Results Lab / Micro Data 12/09/22 04:50 12/09/22 04:50 Labs: Laboratory Results - last 24 hr 12/09/22 04:50: WBC 4.8, RBC 4.25 L, Hgb 15.7, Hct 41.9, MCV 98.6 H, MCH 36.9 H, MCHC 37.5 H, RDW Std Deviation 47.3 H, RDW Coeff of Bob 13.1, Plt Count 134 L, MPV 14.2 H, Immature Gran % (Auto) 0.400, Neut % (Auto) 58.5, Lymph % (Auto) 34.2, Seward % (Auto) 6.1, Eos % (Auto) 0.2, Baso % (Auto) 0.6, Absolute Neuts (auto) 2.8, Absolute Lymphs (auto) 1.64, Nucleated RBC % 0, Sodium 143, Potassium 3.0 L, Chloride 106, Carbon Dioxide 29.0, Anion Gap 8, BUN 10, Creatinine 0.80, Estim Creat Clear Calc 96.23, Est GFR (MDRD) Af Amer 133, Est GFR (MDRD) Non-Af 110, BUN/Creatinine Ratio 12.5, Glucose 117 H, Calcium 8.7, Total Bilirubin 0.70, AST 30, ALT 27, Alkaline Phosphatase 90, Total Protein 6.5, Albumin 3.6, Globulin 2.9, Albumin/Globulin Ratio 1.2, Ethyl Alcohol 7.0 12/09/22 15:45: Ammonia 20.0 Radiology Impression Chest X-Ray 12/09/22 15:25 IMPRESSION: No acute abnormality is seen. Electronically Signed: Adair Giang MD at 15:36 EDT , Assessment & Plan Assessment/Plan (1) Alcohol withdrawal syndrome with perceptual disturbance: PLAN: Plan 1. Acute alcohol withdrawal syndrome with history of chronic alcohol use disorder, tolerance and dependence: Patient is being admitted to [facility] floor. Patient looks dehydrated therefore 1 L Ringer lactate ordered by ER physician and then 125 mill per hour. Patient on phenobarbital based order set along with other adjunctive medications as needed for alcohol withdrawal symptom control. CIWA monitor. digital strategist senior manager consulted. Twelve-lead EKG done in ED reviewed. Normal sinus rhythm 94 bpm, LAD, LAFB. Mildly sinus tachycardic in ED probably from dehydration or acute alcohol withdrawal syndrome. 2. Chronic cigarette smoking/nicotine use disorder with dependence: On nicotine patch 3. Acute encephalopathy most likely toxic encephalopathy from acute alcohol withdrawal syndrome and then IV Ativan and phenobarbital: Monitor clinically. Avoid next phenobarbital patient is more awake and responding. 4. Chronic psoriasis: Needs outpatient follow-up with employee relation manager. DVT prophylaxis, low risk. Discontinue if platelet count drops less than 50,000 or hemoglobin less than 8 g% CODE STATUS: Does not have living will/advanced directive. Full code unverified with the patient Charges/Coding Visit Charges Inpatient E&M: 26647 Init Hosp L3 12/09/22 1657 <Electronically signed by Hector Bravo MD> Cosigner Signature (if applicable): CC: Dr. Hector Bravo MD; No Primary Care Physician~ Signed [facility] Work Phone: Discharge summary Author Marguerite Saucedo [facility] December 12, 2022 2:43pm Note Date/Time December 12, 2022 1:4 2pm [facility] Medical Records Department [address] [place] [address] Discharge Summary 12/12/22 1338 MR#: [id number] Acct: [id number] Name: MARIE WAGNER Rep #:[id number] : 1975 47 From: Marguerite Saucedo MD PCP: Care Physician,No Primary Status :ADM IN Location: [place] [id number] Providers Date of Admission: 12/09/22 Date of Discharge: 12/12/22 Primary Care Physician: No Primary Care Phys Reason For Visit: ALCOHOL WITHDRAWAL Diagnosis Discharge Diagnosis (1) Alcohol withdrawal syndrome with perceptual disturbance: Status: Acute Code(s): F10.932 - Alcohol use, unspecified with withdrawal with perceptual disturbance Plan #Acute alcohol withdrawal * on alcohol withdrawal protocol with phenobarbital * adjunctive meds for symptomatic relief * on thiamine, folic acid and multivite * #Encephalopathy * likely acute encephalopathy related to chronic alcohol use disorder * may also be exacerbated by phenobarbital and prn ativan he is receiving * will monitor * #Nicotine dependence: on nicotine patch. Counseled to quit #Psoriasis: chronic. TO follow up with dermatology on outpatient basis DVT prophylaxis: low risk, encourage to ambulate. Medications at Discharge Home Medications diphenhydramine HCl 25 mg capsule 50 mg (2 x 25 mg) PO TID PRN PRN allergic reaction #30 caps 04/17/18 epinephrine 0.3 mg/0.3 mL injection, auto-injector 0.3 mg (0.3 mL) IM X1 PRN Angioedema ##1 04/17/18 famotidine 20 mg tablet 20 mg PO BID ##10 04/17/18 prednisone 20 mg tablet 60 mg (3 x 20 mg) PO DAILY #15 tabs 04/17/18 amlodipine 10 mg tablet 10 mg PO DAILY #30 tabs 12/12/22 potassium chloride 20 mEq tablet,extended release 20 meq PO DAILY #20 tabs 12/12/22 Hospital Course Operations None Summary of Care Provided Minutes Spent on Discharge: 50 Hospital Course: Patient is a 47-year-old male with a past medical history as outlined which includes chronic alcohol use disorder who came into the ED for acute alcohol withdrawal. He drank whiskey and said he had finished a bottle of whiskey over the last few days. He had assisted generalized malaise and weakness. His last drink was the day before admission and he also had some visual hallucination butdenies any seizures. Review of systems otherwise negative. He was admitted andmanaged for acute alcohol withdrawal. He was started on alcohol withdrawal protocol with phenobarbital. He also had hypokalemia and this was replaced. Hetolerated the 3-day detox process. On day of discharge potassium was quite low at 2.8 so this was aggressively replaced. His blood pressure was noted to be elevated in the 150s systolic. He said he had been known to have high blood pressure on the outpatient basis but had [facility]. He was started on amlodipine 10 mg daily and consult with establish with [facility] where he was referred to establish PCP care. Repeat potassium checked prior to discharge was 3.8. He was given a prescription for p.o. potassium 20 mg daily for 20 days. Patient seen and examined prior to discharge. He had no complaints and had an uneventful night. Review of systems otherwise negative. Labs and vitals reviewed. Home medication reviewed and reconciled. Physical Exam Const alert and oriented x3 General Appearance: cooperative, comfortable and well kempt Orientation / Consciousness: lethargic HEENT normocephalic, head/scalp atraumatic, hearing grossly normal bilaterally, moist oral mucous membranes, oropharynx normal and gingiva normal Mouth: oral and palatal mucosa normal Eyes PERRL, EOMs intact bilaterally and conjunctivae normal Neck supple and no JVD Lymph Lymphatic: no lymphadenopathy noted and no lymphedema noted Resp normal respiratory effort, normal air movement and clear to auscultation bilaterally Cardio regular rate, regular rhythm, S1 normal heart sound, S2 normal heart sound and no murmurs GI normal to inspection, nondistended, normoactive bowel sounds, soft to palpation,non-tender and non-distended Extremity normal to inspection, full ROM, normal capillary refill, no clubbing, cyanosis or edema and no calf tenderness General Extremity: no tenderness to palpation of joints or extremities Skin no rashes or lesions noted and no wounds General Skin Exam: no breakdown Neuro oriented x3, CN's II-XII intact bilaterally, moves all extremities, no focal motor deficits, no sensory deficits noted and deep tendon reflexes 2+ bilaterally Sensorium / Orientation: awake and alert Psych thought process normal, cooperative and affect normal Weight / BMI Weight Weight: 130 lb Body Mass Index (BMI) 21.6 ABG / Lab / Microbiology Data 12/12/22 05:40 12/12/22 14:04 Laboratory: Laboratory Results - last 24 hr 12/12/22 05:40: WBC 4.9, RBC 3.60 L, Hgb 12.9 L, Hct 36.9 L, MCV 102.5 H, MCH 35.8 H, MCHC 35.0 D, RDW Std Deviation 46.5 H, RDW Coeff of Bob 12.5, Plt Count92 L, MPV TNP, Immature Gran % (Auto) 0.200, Neut % (Auto) 51.3, Lymph % (Auto) 38.6, Seward % (Auto) 7.2, Eos % (Auto) 2.3, Baso % (Auto) 0.4, Absolute Neuts (auto) 2.5, Absolute Lymphs (auto) 1.88, Nucleated RBC % 0, Differential CommentSCANNED, Platelet Estimate SLT DEC, Sodium 140, Potassium 2.8 L, Chloride 106, Carbon Dioxide 30.0, Anion Gap 4 L, BUN 9, Creatinine 0.63 L, Estim Creat Clear Calc 122.20, Est GFR (MDRD) Af Amer 175, Est GFR (MDRD) Non-Af 145, BUN/Creatinine Ratio 14.2, Glucose 98, Calcium 8.4 L, Magnesium 2.0 D/C Instructions Discharge Diet: Low fat / Low cholesterol Discharge Activity: Return to Normal Activity Weight Bearing Status: Weight bearing as tolerated Call your doctor if you observe: Shortness of breath, Dizziness and Swelling in the ankles Meaningful Use Info Meaningful Use Diagnoses (Choose all that apply): None applicable Discharge Plan Admission Admit Date/Time: 12/09/22 16:41 Primary Reason for Your Visit: acute alcohol withdrawal Attending Provider: Marguerite Saucedo Primary Care Provider: Care Physician,No Primary Consulting Providers: Hector Bravo; Yelitza Wagner Instructions Forms: Work / School Excuse Patient Instructions: Alcoholism: Getting Help, Alcohol Withdrawal: What to Expect Discharge Orders/Prescriptions Prescriptions: New potassium chloride 20 mEq tablet extended release 20 meq PO DAILY Qty: 20 0RF amlodipine 10 mg tablet 10 mg PO DAILY Qty: 30 1RF Continued prednisone 20 MG tablet 60 mg PO DAILY Qty: 15 0RF diphenhydramine HCl 25 MG capsule 50 mg PO TID PRN PRN (Reason: allergic reaction) Qty: 30 0RF famotidine 20 MG tablet 20 mg PO BID Qty: 10 0RF Rx Instructions: Over the counter. twice daily for 5 days epinephrine 0.3 MG syringe 0.3 mg IM X1 PRN (Reason: Angioedema) Qty: 1 1RF Referrals / Follow Up: Shelby Broussard MD [Med Staff - Active Staff] - Within 2 Weeks (see to establish PCP care) Care Physician,No Primary [Primary Care Provider] - Disposition Disposition (needs filled in before D/C Order can be placed): Home, Self Care Charges/Coding Visit Charges Inpatient E&M: 97546 Disch Hosp >30min 12/12/22 1443 <Electronically signed by Marguerite Saucedo MD> Cosigner Signature (if applicable): CC: Dr. Marguerite Saucedo MD; No Primary Care Physician~ Signed [facility] Work Phone: Discharge summary Author Marguerite [facility] December 12, 2022 1:43pm Note Date/Time December 12, 2022 1:4 3pm [facility] Medical Records Department [address] [place] [address] Instructions for Home/Discharge Instructions 12/12/22 1343 MR#: [id number] Acct: [id number] Name: MARIE WAGNER Rep #:[id number] : 1975 47 From: Marguerite Saucedo MD PCP: Care Physician,No Primary Status :ADM IN Discharge Instructions Diet Discharge Diet: Low fat / Low cholesterol Activity Weight Bearing Status: Weight bearing as tolerated Dressing / Incision Call your doctor if you observe: Shortness of breath, Dizziness and Swelling in the ankles Follow Up Care Test Results: Test results from this visit will be discussed in further detail at your follow- up appointment, if applicable. Discharge Plan Admission Admit Date/Time: 12/09/22 16:41 Primary Reason for Your Visit: acute alcohol withdrawal Attending Provider: Marguerite Saucedo Primary Care Provider: Care Physician,No Primary Consulting Providers: Hector Bravo; Yelitza Wagner Instructions Patient Instructions: Alcoholism: Getting Help, Alcohol Withdrawal: What to Expect Discharge Orders/Prescriptions Prescriptions: New potassium chloride 20 mEq tablet extended release 20 meq PO DAILY Qty: 20 0RF amlodipine 10 mg tablet 10 mg PO DAILY Qty: 30 1RF Continued prednisone 20 MG tablet 60 mg PO DAILY Qty: 15 0RF diphenhydramine HCl 25 MG capsule 50 mg PO TID PRN PRN (Reason: allergic reaction) Qty: 30 0RF famotidine 20 MG tablet 20 mg PO BID Qty: 10 0RF Rx Instructions: Over the counter. twice daily for 5 days epinephrine 0.3 MG syringe 0.3 mg IM X1 PRN (Reason: Angioedema) Qty: 1 1RF Referrals / Follow Up: Shelby Broussard MD [Med Staff - Active Staff] - Within 2 Weeks (see to establish PCP care) Care Physician,No Primary [Primary Care Provider] - Disposition Disposition (needs filled in before D/C Order can be placed): Home, Self Care 12/12/22 1343<Electronically signed by Marguerite Saucedo MD>Marguerite Saucedo MD CC: Dr. Yelitza Wagner MD; Dr. Hector Bravo MD; No Primary Care Physician ~ Signed [facility] Work Phone: Discharge summary Author Foreign Low [facility] December 14, 2022 10:45am Note Date/Time December 14, 2022 9:3 4am [facility] Medical Records Department [address] [place] [address] Emergency Department Summary 12/14/22 MR#: [id number] Acct: [id number] Name: MARIE WAGNER Rep #:[id number] : 1975 47 From: Foreign [place] PCP: Care Physician,No Primary Status :REG ER Location: ED HPI History of Present Illness Chief Complaint: Headache Informant: patient and spouse/S.O. Narrative Narrative: Presents here with significant other nontraumatic frontal headache since yesterday. States has dizziness with lightheaded symptoms. Denies chest pains or shortness of breath. No medications taken. Of note was discharged 2 days for alcohol detox. He was started on blood pressure medicine amlodipine and potassium replacement. He did not start drinking again. Currently not nauseated. No diarrhea. Allergy to penicillin denies history of gastric ulcersor kidney injury. Denies any diagnosis of cirrhosis with his alcohol history. [facility] Medical History (Updated 12/14/22 @ 10:[address] Foreign Low DO) History of alcohol abuse Hypertension Psoriasis Home Medications diphenhydramine HCl 25 mg capsule 50 mg (2 x 25 mg) PO TID PRN PRN allergic reaction #30 caps 04/17/18 [Rx Last Taken 04/23/18] epinephrine 0.3 mg/0.3 mL injection, auto-injector 0.3 mg (0.3 mL) IM X1 PRN Angioedema ##1 04/17/18 [Rx Last Taken Unknown] famotidine 20 mg tablet 20 mg PO BID ##10 04/17/18 [Rx Last Taken 04/23/18] prednisone 20 mg tablet 60 mg (3 x 20 mg) PO DAILY #15 tabs 04/17/18 [Rx Last Taken 04/23/18] amlodipine 10 mg tablet 10 mg PO DAILY #30 tabs 12/12/22 [Rx Last Taken Unknown] potassium chloride 20 mEq tablet,extended release 20 meq PO DAILY #20 tabs 12/12/22 [Rx Last Taken Unknown] Allergy/AdvReac Type Severity Reaction Status Date / Time Penicillins [PCN] Allergy Unknown Verified 12/09/22 14:23 Surgical History Hx of tooth extraction Social History Smoking Status: Current every day smoker tobacco type: cigarettes ROS ROS ED Constitutional Constitutional ED: Denies chills, fever(s) or sweats Eyes Eyes: Denies change in vision ENT ENT ED: Denies dysphagia or sore throat Cardiovascular Cardiovascular: Denies chest pain, leg edema, palpitations or racing heartbeat Respiratory/Chest Respiratory/Chest: Denies cough, dyspnea or dyspnea on exertion Gastrointestinal Gastrointestinal: Reports nausea; Denies abdominal pain, diarrhea or vomiting Genitourinary Genitourinary ED: Denies dysuria, hematuria or urinary frequency Musculoskeletal Musculoskeletal: Denies back pain, extremity pain or neck pain Integumentary Denies rash or wounds Neurologic Neurologic: Reports headache(s); Denies paresthesias or weakness EXAM Physical Exam Const Vital Signs: 12/14/22 09:15 Temperature 96.8 F L Temperature Source Temporal Pulse Rate 96 Respiratory Rate 14 Blood Pressure 154/98 H Blood Pressure Mean 116 Pulse Ox 100 Oxygen Delivery Method Room Air Positive well nourished and well developed General Appearance ED: well developed and NAD HEENT HEENT Narrative: Mild dry mucosal membranes normocephalic and atraumatic Eyes PERRL, EOMs intact bilaterally and conjunctivae normal General Eye ED: Yes normal appearance of both eyes Neck no lymphadenopathy, supple and no meningeal signs General: Negative for tenderness Chest Wall Chest: Negative for tenderness Resp normal respiratory effort and normal air movement Effort and Inspection: symmetric chest movement; Negative for respiratory distress Cardio regular rate, regular rhythm and no murmurs Peripheral Pulses: pulses 2+ throughout GI normal to inspection, nondistended, normoactive bowel sounds and non-tender Palpation: Negative for guarding or rebound tenderness present Back/Spine no CVA tenderness and no thoracic nor lumbar tenderness Extremity normal to inspection General Extremety ED: Negative for edema or tenderness General Extremity: Negative for edema Neuro oriented x3, CN's II-XII intact bilaterally and no sensory deficits noted Sensorium / Orientation: awake and alert Skin no rashes or lesions noted and no wounds MDM MDM MDM Narrative Medical decision making narrative: Interventions / MDM: Differential diagnosis: Nonspecific headache, dehydration Diagnosis considered but do not suspect: No clinical meningitis. Electrolyte abnormalities however labs normal My EKG interpretation: N/A Imaging independently reviewed and interpreted by myself: N/A External documents reviewed: Recent admission and discharge summary 2 days ago. Test considered but not ordered:N/A ED course: Patient no focal deficits no meningismus. Mild frontal headache symptoms. He had mild dry mucosal membranes. IV established fluids were given. Given IV Toradol for his headache symptoms I did check labs due to his recent hypokalemia in the hospital. This was normal at 3.6. Hemoglobin 14.8. Re-evaluation: stable with improving headache symptoms. Discussed with patient family Tylenol or ibuprofen as needed for his headaches. Outpatient follow-up. All questions were answered. Disposition discussed with patient/family/significant other: Patient and family Case discussed with consulting clinician: N/A This note was generated with [employer] dictation software. It may contain incorrect words, spelling, and punctuation that were not noted in checking the note before signing. Lab Data Attestation: I reviewed the patient's lab results. Labs: Laboratory Results - last 24 hr 12/14/22 09:27 WBC 6.9 RBC 4.13 L Hgb 14.7 Hct 42.7 MCV 103.4 H MCH 35.6 H MCHC 34.4 RDW Std Deviation 49.7 H RDW Coeff of Bob 12.9 Plt Count 100 L MPV 13.7 H Differential Comment SCANNED Sodium 139 Potassium 3.6 Chloride 105 Carbon Dioxide 32.0 Anion Gap 2 L BUN 5 L Creatinine 0.61 L Estim Creat Clear Calc 126.59 Est GFR (MDRD) Af Amer 183 Est GFR (MDRD) Non-Af 151 BUN/Creatinine Ratio 8.2 L Glucose 114 H Calcium 9.4 Discharge Plan Triage Chief Complaint: Headache ED Provider: Foreign Low Dx/Rx/DC Orders Clinical Impression: Elevated blood pressure reading, Headache Instructions: Understanding Headache Pain Prescriptions: No Action prednisone 20 MG tablet 60 mg PO DAILY Qty: 15 0RF diphenhydramine HCl 25 MG capsule 50 mg PO TID PRN PRN (Reason: allergic reaction) Qty: 30 0RF famotidine 20 MG tablet 20 mg PO BID Qty: 10 0RF Rx Instructions: Over the counter. twice daily for 5 days epinephrine 0.3 MG syringe 0.3 mg IM X1 PRN (Reason: Angioedema) Qty: 1 1RF potassium chloride 20 mEq tablet extended release 20 meq PO DAILY Qty: 20 0RF amlodipine 10 mg tablet 10 mg PO DAILY Qty: 30 1RF Primary Care Provider: Care Physician,No Primary Referrals: Shelby Broussard MD [Med Staff - Active Staff] - 1 Week Care Physician,No Primary [Primary Care Provider] - Activity Restrictions/Additional Instructions: Continue your blood pressure medicines started in the hospital. Continue your potassium replacement. Potassium 3.6 today. Use Tylenol 1 g every 6 hours as needed. Follow-up as an outpatient. Return if worsening symptoms. Disposition Disposition: Home, Self Care What to do if you have Problems For any increased pain, shortness of breath, bleeding, nausea or vomiting, chestpain, or any unexpected problems, contact your Primary Care Provider. Call [facility] ([phone]) or report to the closest Emergency Room. Call 911 if necessary. 12/14/22 1045 <Electronically signed by Foreign Santa> Cosigner Signature (if applicable): CC: No Primary Care Physician ~ Signed [facility] Work Phone: Evaluation noteNo assessment information available [facility] Work Phone: Evaluation note* Diagnosis Onset Date Resolution Status Alcohol withdrawal syndrome with perceptual disturbanc e acute [facility] Work Phone: Evaluation note* Diagnosis Onset Date Resolution Status Alcohol withdrawal syndrome with perceptual disturbance resolved Smokes cigarettes acute Plugged feeling in ear nonea ctive Screening for colon cancer n oneactive Immunization due noneactive Screening for cardiovascular condition noneactive Establishing care with new doctor, encounter for noneactive Lightheadedness noneactive Alcohol abuse noneactive Generalized weakness noneact gigi Decreased breath sounds none active Psoriasis noneactive Essential hypertension nonea ctive Mild depression noneactive Shoulder joint effusion none active Hospital discharge follow-up noneactive Hypokalemia noneactive [facility] Work Phone: Evaluation note* Diagnosis Mass of skin of right shoulder- [facility] Diagnosis Onset Date Resolution Status Alcohol withdrawal syndrome with perceptual disturbance resolved Smokes cigarettes acute Plugged feeling in ear nonea ctive Screening for colon cancer n oneactive Immunization due noneactive Screening for cardiovascular condition noneactive Establishing care with new doctor, encounter for noneactive Lightheadedness noneactive Alcohol abuse noneactive Generalized weakness noneact gigi Decreased breath sounds none active Psoriasis noneactive Essential hypertension nonea ctive Mild depression noneactive Shoulder joint effusion none active Hospital discharge follow-up noneactive Hypokalemia noneactive Smokes cigarettes acute COPD (chronic obstructive pulmonary disease) chronic Alcohol abuse noneactive Influenza vaccination declined noneactive Preoperative clearance nonea ctive Essential hypertension nonea ctive Return to work exam noneacti ve Mass of joint of right shoulder noneactive [facility] Work Phone: Evaluation note* Diagnosis Mass of skin of right shoulder- Primary Localized swelling, mass and lump, right upper [facility] 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[facility] Diagnosis Onset Date Resolution Status Admit Date Chest pain acute November 27 3:05pm [facility] Work Phone: History and physical note Author Hector Bravo [facility] December 09, 2022 4:57pm Note Date/Time December 09, 2022 4:5 7pm [facility] Medical Records Department [address] [place] [address] H&P Exam - Hospitalist 12/09/22 1643 MR#: [id number] Acct: [id number] Name: MARIE WAGNER Rep #:[id number] 4 : 1975 47 From: Hector Baumann PCP: Care Physician,No Primary Status :REG ER Location: ED HPI - General General Date of Admission: 12/09/22 Date of Service: 12/09/22 Chief Complaint: Acute alcohol withdrawal syndrome. HPI Narrative MARIE WAGNER, is a 47 M with history of chronic alcohol use disorder came to ED for acute alcohol withdrawal syndrome. Patient came to ED with his friend. Patient drinks whiskey, exact amount unclear but he states he finish 1 bottle ofwhiskey in a few days. Patient came to ED for generalized weakness malaise and diffuse tremors as per the patient. He was more confused. His last drink was yesterday night. Patient also admits visual hallucination but denies seizure. Denies any particular complaint including chest pain, shortness of breath, palpitation. He said he had been shocked/seems defibrillated/AEDmore than 10 years as he told his friend few days ago. He said it was in the hospital but right now patient is very drowsy and lethargic cannot give any history. He denies history of chronic opioid use including fentanyl, heroin, Percocet or oxycodone. Denies methamphetamine or crack cocaine. He occasionally uses marijuana. Smokes cigarettes a pack per day. Patient was given IV Ativan and phenobarbital in the ED. The patient was in ED in April 2018 for facial swelling, angioedema. [facility] Medical History Psoriasis Home Medications diphenhydramine HCl 25 mg capsule 50 mg (2 x 25 mg) PO TID PRN PRN allergic reaction #30 caps 04/17/18 [Rx Last Taken 04/23/18] epinephrine 0.3 mg/0.3 mL injection, auto-injector 0.3 mg (0.3 mL) IM X1 PRN Angioedema ##1 04/17/18 [Rx Last Taken Unknown] famotidine 20 mg tablet 20 mg PO BID ##10 04/17/18 [Rx Last Taken 04/23/18] prednisone 20 mg tablet 60 mg (3 x 20 mg) PO DAILY #15 tabs 04/17/18 [Rx Last Taken 04/23/18] Allergy/AdvReac Type Severity Reaction Status Date / Time Penicillins [PCN] Allergy Unknown Verified 12/09/22 14:23 Surgical History Hx of tooth extraction Social History Smoking Status: Current every day smoker tobacco type: cigarettes ROS ROS Narrative 14 system ROS unobtainable as patient is drowsy lethargic, obtunded. Patient had IV Ativan and phenobarbital in ED for acute alcohol withdrawal syndrome Review of Systems ROS Unobtainable: due to encephalopathy Vital Signs Vital Signs Vital Signs: 12/09/22 14:23 Temperature 97.5 F L Temperature Source Temporal Pulse Rate 106 H Respiratory Rate 16 Blood Pressure 162/111 H Blood Pressure Mean 128 Pulse Ox 99 Weight Weight: 130 lb Body Mass Index (BMI) 21.6 Physical Exam Narrative General: Lethargy, wakes up on verbal command. Obtunded. Chronic malnutrition HEENT: Eyes mostly closed. No direct eye contact. Atraumatic, PERRLA, EOMI, Normocephalic Oral: Oral mucosa dry. No Gingival or Mucosal Lesions/ Ulcerations Neck: Supple, No JVD, Negative Carotid Bruits Lungs: Air entry diminished in bilateral lung bases. No crepitation/rhonchi Cardiovascular: Regular rate, Regular Rhythm, Normal S1, Normal S2, No murmurs Abdomen: Bowel Sounds Present, Soft, Non Tender, Non-Distended : No renal angle tenderness. No suprapubic tenderness. Extremities: No edema, Capillary Refill Less than 3 Seconds Skin: Small patchy psoriatic rash on right lower leg. Musculoskeletal: No Tenderness to Palpation of Joints or Extremities, mild- moderate atrophy of muscles of extremities, loss of subcutaneous fat. Neurological: Cranial nerves II-XII grossly intact, DTR 2+/4. No acute focal neurological deficit. Psych/Mental Status: Flat affect lethargy Results Lab / Micro Data 12/09/22 04:50 12/09/22 04:50 Labs: Laboratory Results - last 24 hr 12/09/22 04:50: WBC 4.8, RBC 4.25 L, Hgb 15.7, Hct 41.9, MCV 98.6 H, MCH 36.9 H, MCHC 37.5 H, RDW Std Deviation 47.3 H, RDW Coeff of Bob 13.1, Plt Count 134 L, MPV 14.2 H, Immature Gran % (Auto) 0.400, Neut % (Auto) 58.5, Lymph % (Auto) 34.2, [place] % (Auto) 6.1, Eos % (Auto) 0.2, Baso % (Auto) 0.6, Absolute Neuts (auto) 2.8, Absolute Lymphs (auto) 1.64, Nucleated RBC % 0, Sodium 143, Potassium 3.0 L, Chloride 106, Carbon Dioxide 29.0, Anion Gap 8, BUN 10, Creatinine 0.80, Estim Creat Clear Calc 96.23, Est GFR (MDRD) Af Amer 133, Est GFR (MDRD) Non-Af 110, BUN/Creatinine Ratio 12.5, Glucose 117 H, Calcium 8.7, Total Bilirubin 0.70, AST 30, ALT 27, Alkaline Phosphatase 90, Total Protein 6.5, Albumin 3.6, Globulin 2.9, Albumin/Globulin Ratio 1.2, Ethyl Alcohol 7.0 12/09/22 15:45: Ammonia 20.0 Radiology Impression Chest X-Ray 12/09/22 15:25 IMPRESSION: No acute abnormality is seen. Electronically Signed: Adair Giang MD at 15:36 EDT , Assessment & Plan Assessment/Plan (1) Alcohol withdrawal syndrome with perceptual disturbance: PLAN: Plan 1. Acute alcohol withdrawal syndrome with history of chronic alcohol use disorder, tolerance and dependence: Patient is being admitted to MedSurg floor. Patient looks dehydrated therefore 1 L Ringer lactate ordered by ER physician and then 125 mill per hour. Patient on phenobarbital based order set along with other adjunctive medications as needed for alcohol withdrawal symptom control. CIWA monitor. digital strategist senior manager consulted. Twelve-lead EKG done in ED reviewed. Normal sinus rhythm 94 bpm, LAD, LAFB. Mildly sinus tachycardic in ED probably from dehydration or acute alcohol withdrawal syndrome. 2. Chronic cigarette smoking/nicotine use disorder with dependence: On nicotine patch 3. Acute encephalopathy most likely toxic encephalopathy from acute alcohol withdrawal syndrome and then IV Ativan and phenobarbital: Monitor clinically. Avoid next phenobarbital patient is more awake and responding. 4. Chronic psoriasis: Needs outpatient follow-up with employee relation manager. DVT prophylaxis, low risk. Discontinue if platelet count drops less than 50,000 or hemoglobin less than 8 g% CODE STATUS: Does not have living will/advanced directive. Full code unverified with the patient Charges/Coding Visit Charges Inpatient E&M: 34863 Init Hosp L3 12/09/22 0397 <Electronically signed by Hector Bravo MD> Cosigner Signature (if applicable): CC: Dr. Hector Bravo MD; No Primary Care Physician~ Signed [facility] Work Phone: Reason for referral (narrative)No reason for [facility] Work [facility]: Summary Purpose Family History No Family History Records Found Relationship Condition Age at Onset Recorded Date/T tara Unknown Family History?No pe rtinent history Unknown April 17, 2018 1:49pm Family History?No pe rtinent history Unknown April 17, 2018 1:49pm Relationship Condition Age at Onset Recorded Date/T tara Unknown Family History?No pe rtinent history Unknown April 17, 2018 2:49pm Family History?No pe rtinent history Unknown April 17, 2018 2:49pm Relationship Condition Age at Onset Recorded Date/T tara aunt Anemia due to blood loss Unknown aunt Malignant neoplasm Unknown uncle Malignant neoplasm Unknown Advance Directives No Advanced Directives Records Found Advance Directive Response Recorded Date/ Time Living Will No June 26 023 3:55pm Power of Surgical Physician Assistant No June 26, 2022 3:55pm Advance Directive Response Recorded Date/ Time Living Will No December 09, 2022 4:48pm Power of Surgical Physician Assistant No December 09 4:48pm Advance Directive Response Recorded Date/ Time Living Will No December 09, 2022 6:00pm Power of Surgical Physician Assistant No December 09 6:00pm Advance Directive Response Recorded Date/ Time Living Will No December 14, 2022 9:47am Power of Surgical Physician Assistant No December 14 9:47am Advance Directive Response Recorded Date/ Time Living Will No March 23 023 10:50am Power of Surgical Physician Assistant No March 23, 2023 10:50am Chief Complaint and Reason for Visit Chief Complaint DEX Chief Complaint ALCOHOL WITHDRAWAL GENERAL ILLNESS Reason for Visit Alcohol withdrawal s yndrome with perceptual disturbance Chief Complaint ALCOHOL WITHDRAWAL GENERAL ILLNESS ALCOHOL WITHDRAWAL ALCOHOL WITHDRAWAL ALCOHOL WITHDRAWAL Reason for Visit Alcohol withdrawal s yndrome with perceptual disturbance Chief Complaint ALCOHOL WITHDRAWAL GENERAL ILLNESS ALCOHOL WITHDRAWAL ALCOHOL WITHDRAWAL ALCOHOL WITHDRAWAL HEADACHE Reason for Visit Alcohol withdrawal s yndrome with perceptual disturbance Chief Complaint ALCOHOL WITHDRAWAL GENERAL ILLNESS ALCOHOL WITHDRAWAL ALCOHOL WITHDRAWAL ALCOHOL WITHDRAWAL HEADACHE EST NEW PT - PPW SENT Reason for Visit Alcohol withdrawal s yndrome with perceptual disturbance Smokes cigarettes Plugged feeling in ear Screening for colon cancer Immunization due Screening for cardiovascular condition Establishing care with new doctor, encounter for Lightheadedness Alcohol abuse Generalized weakness Decreased breath sounds Psoriasis Essential hypertension Mild depression Shoulder joint effusion Hospital discharge follow-up Hypokalemia Chief Complaint ALCOHOL WITHDRAWAL GENERAL ILLNESS ALCOHOL WITHDRAWAL ALCOHOL WITHDRAWAL ALCOHOL WITHDRAWAL HEADACHE EST NEW PT - PPW SENT R06.89 Other abnormalities of breathing R06.89 Other abnormalities of breathing GENERALIZED WEAKNESS. RX HERE Reason for Visit Alcohol withdrawal s yndrome with perceptual disturbance Smokes cigarettes Plugged feeling in ear Screening for colon cancer Immunization due Screening for cardiovascular condition Establishing care with new doctor, encounter for Lightheadedness Alcohol abuse Generalized weakness Decreased breath sounds Psoriasis Essential hypertension Mild depression Shoulder joint effusion Hospital discharge follow-up Hypokalemia Chief Complaint ALCOHOL WITHDRAWAL GENERAL ILLNESS ALCOHOL WITHDRAWAL ALCOHOL WITHDRAWAL ALCOHOL WITHDRAWAL HEADACHE EST NEW PT - PPW SENT R06.89 Other abnormalities of breathing R06.89 Other abnormalities of breathing GENERALIZED WEAKNESS. RX HERE surgery clearance weakness, dizziness Reason for Visit Alcohol withdrawal s yndrome with perceptual disturbance Smokes cigarettes Plugged feeling in ear Screening for colon cancer Immunization due Screening for cardiovascular condition Establishing care with new doctor, encounter for Lightheadedness Alcohol abuse Generalized weakness Decreased breath sounds Psoriasis Essential hypertension Mild depression Shoulder joint effusion Hospital discharge follow-up Hypokalemia Smokes cigarettes COPD (chronic obstructive pulmonary disease) Alcohol abuse Influenza vaccination declined Preoperative clearance Essential hypertension Return to work exam Mass of joint of right shoulder Chief Complaint Admit Date chk up/med discussion July 17, 2024 2 :50pm Reason for Visit Admit Date Smokes cigarettes July 17, 2024 2:5 0pm COPD (chronic obstructive pulmonary dise ase) July 17, 2024 2:50pm Depression with anxiety July 17, 2024 2:50pm Alcohol abuse July 17, 2024 2:5 0pm Rash and nonspecific skin eruption July 17, 2024 2:50pm Essential hypertension July 17, 2024 2:50pm Vitamin d deficiency July 17, 2024 2: 50pm Chief Complaint Admit Date ACUTE-CP/ED FU/STRESS TEST ORDER November 272024 3:05pm Reason for Visit Admit Date Chest pain November 27, 2024 3:05 pm Additional Source Comments (unrecognized sect ion and content) No Status Records FoundNo Status Records FoundNo Status Records FoundNo Status Records Found INFORMATION SOURCE (unrecogn ized section and content) DATE CREATED AUTHOR 09/30/2018 [facility] DATE CREATED AUTHOR AUTHOR'S ORGANIZ ATION 04/25/2023 [facility] DATE CREATED AUTHOR AUTHOR'S ORGANIZ ATION 11/28/2024 [facility] DATE CREATED AUTHOR AUTHOR'S ORGANIZ ATION 12/14/2024 [facility] Care Teams (unrecognized sec tion and content) Team Status: Active Member Role Status Dates No Primary Care Physician Family Provider Active No Primary Care Physician Primary Care Provider Active Team Status: Inactive Member Role Status Dates No Primary Care Physician Primary Care Provider Active Dr. Nabil Parker , DO Emergency Provider Active Team Status: Active Member Role Status Dates No Primary Care Physician Primary Care Provider Active Dr. Eufemia Patiño , DO Emergency Provider Active Dr. Hector Bravo MD Attending Provider Active Team Status: Active Member Role Status Dates No Primary Care Physician Primary Care Provider Active Dr. Eufemia Patiño DO Emergency Provider Active Dr. Hector Bravo MD Admit Provider, Attending Provi gayle Active Team Status: Active Member Role Status Dates No Primary Care Physician Primary Care Provider Active Dr. Eufemia Patiño DO Emergency Provider Active Dr. Hector Bravo MD Admit Provider, Other Provider Active Dr. Yelitza Wagner MD Attending Provider, Other Provid er Active Team Status: Active Member Role Status Dates No Primary Care Physician Primary Care Provider Active Dr. Eufemia Patiño DO Emergency Provider Active Dr. Hector Bravo MD Admit Provider, Other Provider Active Dr. Marguerite Saucedo MD Attending Provider, Other Prov ider Active Dr. Yelitza Wagner MD Other Provider Active Team Status: Inactive Member Role Status Dates No Primary Care Physician Primary Care Provider Active Dr. Eufemia Patiño DO Emergency Provider Active Dr. Hector Bravo MD Admit Provider, Other Provider Active Dr. Marguerite Saucedo MD Attending Provider Active Dr. Yelitza Wagner MD Other Provider Active Team Status: Inactive Member Role Status Dates No Primary Care Physician Primary Care Provider Active Dr. Foreign Low DO Emergency Provider Active Team Status: Active Member Role Status Dates No Primary Care Physician Family Provider Active Dr. Honey Garza MD Primary Care Provider Active Team Status: Inactive Member Role Status Dates No Primary Care Physician Primary Care Provider, Refer ring Provider Active Dr. Honey Garza MD Attending Provider Active Team Status: Inactive Member Role Status Dates No Primary Care Physician Primary Care Provider Active Dr. Foreign Low DO Attending Provider, Emergency Provide r Active Team Status: Inactive Member Role Status Dates Dr. Honey Garza MD Primary Care Pro vider, Attending Provider, Referring Provider Active Team Status: Active Member Role Status Dates Dr. Honey Garza MD Primary Care Pro vider, Referring Provider, Other Provider Active Dr. Pierre Garvey MD Attending Provider Active Team Status: Active Member Role Status Dates Dr. Honey Garza MD Primary Care Pro vider, Attending Provider, Referring Provider Active Team Status: Inactive Member Role Status Dates Dr. Honey Garza MD Primary Care Provider Active DONTAE Dill Attending Provider Active Supervisor [employer] Relationship Specialty Start Date End Date [facility], [facility] [address] [place] [address] PCP - General 03/01/23 Team Status: Inactive Member Role Status Dates Dr. 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 Honey Garza MD Primary Care Provider Active Start: July 17, 2024 End: July 17, 2024 Dr. Honey Garza MD Attending Provider Active Start: July 17, 2024 End: July 17, 2024 Dr. Honey Garza MD Referring Provider Active Start: July 17, 2024 End: July 17, 2024 Team Status: Inactive Member Role Status Dates Dr. Honey Garza MD Primary Care Provider Active Start: July 24, 2024 End: July 24, 2024 Dr. Honey Garza MD Attending Provider Active Start: July 24, 2024 End: July 24, 2024 Dr. Honey Garza MD Referring Provider Active Start: July 24, 2024 End: July 24, 2024 Team Status: Active Member Role/Relationship Status Dates No Primary Care Physician Family Provider Active Dr. Honey Garza MD Primary Care Provider Active Team Status: Inactive Member Role/Relationship Status Dates Dr. Honey Garza MD Primary Care Provider Active Start: November 27, 2024 End: November 27, 2024 Dr. Honey Garza MD Referring Provider Active Start: November 27, 2024 End: November 27, 2024 Allen DIGGS PA Attending Provider Active St art: November 27, 2024 End: November 27, 2024 Goals (unrecognized section and content) Goals may be documented in a n alternate sectionGoals may be documented in an alternate sectionGoals may be documented in an alternate sectionGoals may be documented in an alternate section Reason for Visit (unrecogniz ed section and content) Reason Comments New Patient Right upper extremit y mass/Dr Marybeth Vázquez Specialty Diagnoses / Procedures Referred By Contraheem t Referred To Contact Diagnoses Localized swelling, mass and lump, right upper limb Right shoulder mass Procedures CO EXC TUMOR SOFT TISSUE SHOULDER SUBFASCIAL 5 CM/> RESECTION SHOULDER MASS RIGHT, FROZEN SECTION Niranjan Kaufman MD [address] [facility] [place] [address] [place] [address] [facility] [address] [place] [address] Referral ID Status Reason Start Date Expiration Date Visits Re quested Visits Authorized [id number] 1 1 Reason Comments Post-op Marginal excision of Right shoulder mass-14 cm and subcutaneous lipomatous lesion Scheduled Active and Recently Administ ered Medications (unrecognized section and content) Medication Order 04/02/2023 04/03/2023 04/04/2023 acetaminophen (Tylenol) tablet 1,000 mg (COMPLETED) 1,000 mg, Oral, Once, On Tue04/04/23 at 0615, For 1 dose, Preprocedure, Maximum dose of acetaminophen is 4000 mg from all sources in 24 hours. Do not administer if patient has taken tylenol <4 hours earlier. Do not give if contraindicated ie. patient has active liver disease or cirrhosis. 0640 (Given - Provid er: Stacy Cano RN) clindamycin in D5W (Cleocin) IVPB 600 mg (COMPLETED) 600 mg, IntraVENous, at 100 mL/hr, Administer over 30 Minutes, Once, On Tue04/04/23 at 0615, For 1 dose, Preprocedure, Administer within 1 hour prior to Incision. premix bag, Suspected Indication (Select all that apply): Surgical Prophylaxis 0738 (Given - Provid er: Ijeoma Hurd APRN - DIRECTOR INDEX)0905 (Anesthesia Volume Adjustment - Provider: Elier Gomez CRNA) famotidine (Pepcid) tablet 20 mg (COMPLETED) 20 mg, Oral, Once, On Tue04/04/23 at 0615, For 1 dose, Preprocedure 0640 (Given - Provid er: Stacy Cano RN) gabapentin (Neurontin) capsule 100 mg 100 mg, [...] HR is 60 or greater. If beta derek is contraindicated (HR less than 60, heart [...] HR is 60 or greater. If beta derek is contraindicated (HR less than 60, heart [...] BE BASED ON THE PRIMARY CLINICAL RECORDS. [facility]. provides no warranty or guarantee of the accuracy or completeness of information in this document.
[2024-12-21 10:22] LABS: AST(SGOT) 14 U/L (<=37); Alanine Aminotransfer ALT/SGPT 7 U/L (<=46); Albumin, Serum 4.2 g/dL (3.5-5.0); Alkaline Phosphatase 96 U/L (40-129); Anion Gap 10 (5-15); BUN 12 mg/dL (4-19); BUN/Creat Ratio 15.1 RATIO (10-20); Calcium,Total 9.5 mg/dL (7.6-11.0); Carbon Dioxide 26.6 mmol/L (21.0-32.0); Chloride 104 mmol/L (98-108); Cholesterol 158 mg/dL (<=200); Globulin 2.2 g/dL (2.2-4.2); Glucose 86 mg/dL (70-99); Low Density Lipoprotein Calc. 100 mg/dL; Potassium 3.9 mmol/L (3.3-5.1); Triglycerides 77 mg/dL; Very Low Density Lipoprotein 15 mg/dL (5-40); cholesterol:hdl ratio screen 3.69
--- NOTE | 2024-12-21 18:42 | STRESSREP ---
Stress Test Report Exercise myocardial perfusion stress test. 49-year-old man with a history of chest pain. Stress protocol: Resting EKG demonstrates sinus rhythm with a rate of 54 bpm resting blood pressure is 142/84 mmHg. The patient exercised according to the regular Pierre protocol for a total duration of 7 minutes and 30 seconds attaining a maximum heart rate of 151 bpm which was 87% of maximum predicted heart rate; the maximum workload was 10.1 metabolic equivalents. At rest there were no ST or T wave changes noted to suggest ischemia and at peak exercise upsloping ST changes only were noted which did not meet the criteria for ischemia. No clinical angina was noted the test was terminated due to the target heart rate being achieved/fatigue. The peak blood pressure was 156/78 mmHg. Rate-pressure product was 19,008. Myocardial perfusion protocol. 12 mCi of technetium 99m sestamibi was injected at rest. The patient exercised according to regular Pierre protocol for total duration of 7-1/2 minutes and at peak exercise 35.2 mCi of technetium 99m sestamibi was injected stress images were obtained stress and rest images were reconstructed in comparing the short axis vertical long and horizontal long axis. Gated images were also obtained. Perfusion SPECT analysis: Review of the stress images demonstrate normal uptake of tracer noted in all areas of the myocardium. There is mild reduction of uptake noted in the anteroseptal wall. The resting images similarly demonstrate normal uptake of tracer noted in all areas of the myocardium. The above suggests likely anterior septal ischemia but the incomplete left bundle branch block can account for this as well. Gated SPECT analysis: The gated ejection fraction is 63%. Conclusion: Mildly abnormal exercise myocardial perfusion stress test at a high workload. Mild anteroseptal ischemia cannot be completely excluded
== END | disposition home or self-care (01) ==
LOC: CVS 06:31
PROVIDERS: PCP Internal Medicine; Referring Provider Physician Assistant; Visit Provider Physician Assistant
DX: R07.9 Chest pain, unspecified (principal); I10 Essential (primary) hypertension
CPT/HCPCS: 36415; 78452; 80053; 80061; 93005; 93017; A9500; A4216

== ENCOUNTER → 2025-03-11 | Outpatient (CLI) | payer BC, SELFPAY | END | disposition home or self-care (01) | LOC: CVS 13:48 | PROVIDERS: PCP Internal Medicine; Referring Provider Internal Medicine Cardiovascular Disease; Visit Provider Internal Medicine Cardiovascular Disease | DX: R07.89 Other chest pain (principal); F17.200 Nicotine dependence, unspecified, uncomplicated | CPT/HCPCS: 93306 ==

== ENCOUNTER → 2025-03-29 | Outpatient (CLI) | payer BC, SELFPAY ==
--- NOTE | 2025-03-29 12:55 | CT_ITS ---
PROCEDURE: LIMITED CHEST CT CARDIAC ONLY 03/29/2025 REASON FOR EXAM: ABN STRESS TECHNIQUE: Procedure Code: [id number] Modality: CT Procedure: LIMITED CHEST CT CARDIAC ONLY One or more dose reduction techniques were used (e.g., Automated exposure control, adjustment of the mA and/or kV according to patient size, use of iterative reconstruction technique). RADIATION DOSE SUMMARY: DLP: 1098.28 mGycm COMPARISON: AP chest 03/23/2023. CT/Limited Chest CT Cardiac Only IMPRESSION: Limited imaging of the lungs demonstrates no acute process. No pleural effusion or pneumothorax is seen in visualized areas. No adenopathy is noted. The visualized upper abdomen demonstrates no significant abnormality. Reading Location: [id number]
[2025-03-29 12:59] VITALS: BP 149/87; PULSE 65; RESP 16; O2SAT 99
[2025-03-29 13:07] VITALS: PULSE 68
[2025-03-29] MEDS: Nitroglycerin SL (ED/IMG/CATH) 0.4 MG TABLET SL (13:07)
[2025-03-29 13:15] VITALS: BP 128/73; PULSE 70; RESP 16; O2SAT 99
--- NOTE | 2025-03-29 18:14 | CCTA.WCONT ---
CCTA w/Cont Coronary Arteries Date of Study:: 03/29/25 Chest pain Coronary Calcium Scoring: High-resolution Computed Tomographic imaging of the chest was performed on [03/29/2025], with particular attention paid to the coronary arteries. Intravenous contrast agent was administered per protocol and images reconstructed and displayed. LEFT MAIN CORONARY ARTERY: Arises from the left main coronary artery with no significant stenosis. It continues as a left anterior descending artery giving off a proximal diagonal vessel, a second diagonal vessel. The vessel continues through the apex of the ventricle. [] LEFT ANTERIOR DESCENDING CORONARY ARTERY: Left anterior descending artery arises from the left main coronary artery. It gives off a first diagonal vessel, a second diagonal vessel and then towards the apex of the ventricle with no significant atherosclerotic plaquing, or stenosis noted. 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 It then descends in the AV groove branch and then terminates within obtuse marginal vessel. [] RIGHT CORONARY ARTERY: Dominant right coronary artery arising from the right coronary cusp courses gives off an acute marginal branch and terminates with a posterior descending artery and posterolateral vessel. [] THORACIC AORTA: Normal size [] PULMONARY ARTERY: Normal size [] LEFT ATRIUM/APPENDAGE: [] MITRAL VALVE: [] AORTIC VALVE: Trileaflet [] LEFT VENTRICLE: [] CORONARY CALCIUM SCORE: 0 [] Findings Coronary Artery Left Main (LM): 0 Left Anterior Descending (LAD): 0 Left Circumflex (LCX): 0 Right Coronary Artery (RCA): 0 Total Agatston Score: 0 Percentile Rankin Calcium Scoring Interpretation: Different methods to categorize the overall amount of coronary plaque. 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
== END | disposition home or self-care (01) ==
LOC: CT 12:52
PROVIDERS: PCP Internal Medicine; Referring Provider Internal Medicine Cardiovascular Disease; Visit Provider Internal Medicine Cardiovascular Disease
DX: R94.39 Abnormal result of other cardiovascular function study (principal)
CPT/HCPCS: 75571; 75574; 76380; Q9967